=== PATIENT | male | born 1950 | race Caucasian/White ===

== ENCOUNTER → 2018-03-01 08:45 | Outpatient (CLI) | payer MEDICARE, OTHER, SELFPAY | PROVIDERS: Family Provider Family Medicine; PCP Family Medicine; Visit Provider Internal Medicine Cardiovascular Disease | DX: R00.2 Palpitations (principal); R00.0 Tachycardia, unspecified | CPT/HCPCS: 93225; 93226 ==

== ENCOUNTER → 2018-04-05 15:27 | Outpatient (CLI) | payer MEDICARE, OTHER, SELFPAY ==
--- NOTE | 2018-04-05 15:34 | MRI_ITS ---
STUDY: MRI THORACIC SPINE WITH AND WITHOUT CONTRAST REASON FOR EXAM: Male, 67 years old. Prostate cancer with bone metastases TECHNIQUE: 10 ml of Gadavist was administered intravenously for the contrast portion of the examination. COMPARISON: None. FINDINGS: Normal kyphosis of the thoracic spine. There is no substantial scoliosis. There is a lesion occupying much of the T7 vertebral body extending into the right pedicle consistent with metastatic disease . There is a similar-appearing lesions involving the left anterior T6 vertebral body and right transverse process of T6 as well as the posterior aspect of T8 vertebral body. No evidence for acute fracture or subluxation There is a metastasis involving the right T9 vertebral body and involving the right rib There appears to be extension of tumor into the anterior right epidural space posterior to the T7 vertebral body but no spinal stenosis T1-2, T2-3, T3-4, T4-5, T5-6, T6-7, T7-8, T8-9, T9-10, T10-11, T11-12: Normal endplates. Normal disc hydration, heights and morphology of the corresponding intervertebral discs. Normal central canal and intervertebral neural foramina at the corresponding levels. Normal visualized thoracic cord. Normal conus medullaris that terminates at T12-L1 The soft tissue structures are unremarkable. MRI/Spine Thoracic W/WO Contrast IMPRESSION: Findings consistent with multiple bone metastases. There is extension into the spinal canal at T7 but no evidence for spinal stenosis Electronically Signed: Du Collins MD at 21:52 EDT , Service support ,
--- NOTE | 2018-04-05 15:34 | MRI_ITS ---
STUDY: MRI LUMBAR SPINE WITH AND WITHOUT CONTRAST REASON FOR EXAM: Male, 67 years old. Prostate CA WITH BONE METS, C/O L SIDED BACK PAIN SACRAL PAIN TECHNIQUE: Standardized fat and water weighted pulse sequences were obtained in the sagittal and axial planes. 10 ml of Gadavist contrast material was administered for the contrast portion of the examination. COMPARISON: None FINDINGS: Normal lumbar lordosis. There is a lower lumbar dextro scoliosis. Normal conus medullaris that terminates at the T12-L1 level. There is retrolisthesis at L2-3. There is loss of disc height and disc desiccation at all lumbar levels. Vertebral body heights are maintained. There are multilevel Modic type II changes. In the L2 vertebral body on the left there is a 1 cm T1 and T2 low signal structure with equivocal enhancement. There are a few tiny T1 and T2 hypointense foci in the L3-L5 vertebral bodies. With the history of prostate cancer, these could represent metastases. There is multilevel facet arthropathy and ligamentum flavum hypertrophy. T12/L1: Sagittal images only were obtained. Normal. L1/2: There is a diffuse bulge larger on the right. There is mild to moderate central canal stenosis and moderate right and mild left neuroforaminal stenosis. L2/3: There is a diffuse bulge. There is mild central canal stenosis and moderate left and usrq-ai-jowjrsec right neuroforaminal stenosis. L3/4: There is a diffuse bulge larger on the left. There is mild central canal stenosis and moderate to severe left and mild right neuroforaminal stenosis. L4/5: There is a diffuse bulge larger on the left. There is no central canal stenosis. There is moderate to severe left and moderate right neuroforaminal stenosis. L5/S1: There is a mild diffuse bulge. There is no central canal stenosis. There is moderate bilateral neuroforaminal stenosis. Normal visualized sacral ala. Normal visualized paraspinous soft tissue structures. MRI/Spine Lumbar W/WO Contrast IMPRESSION: Multilevel degenerative changes, as described above. There is a lower lumbar dextro scoliosis. There is suspicion of bony metastases. L1/2: There is a diffuse bulge larger on the right. There is mild to moderate central canal stenosis and moderate right and mild left neuroforaminal stenosis. L2/3: There is a diffuse bulge. There is mild central canal stenosis and moderate left and pjmj-ro-ngyzqyfn right neuroforaminal stenosis. L3/4: There is a diffuse bulge larger on the left. There is mild central canal stenosis and moderate to severe left and mild right neuroforaminal stenosis. L4/5: There is a diffuse bulge larger on the left. There is moderate to severe left and moderate right neuroforaminal stenosis. L5/S1: There is a mild diffuse bulge. There is moderate bilateral neuroforaminal stenosis. Electronically Signed: Daisy Calderon MD at 13:04 EDT , Service support ,
[2018-04-05 15:56] LABS: CREATININE FINGERSTICK 0.8 mg/dL (0.70-1.30); EGFR FINGERSTICK > 60.0000 mL/min (>60)
== END ==
PROVIDERS: Family Provider Family Medicine; PCP Family Medicine
DX: C79.51 Secondary malignant neoplasm of bone (principal)
CPT/HCPCS: 72157; 72158; A9585; A4216

== ENCOUNTER → 2018-07-06 16:54 | Outpatient (CLI) | payer MEDICARE, OTHER, SELFPAY ==
--- NOTE | 2018-07-06 16:57 | RAD_ITS ---
STUDY: X-RAY - ABDOMEN/PELVIS REASON FOR EXAM: Male, 68 years old. Left flank pain TECHNIQUE: Two AP supine views of the abdomen and pelvis. COMPARISON: None. FINDINGS: The lung bases are out of the scntz-vj-jcjp. There is moderate stool in the colon. There is postoperative change in the right midline pelvis. There are phleboliths in the pelvis. There is a 2 cm focal sclerotic density overlying the right side of the sacrum which may represent an osteophyte versus a focal sclerotic density. There is also a rounded sclerotic density within the right side of the iliac crests. Normal soft tissue structures. There is levoscoliosis and multilevel degenerative change in the thoracolumbar spine. There is an inferior vena cava filter. RAD/Abdomen Single View IMPRESSION: Focal 9.5 mm rounded appearing sclerotic density overlying the right SI joint which may represent summation of shadows with an osteophyte versus osteoblastic lesion. Rounded focal density within the right iliac crest or superimposed over the right iliac crest. Recommend follow-up bone scan given clinical history. Degenerative change of the thoracolumbar spine. IVC filter. Constipation. Electronically Signed: Beatriz Ramos MD at 20:01 EDT Tel , Service support ,
== END ==
PROVIDERS: Family Provider Family Medicine; PCP Family Medicine; Visit Provider Urology
DX: R10.9 Unspecified abdominal pain (principal)
CPT/HCPCS: 74018

== ENCOUNTER 2018-07-14 06:00 | Day surgery (SDC) | payer MEDICARE, OTHER, SELFPAY ==
[2018-07-14] VITALS (7 sets, daily range): BP systolic 72–140; BP diastolic 47–98; PULSE 63–90; RESP 16; TEMP 36.1–36.6; O2SAT 88–99; BMI 35.4
--- NOTE | 2018-07-14 | GASB_PTH ---
PATIENT: ATTILA PELLETIER LOC: EN U#:[id number] AGE/SX: 68/M ROOM: RE07/14/[address]: Dr. Glen Treviño MD : 1950 BED: DIS: 07/14/2018 SPEC #: [id number] RECD: 07/14/18 13:13 STATUS: SCOTT RAMONA #: [id number] TAMMY: 07/14/18 00:[address]: Glen Treviño DEPT: SURGICAL PATHOLOGY RECD BY: Mauri Hernandez ENTERED: 07/14/18 13:14 SP TYPE: Gastric Bx OTHR DR: Dr. Nikolas Bennett DO Tissues: A - Gastric mucous membrane B - Gastric mucous membrane C - Esophageal mucous membrane D - Cecum, NOS E - Transverse colon Procedures: Surgery Specimen Level IV HEADER OPERATION: [place] [place] DIAGNOSIS: GERD, personal history colonic polyps TISSUE SUBMITTED: A - Antral biopsy, B - Gastric polyp biopsy, C - Distal esophagus biopsy, D - Cecal polyps, E - Proximal transverse polyps MICROSCOPIC DIAGNOSIS A. Antral biopsy: Mild gastritis. See microscopic description and comment. B. Gastric polyp, biopsy: Mild gastritis. See microscopic description and comment. C. Distal esophagus, biopsy: Fragments of squamous epithelium with minimal chronic inflammation. D. Cecal polyps, biopsy: Fragments of tubular adenoma. E. Proximal transverse colon polyps, biopsy: Fragments of tubular adenoma. SJ:naseem 07/17/18 COMMENT A & B. The results of immunohistochemistry for Helicobacter pylori will be reported separately ([id number]). B. Obvious changes consistent with polyp are not seen. MICROSCOPIC DESCRIPTION Slides are reviewed. A & B. The specimen shows fragments of gastric mucosa with chronic inflammatory cell infiltrates in the lamina propria consisting of lymphocytes and plasma cells, consistent with mild chronic gastritis. GROSS DESCRIPTION A - Received in fixative is one container labeled with the patient's name and designated antral biopsy. The specimen consists of one irregular fragment of light alas soft tissue that measures 0.4 x 0.3 x 0.1 cm. The specimen is totally submitted in one cassette. B - Received in fixative is one container labeled with the patient's name and designated gastric polyp biopsy. The specimen consists of one irregular fragment of light alas soft tissue that measures 0.4 x 0.3 x 0.1 cm. The specimen is totally submitted in one cassette. C - Received in fixative is one container labeled with the patient's name and designated distal esophagus biopsy. The specimen consists of two irregular fragments of light alas soft tissue that in aggregate measure 0.3 x 0.2 x 0.1 cm. The specimen is totally submitted in one cassette. D - Received in fixative is one container labeled with the patient's name and designated cecal polyps. The specimen consists of multiple irregular fragments of light alas soft tissue that in aggregate measure 1.5 x 0.4 x 0.1 cm. The specimen is totally submitted in one cassette. E - Received in fixative is one container labeled with the patient's name and designated proximal transverse polyps. The specimen consists of multiple irregular fragments of light alas soft tissue that in aggregate measure 1.5 x 0.4 x 0.1 cm. The specimen is totally submitted in one cassette. / SJ:rg 07/14/18 TC:1 CPT: 03381 x5
--- NOTE | 2018-07-14 | IMM_PTH ---
PATIENT: ATTILA PELLETIER LOC: EN U#:[id number] AGE/SX: 68/M ROOM: RE07/14/[address]: Dr. Glen Treviño MD : 1950 BED: DIS: 07/14/2018 SPEC #: [id number] RECD: 07/17/18 11:27 STATUS: SCOTT REReyna #: [id number] TAMMY: 07/14/18 00:[address]: Glen Treviño DEPT: IMMUNOHISTOCHEMISTRY RECD BY: Samantha Potts ENTERED: 07/17/18 11:27 SP TYPE: IMMUNO OTHR DR: Dr. Nikolas Bennett DO Tissues: A - Stomach, NOS B - Stomach, NOS Procedures: H Pylori (initial) PHYSICIAN & [place] [id number] SPECIMEN INFORMATION: Tissue Source: A - Antral biopsy, B - Gastric polyp biopsy Clinical Info: GERD, personal history colonic polyps Specimen Number: [id number] A & B CPT code: 78248 x2 METHODOLOGY: Deparaffinized sections of prefer/formalin-fixed tissue or PAP/DQ stained slides are incubated with monoclonal/polyclonal antibodies/oligonucleotide probes. Localization is made via biotin free immunoperoxidase method. Appropriate controls are performed and reacted as expected. Results on target cell population are indicated in the following table: RESULTS: ANTIBODY / CLONE RESULT Block A H Pylori (polyclonal) negative Block B H Pylori (polyclonal) negative These tests were developed and their performance characteristics determined by [facility]. They may not have been cleared or approved by the U.S. Food and Drug Administration. The FDA has determined that such clearance or approval is not necessary. INTERPRETATION: A. Antral biopsy: Negative for Helicobacter pylori organisms. B. Gastric polyp, biopsy: Negative for Helicobacter pylori organisms. SJ:naseem 07/18/18
--- NOTE | 2018-07-14 07:44 | OP.ENDO_ITS ---
Patient Name: Chance Medrano Procedure Date: 07/14/2018 6:56 AM Date of : 1950 Age: 68 Procedure: Upper GI endoscopy Indications: Heartburn, Esophageal reflux Providers: Glen Treviño MD Referring MD: Glen Treviño MD Medicines: See the Anesthesia note for documentation of the administered medications Complications: No immediate complications. Procedure: Pre-Anesthesia Assessment: - Prior to the procedure, a History and Physical was performed, and patient medications and allergies were reviewed. The patient's tolerance of previous anesthesia was also reviewed. The risks and benefits of the procedure and the sedation options and risks were discussed with the patient. All questions were answered, and informed consent was obtained. Prior Anticoagulants: The patient has taken Coumadin (warfarin), last dose was 1 day prior to procedure. ASA Grade Assessment: II - A patient with mild systemic disease. After reviewing the risks and benefits, the patient was deemed in satisfactory condition to undergo the procedure. After obtaining informed consent, the endoscope was passed under direct vision. Throughout the procedure, the patient's blood pressure, pulse, and oxygen saturations were monitored continuously. The gastroscope was introduced through the mouth, and advanced to the second part of duodenum. The upper GI endoscopy was accomplished without difficulty. The patient tolerated the procedure well. Scope In: 7:04:16 AM Scope Out: 7:08:38 AM Total Procedure Duration Time 0 hours 4 minutes 22 seconds Findings: LA Grade A (one or more mucosal breaks less than 5 mm, not extending between tops of 2 mucosal folds) esophagitis with no bleeding was found 40 cm from the incisors. Biopsies were taken with a cold forceps for histology. A large hiatal hernia was present. Diffuse mild inflammation characterized by erythema was found in the gastric antrum. Biopsies were taken with a cold forceps for histology. A few 6 mm sessile polyps with no bleeding and no stigmata of recent bleeding were found in the gastric fundus. The polyp was removed with a cold biopsy forceps. Resection and retrieval were complete. The examined duodenum was normal. Impression: - LA Grade A reflux esophagitis. Biopsied. - Large hiatal hernia. - Chronic gastritis. Biopsied. - A few gastric polyps. Resected and retrieved. - Normal examined duodenum. Recommendation: - Telephone my office for pathology results in 1 week. - Resume previous diet. - Continue present medications. Procedure Code(s): --- Professional --- 76268, Esophagogastroduodenoscopy, flexible, transoral; with biopsy, single or multiple Diagnosis Code(s): --- Professional --- K21.0, Gastro-esophageal reflux disease with esophagitis K44.9, Diaphragmatic hernia without obstruction or gangrene K29.50, Unspecified chronic gastritis without bleeding K31.7, Polyp of stomach and duodenum R12, Heartburn CPT copyright 2017 [employer]. All rights reserved. The codes documented in this report are preliminary and upon relaster review may be revised to meet current compliance requirements. Glen Treviño MD 07/14/2018 7:43:23 AM This report has been signed electronically. Number of Addenda: 0 Note Initiated On: 07/14/2018 6:56 AM
--- NOTE | 2018-07-14 07:49 | OP.ENDO_ITS ---
Patient Name: Chance Medrano Procedure Date: 07/14/2018 7:10 AM Date of : 1950 Age: 68 Procedure: Colonoscopy Indications: High risk colon cancer surveillance: Personal history of colonic polyps Providers: Glen Treviño MD Referring MD: Glen Treviño MD Medicines: See the Anesthesia note for documentation of the administered medications Patient Profile: Last Colonoscopy: November 2013. Complications: No immediate complications. Procedure: Pre-Anesthesia Assessment: - Prior to the procedure, a History and Physical was performed, and patient medications and allergies were reviewed. The patient's tolerance of previous anesthesia was also reviewed. The risks and benefits of the procedure and the sedation options and risks were discussed with the patient. All questions were answered, and informed consent was obtained. Prior Anticoagulants: The patient has taken Coumadin (warfarin), last dose was 1 day prior to procedure. ASA Grade Assessment: II - A patient with mild systemic disease. After reviewing the risks and benefits, the patient was deemed in satisfactory condition to undergo the procedure. After I obtained informed consent, the scope was passed under direct vision. Throughout the procedure, the patient's blood pressure, pulse, and oxygen saturations were monitored continuously. The colonoscope was introduced through the anus and advanced to the cecum, identified by appendiceal orifice and ileocecal valve. The colonoscopy was performed with moderate difficulty due to a redundant colon. Successful completion of the procedure was aided by applying abdominal pressure and performing the maneuvers documented (below) in this report. The patient tolerated the procedure well. The quality of the bowel preparation was good. Scope In: 7:11:36 AM Scope Withdrawal Time 0 hours 16 minutes 13 seconds Scope Out: 7:37:57 AM Total Procedure Duration Time 0 hours 26 minutes 21 seconds Findings: The digital rectal exam findings include internal hemorrhoids that prolapse with straining, but spontaneously regress to the resting position (Grade II). A 8 mm polyp was found in the cecum. The polyp was sessile. The polyp was removed with a hot snare. Resection and retrieval were complete. A 7 mm polyp was found in the proximal transverse colon. The polyp was sessile. The polyp was removed with a hot snare. Resection and retrieval were complete. A 9 mm polyp was found in the proximal transverse colon. The polyp was sessile. The polyp was removed with a hot snare. Resection and retrieval were complete. Multiple diverticula were found in the sigmoid colon and descending colon. There was no evidence of diverticular bleeding. Impression: - Internal hemorrhoids that prolapse with straining, but spontaneously regress to the resting position (Grade II) found on digital rectal exam. - One 8 mm polyp in the cecum, removed with a hot snare. Resected and retrieved. - One 7 mm polyp in the proximal transverse colon, removed with a hot snare. Resected and retrieved. - One 9 mm polyp in the proximal transverse colon, removed with a hot snare. Resected and retrieved. - Moderate diverticulosis in the sigmoid colon and in the descending colon. There was no evidence of diverticular bleeding. Recommendation: - Discharge patient to home. - Resume previous diet. - Repeat colonoscopy in 3 years for surveillance. - Telephone my office for pathology results in 1 week. - Continue present medications. Procedure Code(s): --- Professional --- 95377, Colonoscopy, flexible; with removal of tumor(s), polyp(s), or other lesion(s) by snare technique Diagnosis Code(s): --- Professional --- Z86.010, Personal history of colonic polyps K64.1, Second degree hemorrhoids D12.0, Benign neoplasm of cecum D12.3, Benign neoplasm of transverse colon (hepatic flexure or splenic flexure) K57.30, Diverticulosis of large intestine without perforation or abscess without bleeding CPT copyright 2017 [employer]. All rights reserved. The codes documented in this report are preliminary and upon semiconductor technician review may be revised to meet current compliance requirements. Glen Treviño MD 07/14/2018 7:48:49 AM This report has been signed electronically. Number of Addenda: 0 Note Initiated On: 07/14/2018 7:10 AM
== END 2018-07-14 08:52 | disposition home or self-care (01) ==
LOC: EN 06:01 → AC 06:02
PROVIDERS: Family Provider Family Medicine; PCP Family Medicine; Visit Provider Surgery
PROC: 0DJD8ZZ Inspection of Lower Intestinal Tract, Via Natural or Artificial Opening Endoscopic (ICD-10-PCS; CPT 45378; principal; 2018-07-14 06:55)
DX: K21.0 Gastro-esophageal reflux disease with esophagitis (principal); K29.50 Unspecified chronic gastritis without bleeding; K44.9 Diaphragmatic hernia without obstruction or gangrene; K31.7 Polyp of stomach and duodenum; Z86.010 Personal history of colon polyps; K64.1 Second degree hemorrhoids; D12.0 Benign neoplasm of cecum; D12.3 Benign neoplasm of transverse colon; K57.30 Diverticulosis of large intestine without perforation or abscess without bleeding; Q43.8 Other specified congenital malformations of intestine; I25.10 Atherosclerotic heart disease of native coronary artery without angina pectoris; J44.9 Chronic obstructive pulmonary disease, unspecified; I10 Essential (primary) hypertension; G47.31 Primary central sleep apnea; E78.00 Pure hypercholesterolemia, unspecified; M19.90 Unspecified osteoarthritis, unspecified site; I49.3 Ventricular premature depolarization; I44.0 Atrioventricular block, first degree; C61 Malignant neoplasm of prostate; C79.51 Secondary malignant neoplasm of bone; Z86.711 Personal history of pulmonary embolism; Z90.49 Acquired absence of other specified parts of digestive tract; Z79.01 Long term (current) use of anticoagulants; Z79.899 Other long term (current) drug therapy
CPT/HCPCS: 43239; 45385; 36416; 85610; 88305; 88342; J7120; A4216

== ENCOUNTER → 2018-08-22 11:21 | Outpatient (CLI) | payer MEDICARE, OTHER, SELFPAY ==
--- NOTE | 2017-08-23 | IMM_PTH ---
PATIENT: ATTILA PELLETIER LOC: [place] U#:[id number] AGE/SX: 75/M ROOM: RE08/22/[address]: Dr. Jewel Hollis MD : 1950 BED: DIS: SPEC #: [id number] RECD: 08/22/18 11:28 STATUS: SCOTT RAMONA #: [id number] TAMMY: 08/23/17 00:[address]: Jewel Hollis DEPT: IMMUNOHISTOCHEMISTRY RECD BY: Samantha Potts Tissues: F - PROSTATE LEFT Procedures: MLH-1 (add) MSH6 (add) Anti-PMS2 (add) MSH2 (initial) PHYSICIAN & INSTITUTION [place] [id number] SPECIMEN INFORMATION: Tissue Source: F - Left prostate, base, core biopsy Clinical Info: Elevated PSA Specimen Number: [id number] CPT code: 72084, 46130 x3 METHODOLOGY: Deparaffinized sections of prefer/formalin-fixed tissue or PAP/DQ stained slides are incubated with monoclonal/polyclonal antibodies/oligonucleotide probes. Localization is made via biotin free immunoperoxidase method. Appropriate controls are performed and reacted as expected. Results on target cell population are indicated in the following table: RESULTS: ANTIBODY / CLONE RESULT MLH-1 (M1) positive MSH2 (25D12) negative MSH6 (44) negative PMS2 ([id number]) positive These tests were developed and their performance characteristics determined by [facility]. They may not have been cleared or approved by the U.S. Food and Drug Administration. The FDA has determined that such clearance or approval is not necessary. INTERPRETATION: F. Left prostate, base, core biopsy: Result of Microsatellite Instability Study: Positive (loss of mismatch protein; microsatellite instability detected). Complete loss of MSH2 and MSH6. AM:naseem 08/23/18
== END ==
PROVIDERS: Visit Provider Internal Medicine Hematology & Oncology
DX: C61 Malignant neoplasm of prostate (principal)
CPT/HCPCS: 88341; 88342

== ENCOUNTER → 2018-12-21 14:42 | Outpatient (CLI) | payer MEDICARE, OTHER, SELFPAY ==
[2018-12-05 09:24] VITALS: BMI 36.0
[2018-12-21 16:54] LABS: PSA,Total- Diagnostic 0.27 ng/mL (0.0-4.0)
== END ==
PROVIDERS: Family Provider Family Medicine; PCP Family Medicine; Referring Provider Urology; Visit Provider Urology
DX: C61 Malignant neoplasm of prostate (principal)
CPT/HCPCS: 36415; 84153

== ENCOUNTER → 2019-01-05 06:31 | Outpatient (CLI) | payer MEDICARE, OTHER, SELFPAY ==
[2018-12-05 09:24] VITALS: BMI 36.0
--- NOTE | 2019-01-05 06:46 | MRI_ITS ---
STUDY: MRI LEFT ANKLE WITHOUT CONTRAST REASON FOR EXAM: Male, 68 years old. Pain. TECHNIQUE: Standardized fat and water weighted pulse sequences were obtained in all 3 orthogonal planes. COMPARISON: None. FINDINGS: Normal subcutis adipose space. There is posterior tibialis tendinosis, tenosynovitis, and partial intrasubstance distal tendon tear. There is tenosynovitis of the flexor digitorum longus tendon sheath, without a tendinosis or tendon tear. There is tenosynovitis of the flexor hallucis longus tendon sheath, with pooling of fluid in the Knot of Dav, which may be acting as an entrapping lesion upon the plantar cutaneous nerves. Normal peroneus longus and brevis tendons. Normal tibialis anterior tendon. Normal extensor hallucis longus tendon. Normal extensor digitorum longus tendons. Normal Achilles tendon and teno-osseous insertion. There is thickening of the central cord of the plantar fascia, without a plantar fasciitis or plantar fascial tear, consistent with plantar fascial degeneration. There is a plantar calcaneal spur, but without cancellous marrow edema. Normal intrinsic muscles of the rearfoot. Normal distal tibiofibular syndesmotic ligamentous complex. Normal lateral ligamentous complex. Normal subtalar ligaments and sinus tarsi. Normal deltoid ligamentous complexes. Normal plantar calcaneonavicular (spring) ligament. There is a joint effusion of the tibiotalar articulation . Normal talar dome. There is a joint effusion of the posterior subtalar articulation with capsular distension. There is spurring and a joint effusion of the talonavicular articulation with capsular distension. There is 2.2 cm ganglion adjacent to the tarsal sinus, series 7 image 10/05. Normal calcaneocuboid articulation. Normal navicular-cuneiform articulations. MRI/Lower Ext Joint Only (Routine) IMPRESSION: Tenosynovitis with partial intrasubstance tear of the tibialis posterior. Tenosynovitis of the flexor tendons with fluid at the knot of Dav. Tibiotalar and subtalar and talonavicular joint effusions including ganglion at the anterior aspect. Electronically Signed: Ruben Tirado MD at 8:25 EDT , Service support ,
== END ==
PROVIDERS: Family Provider Family Medicine; PCP Family Medicine; Referring Provider Podiatrist Foot & Ankle Surgery; Visit Provider Podiatrist Foot & Ankle Surgery
DX: M21.42 Flat foot [pes planus] (acquired), left foot (principal)
CPT/HCPCS: 73721

== ENCOUNTER → 2019-01-30 10:29 | Outpatient (CLI) | payer MEDICARE, OTHER, SELFPAY ==
[2018-12-05 09:24] VITALS: BMI 36.0
--- NOTE | 2019-01-30 10:32 | US_ITS ---
PROCEDURES: ULTRASOUND AORTA REASON FOR EXAM: Male, 68 years old. Family history of abdominal aortic aneurysm. Screening. TECHNIQUE: Ultrasound evaluation of the aorta was performed with real-time and static langford-scale imaging. COMPARISON: None. FINDINGS: There is atherosclerotic plaque formation of the abdominal aorta. Aorta measures: Proximal 2.2 cm. Middle 2 cm. Distal 1.7 cm. Aorta measure transversely: Proximal 2.4 cm. Middle 1.9 cm. Distal 1.9 cm. There is normal color flow throughout the aorta. There is normal waveform and velocity. Right iliac artery measures: 1.3 cm. Right iliac artery measure transversely: 1.2 cm. Left iliac artery measures: 1.5 cm. Left iliac artery measure transversely: 1.5 cm. There is no demonstrated aneurysm.. US/Aorta IMPRESSION: Atherosclerotic changes of the abdominal aorta without aneurysm. Electronically Signed: Dav Guallpa DO at 17:40 EDT Tel [phone], Service support ,
== END ==
PROVIDERS: Family Provider Family Medicine; PCP Family Medicine; Referring Provider Family Medicine; Visit Provider Family Medicine
DX: I10 Essential (primary) hypertension (principal); Z13.6 Encounter for screening for cardiovascular disorders; Z82.49 Family history of ischemic heart disease and other diseases of the circulatory system
CPT/HCPCS: 76775

== ENCOUNTER → 2019-03-26 | Outpatient (CLI) | payer MEDICARE, OTHER, SELFPAY ==
[2018-12-05 09:24] VITALS: BMI 36.0
--- NOTE | 2019-03-26 15:20 | CT_ITS ---
STUDY: CT ABDOMEN AND PELVIS WITHOUT CONTRAST REASON FOR EXAM: Male, 68 years old. Hematuria. Right flank pain. RADIATION DOSAGE (If Supplied By Facility): CTDIvol = ( 14.80 ) mGy, DLP = ( 881.46 ) mGycm TECHNIQUE: Transaxial images were obtained from the dome of the diaphragm to the symphysis pubis without oral contrast, and without intravenous contrast. Sagittal and coronal images were reconstructed. Individualized dose optimization techniques were used for this CT. COMPARISON: None. FINDINGS: There are chronic interstitial fibrotic changes of the lung bases. There are coronary artery calcifications. Normal liver. There is non-visualization of the gallbladder, which may be secondary to either contraction or a prior cholecystectomy. Normal spleen. There is diffuse atrophy of the pancreas. Normal bilateral adrenal glands. Bilateral renal cysts measuring up to 2.2 cm on the right and 3.6 cm on the left. There is no hydronephrosis.. There is a small hiatal hernia with wall thickening at the gastroesophageal junction. Normal small intestine. Normal colon. The appendix is visualized and appears normal. There is diffuse atherosclerotic calcification of the abdominal aorta with elongation and tortuosity, but without a demonstrated aneurysm. There is an IVC filter in place. Normal retroperitoneum. Normal urinary bladder. There is no free fluid in the abdomen or pelvis. There are fat-containing inguinal hernias. There is postoperative change in the right lower abdominal wall. There is scoliosis with degenerative change of the spine. There is sacroiliac sclerosis and spurring There is sclerosis of the right anterior acetabulum and superior pubic ramus. CT/Abdomen/Pelvis without Cont IMPRESSION: Hiatal hernia. No obstruction. Renal cysts. No stones or hydronephrosis. Electronically Signed: Ruben Tirado MD at 16:20 EDT , Service support ,
== END | disposition home or self-care (01) ==
PROVIDERS: Family Provider Family Medicine; PCP Family Medicine; Referring Provider Urology; Visit Provider Urology
DX: R31.9 Hematuria, unspecified (principal)
CPT/HCPCS: 74176

== ENCOUNTER → 2019-03-27 | Outpatient (CLI) | payer MEDICARE, OTHER, SELFPAY ==
[2018-12-05 09:24] VITALS: BMI 36.0
[2019-03-27 10:11] LABS: Erythrocyte Sedimentation Rate 31 mm/hr (0-20)
[2019-03-27 10:50] LABS: Vitamin B12 428 pg/mL (211-911)
[2019-03-29 16:07] LABS: Albumin 3.3 g/dL (2.9-4.4); Albumin, Ur 27.9 % (.); Alpha-1-Globulin, Ur 6.4 % (.); Alpha-1-Globulins 0.2 g/dL (0.0-0.4); Alpha-2-Globulins 0.7 g/dL (0.4-1.0); Alpha-2-Globulins, Ur 23.2 % (.); Beta Globulin, Ur 27.2 % (.); Gamma Globulin 1.2 g/dL (0.4-1.8); Gamma Globulin, Ur 15.3 % (.); Immunoglobulin A 334 mg/dL (61-437); Immunoglobulin G 1181 mg/dL (700-1600); Immunoglobulin M 131 mg/dL (20-172); M-Spike, Ur % Not Observed % (Not Observed); PROEL- TOTAL PROTEIN 6.6 g/dL (6.0-8.5); Total Protein, Ur 8.6 mg/dL (Not Estab.)
== END | disposition home or self-care (01) ==
LOC: LAB 09:09
PROVIDERS: Family Provider Family Medicine; PCP Family Medicine; Referring Provider Psychiatry & Neurology Neurology; Visit Provider Psychiatry & Neurology Neurology
DX: G62.9 Polyneuropathy, unspecified (principal); R20.0 Anesthesia of skin
CPT/HCPCS: 36415; 82607; 82784; 84165; 84166; 85652; 86334; 86335

== ENCOUNTER → 2019-04-04 | Outpatient (CLI) | payer MEDICARE, OTHER, SELFPAY ==
[2018-12-05 09:24] VITALS: BMI 36.0
--- NOTE | 2019-04-04 14:36 | NEURO ---
NCS and/or EMG Patient Report Ordering Doctor: Preet Riley DATE OF SERVICE: 04/04/19 Chance Medrano is a 68-year-old male presents for electrodiagnostic testing of the lower limbs. He has been having repeated falls and reports intermittent numbness in the lower limbs. He has been treated for cancer with chemotherapy and radiation. Electrodiagnostic findings: Peroneal motor nerve demonstrates normal distal latency amplitude and conduction velocity bilaterally. Normal tibial motor response bilaterally. Prolonged tibial and peroneal F waves are noted. Prolonged H reflex bilaterally. Absent left sural response. Absent plantar responses bilaterally. Prolonged right sural latency is noted normal superficial peroneal latency bilaterally. Needle EMG testing was not performed. Letter diagnostic impression: This is an abnormal study in the lower limbs. 1. 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 This may be secondary to chemotherapy or radiation treatments. If there are any further questions, please do not hesitate to contact me.
== END | disposition home or self-care (01) ==
LOC: PSN 12:19
PROVIDERS: Family Provider Family Medicine; PCP Family Medicine; Referring Provider Psychiatry & Neurology Neurology; Visit Provider Psychiatry & Neurology Neurology
DX: R53.1 Weakness (principal); G62.9 Polyneuropathy, unspecified
CPT/HCPCS: 95886; 95912

== ENCOUNTER 2019-05-04 12:00 | Outpatient (RCR) | payer MEDICARE, OTHER, SELFPAY ==
[2018-12-05 09:24] VITALS: BMI 36.0
--- NOTE | 2019-03-27 15:54 | HP.PTEVAL ---
Patient's Visit Information ATTILA PELLETIER is a 68 year old M referred to Physical Therapy by Preet Riley MD with a diagnosis of Gait and balance, weakness. Date of Evaluation: 03/27/19 Physical Therapist: Sridhar Turner, DPT, OCS, CSCS - Visit Plan Frequency: 2x /Week Duration: 4-6 Weeks Plan: Neurocom then up to 2x/week for 4 weeks as needed to do balance ex to address deficits(likely vestibular and weight shifting). Progress to HEp. - Subjective Findings: Been falling mostly backwards. Has to be very careful and stay off grass. Has to turn slower. Been doing this for a year, insidous onset. Has prostate CA with mets. Is on zytega for the CA. Has cane and walker but does not wish to use. Last fall was 6 weeks ago and fell 3x in a week. Sent to [facility] for this. No spinning. No lightheadedness. Does not feel overly off balance. No injuries with falls other than flare up of bad back. Hit head one time adn did MRI whcih was OK. Walking on grass is tough and sits on bottom row of bleachers due to balance. Wears L foot brace for 6 months due to foot tilt outward. - Objective No patella R knee. Walks safe today on firm flat surface, steps with two rails reciprocal but weaker on R. Trasnfers out of chair I without UE. reflexes patella and achilles 2/3. Sensation WNL to gross light touch in LE. strength LE 4/5 B. coordination reciprocal toe adn heel tap min deficits, heel to agarwal is OK. VOR is slight deficits with wobble in standing. HS adn gastroc mild tight at -30 90/90 test and 0 DF actively. - Balance Scores Functional Gait Assessment Score: 21 % Disability: 30.0000 CATSIB Score (Max score 120 seconds): 110 - Goals Goal 1:: FGA 25/30 to minimze fall risk. Goal Time Frame: 4-6 Weeks Goal 2:: Pt feel balance 50% improved and able to walk on grass with confidence Goal Time Frame: 4-6 Weeks Goal 3:: I approp HEP to minimize future problems. Goal Time Frame: 4-6 Weeks - Rehabilitation Potential Physical Therapy Diagnosis: Weakness and balance deficits. Rehabilitation Potential: Fair - Anticipated Interventions Patient/Client Instruction: Educate patient on: Condition, Plan of Care For the Purpose of:: To increase tolerance to activity/condition/position, To improve balance Therapeutic Exercise to Include: Balance training, Gait and locomotor training For the Purpose of:: To increase tolerance to activity/condition/position, To improve balance, To improve safety Thank you for the opportunity to evaluate your patient. For Medicare and Medicare HMO plans, please review the plan of care and approve it. It will need to be FAXED BACK to us at [phone] for Medicare purposes. For Medicare only, by signing this I certify the plan of care. Please let me know if there are questions or concerns regarding this plan of care. Physician Signature: Date:
--- NOTE | 2019-04-04 10:36 | HP.PTCOM ---
PT Communication Note 04/04/[address] Preet Riley MD , Thank you for the referral of Chance to [facility] for balance assessment. I have enclosed a copy of the results for your review. In general summation, he scored low on the forward weight shift excursion adn control on the Limits of Stability Test. he scored slightly low on vestibular and somatosensory portion of the Sensory Organization Test. He scored slow especially on the right leg on the Motor Control test indicating possible neuropathy. With these results in mind, I plan to see him 2x/week for 4 weeks for balance exercise instruction to address these deficits. Please do not hesitate to call if there are questions. Thank you. Sincerely, Sridhar Turner DPT, OCS, CSCS Contact Information
--- NOTE | 2019-05-04 12:57 | HP.PTREVAL ---
Preet Riley MD, It has been my pleasure to treat ATTILA PELLETIER over the last 8 visits for Gait and balance, weakness. Please see the progress note below for an update on the physical therapy plan of care! Subjective: Made some strides. Not falling over as much at home. Addressing all problems. Ankle is painful L at times intermittently. Not doing HEP. Feels about where he needs to be. Objective/Function: FGA +4, Walks with some R antalgia/weakness, needs rail for R LE on steps. Better overall. Plan Plan: f/u one month to ensure FGA still good and pt doing well. To ensure consistency of meeting goals. Goals Goal 1:: FGA 25/30 to minimze fall risk. Goal Time Frame: 4-6 Weeks Goal Progress: Goal Met Goal 2:: Pt feel balance 50% improved and able to walk on grass with confidence Goal Time Frame: 4-6 Weeks Goal Progress: Goal Met Goal 3:: I approp HEP to minimize future problems. Goal Time Frame: 4-6 Weeks Goal Progress: Goal Met Anticipated Interventions Patient/Client Instruction: Educate patient on: Condition, Plan of Care For the Purpose of:: To increase tolerance to activity/condition/position, To improve balance Therapeutic Exercise to Include: Balance training, Gait and locomotor training For the Purpose of:: To increase tolerance to activity/condition/position, To improve balance, To improve safety Please do not hesitate to contact me at [phone] by phone or if you have questions or concerns regarding this new plan of care! Sincerely, Sridhar Turner, DPT, OCS, CSCS
--- NOTE | 2019-07-05 12:12 | HP.PT.NRP ---
HP - Discharge Summary (1) - Patient Information ATTILA PELLETIER was seen in my office for initial evaluation on 03/27/19. The following Plan of Care was established for this patient: Initial Frequency: 2x /Week Initial Duration: 4-6 Weeks - Anticipated Interventions Patient/Client Instruction: Educate patient on: Condition, Plan of Care For the Purpose of:: To increase tolerance to activity/condition/position, To improve balance Therapeutic Exercise to Include: Balance training, Gait and locomotor training For the Purpose of:: To increase tolerance to activity/condition/position, To improve balance, To improve safety This patient was last seen in our office 05/04/19. Pertinent comments regarding their Physical therapy will appear below: Pt seen 8 visits POC and was to continue HEP as he was 50% improved. He was to f/u one month later but neglected to do so. At this point, it has been over two months and I will discontinue due to nonattendance. At this point I will be discontinuing this patient from physical therapy. I would be happy to see this patient again in the future if found appropriate by the physician. Thank you! Sridhar Turner, DPT, OCS, CSCS
== END 2019-05-04 19:00 | disposition home or self-care (01) ==
LOC: PT 12:00
PROVIDERS: Family Provider Family Medicine; PCP Family Medicine; Visit Provider Psychiatry & Neurology Neurology
DX: G62.9 Polyneuropathy, unspecified (principal); R29.898 Other symptoms and signs involving the musculoskeletal system
CPT/HCPCS: 97110; 97162; 97530; 97750

== ENCOUNTER → 2019-08-22 11:37 | Outpatient (CLI) | payer MEDICARE, OTHER, SELFPAY ==
[2018-12-05 09:24] VITALS: BMI 36.0
== END ==
PROVIDERS: Family Provider Family Medicine; PCP Family Medicine; Referring Provider Nurse Practitioner Family; Visit Provider Nurse Practitioner Family
DX: I49.1 Atrial premature depolarization (principal); I49.3 Ventricular premature depolarization; R00.1 Bradycardia, unspecified
CPT/HCPCS: 93225; 93226

== ENCOUNTER 2019-09-06 18:57 | Emergency (ER) | payer MEDICARE, OTHER, SELFPAY ==
[2018-12-05 09:24] VITALS: BMI 36.0
[2019-09-06 18:57] VITALS: BP 133/90; PULSE 81; RESP 16; TEMP 36.4; O2SAT 97; BMI 38.0
--- NOTE | 2019-09-06 19:44 | US_ITS ---
STUDY: VENOUS DOPPLER ULTRASOUND - LEFT LOWER EXTREMITY REASON FOR EXAM: Male, 69 years old. Calf swelling 2 days TECHNIQUE: Ultrasound evaluation of the deep vein system to include madsen-scale imaging and compression was performed. Madsen-scale imaging and Doppler sonographic evaluation, including duplex spectral analysis and qualitative color flow sonography, was performed. COMPARISON: None. FINDINGS: Common Femoral Vein: Normal compression, spontaneity and augmentation. Normal color Doppler. Common Femoral Vein/Greater Saphenous Junction: Normal compression, spontaneity and augmentation. Normal color Doppler. Deep Femoral Vein: Normal compression, spontaneity and augmentation. Normal color Doppler. Femoral Proximal: Normal compression, spontaneity and augmentation. Normal color Doppler. Femoral Middle: Normal compression, spontaneity and augmentation. Normal color Doppler. Femoral Distal: Normal compression, spontaneity and augmentation. Normal color Doppler. Popliteal Vein: Normal compression, spontaneity and augmentation. Normal color Doppler. Posterior Tibial Vein: Normal compression, spontaneity and augmentation. Normal color Doppler. Peroneal Vein: Normal compression, spontaneity and augmentation. Normal color Doppler. US/Venous Duplex Imag/Limited/Uni IMPRESSION: Normal venous Doppler ultrasound of the lower extremity. Electronically Signed: Gabino Rosario MD at 21:18 EST , Service support ,
[2019-09-06 20:35] LABS: Absolute Neutrophil Count 4.9 X10^3/uL (2.0-7.7); Basophil# 0.03 X10^3/uL; Basophil% 0.5 % (0-1); Eosinophils% 1.5 % (0-5); Hematocrit 36.8 % (40-54); Hemoglobin 12.4 g/dL (13.0-16.5); Lymphocyte % 12.3 % (19-41); Mean Corp Hgb Conc 33.7 g/dL (32-36); Mean Corpuscular Hgb 32.5 pg (27.0-32.0); Mean Corpuscular Volume 96.6 fL (80-94); Mean Platelet Vol. 9.2 fl (6.2-12.0); Monocyte# 0.62 X10^3/uL; Monocyte% 9.6 % (0-10); NRBC Flagged by Analyzer 0 % (0-5); Neutrophil # 4.91 X10^3/uL (2.7-7.7); Neutrophil % 75.8 % (47-70); Platelet Count 164 K/mm3 (150-450); RBC Distribution Width CV 13.1 % (11.6-14.6); RBC Distribution Width SD 46.8 fl (35.1-43.9); Red Blood Count 3.81 M/mm3 (4.6-6.2); White Blood Count 6.5 K/mm3 (4.4-11.0)
[2019-09-06 20:45] LABS: International Normalized Ratio 2.7; Prothrombin Time (Protime)PT. 28.8 SECONDS (11.7-14.9)
[2019-09-06 20:57] LABS: Anion Gap 9 (5-15); BUN 24 mg/dL (7-18); BUN/Creat Ratio 26.9 RATIO (10-20); Calcium,Total 8.7 mg/dL (8.5-10.1); Chloride 105 mmol/L (98-107); Creatinine, Serum 0.89 mg/dL (0.70-1.30); EST Glomerular Filtration Rate 89 mL/min (>60); Est Glom Filt Rate - Afr Amer 108 mL/min (>60); Estimated Creatinine Clearance 79.74 ml/min; Glucose 196 mg/dL (74-106); Sodium Level 140 mmol/L (136-145)
--- NOTE | 2019-09-06 21:08 | CT_ITS ---
STUDY: CT LEFT LOWER LEG LEFT REASON FOR EXAM: Male, 69 years old. Swelling left leg 2 days postknee replacement RADIATION DOSAGE (If Supplied By Facility): CTDIvol = ( 15.61 ) mGy, DLP = ( 1721.21 ) mGycm. Individualized dose optimization techniques were used for this CT.? TECHNIQUE: Standard protocol post 100 cc IV Isovue 370. COMPARISON: None. FINDINGS: Total knee arthroplasty causes local image degradation due to beam hardening artifact. Extensive vascular calcifications are noted throughout. No significant hematoma noted. Cortical margins intact. Total knee arthroplasty in anatomic alignment. Moderate suprapatellar effusion. No abnormal enhancement.. CT/Extremity Lower WITH Contrast IMPRESSION: Moderate suprapatellar effusion. Total knee arthroplasty. No significant hematoma or abscess. Electronically Signed: Gabino Rosario MD at 22:11 EST , Service support ,
[2019-09-06 21:29] VITALS: BP 130/70; BP 133/90; PULSE 80; PULSE 81; RESP 14; RESP 16; TEMP 36.1; O2SAT 98
--- NOTE | 2019-09-06 22:47 | ED.DCSUM_ITS ---
- ER Visit Summary Date of Service: 09/06/19 Chief Complaint: Pain History of Present Illness: The patient is a 69 M with left calf pain for 2 days. This came on gradually. It is severe. He has difficulty walking. The pain radiates up behind his left knee. He had an injury last week where he hit his left knee, but no other injuries. He is on Coumadin for history of clots. He is also taking doxycycline for a sore throat. Physical Examination: Afebrile and vital signs unremarkable. Left calf shows some ecchymosis. The calf is edematous and diffusely tender to palpation. Otherwise skin is unremarkable. Good range of motion. Neurovascular intact distally. Test Results: Hemoglobin 12.4, glucose 196, BUN 24, INR 2.7. Ultrasound showed no evidence of DVT. C[employer] thought that the muscle looked irregular. CT was done and showed a suprapatellar effusion and postoperative changes, but no evidence of hematoma. Emergency Department Course and Treatment: Patient declined pain medicine. We did check labs. Will INR is therapeutic. Ultrasound showed no evidence of DVT. There was concern for a hematoma the ecchymosis appears more pronounced. I suspect this is the source of his pain. I do not believe he has compartment syndrome, neck fashion/other infections. He is neurovascularly intact. I suspect that he may have this bruising from a brace that he wears. Patient was advised to rest, ice, elevate. He was given a short course of pain medicine. He has follow-up with his doctor. Treatment Plan: As above Disposition: Discharge Impression: 1. Left calf pain This note was generated with [employer] dictation software. It may contain incorrect words, spelling, and punctuation that were not noted in review of the chart zachary or to signing ED Disposition - Plan for ED Patient: Referrals: Nikolas Bennett DO [Primary Care Provider] -
--- NOTE | 2019-09-06 22:49 | ED.DEP ---
ED Disposition - Plan for ED Patient: Instructions: Medication for Pain Prescriptions: Oxycodone HCl/Acetaminophen [Percocet 5/325] 1 tab PO Q6H PRN PRN 3 Days #12 tab PRN Reason: Pain Prescription Printed Referrals: Nikolas Bennett DO [Primary Care Provider] -
[2019-09-06 22:55] VITALS: BP 128/70; PULSE 85; RESP 16; O2SAT 96
== END 2019-09-06 23:06 | disposition home or self-care (01) ==
LOC: ED 19:41
PROVIDERS: Emergency Provider Emergency Medicine; Family Provider Family Medicine; PCP Family Medicine
DX: M79.662 Pain in left lower leg (principal); S80.12XA Contusion of left lower leg, initial encounter; Z96.651 Presence of right artificial knee joint; S89.92XA Unspecified injury of left lower leg, initial encounter; X58.XXXA Exposure to other specified factors, initial encounter; Y93.9 Activity, unspecified; Y92.9 Unspecified place or not applicable; J02.9 Acute pharyngitis, unspecified; I25.10 Atherosclerotic heart disease of native coronary artery without angina pectoris; J44.9 Chronic obstructive pulmonary disease, unspecified; K21.9 Gastro-esophageal reflux disease without esophagitis; I10 Essential (primary) hypertension; Z86.2 Personal history of diseases of the blood and blood-forming organs and certain disorders involving the immune mechanism; Z85.46 Personal history of malignant neoplasm of prostate; Z86.711 Personal history of pulmonary embolism; Z79.01 Long term (current) use of anticoagulants; Z79.899 Other long term (current) drug therapy
CPT/HCPCS: 73701; 80048; 85025; 85610; 93971; 99283; J7030; Q9967; A4216

== ENCOUNTER → 2019-09-11 09:26 | Outpatient (CLI) | payer MEDICARE, OTHER, SELFPAY ==
[2019-09-11 09:26] VITALS: BMI 37.0
--- NOTE | 2019-09-11 09:27 | RAD_ITS ---
STUDY: X-RAY - CERVICAL SPINE REASON FOR EXAM: Male, 69 years old. Neck pain TECHNIQUE: AP and lateral views lateral flexion and extension view view(s) of the cervical spine were obtained. COMPARISON: None FINDINGS: There are degenerative changes of the anterior atlantoaxial articulation. Normal odontoid process. Normal cervical lordosis. Stable grade 1 retrolisthesis C3 and C4 on flexion and extension image. There is limited flexion ability. There is multi-level endplate spondylosis. There is multi-level degenerative disc disease with multilevel disc space narrowing. There are atherosclerotic vascular calcifications of the carotid arteries. There is nuchal calcification. RAD/Cerv Spine 4 or 5 Views IMPRESSION: Multilevel degenerative changes. Retrolisthesis C3 and C4 stable on flexion and extension. Limited flexion mobility. Electronically Signed: Brittany Romero MD at 2:12 EST , Service support ,
== END ==
PROVIDERS: Family Provider Family Medicine; PCP Family Medicine; Referring Provider Orthopaedic Surgery; Visit Provider Orthopaedic Surgery
DX: M54.2 Cervicalgia (principal)
CPT/HCPCS: 72050

== ENCOUNTER → 2019-09-22 07:31 | Outpatient (CLI) | payer MEDICARE, OTHER, SELFPAY ==
[2019-09-11 09:59] VITALS: BMI 37.3
--- NOTE | 2019-09-22 07:33 | MRI_ITS ---
STUDY: MRI CERVICAL SPINE WITH AND WITHOUT CONTRAST REASON FOR EXAM: Male, 69 years old. Prostate cancer and metastatic disease to the spine TECHNIQUE: Standardized fat and water weighted pulse sequences were obtained in the sagittal and axial following administration of 24cc dotarem iv. COMPARISON: Cervical spine radiograph September 11, 2019 and MR cervical spine May 11, 2011 FINDINGS: Normal foramen magnum and brainstem-cervical cord junction. Normal craniovertebral junction. Normal anterior atlantoaxial articulation. Normal odontoid process. There is reversal of the normal cervical lordosis. Normal vertebral bodies and posterior osseous elements. C2-3: Normal endplates. Normal disc height, signal and morphology. Normal central canal and narrowed right intervertebral neural foramina. C3-4: Normal endplates. Normal disc height, signal and morphology. Normal central canal and narrowed right intervertebral neural foramina. C4-5: Normal endplates. Normal disc height, signal and morphology. Normal central canal and bilateral narrowing intervertebral neural foramina. C5-6: Normal endplates. Normal disc height, signal and morphology. Normal central canal and bilateral narrowing intervertebral neural foramina. C6-7: Normal endplates. Normal disc height, signal and morphology. Normal central canal and intervertebral neural foramina. Small broad-based posterior disc marginal osteophyte. C7-T1: Normal endplates. Normal disc height, signal and morphology. Normal central canal and intervertebral neural foramina. Normal cervical cord. Normal visualized soft tissue structures. MRI/Spine Cervical W/WO Contrast IMPRESSION: No acute disease. Multilevel neural foraminal narrowing. No evidence of metastatic disease. Electronically Signed: Gabino Rosario MD at 0:02 EST , Service support ,
== END ==
PROVIDERS: Family Provider Family Medicine; PCP Family Medicine; Referring Provider Orthopaedic Surgery; Visit Provider Orthopaedic Surgery
DX: M53.82 Other specified dorsopathies, cervical region (principal); M54.2 Cervicalgia
CPT/HCPCS: 72156; A9575

== ENCOUNTER → 2019-10-04 14:40 | Outpatient (CLI) | payer MEDICARE, OTHER, SELFPAY ==
[2019-09-25 12:44] VITALS: BMI 37.3
[2019-10-04 16:32] LABS: Anion Gap 5 (5-15); BUN 20 mg/dL (7-18); BUN/Creat Ratio 19.8 RATIO (10-20); Calcium,Total 8.9 mg/dL (8.5-10.1); Chloride 102 mmol/L (98-107); Creatinine, Serum 1.01 mg/dL (0.70-1.30); EST Glomerular Filtration Rate 78 mL/min (>60); Est Glom Filt Rate - Afr Amer 94 mL/min (>60); Glucose 150 mg/dL (74-106); PSA,Total- Diagnostic 0.16 ng/mL (0.0-4.0); Potassium 3.6 mmol/L (3.5-5.1); Sodium Level 140 mmol/L (136-145)
== END ==
PROVIDERS: Family Provider Family Medicine; PCP Family Medicine; Referring Provider Urology; Visit Provider Urology
DX: C61 Malignant neoplasm of prostate (principal); M54.2 Cervicalgia
CPT/HCPCS: 36415; 80048; 84153; 97110; 97140

== ENCOUNTER → 2019-10-11 10:32 | Outpatient (CLI) | payer MEDICARE, OTHER, SELFPAY ==
[2019-10-11 10:32] VITALS: BMI 37.3
--- NOTE | 2019-10-11 10:34 | RAD_ITS ---
STUDY: X-RAY - LEFT KNEE REASON FOR EXAM: Male, 69 years old. Fall, landing on knee, this morning. Pain. TECHNIQUE: 4 view(s) of the knee. COMPARISON: None. FINDINGS: Generalized osteopenia with 3 component total knee arthroplasty in anatomic alignment with no complications identified. Lateral tilt and subluxation of the patellar component of the total knee arthroplasty. Small joint effusion. Vascular calcification. RAD/Knee 4 or More Views IMPRESSION: Osteopenia with uncomplicated 3 component total knee arthroplasty. No acute abnormality. Electronically Signed: Shaheen Knapp MD at 11:00 EST , Service support ,
== END ==
PROVIDERS: Family Provider Family Medicine; PCP Family Medicine; Referring Provider Physician Assistant; Visit Provider Physician Assistant
DX: S89.92XA Unspecified injury of left lower leg, initial encounter (principal)
CPT/HCPCS: 73564

== ENCOUNTER 2019-10-12 12:30 | Outpatient (RCR) | payer MEDICARE, OTHER, SELFPAY ==
[2019-09-11 09:59] VITALS: BMI 37.3
--- NOTE | 2019-09-18 11:17 | HP.PTEVAL ---
Patient's Visit Information ATTILA PELLETIER is a 69 year old M referred to Physical Therapy by Lisa Galvan MD with a diagnosis of NECK PAIN. Date of Evaluation: 09/18/19 Physical Therapist: Delmar Lo, PT, Cert MDT, OCS - Visit Plan Frequency: 2x /Week Duration: 3 Weeks Plan: PATIENT H/O PROSTATE CA WITH METS -REMISSION (NO MODALITIS) ALSO LEFT TSR WITH WEAKNESS RTC/DELTOID ,PLAN FOR MRI THIS SAT. PT INTERVENTIONS CERVICAL POSTURAL EX'S/STRENGTHENING,MHP CERVICAL ROM. MANUAL THERAPY - Subjective Findings: This 69 y/o male presents to physical therapy with neck pain. Patient has had neck pain for 4 years. Patient has prostrate CA with METS but in remmision. Patient plans to have MRI for neck this Tuesday,but had x-rays showed DDD. Patient pain located bilateral cervical and UT. Patient aggraveting factors sitting ,driving ,rotation neck . Alleviating factors hot shower.Patient sleeping good at night. Patient pain affects ADLS' and howework tasks. Denies parathesia/tingling. Denies tinnutus,nuasea occassional SOLARES. Patient comorbities prostrate CA with Bone remission, 7 TKR with revision due to infection,left TSR ,hernia repair. SOCIAL: single. VOCATION: RETIRED - Pain Bilateral Back Pain Intensity (Out of 10): 5 Pain Intensity Range: 10 - Objective POSTURE: mild foward posture. GAIT: normal fatuma. NEURO: denies parathesia/tingling ,reflexes C5-6-7 1/3. PALAPTION: OA/UT. AROM: WFL. MMT: biceps/triceps/wrist 4-/5,shoulder 3+/5 R ,L 3/5,RTC L 3/5. CERVICAL ROM: flexion min loss,extension mod loss,lateral flexion /rotation mod loss - Special Tests C/S Radiculapathy - Left Upper limb tension test: Negative C/S Radiculapathy - Right Upper limb tension test: Negative C/S Radiculapathy - Left Spurlings: Positive C/S Radiculapathy - Right Spurlings: Positive C/S Radiculapathy - Left Cervical distraction: Negative C/S Radiculapathy - Right Cervical distraction: Negative C/S Radiculapathy - Left Relief test: Negative C/S Radiculapathy - Right Relief test: Negative Sharp Jose: Negative Vertebral Artery Test: Negative Alar Ligament Test: Negative - Goals Goal 1:: Independant with HEP Goal Time Frame: 4-6 Weeks Goal 2:: Patient decrease pain by 60% or> to improve function. Goal Time Frame: 4-6 Weeks Goal 3:: Patient improve cervical ROM for function of recovery Goal Time Frame: 4-6 Weeks Goal 4:: Patient to improve neck owestry score by 5 points or > to improve function. Goal Time Frame: 4-6 Weeks - Rehabilitation Potential Physical Therapy Diagnosis: This 69 y/o male has cervical pain with DDD with decrease ROM ,episode of SOLARES, along with comorobities as above to include prostrate CA with METS . Rehabilitation Potential: Good - Anticipated Interventions Patient/Client Instruction: Educate patient on: Condition, Plan of Care For the Purpose of:: To decrease pain, To increase ROM, To improve muscle performance and motor function, To improve ability to perform ADL's, To increase tolerance to activity/condition/position, To improve ability of physical actions for home/community/work/leisure, To improve health of tissue, To decrease soft tissue restriction, To reduce risk of recurrence, To improve ability to perform tasks related to life management Therapeutic Exercise to Include: Strength training, Postural training, Flexibilty training, Active ROM For the Purpose of:: To decrease pain, To increase ROM, To improve muscle performance and motor function, To improve ability to perform ADL's, To increase tolerance to activity/condition/position, To improve ability of physical actions for home/community/work/leisure, To improve health of tissue, To decrease soft tissue restriction Manual Therapy Techniques to Include: Mobilization, Soft tissue mobilization Comment: CERVICAL TRACTION For the Purpose of:: To decrease pain, To increase ROM, To improve nutrient delivery to tissue, To increase oxygenation perfusion, To decrease soft tissue restriction Thermo therapy (hot pack): Yes For the Purpose of:: To increase ROM Thank you for the opportunity to evaluate your patient. For Medicare and Medicare HMO plans, please review the plan of care and approve it. It will need to be FAXED BACK to us at [phone] for Medicare purposes. For Medicare only, by signing this I certify the plan of care. Please let me know if there are questions or concerns regarding this plan of care. Physician Signature: Date:
--- NOTE | 2019-10-12 12:52 | HP.PTDCSUM ---
HP - PT D/C Summary It has been my pleasure to treat ATTILA PELLETIER under orders from Lisa Galvan MD, for the diagnosis of NECK PAIN for a total of 6 visit(s). Discharge Date: Please see the following information for a summary of their discharge status. - Subjective Subjective: Doing better ..no pian - Pain Bilateral Back Pain Intensity (Out of 10): 0 - Overall Improvement % Improvement: 90 - Objective Objective/Function: POSTURE: mild foward posture. CERVICAL ROM: flexion min loss ,lateral flexion/rotation min/mod loss,exension min/mod loss - Goals Goal 1:: Independant with HEP Goal Progress: Goal Met Goal 2:: Patient decrease pain by 60% or> to improve function. Goal Progress: Goal Met Goal 3:: Patient improve cervical ROM for function of recovery Goal Progress: Goal Met Goal 4:: Patient to improve neck owestry score by 5 points or > to improve function. Goal Progress: Goal Met - Plan Plan: D/C AND HEP - D/C Information If there are questions or concerns regarding this patient's physical therapy, please feel free to call me at [phone]. Thank you for the referral of this patient. Sincerely, Delmar Lo, PT, Cert MDT, OCS
== END 2019-10-12 19:00 | disposition home or self-care (01) ==
LOC: PT 12:30
PROVIDERS: Family Provider Family Medicine; PCP Family Medicine; Referring Provider Orthopaedic Surgery; Visit Provider Orthopaedic Surgery
DX: M54.2 Cervicalgia (principal)
CPT/HCPCS: 97110; 97140; 97162; 97530

== ENCOUNTER → 2019-10-23 13:55 | Outpatient (CLI) | payer MEDICARE, OTHER, SELFPAY ==
[2019-10-11 10:42] VITALS: BMI 37.3
[2019-10-23 17:38] LABS: Vitamin B12 417 pg/mL (211-911); Vitamin D,25 Hydroxy 34.5 ng/mL (29.95-100.01)
[2019-10-23 17:44] LABS: T4 Free Direct 1.13 ng/dL (0.76-1.46); Thyroid Stim Hormone (TSH) 0.45 uIU/mL (0.358-3.74)
[2019-10-23 17:52] LABS: Hemoglobin A1c 6.6 % (4.2-6.3)
== END ==
PROVIDERS: Family Provider Family Medicine; PCP Family Medicine; Visit Provider Family Medicine
DX: R53.83 Other fatigue (principal); R73.9 Hyperglycemia, unspecified; E55.9 Vitamin D deficiency, unspecified
CPT/HCPCS: 36415; 82306; 82607; 83036; 84439; 84443

== ENCOUNTER → 2020-01-07 07:15 | Outpatient (CLI) | payer MEDICARE, OTHER, SELFPAY ==
[2019-11-13 11:49] VITALS: BMI 37.5
--- NOTE | 2020-01-07 07:16 | ECHOCS_ITS ---
Reason For Study: CHEST PAIN Procedure This was a 2D Doppler, Color Flow transthoracic echocardiogram. Exam performed in department. Left Ventricle Normal LV size. Left ventricular systolic function is normal. The estimated ejection fraction is 65 %. No regional wall motion abnormalities noted. Right Ventricle Normal RV size. Normal systolic function. Atria Normal left atrium. Normal right atrium. Mitral Valve Normal mitral valve. Tricuspid Valve Normal tricuspid valve. Mild (1+) tricuspid valve insufficiency. Pulmonary artery systolic pressure is 30 mmHg. Aortic Valve Trisinus/trileaflet aortic valve. Pulmonic Valve Normal pulmonic valve. Great Vessels Normal aortic root. The pulmonary artery is normal size. Inferior vena cava collapse with respiration. Pericardium/Pleural No pericardial effusion. Medication Diluted definity 5.0ml given slow IV push to enhance endocardial definition. MMode/2D Measurements & Calculations LVIDd: 4.7 cm IVSd: 1.0 cm Ao root diam: 3.7 cm LVIDs: 2.8 cm LVPWd: 1.2 cm RVDd: 2.9 cm FS: 39.9 % LAV(MOD-bp): 68.1 ml LA A4 area: 22.6 cm2 LAV(MOD-bp) Indexed: 28.9 ml/m2 LAV(MOD-sp2): 59.5 ml LAV(MOD-sp4): 72.5 ml Time Measurements MV dec time: 0.27 sec Doppler Measurements & Calculations MV E max malcolm: 55.4 cm/sec Ao V2 max: 89.4 cm/sec LV V1 max: 83.1 cm/sec MV A max malcolm: 70.5 cm/sec Ao max P.2 mmHg LV V1 max P.8 mmHg MV E/A: 0.79 PA V2 max: 84.8 cm/sec TR max malcolm: 264.1 cm/sec TR max P.9 mmHg Interpretation Summary Normal LV size. Left ventricular systolic function is normal. The estimated ejection fraction is 65 %. Mild (1+) tricuspid valve insufficiency. Contrast injection was performed. Ordering Physician: Kenya Bray Referring Physician: Nikolas Bennett Performed By: Lashon Chung RDCS, RVT
[2020-01-07 10:49] LABS: Absolute Lymphocyte Count 1.38 X10^3/uL (0.83-4.51); Basophil# 0.03 X10^3/uL; Basophil% 0.5 % (0-1); Eosinophils% 1.6 % (0-5); Hematocrit 41.6 % (40-54); Lymphocyte # 1.38 X10^3/ul (4.0); Lymphocyte % 22.3 % (19-41); Mean Corp Hgb Conc 33.7 g/dL (32-36); Mean Corpuscular Volume 95.2 fL (80-94); Mean Platelet Vol. 9.2 fl (6.2-12.0); Monocyte# 0.64 X10^3/uL; Monocyte% 10.3 % (0-10); NRBC Flagged by Analyzer 0 % (0-5); Neutrophil # 4.02 X10^3/uL (2.7-7.7); Neutrophil % 64.8 % (47-70); Platelet Count 168 K/mm3 (150-450); RBC Distribution Width CV 13.1 % (11.6-14.6); RBC Distribution Width SD 45.9 fl (35.1-43.9); Red Blood Count 4.37 M/mm3 (4.6-6.2); White Blood Count 6.2 K/mm3 (4.4-11.0)
[2020-01-07 11:17] LABS: Anion Gap 6 (5-15); BUN 24 mg/dL (7-18); BUN/Creat Ratio 27.9 RATIO (10-20); Chloride 104 mmol/L (98-107); Creatinine, Serum 0.86 mg/dL (0.70-1.30); EST Glomerular Filtration Rate 93 mL/min (>60); Est Glom Filt Rate - Afr Amer 113 mL/min (>60); Glucose 109 mg/dL (74-106); Potassium 3.8 mmol/L (3.5-5.1); Sodium Level 139 mmol/L (136-145)
[2020-01-07 11:18] LABS: BNP,B-Type NATRIURETIC PEPTIDE 61.8 pg/mL (0-100)
--- NOTE | 2020-01-07 12:25 | STRESSREP ---
Stress Test Report Pharmacologic myocardial perfusion stress test. 69-year-old man with a history of minimal coronary artery disease. Stress protocol: Resting EKG demonstrates normal sinus rhythm with a rate of 67 bpm normal intervals are noted resting blood pressures 118/72. 0.4 mg of regadenoson was infused per usual protocol followed by rapid intravenous saline flush injection continuous EKG monitoring was performed. The maximum heart rate attained was 96 bpm which was 64% of maximum predicted heart rate the maximum workload was 1 metabolic equivalent. At rest there were no ST or T wave changes noted to suggest abnormal flow reserve at peak infusion nonspecific ST-T wave changes were noted with no meet the criteria for abnormal flow reserve. No clinical angina was noted. The resting blood pressure was 118/72 with a final blood pressure 138/80. The patient did experience a mild vagal reaction on injection of the stress nuclear imaging agent which resolved without incident. Myocardial perfusion protocol. 14.7 mCi of technetium 99m sestamibi was injected at rest. 0.4 mg of regadenoson was infused per usual protocol peak infusion 44.6 mCi of technetium 99m sestamibi was injected stress images were obtained stress and rest images were reconstructed and compared in the short axis vertical and horizontal long axis. Gated images were also obtained Perfusion SPECT analysis: Review of the stress images demonstrate normal uptake of tracer noted in all areas of the myocardium the resting images similar demonstrate normal uptake of tracer noted in all areas of the myocardium. No reversibility is noted to suggest ischemia no previous infarct is noted. Gated SPECT analysis: The gated ejection fraction is noted to be 78%. Conclusion: Normal pharmacologic myocardial perfusion stress test. Preserved ejection fraction
== END ==
PROVIDERS: PCP Family Medicine; Referring Provider Physician Assistant Medical; Visit Provider Physician Assistant Medical
DX: R07.9 Chest pain, unspecified (principal); R06.09 Other forms of dyspnea; R06.02 Shortness of breath
CPT/HCPCS: 36415; 78452; 80048; 83880; 85025; 93017; 93306; A9500; Q9957; A4216; C8929; J2785

== ENCOUNTER → 2020-02-15 14:02 | Outpatient (CLI) | payer MEDICARE, OTHER, SELFPAY ==
[2019-11-13 11:49] VITALS: BMI 37.5
== END ==
PROVIDERS: PCP Family Medicine; Referring Provider Family Medicine; Visit Provider Family Medicine
DX: R42 Dizziness and giddiness (principal); R00.2 Palpitations; R00.0 Tachycardia, unspecified
CPT/HCPCS: 93225; 93226

== ENCOUNTER 2020-02-17 12:24 | Inpatient (IN) | payer MEDICARE, OTHER, SELFPAY ==
[2019-11-13 11:49] VITALS: BMI 37.5
[2020-02-17] VITALS (7 sets, daily range): BP systolic 54–119; BP diastolic 44–66; PULSE 53–81; RESP 15–23; TEMP 36.1–37.4; O2SAT 93–96; BMI 37.5; BMI 39.4; BMI 39.5
--- NOTE | 2020-02-17 12:42 | EKG12_ITS ---
Test Reason : DIZZINESS Blood Pressure : / mmHG Vent. Rate : 055 BPM Atrial Rate : 055 BPM P-R Int : 260 ms QRS Dur : 114 ms QT Int : 446 ms P-R-T Axes : 046 -25 021 degrees QTc Int : 426 ms Sinus bradycardia with 1st degree A-V block Otherwise normal ECG Confirmed by STEPHANIE PACK, DUNIA ([id number]), desk editor GUME WHITLOCK ([id number]) on 02/19/2020 11:16:44 AM Referred By: BALTA Confirmed By:DUNIA BROWN MD
[2020-02-17 13:08] LABS: Absolute Neutrophil Count 6.3 X10^3/uL (2.0-7.7); Basophil# 0.03 X10^3/uL; Basophil% 0.4 % (0-1); Eosinophils% 2.5 % (0-5); Hematocrit 35.2 % (40-54); Hemoglobin 11.8 g/dL (13.0-16.5); Mean Corp Hgb Conc 33.5 g/dL (32-36); Mean Corpuscular Hgb 32.1 pg (27.0-32.0); Mean Corpuscular Volume 95.7 fL (80-94); Mean Platelet Vol. 9.2 fl (6.2-12.0); Monocyte# 0.67 X10^3/uL; Monocyte% 8.4 % (0-10); NRBC Flagged by Analyzer 0 % (0-5); Neutrophil # 6.25 X10^3/uL (2.7-7.7); Neutrophil % 78.3 % (47-70); Platelet Count 212 K/mm3 (150-450); RBC Distribution Width CV 13.1 % (11.6-14.6); RBC Distribution Width SD 45.3 fl (35.1-43.9); Red Blood Count 3.68 M/mm3 (4.6-6.2)
[2020-02-17 13:12] LABS: Prothrombin Time (Protime)PT. 30.7 SECONDS (11.7-14.9)
[2020-02-17 13:21] LABS: Anion Gap 7 (5-15); BUN 38 mg/dL (7-18); BUN/Creat Ratio 18.5 RATIO (10-20); Chloride 94 mmol/L (98-107); Creatinine, Serum 2.05 mg/dL (0.70-1.30); EST Glomerular Filtration Rate 34 mL/min (>60); Est Glom Filt Rate - Afr Amer 41 mL/min (>60); Estimated Creatinine Clearance 34.62 ml/min; Glucose 146 mg/dL (74-106); Potassium 3.1 mmol/L (3.5-5.1); Sodium Level 133 mmol/L (136-145)
[2020-02-17 13:49] LABS: Lactic Acid 2.1 mmol/L (0.4-1.9)
--- NOTE | 2020-02-17 13:56 | PCM.HP.STD ---
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 He saw his primary care doctor and had his Ativan reduced to 5 mg daily. Patient continues to have symptoms. Denied any nausea or vomiting or diarrhea or hematemesis or hematochezia. Vitals in the ED showed temperature of 97.0F, heart rate 57, blood pressure 83/53, map of 63, respiratory rate 16, SPO2 was 94% on room air. Blood work showed WBC count of 8.0, hemoglobin 11.8, platelet count 212, INR 3.0, sodium 133, potassium 3.1, creatinine is 2.05, lactic acid 2.1, troponin 0.015 Past Medical History Past Medical History (Chronic Problems): Chronic Problems (Last Reviewed 11/13/19 @ 14:[address] Bryan Otto MD) Essential (primary) hypertension (Chronic) Hyperlipidemia (Chronic) History of pulmonary embolism (Chronic) Prostate cancer metastatic to bone (Chronic) Medical History: Medical History (Last Reviewed 11/13/19 @ 14:[address] Bryan Otto MD) Essential (primary) hypertension (Chronic) I10 Hyperlipidemia (Chronic) E78.5 History of pulmonary embolism (Chronic) Z86.711 Prostate cancer metastatic to bone (Chronic) C61, C79.51 Arthritis M19.90 Atrioventricular block, first degree I44.0 COPD (chronic obstructive pulmonary disease) J44.9 GERD without esophagitis K21.9 Peripheral neuropathy G62.9 Personal history of colonic polyps Z86.010 Hypokalemia (Resolved) E87.6 History of Coumadin therapy (Inactive) Z92.29 Allergies cyclobenzaprine [From Flexeril] Allergy (Unknown, Verified 02/17/20 12:29) Unknown adhesive Allergy (Verified 02/17/20 12:29) Rash docetaxel [From Taxotere] Allergy (Verified 02/17/20 12:29) Unknown doxycycline Allergy (Verified 02/17/20 12:29) Unknown enoxaparin sodium [From Lovenox] Allergy (Verified 02/17/20 12:29) triple liver enzymes Penicillins Allergy (Verified 02/17/20 12:29) Rash enoxaparin [Enoxaparin] Adverse Reaction (Mild, Verified 02/17/20 12:29) Nausea promethazine Adverse Reaction (Verified 02/17/20 12:45) gets out of it lethargic phenergan Adverse Reaction (Severe, Uncoded 02/17/20 12:29) Drowsiness Home Medications: Ambulatory Orders Medication Instructions Recorded hydrochlorothiazide 25 mg tablet 25 mg PO QDAY tab 11/28/17 duloxetine 60 mg capsule,delayed 60 mg PO QDAY 12/01/17 release lisinopril 40 mg tablet 40 mg PO QDAY 12/01/17 hydrocortisone 10 mg tablet 20 mg PO DAILY 06/14/18 Calcium Carbonate/Vitamin D3 1 ea PO DAILY 06/27/18 [Calcium 600-Vit D3 200 Tablet] Warfarin [Coumadin ([facility])] 6 mg PO MOWEFR 06/27/18 Warfarin [Coumadin ([facility])] 8 mg PO SUTUTHSA 06/27/18 Abiraterone Acetate [Zytiga] 1,000 mg PO DAILY 07/13/18 Hydrocortisone [Cortef] 10 mg PO 1700 07/13/18 gabapentin 400 mg capsule 400 mg PO .qid cap 09/07/19 pantoprazole 40 mg tablet,delayed 40 mg PO DAILY 09/07/19 release tizanidine 4 mg capsule 4 mg PO QHS 09/11/19 amlodipine 10 mg tablet 5 mg PO DAILY #90 tab 02/13/20 Glucos Sul 2Kcl/MSM/Chond/C/Mn 1 ea PO DAILY 02/17/20 [Glucosamine Chondroitin Cap] Metoprolol Succinate [Toprol Xl] 50 mg PO QDAY 02/17/20 Surgical History: Surgical History (Last Reviewed 11/13/19 @ 14:[address] Bryan Otto MD) History of bilateral knee replacement Z96.653 History of cholecystectomy Z90.49 History of hernia surgery Z98.890, Z87.19 History of left heart catheterization Onset Date: 06/16/04 Z98.890 history of thumb replacement history of toe replacement Surgical History: cholecystectomy, herniorrhaphy, total knee arthroplasty, tonsillectomy, - - Right shoulder repair, bilateral ankle and toe replacement Psychiatric History: No pertinent psych hx Smoking Status: Never smoker - *Family History Maternal Family History: Family History (Last Reviewed 11/13/19 @ 14:[address] Bryan Otto MD) Mother Hypertension Arthritis Father COPD (chronic obstructive pulmonary disease) Arthritis Sister Hypertension History Items: Hypertension Paternal Family History: Family History (Last Reviewed 11/13/19 @ 14:[address] Bryan Otto MD) Mother Hypertension Arthritis Father COPD (chronic obstructive pulmonary disease) Arthritis Sister Hypertension History Items: Cancer - prostate cancer, Heart Disease Sibling Family History: Family History (Last Reviewed 11/13/19 @ 14:[address] Bryan Otto MD) Mother Hypertension Arthritis Father COPD (chronic obstructive pulmonary disease) Arthritis Sister Hypertension History Items: Cancer - prostate Review of Systems Constitutional: Denies: Anorexia, Chills, Fever, Malaise, Weakness, Weight Change, Fatigue Eyes: Denies: Blurred vision, Cataracts HEENT: Denies: Difficulty Hearing, Difficulty Swallowing, Head Aches, Hearing Changes, Sinus Congestion, Sinus Drainage Cardiovascular: Reports: Light Headedness. Denies: Chest Pain, Claudication, Orthopnea, Palpitations, Paroxysmal Noc. Dyspnea, Syncope Respiratory: Reports: Shortness of breath upon exertion. Denies: Cough, Hemoptysis, Shortness of breath at rest, Sputum production Gastrointestinal: Denies: Abdominal Pain, Diarrhea, Hematemesis, Hematochezia, Nausea, Vomiting Genitourinary: Denies: Dysuria, Frequency, Hematuria Musculoskeletal: Denies: Joint Pain, Joint stiffness, Joint swelling, Joint Tenderness Skin: Denies: Rash, Wounds Neurological: Denies: Difficulty swallowing, Focal weakness, Numbness, Tingling Psychiatric: Denies: Anxiety, Depression, Homicidal Ideations, Suicidal Ideations Hematologic/ Lymphatic: Denies: Easy Bruising, Easy Bleeding VTE Information - Inpt Only VTE Present on Admission: No VTE Pharm Prophylaxis ordered?: Yes - Physical Exam Vitals/I&O's: Vital Signs Temp Pulse Resp BP Pulse Ox 97.0 F L 55 L 19 H 83/55 L 95 05/03/20 12:25 02/17/20 12:25 02/17/20 12:25 02/17/20 12:25 02/17/20 12:25 Oxygen Delivery Method Room Air Weight: 118.841 kg Body Mass Index (BMI) 37.5 General: Alert, Oriented x3, Cooperative, No apparent distress, - - obese HEENT: Atraumatic, PERRLA, EOMI, Normocephalic Oral: Moist Mucosa Neck: Supple Lungs: Clear to auscultation, Normal air movement Cardiovascular: Regular rate, Regular Rhythm, Normal S1, Normal S2, No murmurs Abdomen: Bowel Sounds Present, Soft, Non Tender, Non-Distended, No Hepato-splenomegaly Extremities: No edema Skin: No rashes, No breakdown Musculoskeletal: No Tenderness to Palpation of Joints or Extremities Lymphatic: No Cervical, Supraclavicular, or Inguinal Adenopathy Neurological: Cranial nerves II-XII grossly intact, Neuro grossly intact Psych/Mental Status: Normal Affect, Appropriate Laboratory Results 02/17/20 12:50: WBC 8.0, RBC 3.68 L, Hgb 11.8 L, Hct 35.2 L, MCV 95.7 H, MCH 32.1 H, MCHC 33.5, RDW Std Deviation 45.3 H, RDW Coeff of Judi 13.1, Plt Count 212, MPV 9.2, Immature Gran % (Auto) 0.400, Neut % (Auto) 78.3 H, Lymph % (Auto) 10.0 L, Haywood % (Auto) 8.4, Eos % (Auto) 2.5, Baso % (Auto) 0.4, Absolute Neuts (auto) 6.3, Absolute Lymphs (auto) 0.80 L, Nucleated RBC % 0 02/17/20 12:50: PT 30.7 H, INR 3.0 02/17/20 12:50: Sodium 133 L, Potassium 3.1 L, Chloride 94 L, Carbon Dioxide 32.0, Anion Gap 7, BUN 38 H, Creatinine 2.05 H, Estim Creat Clear Calc 34.62, Est GFR (MDRD) Af Amer 41 L, Est GFR (MDRD) Non-Af 34 L, BUN/Creatinine Ratio 18.5, Glucose 146 H, Calcium 9.0, Troponin I < 0.015 02/17/20 12:50: Lactic Acid 2.1 H* Current Medications Sodium Chloride () 1,000 mls @ 150 mls/hr IV .Q6H40M [facility] Assessment/Plan All Active Problems (Last Reviewed 11/13/19 @ 14:[address] Bryan Otto MD) Chronic back pain (Resolved) Drug rash (Resolved) Hypokalemia (Resolved) Neutropenia (Resolved) Neutropenic fever (Resolved) 1. KELLY secondary to hypotension/dehydration/medication side effect/adrenal insufficiency Creatinine 0.86, admitted with creatinine of 2.05 Recent changes made to his medications in the outpatient resulting in hypotension We will hold hydrochlorothiazide, lisinopril, metoprolol, amlodipine Will continue on hydrocortisone 50mg IV q6h 2. Hypotension secondary to medication side effect/dehydration/adrenal insufficiency Receiving IV fluids, hydrocortisone IV Continue to monitor 3. Hypokalemia, K3.1, replaced Check in a.m. 4. Lactic acid secondary to hypotension, admitting lactic acid is 2.1, Will trend 5. Hypovolemic hyponatremia, sodium is 133, This is new for patient per review of records Continue on IV fluids 6. History of PE, on Coumadin, INR is therapeutic 7. Metastatic prostate CA, on chemotherapy 8. DVT prophylaxis -INR therapeutic, on Coumadin 9. Code status: DNR-CCA Discussed in detail with the patient explaining the various types of CODE STATUS-full code, DNR CCA, DNR CC. Patient says he does not wish to be kept on artificial support. He chose DNR CCA. Time spent discussing CODE STATUS 16 minutes Inpatient E&M: 05649 Init Hosp L3 Procedures: 22661 Advncd Care Plan 30 Min
--- NOTE | 2020-02-17 13:57 | ED.DCSUM_ITS ---
- ER Visit Summary Date of Service: 02/17/20 Chief Complaint: [Dizziness] History of Present Illness: The patient is a 69 M [presents the emergency department complaint of dizziness that started 9 days ago. Patient was seen by 1 of the primary care physicians covering for his primary care physician several days ago and had a 48-hour Holter monitor ordered as well as a decrease in his amlodipine dose from 10 mg to 5 mg. Patient states that while at home he is been having low blood pressures as well as low pulse ox intermittently into the 80s and sometimes even into the 70s. Patient does not normally wear home O2. He denies any chest pain. Has had some mild nausea. He denies any blood in stool or black tarry stool. Denies any headache. He denies any falls. Patient does have history of hypertension, high cholesterol, history of PE, prostate cancer with mets. Patient's had prior cholecystectomy.] Physical Examination: [HEENT-PERRLA, EOMI. Cranial nerves II through XII grossly intact. TMs clear. Mucous membranes moist. No adenopathy. Cardiovascular-regular rate and rhythm without murmur or ectopy Lungs-clear to auscultation, chest wall stable without crepitus or subcu emphysema Abdomen-normoactive bowel sounds, soft, nontender, no rebound or rigidity, no peritoneal signs. Extremities-intact ?4, normal range of motion, normal pulses, atraumatic] Test Results: [EKG obtained arrival shows sinus rhythm with a ventricular rate of 55 bpm with a first-degree AV block. CBC with differential showed a white of 8.0, hemoglobin 12, hematocrit 35, platelets 212. Chemistries unremarkable. BUN was 38 and creatinine 2.05. INR was 3.0. Troponin less than 0.015. Urinalysis ordered and pending] Emergency Department Course and Treatment: [Sara patient received a 500 cc fluid bolus and I ordered a repeat 1 L fluid bolus. His blood pressure did improve into the 90s after the 500 cc fluid bolus. Was discussed with hospitalist will evaluate patient for admission] Treatment Plan: [Admit] Disposition: [Admit] Impression: [Hypotension Acute kidney injury Coumadin coagulopathy] This note was generated with [employer]in[employer] software. It may contain incorrect words, spelling, and punctuation that were not noted in review of the chart prior to signing ED Disposition - Plan for ED Patient: Referrals: Nikolas Bennett DO [Primary Care Provider] -
[2020-02-17] MEDS: 0.9% Normal Saline 1,000 ML 999 ML IV (14:07)
--- NOTE | 2020-02-17 14:22 | NURSING ---
PCU PAINTSIL HYPOTENSION, ACUTE KIDNEY INJURY
[2020-02-17 17:01] LABS: Reflex Lactate? Y
[2020-02-17 18:00] LABS: Lactic Acid 1.1 mmol/L (0.4-1.9)
[2020-02-17 18:08] LABS: AST(SGOT) 21 U/L (15-37); Alanine Aminotransfer ALT/SGPT 15 U/L (16-61); Albumin, Serum 2.7 g/dL (3.2-5.0); Alkaline Phosphatase 86 U/L (45-117); Bilirubin, Direct 0.34 mg/dL (0.00-0.30); Globulin 4.3 g/dL (2.2-4.2)
[2020-02-17] MEDS: 0.9% Normal Saline 1,000 ML 125 ML IV (18:17)
[2020-02-17] MEDS: CLARIFY ORDER 1 EACH NOTE (18:19)
[2020-02-17] MEDS: Hydrocortisone Sod Succinate 100 MG/2 ML Vial 50 MG IV ×2 (18:22→23:21)
[2020-02-17 18:30] LABS: Mucous, Urine 0 SEEN /hpf (<or=2+)
[2020-02-17 18:40] LABS: Color, Urine Yellow (Yellow); Glucose, Dipstick Normal (Normal); Ketone-Dipstick Negative (Negative); Leukocyte Esterase-Dipstick 25 /ul (Negative); Nitrite-Dipstick Negative (Negative); Occult Blood-Urine 10 /ul (Negative); Protein-Dipstick 15 mg/dl (Negative); Specific Gravity, Urine 1.015 (1.002-1.030); Urine Bilirubin Dipstick Negative (Negative); Urine Clarity Sl. Cloudy (Clear); Urine Urobilinogen 1 mg/dl (Normal)
[2020-02-17 18:53] LABS: Fine Granular Cast- Urine 0-5 SEEN /lpf (0-5); Hyaline Cast 5-10 SEEN /lpf (0-5); White Cell Cast 0-5 SEEN /lpf (None Seen)
[2020-02-17 18:55] LABS: Amorphous Sediment 2+; Bacteria 2+ /hpf (None Seen); White Blood Cells 5-10 SEEN /hpf (0-5)
[2020-02-17 18:57] LABS: Red Blood Cells-Urine 0-5 SEEN /hpf (0-5)
[2020-02-17 18:58] LABS: Renal Epithelial Cells 0-5 SEEN /hpf (0-5); Squamous Epithelial Cells - UA 0-5 SEEN /hpf (0-5)
[2020-02-17] MEDS: 0.9% Saline Lock 10 ML Syringe IV (23:20)
[2020-02-18] VITALS (8 sets, daily range): BP systolic 114–150; BP diastolic 66–81; PULSE 61–86; RESP 16; TEMP 36.6–37.1; O2SAT 93–98
--- NOTE | 2020-02-18 02:38 | CPS ---
PT BROUGHT OWN CPAP FROM HOME IT IS HOOKED UP AND ON PATIENT
[2020-02-18] MEDS: Hydrocortisone Sod Succinate 100 MG/2 ML Vial 50 MG IV (05:33)
[2020-02-18] MEDS: 0.9% Saline Lock 10 ML Syringe IV ×2 (05:34→05:35)
[2020-02-18 06:06] LABS: Absolute Lymphocyte Count 0.69 X10^3/uL (0.83-4.51); Absolute Neutrophil Count 5.9 X10^3/uL (2.0-7.7); Basophil# 0.02 X10^3/uL; Basophil% 0.3 % (0-1); Hematocrit 33.7 % (40-54); Hemoglobin 11.6 g/dL (13.0-16.5); Lymphocyte # 0.69 X10^3/ul (4.0); Lymphocyte % 9.9 % (19-41); Mean Corp Hgb Conc 34.4 g/dL (32-36); Mean Corpuscular Hgb 32.3 pg (27.0-32.0); Mean Corpuscular Volume 93.9 fL (80-94); Mean Platelet Vol. 9.2 fl (6.2-12.0); Monocyte% 4.3 % (0-10); NRBC Flagged by Analyzer 0 % (0-5); Neutrophil # 5.89 X10^3/uL (2.7-7.7); Neutrophil % 84.8 % (47-70); Platelet Count 224 K/mm3 (150-450); RBC Distribution Width CV 12.4 % (11.6-14.6); RBC Distribution Width SD 42.3 fl (35.1-43.9); Red Blood Count 3.59 M/mm3 (4.6-6.2)
[2020-02-18 06:33] LABS: ALB/GLOB Ratio 0.6 RATIO (0.9-2.4); AST(SGOT) 18 U/L (15-37); Alanine Aminotransfer ALT/SGPT 14 U/L (16-61); Albumin, Serum 2.5 g/dL (3.2-5.0); Alkaline Phosphatase 82 U/L (45-117); Anion Gap 7 (5-15); BUN 27 mg/dL (7-18); BUN/Creat Ratio 25.2 RATIO (10-20); Calcium,Total 8.6 mg/dL (8.5-10.1); Chloride 102 mmol/L (98-107); Creatinine, Serum 1.07 mg/dL (0.70-1.30); EST Glomerular Filtration Rate 73 mL/min (>60); Est Glom Filt Rate - Afr Amer 88 mL/min (>60); Estimated Creatinine Clearance 66.33 ml/min; Globulin 4.3 g/dL (2.2-4.2); Glucose 130 mg/dL (74-106); Potassium 3.2 mmol/L (3.5-5.1); Protein, Total 6.8 g/dL (6.4-8.2); Sodium Level 137 mmol/L (136-145)
[2020-02-18] MEDS: ABIRATERONE ACETATE 250 MG TABLET 1000 MG PO (06:56)
[2020-02-18] MEDS: DULoxetine Hcl 60 MG Capsule PO (08:58)
[2020-02-18] MEDS: Pantoprazole Sodium 40 MG Tablet PO (08:58)
[2020-02-18 09:35] LABS: Phosphorus 3.5 mg/dL (2.5-4.9)
--- NOTE | 2020-02-18 10:41 | CASEMGMT ---
DUC GAXIOLA assessment: Face to Face with patient for initial transition planning/care coordination assessment. DUC GAXIOLA introduced self and role at [facility], pt voices understanding and consents to assessment at this time. Pt is sitting up in chair in no distress at this time. Pt is A/Ox4 at this time and answers all questions appropriately at this time. Care providers, pharmacy, and demographics verified at this time. Presentation: Postural dizziness, near syncope-intermittent low pulse ox/BP at home Admitting dx: Hypotension PCP: Sabrina Specialists: Clarita, cardio; Telma, onc; Isidro, pulm; Efrain, ortho Preferred [facility]acy: [facility] Insurance: [facility] A/B, MMO Prescription Benefit: Yes Living Will/HPOA: Pt has LW/HPOA and they are on file at [facility] at this time. Pt states that his , Monica Medrano, is HPOA. LNOK: Monica Medrano, ; Mehnaz Keita, daughter Living Arrangements: Pt states lives with in [facility] home and states no concerns at home at this time. Pt states is independent with ADL's. Transportation: Pt states drives self and states no transportation concerns at this time. DME/HHC: Pt states has the following DME: cane, grab bars, shower chair, and NIV thru [employer]. Pt states no hx of HHC or SNF in the past. Pt states no concerns with going home at time of discharge. Pt states is retired. Pt states does not smoke or drink ETOH. Pt states no further concerns/needs at this time. CM to follow for any further discharge planning/needs. Advised pt to ask for CM if any further questions/concerns/needs arise, voices understanding. Pt's states is currently on chemo pill for metastatic prostate CA and sees oncology every 3months for check up. Pt Goal: Home Plan: [place] DUC GAXIOLA
[2020-02-18] MEDS: Hydrocortisone 10 MG Tablet 20 MG PO (12:45)
--- NOTE | 2020-02-18 13:48 | PCM.PN.HOSP ---
<Abram Castelan - Last Filed: 02/18/20 13:48> Reason for Visit: hypotension Subjective: Pt resting comfortably in chair at bedside NAD. No complaints today. BP stabilized. No LH/dizziness. No CP/pressure/tightness/heaviness. No SOB. No vertigo. No LE edema. He states he feels back to his normal self. Vitals/I&O's: Vital Signs Temp Pulse Resp BP Pulse Ox 98.0 F 79 16 140/75 H 97 02/18/20 08:39 02/18/20 08:39 02/18/20 08:39 02/18/20 08:39 02/18/20 08:39 Oxygen Delivery Method Room Air Weight: 269 lb 10.005 oz Body Mass Index (BMI) 39.4 Intake and Output for Last 24 Hours 02/16/20 02/17/20 02/18/20 23:59 23:59 23:59 Intake Total 2220 / 2220 1240 / 1240 Output Total 1200 / 1200 300 / 300 Balance 1020 / 1020 940 / 940 General: Alert, Oriented x3, Cooperative HEENT: Atraumatic, PERRLA, EOMI, Normocephalic Neck: Supple, No JVD, Negative Carotid Bruits Lungs: Clear to auscultation, Normal air movement Cardiovascular: Regular rate, No murmurs Abdomen: Bowel Sounds Present, Soft, Non Tender Extremities: No edema, Capillary Refill Less than 3 Seconds Skin: No rashes, No breakdown Musculoskeletal: No Tenderness to Palpation of Joints or Extremities Neurological: Cranial nerves II-XII grossly intact Psych/Mental Status: Normal Affect, Appropriate, Alert and oriented to time, place, person, mood and affect Laboratory Results 02/17/20 12:50: Lactic Acid 2.1 H* 02/17/20 12:50: Total Bilirubin 1.00, Direct Bilirubin 0.34 H, AST 21, ALT 15 L, Alkaline Phosphatase 86, Troponin I < 0.015, Total Protein 7.0, Albumin 2.7 L, Globulin 4.3 H 02/17/20 17:21: Lactic Acid 1.1 02/17/20 18:10: Urine Color Yellow, Urine Clarity Sl. Cloudy, Urine pH 6.0, Ur Specific [place] 1.015, Urine Protein 15 H, Urine Glucose (UA) Normal, Urine Ketones Negative, Urine Occult Blood 10 H, Urine Nitrite Negative, Urine Bilirubin Negative, Urine Urobilinogen 1 H, Ur Leukocyte Esterase 25 H, Urine RBC 0-5 SEEN, Urine WBC 5-10 SEEN, Ur Squamous Epith Cells 0-5 SEEN, Ur Renal Epithelial Cell 0-5 SEEN, Amorphous Sediment 2+, Urine Bacteria 2+, Hyaline Casts 5-10 SEEN, Fine Granular Casts 0-5 SEEN, WBC Casts 0-5 SEEN, Urine Mucus 0 SEEN 02/17/20 19:58: Troponin I < 0.015 02/18/20 05:26: WBC 7.0, RBC 3.59 L, Hgb 11.6 L, Hct 33.7 L, MCV 93.9, MCH 32.3 H, MCHC 34.4, RDW Std Deviation 42.3, RDW Coeff of Judi 12.4, Plt Count 224, MPV 9.2, Immature Gran % (Auto) 0.700, Neut % (Auto) 84.8 H, Lymph % (Auto) 9.9 L, [place] % (Auto) 4.3, Eos % (Auto) 0.0, Baso % (Auto) 0.3, Absolute Neuts (auto) 5.9, Absolute Lymphs (auto) 0.69 L, Nucleated RBC % 0 02/18/20 05:26: Sodium 137, Potassium 3.2 L, Chloride 102, Carbon Dioxide 28.0, Anion Gap 7, BUN 27 H, Creatinine 1.07, Estim Creat Clear Calc 66.33, Est GFR (MDRD) Af Amer 88, Est GFR (MDRD) Non-Af 73, BUN/Creatinine Ratio 25.2 H, Glucose 130 H, Calcium 8.6, Total Bilirubin 0.70, AST 18, ALT 14 L, Alkaline Phosphatase 82, Total Protein 6.8, Albumin 2.5 L, Globulin 4.3 H, Albumin/Globulin Ratio 0.6 L 02/18/20 05:26: Phosphorus 3.5, Magnesium 2.0 Current Medications Abiraterone Acetate (Zytiga) 1,000 mg PO DAILY [facility] Last Admin: 02/18/20 06:56 Dose: 1,000 mg Documented by: Acetaminophen (Tylenol) 650 mg PO Q6H PRN PRN PRN Reason: Pain Score 1-10/Temp > 100.7 F Duloxetine HCl (Cymbalta) 60 mg PO DAILY [facility] Last Admin: 02/18/20 08:58 Dose: 60 mg Documented by: Hydrocortisone (Cortef) 20 mg PO DAILY [facility] Last Admin: 02/18/20 12:45 Dose: 20 mg Documented by: Hydrocortisone (Cortef) 10 mg PO 1700 [facility] Pantoprazole Sodium (Protonix) 40 mg PO DAILY [facility] Last Admin: 02/18/20 08:58 Dose: 40 mg Documented by: Sodium Chloride () 10 - 40 ml IV UD PRN PRN Reason: SALINE FLUSH Last Admin: 02/18/20 05:35 Dose: 10 ml Documented by: Warfarin Sodium (Coumadin (Pbkc)) 6 mg PO MoWeFr@1700 [facility] Warfarin Sodium (Coumadin (Pbkc)) 8 mg PO SuTuThSa@1700 [facility] Medical Necessity - Tobacco Use Smoking Status: Never smoker Assessment/Plan All Active Problems (Last Reviewed 11/13/19 @ 14:[address] Bryan Otto MD) Chronic back pain (Resolved) Drug rash (Resolved) Hypokalemia (Resolved) Neutropenia (Resolved) Neutropenic fever (Resolved) 1. Hypotension in the setting of chronic adrenal insufficiency - received IV hydrocortisone x4 doses. Start PO dose today and monitor pressure. Continue to hold Antihypertensives. 2. HTN - off home meds. if BP trends high may need to restarted one or more meds. For now remain off. 3. Prostate CA, with mets to bone - Pt of Dr. Hollis. Continue chemo as o/p/ 4. KELLY 2/2 hypotension - resolved. 5. Hx PE - warfarin 6. hypovolemic hyponatremia - resolved DC planning: monitor BP overnight. likely home tomorrow. This patient was seen by Abram Castelan PA-C under the supervision of Dr. Rose <Olivia Rose - Last Filed: 02/18/20 16:30> Vitals/I&O's: Vital Signs Temp Pulse Resp BP Pulse Ox 97.9 F 86 16 150/66 H 98 02/18/20 14:31 02/18/20 14:31 02/18/20 14:31 02/18/20 14:31 02/18/20 14:31 Oxygen Delivery Method Room Air Weight: 269 lb 10.005 oz Body Mass Index (BMI) 39.4 Intake and Output for Last 24 Hours 02/16/20 02/17/20 02/18/20 23:59 23:59 23:59 Intake Total 2220 / 2220 1240 / 1240 Output Total 1200 / 1200 300 / 300 Balance 1020 / 1020 940 / 940 Laboratory Results 02/17/20 12:50: Total Bilirubin 1.00, Direct Bilirubin 0.34 H, AST 21, ALT 15 L, Alkaline Phosphatase 86, Troponin I < 0.015, Total Protein 7.0, Albumin 2.7 L, Globulin 4.3 H 02/17/20 17:21: Lactic Acid 1.1 02/17/20 18:10: Urine Color Yellow, Urine Clarity Sl. Cloudy, Urine pH 6.0, Ur Specific [place] 1.015, Urine Protein 15 H, Urine Glucose (UA) Normal, Urine Ketones Negative, Urine Occult Blood 10 H, Urine Nitrite Negative, Urine Bilirubin Negative, Urine Urobilinogen 1 H, Ur Leukocyte Esterase 25 H, Urine RBC 0-5 SEEN, Urine WBC 5-10 SEEN, Ur Squamous Epith Cells 0-5 SEEN, Ur Renal Epithelial Cell 0-5 SEEN, Amorphous Sediment 2+, Urine Bacteria 2+, Hyaline Casts 5-10 SEEN, Fine Granular Casts 0-5 SEEN, WBC Casts 0-5 SEEN, Urine Mucus 0 SEEN 02/17/20 19:58: Troponin I < 0.015 02/18/20 05:26: WBC 7.0, RBC 3.59 L, Hgb 11.6 L, Hct 33.7 L, MCV 93.9, MCH 32.3 H, MCHC 34.4, RDW Std Deviation 42.3, RDW Coeff of Judi 12.4, Plt Count 224, MPV 9.2, Immature Gran % (Auto) 0.700, Neut % (Auto) 84.8 H, Lymph % (Auto) 9.9 L, [place] % (Auto) 4.3, Eos % (Auto) 0.0, Baso % (Auto) 0.3, Absolute Neuts (auto) 5.9, Absolute Lymphs (auto) 0.69 L, Nucleated RBC % 0 02/18/20 05:26: Sodium 137, Potassium 3.2 L, Chloride 102, Carbon Dioxide 28.0, Anion Gap 7, BUN 27 H, Creatinine 1.07, Estim Creat Clear Calc 66.33, Est GFR (MDRD) Af Amer 88, Est GFR (MDRD) Non-Af 73, BUN/Creatinine Ratio 25.2 H, Glucose 130 H, Calcium 8.6, Total Bilirubin 0.70, AST 18, ALT 14 L, Alkaline Phosphatase 82, Total Protein 6.8, Albumin 2.5 L, Globulin 4.3 H, Albumin/Globulin Ratio 0.6 L 02/18/20 05:26: Phosphorus 3.5, Magnesium 2.0 Current Medications Abiraterone Acetate (Zytiga) 1,000 mg PO DAILY [facility] Last Admin: 02/18/20 06:56 Dose: 1,000 mg Documented by: Acetaminophen (Tylenol) 650 mg PO Q6H PRN PRN PRN Reason: Pain Score 1-10/Temp > 100.7 F Duloxetine HCl (Cymbalta) 60 mg PO DAILY [facility] Last Admin: 02/18/20 08:58 Dose: 60 mg Documented by: Hydrocortisone (Cortef) 20 mg PO DAILY [facility] Last Admin: 02/18/20 12:45 Dose: 20 mg Documented by: Hydrocortisone (Cortef) 10 mg PO 1700 [facility] Pantoprazole Sodium (Protonix) 40 mg PO DAILY [facility] Last Admin: 02/18/20 08:58 Dose: 40 mg Documented by: Sodium Chloride () 10 - 40 ml IV UD PRN PRN Reason: SALINE FLUSH Last Admin: 02/18/20 05:35 Dose: 10 ml Documented by: Warfarin Sodium (Coumadin (Pbkc)) 6 mg PO MoWeFr@1700 [facility] Warfarin Sodium (Coumadin (Pbkc)) 8 mg PO SuTuThSa@1700 [facility] STROKE Vital Signs/Narrative: Vital Signs Temp Pulse Resp BP Pulse Ox 02/18/20 14:31 97.9 F 86 16 150/66 H 98 02/18/20 14:06 78 Assessment/Plan Patient seen by Abram Castelan PA-C under my supervision. Patient was admitted with a complaint of dizziness and weakness. He had been having low blood pressure he said his primary care doctor had reduced his dose of amlodipine and have put him on a Holter monitor. However his symptoms persisted and so he came into the ED where he was found to be hypotensive. This was thought to be medication induced as well as an element of adrenal insufficiency as patient had been taking steroids for 2 years as an adjunct to his cancer medication. Patient was placed on IV hydrocortisone and blood pressure medications were held. Was also hydrated with IV fluid. Blood pressure subsequently improved. Patient seen and examined. He had no complaints and felt much better and wanted to go home. He denied any palpitations, dizziness, shortness of breath, nausea vomiting or diarrhea. Review of symptoms otherwise negative. Labs and vitals reviewed. Home medication reviewed and reconciled. o/e: Vital Signs Temp Pulse Resp BP Pulse Ox 02/18/20 14:31 97.9 F 86 16 150/66 H 98 02/18/20 14:06 78 General: Alert, Oriented x3, Cooperative HEENT: Atraumatic, PERRLA, EOMI, Normocephalic Neck: Supple, No JVD, Negative Carotid Bruits Lungs: Clear to auscultation, Normal air movement Cardiovascular: Regular rate, No murmurs Abdomen: Bowel Sounds Present, Soft, Non Tender Extremities: No edema, Capillary Refill Less than 3 Seconds Skin: No rashes, No breakdown Musculoskeletal: No Tenderness to Palpation of Joints or Extremities Neurological: Cranial nerves II-XII grossly intact Psych/Mental Status: Normal Affect, Appropriate, Alert and oriented to time, place, person, mood and affect Plan is to take patient off stress dose of steroids and resume daily oral steroid dose. Continue holding blood pressure medications. Monitor blood pressure to see if it remained stable versus of the stress dose steroids and IV fluids. Encourage oral hydration. Fall precautions. Note, patient also has hypokalemia and this has been replaced. Will monitor. Rest as per Abram Castelan PA-C's notes which I have reviewed and endorsed. Inpatient E&M: 87376 Subs Hosp L2
--- NOTE | 2020-02-18 14:24 | CHAPLAIN ---
Type of Pastoral Visit _x__ Initial Visit ___ Follow-up Visit ___ On-call Visit ___ General Patient Visit ___ Spiritual Assessment ___ Family Conference ___ Bereavement ___ Rapid Response ___ Code Blue ___ Other (describe below) Pastoral Care Referral From _x__ Patient ___ Family ___ Nurse ___ Physician ___ Cloth Finisher ___ Carbide Operator ___ Other (describe below) Sacrament/Intervention _x__ Active listening ___ Anointing ___ Sabianism ___ Bereavement ___ Communion _x__ Macy exploration ___ ___ Life review _x__ Prayer ___ Reconciliation ___ Sacrament of Sick _x_ Supportive presence ___ Wedding ___ Other (describe below) Pastoral Comments patient is eager to talk; pt states that macy is a very important part of his life and he is an active member of [employer] macy; pt discusses how he misses ability to be involved in jewish during this time; pt has local and good family support; pt discusses his health issues
--- NOTE | 2020-02-18 14:54 | CASEMGMT ---
Patient had a Healthcare Power of Senior Materials Scientist and a Healthcare Living Will in e-chart. Copies were printed and placed in patient's e-chart. Zonia OATES
[2020-02-18] MEDS: Hydrocortisone 10 MG Tablet PO (16:35)
[2020-02-19 02:35] VITALS: BP 144/79; PULSE 70; RESP 19; TEMP 37.1; O2SAT 93
[2020-02-19 02:57] VITALS: PULSE 79
[2020-02-19 06:41] LABS: Anion Gap 4 (5-15); BUN 24 mg/dL (7-18); BUN/Creat Ratio 26.7 RATIO (10-20); Calcium,Total 8.7 mg/dL (8.5-10.1); Chloride 107 mmol/L (98-107); EST Glomerular Filtration Rate 89 mL/min (>60); Est Glom Filt Rate - Afr Amer 107 mL/min (>60); Estimated Creatinine Clearance 78.86 ml/min; Glucose 94 mg/dL (74-106); Potassium 2.9 mmol/L (3.5-5.1); Sodium Level 141 mmol/L (136-145)
[2020-02-19 06:43] LABS: International Normalized Ratio 2.7; Prothrombin Time (Protime)PT. 28.2 SECONDS (11.7-14.9)
[2020-02-19] MEDS: ABIRATERONE ACETATE 250 MG TABLET 1000 MG PO (07:31)
[2020-02-19 07:39] VITALS: BP 143/92; PULSE 85; RESP 14; TEMP 36.8; O2SAT 94
[2020-02-19 07:56] VITALS: PULSE 72
[2020-02-19] MEDS: DULoxetine Hcl 60 MG Capsule PO (09:01)
[2020-02-19] MEDS: Pantoprazole Sodium 40 MG Tablet PO (09:01)
[2020-02-19] MEDS: Potassium Chloride 10mEq/100mL 10 MEQ/100 ML IV.SOLN. 100 MEQ IV BOLUS ×4 (09:02→12:36)
[2020-02-19] MEDS: Hydrocortisone 10 MG Tablet 20 MG PO (09:02)
--- NOTE | 2020-02-19 11:27 | PCM.DC ---
You will use the following diet at home:: Cardiac Your food should be the consistency of: Regular Your liquids should be the consistency of: Regular/Thin Discharge Activity: Return to Normal Activity Additional Instructions: You will need a BMP (lab - blood test) in 3 days, call your PCP to arrange this. Allergies/Adverse Reactions: Allergies cyclobenzaprine [From Flexeril] Allergy (Unknown, Verified 02/17/20 12:29) Unknown adhesive Allergy (Verified 02/17/20 12:29) Rash docetaxel [From Taxotere] Allergy (Verified 02/17/20 12:29) Unknown doxycycline Allergy (Verified 02/17/20 12:29) Unknown enoxaparin sodium [From Lovenox] Allergy (Verified 02/17/20 12:29) triple liver enzymes Penicillins Allergy (Verified 02/17/20 12:29) Rash enoxaparin [Enoxaparin] Adverse Reaction (Mild, Verified 02/17/20 12:29) Nausea promethazine Adverse Reaction (Verified 02/17/20 12:45) gets out of it lethargic phenergan Adverse Reaction (Severe, Uncoded 02/17/20 12:29) Drowsiness Medications to take at Discharge duloxetine 60 mg capsule,delayed release 60 mg PO QDAY 12/01/17 lisinopril 40 mg tablet 40 mg PO QDAY 12/01/17 hydrocortisone 10 mg tablet 20 mg PO DAILY 06/14/18 Calcium Carbonate/Vitamin D3 [Calcium 600-Vit D3 200 Tablet] 1 ea PO DAILY 06/27/18 Warfarin [Coumadin] 6 mg PO MOWEFR 06/27/18 Warfarin [Coumadin] 8 mg PO SUTUTHSA 06/27/18 Abiraterone Acetate [Zytiga] 1,000 mg PO DAILY 07/13/18 Hydrocortisone [Cortef] 10 mg PO 1700 07/13/18 pantoprazole 40 mg tablet,delayed release 40 mg PO DAILY 09/07/19 Glucos Sul 2Kcl/MSM/Chond/C/Mn [Glucosamine Chondroitin Cap] 1 ea PO DAILY 02/17/20 Potassium Chloride [K-Dur] 20 meq PO DAILY #30 tab 02/19/20 The following prescriptions were given: Potassium Chloride [K-Dur] 20 meq PO DAILY #30 tab Transmission Status: Sent to [facility] #30 Primary Care Physician: Nikolas Bennett DO [Primary Care Provider] - Please follow up with your Primary Care Physician in: 1 week Test Results: Test results from this visit will be discussed in further detail at your follow-up appointment, if applicable. Please Follow Up With: Jewel Hollis MD When: As directed Proposed Discharge Date: 02/19/20
--- NOTE | 2020-02-19 13:26 | DS.PCM_ITS ---
<Abram Castelan - Last Filed: 02/19/20 13:26> Discharge Date and Diagnosis Date of Admission: 02/17/20 Date of Discharge: 02/19/20 - Primary Discharge Diagnosis Hypotension 2/2 polypharmacy Adrenal insufficiency KELLY 2/2 hypotension hypokalemia Prostate cancer with bone mets Hx PE HTN - Secondary Discharge Diagnosis Chronic Problems (Last Updated 02/19/20 @ 07:21 by Shaye Wright) Severe persistent asthma (Chronic) Central sleep apnea (Chronic) Essential (primary) hypertension (Chronic) Hyperlipidemia (Chronic) History of pulmonary embolism (Chronic) Prostate cancer metastatic to bone (Chronic) Hospital Course and Treatment Operations: None Procedures: None Summary of Care Provided: Hospital Course: The patient is a 69 year old M with pmhx as above notably HTN on 4 antihypertensives, adrenal insufficiency on daily hydrocortisone, and metastatic prostate cancer to the bone who presented to the ER with dizziness and low BP for about 1 week. He was found to have low BP at 83/53 and KELLY suspected 2/2 hypotension, and significant orthostatic hypotension dropping from 96/65 laying to 54/44 standing. His 4 antihypertensives were discontinued and he was admitted to the PCU on IV fluids and he was started on stress dosed IV hydrocortisone. He has resolution of his hypotension overnight. He developed signifcant hypokalemia and this was repleted. Renal function normalized. He was transitioned to PO hydrocortisone and monitored overnight. His BP was mildly elevated the following day with no further issues of hypotension or dizziness. His potassium remained low and this was repleted again. Given his hypokalemia and hypertension with his meds being held, he will restart one of the 4 antihypertensives at this time - lisinopril. He will need his BMP checked this week and follow up with his PCP in 1 week. He was discharged home in stable condition. He will also need follow up with his oncologist as previously directed. This patient was seen by Abram Castelan PA-C under the supervision of Dr. Rose. [] - Physical Exam Vitals/I&O's: Vital Signs Temp Pulse Resp BP Pulse Ox 98.3 F 72 14 143/92 H 94 02/19/20 07:39 02/19/20 07:56 02/19/20 07:39 02/19/20 07:39 02/19/20 07:39 Oxygen Delivery Method Room Air Weight: 268 lb 8.368 oz Body Mass Index (BMI) 39.4 Intake and Output for Last 24 Hours 02/17/20 02/18/20 02/19/20 23:59 23:59 23:59 Intake Total 2220 / 2220 1860 / 1860 600 / 600 Output Total 1200 / 1200 300 / 300 Balance 1020 / 1020 1560 / 1560 600 / 600 General: Alert, Oriented x3, Cooperative HEENT: Atraumatic, PERRLA, EOMI, Normocephalic Neck: Supple, No JVD, Negative Carotid Bruits Lungs: Clear to auscultation, Normal air movement Cardiovascular: Regular rate, No murmurs Abdomen: Bowel Sounds Present, Soft, Non Tender Extremities: No edema, Capillary Refill Less than 3 Seconds Skin: No rashes, No breakdown Musculoskeletal: No Tenderness to Palpation of Joints or Extremities Neurological: Cranial nerves II-XII grossly intact Psych/Mental Status: Normal Affect, Appropriate, Alert and oriented to time, place, person, mood and affect Laboratory Results 02/19/20 05:34: Sodium 141, Potassium 2.9 L, Chloride 107, Carbon Dioxide 30.0, Anion Gap 4 L, BUN 24 H, Creatinine 0.90, Estim Creat Clear Calc 78.86, Est GFR (MDRD) Af Amer 107, Est GFR (MDRD) Non-Af 89, BUN/Creatinine Ratio 26.7 H, Glucose 94, Calcium 8.7 02/19/20 05:34: PT 28.2 H, INR 2.7 Current Medications Abiraterone Acetate (Zytiga) 1,000 mg PO DAILY [facility] Last Admin: 02/19/20 07:31 Dose: 1,000 mg Documented by: Acetaminophen (Tylenol) 650 mg PO Q6H PRN PRN PRN Reason: Pain Score 1-10/Temp > 100.7 F Duloxetine HCl (Cymbalta) 60 mg PO DAILY [facility] Last Admin: 02/19/20 09:01 Dose: 60 mg Documented by: Hydrocortisone (Cortef) 20 mg PO DAILY [facility] Last Admin: 02/19/20 09:02 Dose: 20 mg Documented by: Hydrocortisone (Cortef) 10 mg PO 1700 [facility] Last Admin: 02/18/20 16:35 Dose: 10 mg Documented by: Pantoprazole Sodium (Protonix) 40 mg PO DAILY [facility] Last Admin: 02/19/20 09:01 Dose: 40 mg Documented by: Sodium Chloride () 10 - 40 ml IV UD PRN PRN Reason: SALINE FLUSH Last Admin: 02/18/20 05:35 Dose: 10 ml Documented by: Warfarin Sodium (Coumadin (Pbkc)) 6 mg PO MoWeFr@1700 [facility] Last Admin: 02/18/20 16:35 Dose: 6 mg Documented by: Warfarin Sodium (Coumadin (Pbkc)) 8 mg PO SuTuThSa@1700 [facility] Discharge Diet: Low fat/ Low Cholesterol, 2000 mg Sodium Diet Discharge Activity: Return to Normal Activity Home Medications: Medications to take at Discharge duloxetine 60 mg capsule,delayed release 60 mg PO QDAY 12/01/17 lisinopril 40 mg tablet 40 mg PO QDAY 12/01/17 hydrocortisone 10 mg tablet 20 mg PO DAILY 06/14/18 Calcium Carbonate/Vitamin D3 [Calcium 600-Vit D3 200 Tablet] 1 ea PO DAILY 06/27/18 Warfarin [Coumadin] 6 mg PO MOWEFR 06/27/18 Warfarin [Coumadin] 8 mg PO SUTUTHSA 06/27/18 Abiraterone Acetate [Zytiga] 1,000 mg PO DAILY 07/13/18 Hydrocortisone [Cortef] 10 mg PO 1700 07/13/18 pantoprazole 40 mg tablet,delayed release 40 mg PO DAILY 09/07/19 Glucos Sul 2Kcl/MSM/Chond/C/Mn [Glucosamine Chondroitin Cap] 1 ea PO DAILY 02/17/20 Potassium Chloride [K-Dur] 20 meq PO DAILY #30 tab 02/19/20 Following Prescrptions Were Given to Patient: Potassium Chloride [K-Dur] 20 meq PO DAILY #30 tab Transmission Status: Received by [facility] #30 Primary Care Physician: Nikolas Bennett DO [Primary Care Provider] - Please follow up with your Primary Care Physician in: 1 week Please Follow Up With: Jewel Hollis MD When: As directed Please Follow Up With: Nikolas Bennett DO Disposition: Home Minutes spent on discharge:: 35 Patient Condition:: Stable Medical Necessity - Tobacco Use Smoking Status: Never smoker Meaningful Use Info Meaningful Use Diagnoses (Choose all that apply): None applicable <Olivia Rose - Last Filed: 02/19/20 16:26> Discharge Date and Diagnosis - Secondary Discharge Diagnosis Chronic Problems (Last Updated 02/19/20 @ 07:21 by Shaye Wright) Severe persistent asthma (Chronic) Central sleep apnea (Chronic) Essential (primary) hypertension (Chronic) Hyperlipidemia (Chronic) History of pulmonary embolism (Chronic) Prostate cancer metastatic to bone (Chronic) Hospital Course and Treatment Summary of Care Provided: The patient is a 69 year old M with an extensive past medical history as outlined. He was admitted through the ED on 02/17/2020 with a complaint of dizziness and presyncopal symptoms have been going on for about a week. He had seen his PCP with similar symptoms and his amlodipine had been reduced to 5 mg daily. However symptoms still persisted so he decided to come into the ED. On admission in the ED, he was found to be hypotensive with blood pressure of 83/53. Creatinine was elevated at 2.05 with a baseline of 0.86. EKG done showed no acute ST changes and lactic acid was mildly elevated at 2.1. Orthostatics were also positive. He was admitted and managed for KELLY due to hypotension and hypotension thought to be due to medication side effects and polypharmacy as well as adrenal insufficiency as patient had been on steroids f or about 2 years as an adjunct to his cancer medication according to him. His blood pressure medications were discontinued and he was hydrated with IV fluids and started on stress dose IV hydrocortisone. Hypotension resolved. He had hypokalemia during his stay which was also replaced. Creatinine trended down to normal. Patient was transitioned to his p.o. hydrocortisone and IV hydrocortisone was stopped. His lisinopril was resumed and no other blood pressure medications were held. He is to follow-up with his primary care doctor in 1 to 2 weeks with a blood pressure log for adjustment of his blood pressure medications as needed. Patient was discharged home on 02/19/2020 and is to follow-up with his primary care doctor and oncologist. Patient seen and examined prior to discharge. He was in a hurry to go home and had no complaints. Review systems otherwise negative. Labs and vitals reviewed. Home medication reviewed and reconciled. o/e: ] Vital Signs Temp Pulse Resp BP Pulse Ox 98.3 F 72 14 143/92 H 94 02/19/20 07:39 02/19/20 07:56 02/19/20 07:39 02/19/20 07:39 02/19/20 07:39 General: Alert, Oriented x3, Cooperative HEENT: Atraumatic, PERRLA, EOMI, Normocephalic Neck: Supple, No JVD, Negative Carotid Bruits Lungs: Clear to auscultation, Normal air movement Cardiovascular: Regular rate, No murmurs Abdomen: Bowel Sounds Present, Soft, Non Tender Extremities: No edema, Capillary Refill Less than 3 Seconds Skin: No rashes, No breakdown Musculoskeletal: No Tenderness to Palpation of Joints or Extremities Neurological: Cranial nerves II-XII grossly intact Psych/Mental Status: Normal Affect, Appropriate, Alert and oriented to time, place, person, mood and affect Plan as above. Rest as per Abram Castelan PA-C's note, which I have reviewed and endorsed. - Physical Exam Vitals/I&O's: Vital Signs Temp Pulse Resp BP Pulse Ox 98.3 F 72 14 143/92 H 94 02/19/20 07:39 02/19/20 07:56 02/19/20 07:39 02/19/20 07:39 02/19/20 07:39 Oxygen Delivery Method Room Air Weight: 268 lb 8.368 oz Body Mass Index (BMI) 39.4 Intake and Output for Last 24 Hours 02/17/20 02/18/20 02/19/20 23:59 23:59 23:59 Intake Total 2220 / 2220 1860 / 1860 700 / 700 Output Total 1200 / 1200 300 / 300 Balance 1020 / 1020 1560 / 1560 700 / 700 Laboratory Results 02/19/20 05:34: Sodium 141, Potassium 2.9 L, Chloride 107, Carbon Dioxide 30.0, Anion Gap 4 L, BUN 24 H, Creatinine 0.90, Estim Creat Clear Calc 78.86, Est GFR (MDRD) Af Amer 107, Est GFR (MDRD) Non-Af 89, BUN/Creatinine Ratio 26.7 H, Glucose 94, Calcium 8.7 02/19/20 05:34: PT 28.2 H, INR 2.7 02/19/20 14:10: Sodium 142, Potassium 4.1, Chloride 108 H, Carbon Dioxide 30.0, Anion Gap 4 L, BUN 18, Creatinine 0.92, Estim Creat Clear Calc 77.14, Est GFR (MDRD) Af Amer 105, Est GFR (MDRD) Non-Af 87, BUN/Creatinine Ratio 19.6, Glucose 120 H, Calcium 8.8 Inpatient E&M: 06262 Disch Hosp
[2020-02-19 14:45] LABS: Anion Gap 4 (5-15); BUN 18 mg/dL (7-18); BUN/Creat Ratio 19.6 RATIO (10-20); Calcium,Total 8.8 mg/dL (8.5-10.1); Chloride 108 mmol/L (98-107); Creatinine, Serum 0.92 mg/dL (0.70-1.30); EST Glomerular Filtration Rate 87 mL/min (>60); Est Glom Filt Rate - Afr Amer 105 mL/min (>60); Estimated Creatinine Clearance 77.14 ml/min; Glucose 120 mg/dL (74-106); Potassium 4.1 mmol/L (3.5-5.1); Sodium Level 142 mmol/L (136-145)
--- NOTE | 2020-02-20 14:26 | CCN.REFER ---
DUC GAXIOLA Discharge F/U Phone Call LACJosse: Nancy Strata: 3 Discharge date: 02/19/2020 Call date: 02/20/2020 Call time: [id number] Admission dx: Hypotension Pt states has been 'doing ok' since discharge. Pt states that he did not feel well this am and states took blood pressure and the systolic was 190. Pt states they rechecked it a little later and it was still somewhat high so they placed call to [facility]'s office to notify and they are 'keeping in contact.' Pt states no questions regarding discharge instructions/medications at this time. Pt states has call with [facility] again tomorrow for f/u. When asked about suggestions for [facility], pt states that he had difficulty sleeping while in the hospital d/t noise and TV next door, but also states that pt is 'very sensitive to smell/sound.' Pt states that the nursing staff gave him 'all the attention and care he needed' and he really liked them. Pt/ voice no further questions/concerns/needs at this time. SStaten DUC GAXIOLA
== END 2020-02-19 15:57 | disposition home or self-care (01) | DRG 644 ==
LOC: ED 13:14 → PCU 16:03
PROVIDERS: Physician Assistant; Admitting Provider Internal Medicine; Emergency Provider Emergency Medicine; PCP Family Medicine; Visit Provider Student in an Organized Health Care Education/Training Program
DX: E27.3 Drug-induced adrenocortical insufficiency (principal); C79.51 Secondary malignant neoplasm of bone; N17.9 Acute kidney failure, unspecified; E87.1 Hypo-osmolality and hyponatremia; I95.2 Hypotension due to drugs; E87.6 Hypokalemia; E86.1 Hypovolemia; C61 Malignant neoplasm of prostate; Z86.711 Personal history of pulmonary embolism; I10 Essential (primary) hypertension; J44.9 Chronic obstructive pulmonary disease, unspecified; J45.50 Severe persistent asthma, uncomplicated; G47.31 Primary central sleep apnea; Z79.899 Other long term (current) drug therapy; E78.5 Hyperlipidemia, unspecified; I44.0 Atrioventricular block, first degree; K21.9 Gastro-esophageal reflux disease without esophagitis; Z86.010 Personal history of colon polyps; G62.9 Polyneuropathy, unspecified; Z92.29 Personal history of other drug therapy; M19.90 Unspecified osteoarthritis, unspecified site; Z79.01 Long term (current) use of anticoagulants; Z66 Do not resuscitate; E86.0 Dehydration
CPT/HCPCS: 36415; 80048; 80053; 80076; 81001; 83605; 83735; 84100; 84484; 85025; 85610; 93005; 93225; 93226; 99285; J7030; A4216

== ENCOUNTER → 2020-02-21 12:11 | Outpatient (CLI) | payer MEDICARE, OTHER, SELFPAY ==
[2020-02-21 08:05] VITALS: BMI 37.7
--- NOTE | 2020-02-21 12:52 | CPS ---
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
== END ==
PROVIDERS: PCP Family Medicine; Referring Provider Nurse Practitioner Acute Care; Visit Provider Nurse Practitioner Acute Care
DX: J47.9 Bronchiectasis, uncomplicated (principal)
CPT/HCPCS: 94667

== ENCOUNTER → 2020-02-22 09:31 | Outpatient (CLI) | payer MEDICARE, OTHER, SELFPAY ==
[2019-11-13 11:49] VITALS: BMI 37.5
[2020-02-21 08:05] VITALS: BMI 37.7
--- NOTE | 2020-02-22 10:00 | MRI_ITS ---
STUDY: MRI LUMBAR SPINE WITH AND WITHOUT CONTRAST REASON FOR EXAM: Male, 69 years old. Spondylolisthesis, severe LBP x 2 years, history of prostate CA TECHNIQUE: Standardized fat and water weighted pulse sequences were obtained in the sagittal and axial planes. 25ml of IV Dotarem was administered for the contrast portion of the examination. COMPARISON: MRI lumbar spine with and without contrast 04/05/2018. FINDINGS: T11-T12: (Sagittal only). Small anterior marginal spurs. Normal endplates. Pronounced disc space height narrowing. Small posterior bulging disc. Normal central canal and bilateral intervertebral neural foramina. T12-L1: (Sagittal only). Normal endplates. Normal disc height, hydration and morphology. Normal central canal and bilateral intervertebral neural foramina. Normal lumbar lordosis. There is no substantial scoliosis. Normal conus medullaris that terminates at the T12-L1 disc level. L1-2: Prominent anterior marginal spurs. Mild Modic type II degenerative vertebral marrow fatty changes underneath the right side of the vertebral endplates. Pronounced disc space height narrowing. Normal central canal and bilateral lateral recesses. Mild degenerative facet arthropathy. Normal bilateral intervertebral neural foramina. L2-3: Anterior marginal spurs. Modic type II degenerative vertebral marrow fatty changes underneath the right side of vertebral endplates. Pronounced disc space height narrowing. Normal central canal and bilateral lateral recesses. Mild asymmetric degenerative facet arthropathy. Normal bilateral intervertebral neural foramina. L3-4: Normal endplates. Mild disc space height narrowing. Normal central canal and bilateral lateral recesses. Mild asymmetric degenerative facet arthropathy. Normal bilateral intervertebral neural foramina. L4-5: Modic type II degenerative vertebral of fatty changes underneath the left side of the vertebral endplates. Pronounced disc space height narrowing. New left-sided far lateral disc extrusion with displacement of the left L4 nerve. Normal central canal and bilateral lateral recesses. Mild left degenerative facet arthropathy. Normal right facet joint. Mild to moderate stenosis of the left intervertebral neural foramen. Normal right intervertebral neural foramen. L5-S1: Normal endplates. Pronounced disc space height narrowing. Normal central canal and bilateral lateral recesses. Mild degenerative facet arthropathy. Normal central canal and bilateral lateral recesses. Mild stenosis of the left intervertebral neural foramen. Normal right intervertebral neural foramen. Normal visualized sacral ala. Normal visualized paraspinous soft tissue structures. MRI/Spine Lumbar W/WO Contrast IMPRESSION: 1. New left-sided far lateral disc extrusion at L4-L5 disc level with suspicious displacement of the left L4 nerve and mild to moderate stenosis of the left intervertebral neural foramen. 2. Mild stenosis of the left L5-S1 intervertebral neural foramen is a new finding but the pronounced L5-S1 disc space height is unchanged. 3. No other suspicious lumbar extruded disc fragment. 4. No other significant change when compared to 04/05/2018. Electronically Signed: Cuauhtemoc Mcqueen MD at 13:07 EDT , Service support ,
== END ==
PROVIDERS: PCP Family Medicine; Referring Provider Family Medicine; Visit Provider Family Medicine
DX: M47.816 Spondylosis without myelopathy or radiculopathy, lumbar region (principal); M51.36 Other intervertebral disc degeneration, lumbar region; M51.37 Other intervertebral disc degeneration, lumbosacral region; M47.896 Other spondylosis, lumbar region; M96.1 Postlaminectomy syndrome, not elsewhere classified; M50.30 Other cervical disc degeneration, unspecified cervical region; C61 Malignant neoplasm of prostate
CPT/HCPCS: 72158; A9575

== ENCOUNTER → 2020-02-25 07:10 | Outpatient (CLI) | payer MEDICARE, OTHER, SELFPAY ==
[2020-02-21 08:05] VITALS: BMI 37.7
--- NOTE | 2020-02-25 07:35 | MRI_ITS ---
STUDY: MRI BRAIN WITH AND WITHOUT CONTRAST REASON FOR EXAM: Male, 69 years old. dizziness, h/o prostate ca TECHNIQUE: Standardized multiplanar fat and water weighted pulse sequences were obtained. IV 25 cc dotarem was administered for the contrast portion of the examination. COMPARISON: [id number] FINDINGS: There is mild cerebral atrophy with widening of the extra-axial spaces and ventricular dilatation. There are a limited number of small white matter hyperintensities, distributed throughout the deep white matter tracts of the cerebral hemispheres, consistent with mild chronic white matter ischemic changes. There is no evidence for recent intracranial ischemia or other cause of cytotoxic edema on diffusion weighted imaging (DWI). Normal T2* images of the brain without demonstrated susceptibility artifact. There is no demonstrated hemosiderin stain. Normal bilateral basal ganglia. Normal thalami. There is no extra-axial fluid accumulation. Normal flow voids within the major intracranial circulation suggesting patency by spin echo criteria. Normal venous enhancement. There is no enhancing intra-axial or extra-axial abnormality. Normal sella turcica, pituitary gland, infundibular stalk, optic chiasm and hypothalamus. Normal tectal plate and pineal gland. Normal midbrain, kartik and medulla. Normal cerebellum. Normal basal cisterns. Normal bilateral temporal bones. Normal bilateral internal auditory canals. No demonstrated orbital abnormality, within the constraints of a routine brain study. Normal visualized paranasal sinuses. Normal calvarium and skull base. Normal visualized soft tissue structures. Normal visualized upper cervical spine. MRI/Brain W/WO Contrast IMPRESSION: Involutional changes of the brain, as described above. Electronically Signed: Rajinder Donovan MD at 9:33 EDT Tel , Service support ,
== END ==
PROVIDERS: PCP Family Medicine; Referring Provider Family Medicine; Visit Provider Family Medicine
DX: R42 Dizziness and giddiness (principal); R11.0 Nausea; C61 Malignant neoplasm of prostate
CPT/HCPCS: 70553; A9575

== ENCOUNTER → 2020-02-26 20:28 | Outpatient (CLI) | payer MEDICARE, OTHER, SELFPAY ==
[2020-02-21 08:05] VITALS: BMI 37.7
== END ==
PROVIDERS: PCP Family Medicine; Referring Provider Nurse Practitioner Acute Care; Visit Provider Nurse Practitioner Acute Care
DX: G47.33 Obstructive sleep apnea (adult) (pediatric) (principal)
CPT/HCPCS: 95811

== ENCOUNTER → 2020-02-28 10:19 | Outpatient (CLI) | payer MEDICARE, OTHER, SELFPAY ==
[2020-02-21 08:05] VITALS: BMI 37.7
[2020-02-28 11:26] LABS: Absolute Lymphocyte Count 1.47 X10^3/uL (0.83-4.51); Absolute Neutrophil Count 4.6 X10^3/uL (2.0-7.7); Basophil# 0.05 X10^3/uL; Basophil% 0.7 % (0-1); Eosinophil# 0.27 X10^3/uL; Eosinophils% 3.9 % (0-5); Hematocrit 39.7 % (40-54); Lymphocyte # 1.47 X10^3/ul (4.0); Mean Corp Hgb Conc 32.7 g/dL (32-36); Mean Corpuscular Hgb 31.6 pg (27.0-32.0); Mean Corpuscular Volume 96.6 fL (80-94); Mean Platelet Vol. 9.2 fl (6.2-12.0); Monocyte# 0.63 X10^3/uL; NRBC Flagged by Analyzer 0 % (0-5); Neutrophil # 4.57 X10^3/uL (2.7-7.7); Neutrophil % 65.1 % (47-70); Platelet Count 260 K/mm3 (150-450); RBC Distribution Width CV 12.9 % (11.6-14.6); RBC Distribution Width SD 45.6 fl (35.1-43.9); Red Blood Count 4.11 M/mm3 (4.6-6.2)
[2020-02-28 11:59] LABS: ALB/GLOB Ratio 0.7 RATIO (0.9-2.4); AST(SGOT) 17 U/L (15-37); Alanine Aminotransfer ALT/SGPT 19 U/L (16-61); Albumin, Serum 2.9 g/dL (3.2-5.0); Alkaline Phosphatase 91 U/L (45-117); Anion Gap 8 (5-15); BUN 14 mg/dL (7-18); BUN/Creat Ratio 16.1 RATIO (10-20); Calcium,Total 9.1 mg/dL (8.5-10.1); Chloride 104 mmol/L (98-107); Creatinine, Serum 0.87 mg/dL (0.70-1.30); EST Glomerular Filtration Rate 92 mL/min (>60); Est Glom Filt Rate - Afr Amer 112 mL/min (>60); Globulin 4.4 g/dL (2.2-4.2); Glucose 151 mg/dL (74-106); Potassium 3.5 mmol/L (3.5-5.1); Protein, Total 7.3 g/dL (6.4-8.2); Sodium Level 139 mmol/L (136-145)
[2020-03-01 12:02] LABS: SAR-COV-2 IGG ANTIBODY Negative (Negative)
[2020-03-04 03:06] LABS: Lyme IgG P18 Ab Absent (.); Lyme IgG P23 Ab Absent (.); Lyme IgG P28 Ab Absent (.); Lyme IgG P30 Ab Absent (.); Lyme IgG P39 Ab Absent (.); Lyme IgG P41 Ab Absent (.); Lyme IgG P45 Ab Absent (.); Lyme IgG P58 Ab Absent (.); Lyme IgG P66 Ab Absent (.); Lyme IgG P93 Ab Absent (.); Lyme IgM P23 Ab Absent (.); Lyme IgM P39 Ab Absent (.); Lyme IgM P41 Ab Absent (.)
[2020-03-04 04:38] LABS: Lyme IgG WB Interpretation Negative (.); Lyme IgM WB Interpretation Negative (.)
== END ==
PROVIDERS: Psychiatry & Neurology Neurology; PCP Family Medicine; Visit Provider Family Medicine
DX: R53.83 Other fatigue (principal); M25.50 Pain in unspecified joint
CPT/HCPCS: 36415; 80053; 82533; 85025; 86140; 86617; 86769; G2023

== ENCOUNTER → 2020-03-11 16:20 | Outpatient (CLI) | payer MEDICARE, OTHER, SELFPAY ==
[2020-02-21 08:05] VITALS: BMI 37.7
--- NOTE | 2020-03-11 16:24 | RAD_ITS ---
STUDY: X-RAY - MANDIBLE (COMPLETE) REASON FOR EXAM: Male, 69 years old. right side jaw pain, currently taking several medications for ca/bone and prostate -- no injury TECHNIQUE: 5 view(s) of the mandible were obtained. COMPARISON: None. FINDINGS: Unremarkable mandible. The remaining visualized osseous structures are unremarkable. The soft tissue structures are unremarkable. RAD/Mandible Min 4 Views IMPRESSION: No demonstrated fractures or lesions. Electronically Signed: Ankit Mendoza MD at 11:29 EDT Tel , Service support ,
== END ==
PROVIDERS: PCP Family Medicine; Referring Provider Family Medicine; Visit Provider Family Medicine
DX: R68.84 Jaw pain (principal)
CPT/HCPCS: 70110

== ENCOUNTER → 2020-03-14 10:13 | Outpatient (CLI) | payer MEDICARE, OTHER, SELFPAY ==
[2020-02-21 08:05] VITALS: BMI 37.7
[2020-03-14 12:55] LABS: International Normalized Ratio 2.8; Prothrombin Time (Protime)PT. 28.9 SECONDS (11.7-14.9)
== END ==
PROVIDERS: PCP Family Medicine; Visit Provider Family Medicine
DX: Z79.01 Long term (current) use of anticoagulants (principal); Z86.711 Personal history of pulmonary embolism
CPT/HCPCS: 36415; 85610

== ENCOUNTER → 2020-03-25 13:39 | Outpatient (CLI) | payer MEDICARE, OTHER, SELFPAY ==
[2020-02-21 08:05] VITALS: BMI 37.7
--- NOTE | 2020-03-25 13:40 | RAD_ITS ---
STUDY: X-RAY - LUMBAR SPINE REASON FOR EXAM: Male, 69 years old. LOW BACK PAIN TECHNIQUE: 4 view(s) of the lumbar spine were obtained. COMPARISON: None FINDINGS: Normal lumbar lordosis. There is a levoscoliosis of the lumbar spine. There is a normal alignment of the vertebrae in the lateral view. There is diffuse demineralization with multi-level endplate spondylosis. There is multi-level degenerative disc disease with multi-level disc space narrowing. There is no demonstrated fracture. No instability noted on flexion or extension views. IVC filter noted, dense calcifications noted in the aorta. RAD/L/S Spine Min 4 Views IMPRESSION: Degenerative changes of the spine, as detailed above. Levoscoliosis No demonstrated instability Electronically Signed: Geraldo Blair MD at 17:13 EDT , Service support ,
== END ==
PROVIDERS: PCP Family Medicine; Referring Provider Orthopaedic Surgery; Visit Provider Orthopaedic Surgery
DX: M54.5 Low back pain (principal)
CPT/HCPCS: 72110

== ENCOUNTER 2020-04-01 11:07 | Outpatient (RCR) | payer MEDICARE, OTHER, SELFPAY ==
[2020-03-25 13:45] VITALS: BMI 37.7
[2020-04-01 12:29] LABS: International Normalized Ratio 2.2; Prothrombin Time (Protime)PT. 23.7 SECONDS (11.7-14.9)
== END 2020-04-01 18:00 | disposition home or self-care (01) ==
LOC: LAB 11:07
PROVIDERS: PCP Family Medicine; Referring Provider Family Medicine; Visit Provider Family Medicine
DX: Z86.711 Personal history of pulmonary embolism (principal); Z79.01 Long term (current) use of anticoagulants
CPT/HCPCS: 36415; 85610

== ENCOUNTER → 2020-04-14 10:40 | Outpatient (CLI) | payer MEDICARE, OTHER, SELFPAY ==
[2020-03-25 13:45] VITALS: BMI 37.7
== END ==
PROVIDERS: PCP Family Medicine; Visit Provider Family Medicine
DX: Z20.828 Contact with and (suspected) exposure to other viral communicable diseases (principal)
CPT/HCPCS: 87635; C9803; G2023; U0003

== ENCOUNTER → 2020-04-22 11:55 | Outpatient (CLI) | payer MEDICARE, OTHER, SELFPAY ==
[2020-03-25 13:45] VITALS: BMI 37.7
--- NOTE | 2020-04-22 13:41 | RAD_ITS ---
STUDY: X-RAY - PELVIS AND RIGHT HIP REASON FOR EXAM: Male, 69 years old. Posterior hip pain. Patient states he has cancer and hip. TECHNIQUE: 4 views of the pelvis and hip. COMPARISON: Abdomen, July 06, 2018. CT of the abdomen and pelvis, March 26, 2019 FINDINGS: There is a non-specific bowel gas pattern. Normal visualized soft tissue structures. There are degenerative changes of the lower lumbar spine. Normal bilateral iliac wings, sacroiliac joints and visualized sacrum. Normal bilateral superior and inferior pubic rami. There are degenerative changes of the pubic symphysis with articular narrowing and sclerosis. Normal bilateral ischial tuberosities. Normal visualized right femoral head. There are lucencies about the lower acetabulum with poor visualization of the lower joint space. There are no abnormalities seen in this area on the prior CT. There is mild articular joint space narrowing of the right hip. RAD/HIP, UNI W/ Pelvis 2-3 Views IMPRESSION: Question mild obstructive changes on the lower right acetabulum with narrowing of the hip joint. No acute fracture or dislocation. Electronically Signed: Dav Guallpa DO at 19:40 EDT Tel [phone], Service support ,
[2020-04-22 15:32] LABS: PSA,Total- Diagnostic 0.08 ng/mL (0.0-4.0)
[2020-04-22 15:37] LABS: ALB/GLOB Ratio 0.7 RATIO (0.9-2.4); AST(SGOT) 23 U/L (15-37); Alanine Aminotransfer ALT/SGPT 19 U/L (16-61); Albumin, Serum 3.2 g/dL (3.2-5.0); Alkaline Phosphatase 97 U/L (45-117); Anion Gap 6 (5-15); BUN 17 mg/dL (7-18); BUN/Creat Ratio 20.4 RATIO (10-20); Calcium,Total 9.1 mg/dL (8.5-10.1); Chloride 106 mmol/L (98-107); Creatinine, Serum 0.83 mg/dL (0.70-1.30); EST Glomerular Filtration Rate 97 mL/min (>60); Est Glom Filt Rate - Afr Amer 117 mL/min (>60); Globulin 4.7 g/dL (2.2-4.2); Glucose 77 mg/dL (74-106); Potassium 3.8 mmol/L (3.5-5.1); Protein, Total 7.9 g/dL (6.4-8.2); Sodium Level 142 mmol/L (136-145)
== END ==
PROVIDERS: PCP Family Medicine; Referring Provider Urology; Visit Provider Urology
DX: M25.552 Pain in left hip (principal); C61 Malignant neoplasm of prostate; I10 Essential (primary) hypertension; M54.5 Low back pain
CPT/HCPCS: 36415; 73502; 80053; 84153; 97113

== ENCOUNTER → 2020-04-29 14:52 | Outpatient (CLI) | payer MEDICARE, OTHER, SELFPAY ==
[2020-03-25 13:45] VITALS: BMI 37.7
--- NOTE | 2020-04-29 14:55 | CT_ITS ---
STUDY: CT ABDOMEN WITH AND WITHOUT CONTRAST REASON FOR EXAM: Male, 69 years old. UNCONTROLLED HTN, HYPOKALEMIA, R/O ADENOMA, CHOLECYSTECTOMY, IVC FILTER, HERNIA REPAIR X 2, PROSTATE CANCER W/ BONE METS RADIATION DOSAGE (If Supplied By Facility): CTDIvol = ( 35.78 ) mGy, DLP = ( 2037.57 ) mGycm TECHNIQUE: Transaxial images were obtained pre and post I.V. administration of IV 100mL Isovue-300, and without oral contrast. Sagittal and coronal images were reconstructed. Individualized dose optimization techniques were used for this CT. COMPARISON: Previous study 03/26/2019 FINDINGS: There are fibrotic changes of the lung bases. Coronary arterial calcifications are present. Normal liver. There is non-visualization of the gallbladder, which may be secondary to either contraction or a prior cholecystectomy. Normal spleen. There is diffuse atrophy of the pancreas. Normal bilateral adrenal glands. There is a 3.0 cm right renal cyst. There are several left renal cysts measuring up to 3.5 cm. There is a small hiatal hernia. Normal small intestine. Normal colon. The appendix is visualized and appears normal. There are calcified plaques of the abdominal aorta. There is an IVC filter in place. Normal retroperitoneum. Normal abdominal wall. There is diffuse endplate spondylosis of the visualized thoracolumbar spine. There is a thoracolumbar levoscoliosis. There are sclerotic foci of the L2, L3, and L4 vertebral bodies, multiple visualized thoracic vertebrae and posterior left 10th rib suspicious for metastatic disease. These are similar to the prior study of 03/26/2019. CT/Abdomen W/WO IV Contrast IMPRESSION: 1. Nonvisualization of the gallbladder. 2. Diffuse pancreatic atrophy. 3. The adrenals are normal. There is no evidence of adrenal mass or nodule. 4. Bilateral renal cysts. 5. Small hiatal hernia. 6. Sclerotic foci involving both thoracic and lumbar vertebrae and posterior left 10th rib suspicious for metastatic disease and appearing similar to the previous most recent study. Electronically Signed: Alex Reyes MD at 16:23 EDT , Service support ,
[2020-04-29] MEDS: 0.9% Saline Lock 10 ML Syringe IV (15:25)
== END ==
PROVIDERS: PCP Family Medicine; Referring Provider Family Medicine; Visit Provider Family Medicine
DX: I10 Essential (primary) hypertension (principal); E87.5 Hyperkalemia; M54.5 Low back pain
CPT/HCPCS: 74170; 97164; Q9967; A4216

== ENCOUNTER 2020-05-19 11:00 | Outpatient (RCR) | payer MEDICARE, OTHER, SELFPAY ==
[2020-03-25 13:45] VITALS: BMI 37.7
--- NOTE | 2020-03-31 15:26 | HP.PTEVAL ---
Patient's Visit Information ATTILA PELLETIER is a 69 year old M referred to Physical Therapy by Dr. Lisa Galvan MD with a diagnosis of LBP. Date of Evaluation: 03/31/20 Physical Therapist: Sridhar Turner, DPT, OCS, CSCS - Visit Plan Frequency: 2x /Week Duration: 4-6 Weeks Plan: Pool therapy per order for 2x/week for 4 weeks for. core strength. HS adn quad stretch. LE strength adn postural strength. LB ROM. and progress to I pool or land based exercises to be taught. - Subjective Was in here for balance. Got brace for L ankle and it has really helped , also put on gabapentin. On cancer meds for prostate adn keeps him in remission. Spent 3 days in hopsital to get medications settled. Some meds cancelled adn has effected back pain. LBP central and across back to 6/10 and worse walking too far. Sitting is not bad if he doesn't slouch. Goes through times where he can't sit. No leg symptoms from LB. Sleep is not interrupted. Ca't sleep on side. Activities are not much at home. Bending activities are limited with weeding adn planting an cleaning outside. Basic aDLs are not effected. Has neuropathy and needs to dress sitting edge of bed. - Objective Walks with a stiff trunk but I without AD. Trasnfers I. AROM L/S ext max limited, flexion mod limited, SB Max limited B. No tenderness in soft tissue in LB. LE aROM WFL, HS max tight at -25 90/90 test, quads tight B. reflexes 2/3 at patella and achilles. Sensation LE WNL to gross light touch. brace on L foot due to collapsed arch. R patella not present but good ROM and knee strength testing despite. hip strength 4-, knee 4+ and ankles 4/5. Core strength 3+ with weakness upon transfers. Good balance today. - Goals Goal 1:: patient feel pain 1/10 at worst and 75% better Goal Time Frame: 4-6 Weeks Goal 2:: Pt be I in appropriate ex to minimize future problems. Goal Time Frame: 4-6 Weeks Goal 3:: Sleep on side without waking at night. Goal Time Frame: 4-6 Weeks Goal 4:: oswestry score <25% disability Goal Time Frame: 4-6 Weeks - Rehabilitation Potential Physical Therapy Diagnosis: LBP Rehabilitation Potential: Fair - Anticipated Interventions Patient/Client Instruction: Educate patient on: Condition, Plan of Care For the Purpose of:: To decrease pain, To increase ROM, To increase tolerance to activity/condition/position, To improve ability of physical actions for home/community/work/leisure Therapeutic Exercise to Include: Strength training, Postural training, Flexibilty training, Gait and locomotor training, In an aquatic setting, Passive ROM, Active ROM, Dynamic Lumbar Stabilization For the Purpose of:: To decrease pain, To increase ROM, To improve nutrient delivery to tissue, To improve muscle performance and motor function, To increase tolerance to activity/condition/position, To improve ability of physical actions for home/community/work/leisure Thank you for the opportunity to evaluate your patient. For Medicare and Medicare HMO plans, please review the plan of care and approve it. It will need to be FAXED BACK to us at [phone] for Medicare purposes. For Medicare only, by signing this I certify the plan of care. Please let me know if there are questions or concerns regarding this plan of care. Physician Signature: Date:
--- NOTE | 2020-04-29 11:46 | HP.PTREVAL_ITS ---
Dr. Lisa Galvan MD, It has been my pleasure to treat ATTILA PELLETIER over the last 4 visits for LBP. Please see the progress note below for an update on the physical therapy plan of care! Subjective: Had problems with hipR hip just popped up and will see ortho surgeon. Had R hip problems in past and becoing chronic. Back is doing better and will consider continuing in pool after seeing orthopedic surgeon. Has some home exercises that he can do with . Had x ray of hip which showed some spots at acetabulm and will see Dr. Griggs 06/03 at latest. Objective/Function: LB AROM ext max limitations and stretching anterior. SB R painful and mod limtied, L fulla nd painfree, flexion mod limited adn stretching in LB. L leg about 3/8 inch shorter than r supine adn standing.Better with heel lift, no change to pain. Walks well but obvious L leg shorter than R. Plan Plan: 2x/week for 3-4 weeks for water therapy for.. core strength, HSm hip flexor, ITB and piriformis stretching and hip ROM and LB ROM and progress toward HEP as tolerated. Please stay away from exercises that bother R hip. Goals appopriate and fair prognosis for improvmenet LB, hip questionable. POC got interrupted by covid. Goals Goal 1:: patient feel pain 1/10 at worst and 75% better Goal Time Frame: 4-6 Weeks Goal 2:: Pt be I in appropriate ex to minimize future problems. Goal Time Frame: 4-6 Weeks Goal 3:: Sleep on side without waking at night. Goal Time Frame: 4-6 Weeks Goal 4:: oswestry score <25% disability Goal Time Frame: 4-6 Weeks Anticipated Interventions Patient/Client Instruction: Educate patient on: Condition, Plan of Care For the Purpose of:: To decrease pain, To increase ROM, To increase tolerance to activity/condition/position, To improve ability of physical actions for home/community/work/leisure Therapeutic Exercise to Include: Strength training, Postural training, Flexibilty training, Gait and locomotor training, In an aquatic setting, Passive ROM, Active ROM, Dynamic Lumbar Stabilization For the Purpose of:: To decrease pain, To increase ROM, To improve nutrient delivery to tissue, To improve muscle performance and motor function, To increa se tolerance to activity/condition/position, To improve ability of physical actions for home/community/work/leisure Please do not hesitate to contact me at [phone] by phone or if you have questions or concerns regarding this new plan of care! Sincerely, Sridhar Turner, DPT, OCS, CSCS
[2020-05-09 17:05] LABS: Anion Gap 1 (5-15); BUN 19 mg/dL (7-18); Calcium,Total 9.3 mg/dL (8.5-10.1); Chloride 105 mmol/L (98-107); EST Glomerular Filtration Rate 78 mL/min (>60); Est Glom Filt Rate - Afr Amer 95 mL/min (>60); Glucose 141 mg/dL (74-106); Potassium 4.6 mmol/L (3.5-5.1); Sodium Level 139 mmol/L (136-145)
--- NOTE | 2020-05-19 11:04 | HP.PTREVAL_ITS ---
Dr. Lisa Galvan MD, It has been my pleasure to treat ATTILA PELLETIER over the last 9 visits for LBP. Please see the progress note below for an update on the physical therapy plan of care! Subjective: Heel lift really helped, Back pain not bad over weekend, carried corn and not as bad as it would have been. Will see hip surgeon Dr. Griggs 06/03/20. Objective/Function: LB AROM WFL, no pain, doing well, walking without antalgia and I. Plan Plan: Pt to do HEP and call if problems, f/u in one month to ensure stilld oing wella dn d/c. Fair prognosis to maintain improvements via HEP. Goals Goal 1:: patient feel pain 1/10 at worst and 75% better Goal Time Frame: 4-6 Weeks Goal Progress: Progressing Goal 2:: Pt be I in appropriate ex to minimize future problems. Goal Time Frame: 4-6 Weeks Goal Progress: HEP Goal 3:: Sleep on side without waking at night. Goal Time Frame: 4-6 Weeks Goal Progress: Goal Met Goal 4:: oswestry score <25% disability Goal Time Frame: 4-6 Weeks Goal Progress: Goal Met Goal 5:: Maintain improvements via HEP vs in pool therapy Goal Time Frame: 2-4 Weeks Anticipated Interventions Patient/Client Instruction: Educate patient on: Condition, Plan of Care For the Purpose of:: To decrease pain, To increase ROM, To increase tolerance to activity/condition/position, To improve ability of physical actions for home/community/work/leisure Therapeutic Exercise to Include: Strength training, Postural training, Fl exibilty training, Gait and locomotor training, In an aquatic setting, Passive ROM, Active ROM, Dynamic Lumbar Stabilization For the Purpose of:: To decrease pain, To increase ROM, To improve nutrient delivery to tissue, To improve muscle performance and motor function, To increase tolerance to activity/condition/position, To improve ability of physical actions for home/community/work/leisure Please do not hesitate to contact me at [phone] by phone or if you have questions or concerns regarding this new plan of care! Sincerely, Sridhar Turner, DPT, OCS, CSCS
--- NOTE | 2020-07-24 10:21 | HP.PT.NRP ---
ATTILA PELLETIER was seen in my office for initial evaluation on 03/31/20. The following Plan of Care was established for this patient: Initial Frequency: 2x /Week Initial Duration: 4-6 Weeks Patient/Client Instruction: Educate patient on: Condition, Plan of Care For the Purpose of:: To decrease pain, To increase ROM, To increase tolerance to activity/condition/position, To improve ability of physical actions for home/community/work/leisure Therapeutic Exercise to Include: Strength training, Postural training, Flexibilty training, Gait and locomotor training, In an aquatic setting, Passive ROM, Active ROM, Dynamic Lumbar Stabilization For the Purpose of:: To decrease pain, To increase ROM, To improve nutrient delivery to tissue, To improve muscle performance and motor function, To increase tolerance to activity/condition/position, To improve ability of physical actions for home/community/work/leisure This patient was last seen in our office 05/19/20. Pertinent comments regarding their Physical therapy will appear below: Pt seen 9 visits of aquatic therapy and 75% better. Was to do HEP and f/u one month after last session but did not schedule or attend. at this point, it has been over 2 months and I will discontinue due to nonattendance. At this point I will be discontinuing this patient from physical therapy. I would be happy to see this patient again in the future if found appropriate by the physician. Thank you! Sridhar Turner, DPT, OCS, CSCS
== END 2020-05-19 19:00 | disposition home or self-care (01) ==
LOC: PT 11:00
PROVIDERS: PCP Family Medicine; Referring Provider Orthopaedic Surgery; Visit Provider Orthopaedic Surgery
DX: M54.5 Low back pain (principal)
CPT/HCPCS: 36415; 80048; 97113; 97162; 97164

== ENCOUNTER 2020-07-11 13:17 | Outpatient (RCR) | payer MEDICARE, OTHER, SELFPAY ==
[2020-03-25 13:45] VITALS: BMI 37.7
[2020-06-19 13:28] VITALS: BMI 37.7
[2020-07-11 15:18] LABS: International Normalized Ratio 2.6; Prothrombin Time (Protime)PT. 27.7 SECONDS (11.7-14.9)
== END 2020-07-11 18:00 | disposition home or self-care (01) ==
LOC: LAB 13:17
PROVIDERS: PCP Family Medicine; Referring Provider Family Medicine; Visit Provider Family Medicine
DX: Z86.711 Personal history of pulmonary embolism (principal); Z79.01 Long term (current) use of anticoagulants
CPT/HCPCS: 36415; 85610

== ENCOUNTER → 2020-08-05 13:38 | Outpatient (CLI) | payer MEDICARE, OTHER, SELFPAY ==
[2020-06-19 13:28] VITALS: BMI 37.7
== END ==
PROVIDERS: PCP Family Medicine; Visit Provider Urology
DX: C61 Malignant neoplasm of prostate (principal)

== ENCOUNTER 2020-08-05 13:53 | Outpatient (RCR) | payer MEDICARE, OTHER, SELFPAY ==
[2020-06-19 13:28] VITALS: BMI 37.7
[2020-08-05 14:50] LABS: International Normalized Ratio 3.1; Prothrombin Time (Protime)PT. 31.3 SECONDS (11.7-14.9)
[2020-08-05 15:06] LABS: PSA,Total- Diagnostic 0.25 ng/mL (0.0-4.0)
== END 2020-08-05 18:00 | disposition home or self-care (01) ==
LOC: LAB 13:53
PROVIDERS: PCP Family Medicine; Referring Provider Family Medicine; Visit Provider Family Medicine
DX: C61 Malignant neoplasm of prostate (principal); Z86.711 Personal history of pulmonary embolism; Z79.01 Long term (current) use of anticoagulants
CPT/HCPCS: 36415; 84153; 85610

== ENCOUNTER → 2020-10-24 15:53 | Outpatient (CLI) | payer MEDICARE, OTHER, SELFPAY ==
[2020-06-19 13:28] VITALS: BMI 37.7
[2020-10-24 17:50] LABS: Absolute Lymphocyte Count 1.01 X10^3/uL (0.83-4.51); Absolute Neutrophil Count 4.8 X10^3/uL (2.0-7.7); Basophil# 0.04 X10^3/uL; Basophil% 0.6 % (0-1); Eosinophil# 0.13 X10^3/uL; Hematocrit 42.7 % (40-54); Hemoglobin 13.8 g/dL (13.0-16.5); Lymphocyte # 1.01 X10^3/ul (4.0); Lymphocyte % 15.7 % (19-41); Mean Corp Hgb Conc 32.3 g/dL (32-36); Mean Corpuscular Hgb 31.8 pg (27.0-32.0); Mean Corpuscular Volume 98.4 fL (80-94); Mean Platelet Vol. 9.6 fl (6.2-12.0); Monocyte# 0.44 X10^3/uL; Monocyte% 6.8 % (0-10); NRBC Flagged by Analyzer 0 % (0-5); Neutrophil # 4.79 X10^3/uL (2.7-7.7); Neutrophil % 74.4 % (47-70); Platelet Count 231 K/mm3 (150-450); RBC Distribution Width CV 12.4 % (11.6-14.6); RBC Distribution Width SD 45.1 fl (35.1-43.9); Red Blood Count 4.34 M/mm3 (4.6-6.2); White Blood Count 6.4 K/mm3 (4.4-11.0)
[2020-10-24 18:23] LABS: ALB/GLOB Ratio 0.8 RATIO (0.9-2.4); AST(SGOT) 18 U/L (15-37); Alanine Aminotransfer ALT/SGPT 20 U/L (16-61); Albumin, Serum 3.2 g/dL (3.2-5.0); Alkaline Phosphatase 78 U/L (45-117); Anion Gap 6 (5-15); BUN 23 mg/dL (7-18); BUN/Creat Ratio 20.2 RATIO (10-20); Calcium,Total 9.1 mg/dL (8.5-10.1); Chloride 104 mmol/L (98-107); Creatinine, Serum 1.14 mg/dL (0.70-1.30); EST Glomerular Filtration Rate 67 mL/min (>60); Est Glom Filt Rate - Afr Amer 81 mL/min (>60); Globulin 4.1 g/dL (2.2-4.2); Glucose 209 mg/dL (74-106); PSA,Total- Diagnostic 0.19 ng/mL (0.0-4.0); Potassium 4.6 mmol/L (3.5-5.1); Protein, Total 7.3 g/dL (6.4-8.2); Sodium Level 137 mmol/L (136-145)
== END ==
PROVIDERS: PCP Family Medicine; Visit Provider Urology
DX: C61 Malignant neoplasm of prostate (principal)
CPT/HCPCS: 36415; 80053; 84153; 84443; 85025

== ENCOUNTER → 2020-12-29 09:40 | Outpatient (CLI) | payer MEDICARE, OTHER, SELFPAY ==
[2020-12-26 13:17] VITALS: BMI 38.7
--- NOTE | 2020-12-29 09:42 | US_ITS ---
STUDY: THYROID ULTRASOUND REASON FOR EXAM: Male, 70 years old. voice hoarseness TECHNIQUE: Ultrasound evaluation of the thyroid was performed with real-time and static langford-scale imaging. COMPARISON: None. FINDINGS: RIGHT LOBE: The right lobe of the thyroid gland measures 4.3 x 2.4 x 1.7 cm. There is a homogeneous echotexture. There are no demonstrated solid, cystic or complex lesions. LEFT LOBE: The left lobe of the thyroid gland measures 4.8 x 2.1 x 1.7 cm. There is a homogeneous echotexture. There are no demonstrated solid, cystic or complex lesions. ISTHMUS: The isthmus measures 2 mm thick. . The regional lymph nodes are normal. US/Thyroid IMPRESSION: Normal ultrasound examination of the thyroid. Electronically Signed: Rajinder Donovan MD at 16:17 EDT Tel , Service support ,
== END ==
PROVIDERS: PCP Family Medicine; Referring Provider Surgery; Visit Provider Surgery
DX: R49.0 Dysphonia (principal)
CPT/HCPCS: 76536

== ENCOUNTER 2021-01-06 08:01 | Day surgery (SDC) | payer MEDICARE, OTHER, SELFPAY ==
[2020-12-26 13:17] VITALS: BMI 38.7
[2021-01-06] VITALS (7 sets, daily range): BP systolic 93–125; BP diastolic 57–93; PULSE 84–96; RESP 18; TEMP 35.8–36.8; O2SAT 95–98; BMI 37.1
[2021-01-06 08:26] LABS: INR Fingerstick 1.3; Prothrombin Time Fingerstick 15.6 SEC (11.9-14.4)
--- NOTE | 2021-01-06 08:32 | PCM.HP.BLA ---
Problem List (1) Dysphagia Status: Acute Qualifiers: Dysphagia type: pharyngeal phase Qualified Code(s): R13.13 - Dysphagia, pharyngeal phase (2) Personal history of colonic polyps Status: Chronic History and Physical Date of Admission: 01/06/21 Intake Vital Signs 12/26/20 Height 5 ft 10 in 12/26/20 Weight: 269 lb 8 oz 12/26/20 BMI 38.7 12/26/20 BP 109/74 12/26/20 Blood Pressure Location Rt brachial 12/26/20 Position Sitting 12/26/20 Respiration 18 12/26/20 Pulse 54 L 12/26/20 Pulse Source Monitor 12/26/20 Temp 97.2 F L 12/26/20 Temp Source Temporal 12/26/20 Pulse Oximetry (%) 94 12/26/20 Oxygen Delivery Method room air Intake Visit Reasons: EGD, CSCOPE Chief Complaint: EGD/C-Scope Bee Farmer Required: No Accompanied by: Is patient in pain?: No Allergies cyclobenzaprine [From Flexeril] Allergy (Unknown, Verified 12/26/20 13:18) Unknown adhesive Allergy (Verified 12/26/20 13:18) Rash docetaxel [From Taxotere] Allergy (Verified 12/26/20 13:18) Unknown doxycycline Allergy (Verified 12/26/20 13:18) Unknown enoxaparin sodium [From Lovenox] Allergy (Verified 12/26/20 13:18) triple liver enzymes Penicillins Allergy (Verified 12/26/20 13:18) Rash enoxaparin [Enoxaparin] Adverse Reaction (Mild, Verified 12/26/20 13:18) Nausea promethazine Adverse Reaction (Verified 12/26/20 13:18) gets out of it lethargic phenergan Adverse Reaction (Severe, Uncoded 11/21/20 09:41) Drowsiness Medications duloxetine 60 mg capsule,delayed release 60 mg PO QDAY 12/01/17 [History Confirmed 12/26/20] lisinopril 40 mg tablet 40 mg PO QDAY 12/01/17 [History Confirmed 12/26/20] Calcium Carbonate/Vitamin D3 [Calcium 600-Vit D3 200 Tablet] 1 ea PO DAILY 06/27/18 [History Confirmed 12/26/20] Abiraterone Acetate [Zytiga] 1,000 mg PO DAILY 07/13/18 [History Confirmed 12/26/20] Hydrocortisone [Cortef] 10 mg PO 1700 07/13/18 [History Confirmed 12/26/20] pantoprazole 40 mg tablet,delayed release 40 mg PO DAILY 09/07/19 [History Confirmed 12/26/20] Glucos Sul 2Kcl/MSM/Chond/C/Mn [Glucosamine Chondroitin Cap] 1 ea PO DAILY 02/17/20 [History Confirmed 12/26/20] PEP device See Rx Instructions .ROUTE .MEDSUPPLY #1 ea 02/21/20 [Rx Confirmed 12/26/20] sennosides 8.6 mg capsule 8.6 mg PO BID 05/26/20 [History Confirmed 12/26/20] clonidine HCl 0.1 mg tablet 0.1 mg PO TID 06/19/20 [History Confirmed 12/26/20] gabapentin 400 mg capsule 1,600 mg PO DAILY cap 06/19/20 [History Confirmed 12/26/20] hydrocortisone 10 mg tablet 20 mg PO DAILY 06/19/20 [History Confirmed 12/26/20] metoprolol succinate 100 mg tablet,extended release 24 hr 100 mg PO DAILY 06/19/20 [History Confirmed 12/26/20] spironolactone 50 mg tablet 50 mg PO DAILY 06/19/20 [History Confirmed 12/26/20] warfarin 4 mg tablet 2 mg PO DAILY tab 06/19/20 [History Confirmed 12/26/20] warfarin 5 mg tablet 5 mg PO DAILY 06/19/20 [History Confirmed 12/26/20] [facility] Medical History Arthritis (Chronic) Peripheral neuropathy (Chronic) COPD (chronic obstructive pulmonary disease) (Chronic) Atrioventricular block, first degree (Chronic) GERD without esophagitis (Chronic) Personal history of colonic polyps (Chronic) Bronchiectasis (Chronic) Severe persistent asthma (Chronic) Central sleep apnea (Chronic) Essential (primary) hypertension (Chronic) Hyperlipidemia (Chronic) History of pulmonary embolism (Chronic) Prostate cancer metastatic to bone (Chronic) Voice hoarsenesses (Acute) Hypokalemia (Resolved) History of Coumadin therapy (Inactive) Surgical History History of cholecystectomy (Resolved) History of hernia surgery (Resolved) History of bilateral knee replacement (Resolved) history of toe replacement (Resolved) history of thumb replacement (Resolved) History of left heart catheterization (Resolved 06/16/04) Family History Mother Hypertension Arthritis Father , age 82 COPD complications COPD (chronic obstructive pulmonary disease) Arthritis Sister Hypertension Social History (Updated 12/26/20 @ 14:[address] Zbigniew Chowdary MD) Smoking Status: Never smoker alcohol intake: never substance use type: does not use HPI HPI HPI: ATTILA PELLETIER, is a 70 M who presents to the office today for HPI HPI Surgical H&P: Yes HPI: ATTILA PELLETIER, is a 70 M who presents to the office today for hoarseness. The patient reports that his hoarseness started a few months ago. He sometimes loses his voice. He reports that he does have severe GERD and he is take medications and sleep with his head elevated. He is also here for follow-up colonoscopy as he had his last colonoscopy 3 years ago and 3 polyps were found and were adenomatous. He was recommended to have a repeat in 3 years. He has no abdominal pain or blood in stool. Patient also reports like feeling something in his neck. He says that he went to the ENT and they told him his vocal cords look normal. ROS General General: Yes weight change and fatigue; no appetite, colon cancer, breast cancer or weakness HEENT HEENT: Yes difficulty swallowing, eye surgery and hoarseness; no eye injury or swollen glands Additional Details: Hoarseness of voice Endo Endocrine: No thyroid disease, diabetes mellitus, thyroid cancer, Hair loss, heat intolerance or cold intolerance Skin Skin: No rash or changing moles Breast Breast: No left breast lump, right breast lump, nipple discharge, breast pain, abnormal mammogram, abnormal US or breast enlargement Musc Musculoskeletal: Yes back problems, arthritis and gout; no rheumatoid arthritis or joint pain Cardio Cardiovascular: Yes heart disease and high blood pressure; no murmur, pacemaker, atrial fibrillation, heart attack, heart stent, palpitations, shortness of breat with exertion or chest pain Psych Psychiatric: No depression, anxiety or hearing voices Resp Respiratory: No shortness of breath, Yes sleep apnea, Yes cough, No COPD, Yes asthma, No emphysema, No wheezing Gastro Gastrointestinal: No abdominal pain, No nausea or vomiting, No diarrhea, No constipation, No blood in stool, Yes acid reflux, No hemorrhoids, No ulcers, No gallbladder problem, No black,tarry stools Tip Hematologic: Yes blood thinners, No blood disorders, No bleeding, No anemia, Yes blood clots Neuro Neurologic: No system reviewed and no additional complaints, except as docu, No as per HPI, No abnormal walking, No abnormal hearing, No abnormal movements, No abnormal speech, No behavioral changes, No burning sensations, No confusion, No seizure-like activity, No unsteadiness, No dizziness, No localized weakness, No frequent falls, No headache(s), No lack of coordination, No loss of vision, No memory loss, No numbness, No other visual disturbances, No radiating pain, No restless legs, No sensory deficit, No fainting, No tingling, No tremor(s), No weakness, No other Exam Const General: cooperative Orientation: alert, oriented x3 Chest Breast Palpation: No nipple discharge Resp Effort & Inspection: normal respiratory effort Auscultation: clear to auscultation bilaterally Cardio Rate: regular rate Rhythm: regular rhythm Heart Sounds: no murmurs GI Inspection: non-distended Palpation: soft, nontender Assessment & Plan Problems 1. Hoarseness of voice R49.0 2. GERD without esophagitis K21.9 3. Personal history of colonic polyps Z86.010 Plan The patient has new onset hoarseness of voice so I will perform an EGD to ensure that there is no irritation or esophagitis. The patient also needs a surveillance colonoscopy as his last colonoscopy revealed 3 polyps. This was 3 years ago and he was recommended for repeat in 3 years. Patient is also feeling something is sticking his next I will order an ultrasound of his thyroid. I explained endoscopy in detail to the patient. I explained the risks including but not limited to stroke or heart attack with anesthesia, perforation of the GI tract, bleeding, infection. I explained that any of these could necessitate further emergency surgery. The patient understands and all questions were answered sufficiently. The patient wishes to proceed with procedure. Zbigniew Chowdary MD Pager: [facility] [address] [place] [address], [address] [place] [address] Office: I have re-examined the patient. There are no clinical changes since date of exam.
[2021-01-06] MEDS: Lactated Ringers 1,000 ML 100 ML IV (08:49)
--- NOTE | 2021-01-06 09:00 | EGD_PTH ---
PATIENT: ATTILA PELLETIER LOC: EN U#:[id number] AGE/SX: 70/M ROOM: RE01/06/[address]: Dr. Zbigniew Chowdary MD : 1950 BED: DIS: 01/06/2021 SPEC #: [id number] RECD: 01/06/21 11:10 STATUS: SCOTT RAMONA #: [id number] TAMMY: 01/06/21 09:[address]: Zbigniew Chowdary DEPT: SURGICAL PATHOLOGY RECD BY: Gabriela Love ENTERED: 01/06/21 12:46 SP TYPE: EGD BIOPSY OTHR DR: Dr. Nikolas Bennett, Tissues: Gastric mucous membrane Procedures: Surgery Specimen Level IV HEADER OPERATION: Colonoscopy, EGD ([facility] PRE-OP DIAGNOSIS: Hoarseness of voice, GERD, history colon polyps TISSUE SUBMITTED: Antrum biopsy for H. pylori and path MICROSCOPIC DIAGNOSIS Gastric antrum, biopsy: Chronic gastritis. AM:naseem 01/07/2021 COMMENT The results of immunohistochemistry for Helicobacter pylori will be reported separately ([id number]). MICROSCOPIC DESCRIPTION Slides are reviewed. GROSS DESCRIPTION Received in fixative is one container labeled with the patient's name and designated antral biopsy. The specimen consists of two irregular fragments of light alas soft tissue that in aggregate measure 0.6 x 0.3 x 0.1 cm. The specimen is totally submitted in one cassette. / SJ:naseem 01/06/21 TC:3 CPT: 43528
--- NOTE | 2021-01-06 09:00 | IMM_PTH ---
PATIENT: ATTILA PELLETIER LOC: EN U#:[id number] AGE/SX: 70/M ROOM: RE01/06/[address]: Dr. bZigniew Chowdary MD : 1950 BED: DIS: 01/06/2021 SPEC #: [id number] RECD: 01/06/21 13:33 STATUS: SCOTT REReyna #: [id number] TAMMY: 01/06/21 09:[address]: Zbigniew Chowdary DEPT: IMMUNOHISTOCHEMISTRY RECD BY: Samantha Potts ENTERED: 01/06/21 13:33 SP TYPE: IMMUNO OTHR DR: Dr. Nikolas Bennett DO Tissues: Stomach, NOS Procedures: H Pylori (initial) PHYSICIAN & INSTITUTION [place] [id number] SPECIMEN INFORMATION: Tissue Source: Antrum biopsy Clinical Info: Hoarseness of voice, GERD, history colon polyps Specimen Number: [id number] CPT code: 12875 METHODOLOGY: Deparaffinized sections of prefer/formalin-fixed tissue or PAP/DQ stained slides are incubated with monoclonal/polyclonal antibodies/oligonucleotide probes. Localization is made via biotin free immunoperoxidase method. Appropriate controls are performed and reacted as expected. Results on target cell population are indicated in the following table: RESULTS: ANTIBODY / CLONE RESULT H Pylori (polyclonal) negative These tests were developed and their performance characteristics determined by [facility]. They may not have been cleared or approved by the U.S. Food and Drug Administration. The FDA has determined that such clearance or approval is not necessary. INTERPRETATION: Antrum, biopsy: Negative for Helicobacter pylori organisms. AM:naseem 01/07/2021
--- NOTE | 2021-01-06 09:41 | OP.CCLET_ITS ---
01/06/2021 Jewel Hollis Re : Upper GI endoscopy procedure for Chance Hollis This procedure was performed on Wednesday, January 06, 2021. My impressions and recommendations are as follows: Impressions : - Normal esophagus. - Large hiatal hernia. - Normal examined duodenum. - Biopsies were taken with a cold forceps for Helicobacter pylori testing. Recommendations : - Await pathology results. - Discharge patient to home. - Resume previous diet. - Continue present medications. - Resume Coumadin (warfarin) at prior dose tomorrow. My findings are described in the full procedure note, which is enclosed. If I can be of further assistance, please feel free to contact me at Doctor phone number(s): , Work: . Sincerely, Zbigniew Chowdary MD 01/06/2021 9:40:55 AM This report has been signed electronically.
--- NOTE | 2021-01-06 09:41 | OP.EGD_ITS ---
Patient Name: Chance Medrano Procedure Date: 01/06/2021 8:39 AM Date of : 1950 Age: 70 Procedure: Upper GI endoscopy Indications: Dysphagia, Esophageal reflux Providers: Zbigniew Chowdary MD Referring MD: Nikolas Bennett Medicines: Monitored Anesthesia Care Patient Profile: This is a 70 year old male. Refer to note in patient chart for documentation of history and physical. Complications: No immediate complications. Estimated blood loss: Minimal. Procedure: Pre-Anesthesia Assessment: - Prior to the procedure, a History and Physical was performed, and patient medications and allergies were reviewed. The patient's tolerance of previous anesthesia was also reviewed. The risks and benefits of the procedure and the sedation options and risks were discussed with the patient. All questions were answered, and informed consent was obtained. Prior Anticoagulants: The patient has taken Coumadin (warfarin), last dose was 5 days prior to procedure. After reviewing the risks and benefits, the patient was deemed in satisfactory condition to undergo the procedure. After obtaining informed consent, the endoscope was passed under direct vision. Throughout the procedure, the patient's blood pressure, pulse, and oxygen saturations were monitored continuously. The gastroscope was introduced through the mouth, and advanced to the third part of duodenum. The upper GI endoscopy was accomplished without difficulty. The patient tolerated the procedure well. Scope In: 9:01:28 AM Scope Out: 9:05:22 AM Total Procedure Duration Time 0 hours 3 minutes 54 seconds Findings: The esophagus was normal. A large hiatal hernia was present. The examined duodenum was normal. Biopsies were taken with a cold forceps in the gastric antrum for Helicobacter pylori testing. Impression: - Normal esophagus. - Large hiatal hernia. - Normal examined duodenum. - Biopsies were taken with a cold forceps for Helicobacter pylori testing. Recommendation: - Await pathology results. - Discharge patient to home. - Resume previous diet. - Continue present medications. - Resume Coumadin (warfarin) at prior dose tomorrow. Procedure Code(s): --- Professional --- 10210, Esophagogastroduodenoscopy, flexible, transoral; with biopsy, single or multiple Diagnosis Code(s): --- Professional --- K44.9, Diaphragmatic hernia without obstruction or gangrene R13.10, Dysphagia, unspecified K21.9, Gastro-esophageal reflux disease without esophagitis CPT copyright 2017 [employer]. All rights reserved. The codes documented in this report are preliminary and upon fuel agent review may be revised to meet current compliance requirements. Zbigniew Chowdary MD 01/06/2021 9:40:55 AM This report has been signed electronically. Number of Addenda: 0 Note Initiated On: 01/06/2021 8:39 AM
--- NOTE | 2021-01-06 09:43 | OP.COLON_ITS ---
Patient Name: Chance Medrano Procedure Date: 01/06/2021 9:05 AM Date of : 1950 Age: 70 Procedure: Colonoscopy Indications: High risk colon cancer surveillance: Personal history of colonic polyps, Surveillance: Personal history of adenomatous polyps on last colonoscopy 3 years ago Providers: Zbigniew Chowdary MD Referring MD: Nikolas Bennett Medicines: Monitored Anesthesia Care Patient Profile: This is a 70 year old male. Refer to note in patient chart for documentation of history and physical. Last Colonoscopy: 3 years ago. Complications: No immediate complications. Procedure: Pre-Anesthesia Assessment: - Prior to the procedure, a History and Physical was performed, and patient medications and allergies were reviewed. The patient's tolerance of previous anesthesia was also reviewed. The risks and benefits of the procedure and the sedation options and risks were discussed with the patient. All questions were answered, and informed consent was obtained. Prior Anticoagulants: The patient has taken Coumadin (warfarin), last dose was 5 days prior to procedure. After reviewing the risks and benefits, the patient was deemed in satisfactory condition to undergo the procedure. After I obtained informed consent, the scope was passed under direct vision. Throughout the procedure, the patient's blood pressure, pulse, and oxygen saturations were monitored continuously. The colonoscope was introduced through the anus and advanced to the cecum, identified by appendiceal orifice and ileocecal valve. Scope In: 9:08:30 AM Scope Withdrawal Time 0 hours 6 minutes 7 seconds Scope Out: 9:26:45 AM Total Procedure Duration Time 0 hours 18 minutes 15 seconds Findings: The entire examined colon appeared normal on direct and retroflexion views. Impression: - The entire examined colon is normal on direct and retroflexion views. - No specimens collected. Recommendation: - Discharge patient to home. - Resume previous diet. - Continue present medications. - Repeat colonoscopy in 5 years for screening purposes. Procedure Code(s): --- Professional --- G0105, Colorectal cancer screening; colonoscopy on individual at high risk Diagnosis Code(s): --- Professional --- Z86.010, Personal history of colonic polyps CPT copyright 2017 [employer]. All rights reserved. The codes documented in this report are preliminary and upon facilities engineering manager review may be revised to meet current compliance requirements. Zbigniew Chowdary MD 01/06/2021 9:43:18 AM This report has been signed electronically. Number of Addenda: 0 Note Initiated On: 01/06/2021 9:05 AM
--- NOTE | 2021-01-06 09:43 | OP.CCLET_ITS ---
01/06/2021 Jewel Hollis Re : Colonoscopy procedure for Chance Hollis This procedure was performed on Wednesday, January 06, 2021. My impressions and recommendations are as follows: Impressions : - The entire examined colon is normal on direct and retroflexion views. - No specimens collected. Recommendations : - Discharge patient to home. - Resume previous diet. - Continue present medications. - Repeat colonoscopy in 5 years for screening purposes. My findings are described in the full procedure note, which is enclosed. If I can be of further assistance, please feel free to contact me at Doctor phone number(s): , Work: . Sincerely, Zbigniew Chowdary MD 01/06/2021 9:43:18 AM This report has been signed electronically.
== END 2021-01-06 10:22 | disposition home or self-care (01) ==
LOC: EN 08:02 → AC 08:03
PROVIDERS: PCP Family Medicine; Referring Provider Family Medicine; Visit Provider Surgery
PROC: 0DJD8ZZ Inspection of Lower Intestinal Tract, Via Natural or Artificial Opening Endoscopic (ICD-10-PCS; CPT 45378; principal; 2021-01-06 08:55)
DX: K29.50 Unspecified chronic gastritis without bleeding (principal); K44.9 Diaphragmatic hernia without obstruction or gangrene; K21.9 Gastro-esophageal reflux disease without esophagitis; Z20.828 Contact with and (suspected) exposure to other viral communicable diseases; I10 Essential (primary) hypertension; I44.0 Atrioventricular block, first degree; M19.90 Unspecified osteoarthritis, unspecified site; G62.9 Polyneuropathy, unspecified; J44.9 Chronic obstructive pulmonary disease, unspecified; J45.50 Severe persistent asthma, uncomplicated; G47.31 Primary central sleep apnea; E78.5 Hyperlipidemia, unspecified; Z86.711 Personal history of pulmonary embolism; Z85.46 Personal history of malignant neoplasm of prostate; Z86.010 Personal history of colon polyps; Z90.49 Acquired absence of other specified parts of digestive tract; Z79.01 Long term (current) use of anticoagulants; Z79.899 Other long term (current) drug therapy
CPT/HCPCS: 43239; G0105; 36416; 85610; 87426; 88305; 88342; C9803; J7120; A4216

== ENCOUNTER 2021-05-11 12:11 | Outpatient (RCR) | payer MEDICARE, OTHER, SELFPAY ==
[2020-06-19 13:28] VITALS: BMI 37.7
[2021-03-17 07:42] VITALS: BMI 38.0
[2021-05-11 12:49] LABS: International Normalized Ratio 2.6; Prothrombin Time (Protime)PT. 26.9 SECONDS (11.7-14.9)
[2021-05-11 13:18] LABS: PSA,Total- Diagnostic 0.88 ng/mL (0.0-4.0)
== END 2021-05-11 18:00 | disposition home or self-care (01) ==
LOC: LAB 12:11
PROVIDERS: PCP Family Medicine; Referring Provider Family Medicine; Visit Provider Family Medicine
DX: C61 Malignant neoplasm of prostate (principal); Z86.711 Personal history of pulmonary embolism; Z79.01 Long term (current) use of anticoagulants
CPT/HCPCS: 36415; 84153; 85610

== ENCOUNTER → 2021-06-06 | Outpatient (CLI) | payer MEDICARE, OTHER, SELFPAY | END | disposition home or self-care (01) | LOC: EMPH 06-08 08:14 → LABSPEC 06-25 13:46 | PROVIDERS: PCP Family Medicine; Referring Provider Nurse Practitioner Family; Visit Provider Internal Medicine Infectious Disease | DX: R05 Cough (principal) | CPT/HCPCS: 87635; U0005; U0003 ==

== ENCOUNTER 2021-06-09 14:36 | Outpatient (CLI) | payer MEDICARE, OTHER, SELFPAY ==
[2021-06-09 14:54] VITALS: BP 120/84; PULSE 82; RESP 28; TEMP 37.9; O2SAT 92; BMI 37.3
[2021-06-09] MEDS: 0.9% Saline Lock 10 ML Syringe IV (15:07)
--- NOTE | 2021-06-09 15:23 | NURSING ---
pt now oriented to place and time.
[2021-06-09 15:35] VITALS: BP 124/74; PULSE 88; RESP 22; TEMP 37.3; O2SAT 90
--- NOTE | 2021-06-09 16:03 | NURSING ---
Pt called at home. notified of pt confusion. She confirmed he was also confused at home. Tarah come [facility] pt up [facility].
--- NOTE | 2021-06-09 16:49 | NURSING ---
called. here to pick pt up and take pt home.
[2021-06-09 16:55] VITALS: BP 108/86; PULSE 76; RESP 16; TEMP 37.2
== END 2021-06-09 16:55 | disposition home or self-care (01) ==
LOC: ICUOUT 14:37 → MS2 14:39
PROVIDERS: PCP Family Medicine; Referring Provider Nurse Practitioner Acute Care; Visit Provider Nurse Practitioner Acute Care
DX: Z23 Encounter for immunization (principal); U07.1 COVID-19
CPT/HCPCS: J7050; M0243; A4216; Q0244

== ENCOUNTER 2021-07-13 11:10 | Outpatient (RCR) | payer MEDICARE, OTHER, SELFPAY ==
[2021-03-17 07:42] VITALS: BMI 38.0
[2021-07-08 18:13] LABS: Prothrombin Time (Protime)PT. 70.9 SECONDS (11.7-14.9)
[2021-07-08 18:23] LABS: International Normalized Ratio 8.7
[2021-07-10 15:31] LABS: Prothrombin Time (Protime)PT. 52.4 SECONDS (11.7-14.9)
[2021-07-10 16:24] LABS: International Normalized Ratio 5.9
[2021-07-13 15:14] LABS: International Normalized Ratio 2.7; Prothrombin Time (Protime)PT. 28.2 SECONDS (11.7-14.9)
== END 2021-07-13 18:00 | disposition home or self-care (01) ==
LOC: MTLAB 11:10
PROVIDERS: PCP Family Medicine; Referring Provider Family Medicine; Visit Provider Family Medicine
DX: Z86.711 Personal history of pulmonary embolism (principal); Z79.01 Long term (current) use of anticoagulants
CPT/HCPCS: 36415; 85610

== ENCOUNTER → 2021-07-15 14:41 | Outpatient (CLI) | payer MEDICARE, OTHER, SELFPAY ==
--- NOTE | 2021-07-15 14:43 | RAD_ITS ---
EXAM: XR LEFT ELBOW COMPLETE, 3 OR MORE VIEWS CLINICAL INDICATION: FALL ON ARM pain TECHNIQUE: Frontal, lateral and oblique views of the left elbow. This report was created using [employer] report generation technology. COMPARISON: None. FINDINGS: BONES/JOINTS: Unremarkable. There is no displacement of the anterior or posterior fat pads. No acute fracture. No subluxation. Normal alignment. Preservation of the joint space. No destructive or sclerotic lesions. SOFT TISSUES: Unremarkable. No soft tissue swelling or gas. No radiopaque foreign body. VASCULATURE: There are atherosclerotic vascular calcifications. RAD/Elbow min 3 Views IMPRESSION: No acute findings in the left elbow. Electronically Signed: Alvaro Knight MD at 19:32 EDT , Service support ,
== END ==
PROVIDERS: PCP Family Medicine; Referring Provider Family Medicine; Visit Provider Family Medicine
DX: S40.022A Contusion of left upper arm, initial encounter (principal)
CPT/HCPCS: 73080

== ENCOUNTER 2021-07-31 11:14 | Outpatient (RCR) | payer MEDICARE, OTHER, SELFPAY ==
[2021-07-17 02:24] VITALS: BMI 38.0
[2021-07-17 17:46] LABS: International Normalized Ratio 1.5; Prothrombin Time (Protime)PT. 17.7 SECONDS (11.7-14.9)
[2021-07-24 13:24] LABS: International Normalized Ratio 1.8
[2021-07-31 15:22] LABS: International Normalized Ratio 2.4; Prothrombin Time (Protime)PT. 25.3 SECONDS (11.7-14.9)
== END 2021-08-16 04:10 | disposition home or self-care (01) ==
LOC: MTLAB 11:14
PROVIDERS: PCP Family Medicine; Referring Provider Family Medicine; Visit Provider Family Medicine
DX: Z79.01 Long term (current) use of anticoagulants (principal); Z86.711 Personal history of pulmonary embolism
CPT/HCPCS: 36415; 85610

== ENCOUNTER 2021-09-03 13:52 | Outpatient (RCR) | payer MEDICARE, OTHER, SELFPAY ==
[2021-08-16 04:10] VITALS: BMI 38.0
[2021-08-21 16:41] LABS: International Normalized Ratio 3.4; Prothrombin Time (Protime)PT. 33.3 SECONDS (11.7-14.9)
[2021-09-03 15:13] LABS: International Normalized Ratio 2.9; Prothrombin Time (Protime)PT. 29.7 SECONDS (11.7-14.9)
== END 2021-09-15 18:00 | disposition home or self-care (01) ==
LOC: MTLAB 13:52
PROVIDERS: PCP Family Medicine; Referring Provider Family Medicine; Visit Provider Family Medicine
DX: Z79.01 Long term (current) use of anticoagulants (principal); Z86.711 Personal history of pulmonary embolism
CPT/HCPCS: 36415; 85610

== ENCOUNTER → 2021-09-29 09:58 | Outpatient (CLI) | payer MEDICARE, OTHER, SELFPAY | PROVIDERS: PCP Family Medicine; Referring Provider Internal Medicine Cardiovascular Disease; Visit Provider Internal Medicine Cardiovascular Disease | DX: R00.1 Bradycardia, unspecified (principal); R42 Dizziness and giddiness | CPT/HCPCS: 93225; 93226 ==

== ENCOUNTER 2021-10-13 09:49 | Outpatient (RCR) | payer MEDICARE, OTHER, SELFPAY ==
[2021-09-16 03:19] VITALS: BMI 38.0
[2021-10-13 12:49] LABS: International Normalized Ratio 2.7; Prothrombin Time (Protime)PT. 28.1 SECONDS (11.7-14.9)
== END 2021-10-17 18:00 | disposition home or self-care (01) ==
LOC: MTLAB 09:49
PROVIDERS: PCP Family Medicine; Referring Provider Family Medicine; Visit Provider Family Medicine
DX: Z79.01 Long term (current) use of anticoagulants (principal); Z86.711 Personal history of pulmonary embolism
CPT/HCPCS: 36415; 85610

== ENCOUNTER 2021-10-30 12:16 | Outpatient (CLI) | payer MEDICARE, OTHER, SELFPAY ==
--- NOTE | 2021-10-30 12:18 | CT_ITS ---
STUDY: CT BRAIN WITH AND WITHOUT CONTRAST REASON FOR EXAM: Male, 71 years old. 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 The examination was performed with intravenous administration of IV 50mL Isovue-370. Individualized dose optimization techniques were used for this CT. COMPARISON: None. FINDINGS: Normal soft tissue structures. Normal calvarium. There is mild cerebral atrophy with widening of the extra-axial spaces and ventricular dilatation. There are areas of decreased attenuation within the white matter tracts of the supratentorial brain, consistent with microvascular disease changes. Normal basal ganglia and thalami. Normal brainstem. Normal cerebellum. There is no intracranial hemorrhage. There are no findings of an acute ischemic infarction. Atherosclerotic calcification of the vertebral arteries and cavernous portions of the internal carotid arteries bilaterally. Normal visualized paranasal sinuses. CT/Brain/Head W/WO Contrast IMPRESSION: Chronic involutional changes of the brain. Electronically Signed: Marco A Michaels MD at 15:07 EST , Service support ,
--- NOTE | 2021-10-30 14:34 | TELEMED_ITS ---
[facility] has confirmed receipt of a request for visit. This document confirms receipt of the order initiating the consult. To find the results of the consultation, please view the patient's reports for the scanned Telemed Consult.
[2021-10-30 14:40] LABS: EGFR FINGERSTICK > 60.0000 mL/min (>60)
== END 2021-10-30 23:59 | disposition short-term general hospital (02) ==
LOC: CT 12:18
PROVIDERS: PCP Family Medicine; Referring Provider Internal Medicine Critical Care Medicine; Visit Provider Internal Medicine Critical Care Medicine
DX: R56.9 Unspecified convulsions (principal); C79.51 Secondary malignant neoplasm of bone; C61 Malignant neoplasm of prostate
CPT/HCPCS: 70470; 95819; Q9967; A4216

== ENCOUNTER 2021-11-17 17:03 | Outpatient (RCR) | payer MEDICARE, OTHER, SELFPAY ==
[2021-10-18 03:57] VITALS: BMI 38.0
[2021-11-17 18:18] LABS: International Normalized Ratio 1.5; Prothrombin Time (Protime)PT. 17.7 SECONDS (11.7-14.9)
[2021-11-17 18:34] LABS: PSA,Total- Diagnostic 2.81 ng/mL (0.0-4.0)
== END 2021-11-17 18:00 | disposition home or self-care (01) ==
LOC: MTLAB 17:03
PROVIDERS: Urology; PCP Family Medicine; Referring Provider Family Medicine; Visit Provider Family Medicine
DX: Z86.711 Personal history of pulmonary embolism (principal); C61 Malignant neoplasm of prostate; Z79.01 Long term (current) use of anticoagulants
CPT/HCPCS: 36415; 84153; 85610

== ENCOUNTER 2022-01-07 14:20 | Outpatient (RCR) | payer MEDICARE, OTHER, SELFPAY ==
[2021-12-15 10:50] VITALS: BMI 38.0
[2022-01-07 17:47] LABS: Prothrombin Time (Protime)PT. 48.3 SECONDS (11.7-14.9)
[2022-01-07 17:53] LABS: International Normalized Ratio 5.4
== END 2022-01-14 18:00 | disposition home or self-care (01) ==
LOC: MTLAB 14:20
PROVIDERS: PCP Family Medicine; Referring Provider Family Medicine; Visit Provider Family Medicine
DX: Z79.01 Long term (current) use of anticoagulants (principal); Z86.711 Personal history of pulmonary embolism
CPT/HCPCS: 36415; 85610

== ENCOUNTER 2022-01-15 12:25 | Outpatient (RCR) | payer MEDICARE, OTHER, SELFPAY ==
[2022-01-15 02:19] VITALS: BMI 38.0
[2022-01-15 13:52] LABS: Prothrombin Time (Protime)PT. 21.7 SECONDS (11.7-14.9)
== END 2022-01-15 18:00 | disposition home or self-care (01) ==
LOC: LAB 12:25
PROVIDERS: PCP Family Medicine; Referring Provider Family Medicine; Visit Provider Family Medicine
DX: Z79.01 Long term (current) use of anticoagulants (principal); Z86.711 Personal history of pulmonary embolism
CPT/HCPCS: 36415; 85610

== ENCOUNTER 2022-01-18 09:31 | Day surgery (SDC) | payer MEDICARE, OTHER, SELFPAY ==
[2022-01-18] VITALS (7 sets, daily range): BP systolic 85–108; BP diastolic 59–85; PULSE 68–81; RESP 12–16; TEMP 36.6–36.8; O2SAT 94–98; BMI 32.8
[2022-01-18 10:01] LABS: INR Fingerstick 1.3; Prothrombin Time Fingerstick 16.5 SEC (11.7-14.9)
[2022-01-18] MEDS: Lactated Ringers 1,000 ML 15 ML IV (10:05)
--- NOTE | 2022-01-18 10:42 | PCM.HP.BLA ---
History and Physical Date of Admission: 01/18/22 Intake Vital Signs 12/30/21 08:18 Height 5 ft 10 in Weight: 231 lb BMI 33.1 BP 108/71 Blood Pressure Location Rt brachial Position Sitting Respiration 18 Intake Visit Reasons: Gerd/Hernia Chief Complaint: Emesis after coughing. Distribution Center Associate Required: No Is patient in pain?: No Allergies cyclobenzaprine [From Flexeril] Allergy (Unknown, Verified 12/30/21 08:19) Unknown adhesive Allergy (Verified 12/30/21 08:19) Rash docetaxel [From Taxotere] Allergy (Verified 12/30/21 08:19) Unknown doxycycline Allergy (Verified 12/30/21 08:19) Unknown enoxaparin sodium [From Lovenox] Allergy (Verified 12/30/21 08:19) triple liver enzymes Penicillins Allergy (Verified 12/30/21 08:19) Rash enoxaparin [Enoxaparin] Adverse Reaction (Mild, Verified 12/30/21 08:19) Nausea amlodipine Adverse Reaction (Unknown, Verified 12/30/21 08:19) Pt remembers he can't take it but can't remember reaction promethazine Adverse Reaction (Verified 12/30/21 08:19) gets out of it lethargic phenergan Adverse Reaction (Severe, Uncoded 12/30/21 08:19) Drowsiness Medications duloxetine 60 mg capsule,delayed release 60 mg PO QDAY 12/01/17 [History Confirmed 12/30/21] lisinopril 40 mg tablet 40 mg PO QHS 12/01/17 [History Confirmed 12/30/21] calcium carbonate-vitamin D3 1 ea PO DAILY 06/27/18 [History Confirmed 12/30/21] pantoprazole 40 mg tablet,delayed release 40 mg PO DAILY 09/07/19 [History Confirmed 12/30/21] glucos sul [id number]-C-Mn 1 ea PO DAILY 02/17/20 [History Confirmed 12/30/21] ondansetron HCl 4 mg tablet 4 mg PO Q8H PRN tab 05/25/21 [History Confirmed 12/30/21] gabapentin 400 mg capsule 800 mg PO BID cap 08/21/21 [History Confirmed 12/30/21] olanzapine 2.5 mg tablet 2.5 mg PO QHS 08/21/21 [History Confirmed 12/30/21] oxybutynin chloride 10 mg tablet,extended release 24 hr 10 mg PO DAILY 08/21/21 [History Confirmed 12/30/21] spironolactone 50 mg tablet 50 mg PO BID tab 08/21/21 [History Confirmed 12/30/21] warfarin 4 mg tablet 4 mg PO QHS tab 08/21/21 [History Confirmed 12/30/21] PEP device #1 ea 08/25/21 [Rx Confirmed 12/30/21] rucaparib 200 mg tablet 200 mg PO BID tab 09/24/21 [History Confirmed 12/30/21] rucaparib 250 mg tablet 250 mg PO BID tab 09/24/21 [History Confirmed 12/30/21] metoprolol succinate 50 mg tablet,extended release 24 hr 25 mg PO DAILY tab 10/02/21 [History Confirmed 12/30/21] sucralfate 100 mg/mL oral suspension 10 ml PO BID #400 ml 12/25/21 [Rx Confirmed 12/30/21] PFSH Medical History Arthritis Atrioventricular block, first degree Bronchiectasis Central sleep apnea COPD (chronic obstructive pulmonary disease) COVID-19 virus detected (06/06/21) Dysphagia Essential (primary) hypertension GERD without esophagitis History of Coumadin therapy History of pulmonary embolism Hyperlipidemia Hypokalemia Peripheral neuropathy Personal history of colonic polyps Prostate cancer metastatic to bone Severe persistent asthma Symptomatic bradycardia (09/24/21) Voice hoarsenesses Surgical History History of bilateral knee replacement History of cholecystectomy History of colonoscopy (12/2020) History of esophagogastroduodenoscopy (EGD) (12/2020) History of hernia surgery History of left heart catheterization (06/16/04) history of thumb replacement history of toe replacement Family History Mother Hypertension Arthritis Father , age 82 COPD complications COPD (chronic obstructive pulmonary disease) Arthritis Sister Hypertension Social History Smoking Status: Never smoker alcohol intake: never substance use type: does not use HPI HPI HPI: ATTILA PELLETIER, is a 71 M who presents to the office today for cough and regurgitation. Patient is also having significant heartburn. Patient reports his regurgitation usually happens in the morning due to significant coughing. Patient has been on a PPI. ROS General General: Yes weight change and fatigue; No appetite, colon cancer, breast cancer or weakness HEENT HEENT: No difficulty swallowing, eye injury, eye surgery, swollen glands or hoarseness Endo Endocrine: No thyroid disease, diabetes mellitus, thyroid cancer, Hair loss, heat intolerance or cold intolerance Skin Skin: No rash or changing moles Breast Breast: No left breast lump, right breast lump, nipple discharge, breast pain, abnormal mammogram, abnormal US or breast enlargement Musc Musculoskeletal: Yes arthritis; No back problems, rheumatoid arthritis, gout or joint pain Cardio Cardiovascular: Yes high blood pressure; No murmur, pacemaker, heart disease, atrial fibrillation, heart attack, heart stent, palpitations, shortness of breat with exertion or chest pain Psych Psychiatric: No depression, anxiety or hearing voices Resp Respiratory: No shortness of breath, Yes sleep apnea, Yes cough, No COPD, Yes asthma, No emphysema and No wheezing Gastro Gastrointestinal: No abdominal pain, Yes nausea or vomiting, No diarrhea, No constipation, No blood in stool, Yes acid reflux, No hemorrhoids, No ulcers, No gallbladder problem and No black,tarry stools Tip Hematologic: Yes blood thinners, No blood disorders, No bleeding, No anemia and No blood clots Neuro Neurologic: No system reviewed and no additional complaints, except as documented, No as per HPI, No abnormal gait, No abnormal hearing, No abnormal movements, No abnormal speech, No behavioral changes, No burning sensations, No confusion, No convulsions, No disequilibrium, No dizziness, No localized weakness, No frequent falls, No headache(s), No lack of coordination, No loss of vision, No memory loss, No numbness, No other visual disturbances, No radicular pain, No restless legs, No sensory deficit, No syncope, No tingling, No tremor(s), No weakness and No other Exam Const General: cooperative Orientation: alert and oriented x3 HENMT Head: normal to inspection Neck Neck: normal visual inspection and full ROM Chest Chest palpation & inspection: normal inspection of the chest Resp Effort & Inspection: normal respiratory effort Auscultation: clear to auscultation bilaterally Cardio Rate: regular rate Rhythm: regular rhythm GI Inspection: non-distended Palpation: soft and nontender Skin General: no rashes or lesions noted Neuro General: patient alert and patient oriented x3 Extrem General: full ROM Psych Appearance: grossly normal Mental Status: mental status grossly normal Assessment and Plan Assessment and Plan (1) GERD (gastroesophageal reflux disease): Status: Acute Qualifiers: Esophagitis presence: esophagitis presence not specified Qualified Code(s): K21.9 - Gastro-esophageal reflux disease without esophagitis Plan - Dr. Zbigniew Chowdary MD: The patient has significant GERD. I discussed Reji fundoplication with him in detail. I also discussed the preoperative work-up including EGD with pH probe and manometry. Patient is currently taking PPI once in the morning and all of his symptoms normally happen overnight. I would like him to try taking this twice daily and I have asked him to take Carafate as a solid pill instead of trying to make it liquid and seeing if this helps him tolerate it better. If there is no improvement with these medication changes I will have him back and schedule him for EGD with pH probe and manometry and then further discuss surgery with him. Patient is very hesitant about surgery given his age and comorbidities. Zbigniew Chowdary MD Pager: [facility] [address] [place] [address], [address] [place] [address] Office: Patient called me last week saying that he vomited up some blood. He did note that he misplaced the omeprazole and had been off of PPI for a week. He thinks that this attributed to the bleeding. He did not have any further bleeding the rest of the weekend. He denies any blood in his stool. At this time I asked him to resume his PPI so I will not be able to do the pH probe today but I will inspect during EGD to see what was bleeding.
--- NOTE | 2022-01-18 10:59 | OP.EGD_ITS ---
Patient Name: Chance Medrano Procedure Date: 01/18/2022 10:39 AM Date of : 1950 Age: 71 Procedure: Upper GI endoscopy Indications: Gastro-esophageal reflux disease Providers: Zbigniew Chowdary MD Medicines: Monitored Anesthesia Care Patient Profile: This is a 71 year old male. Refer to note in patient chart for documentation of history and physical. Complications: No immediate complications. Procedure: Pre-Anesthesia Assessment: - Prior to the procedure, a History and Physical was performed, and patient medications and allergies were reviewed. The patient's tolerance of previous anesthesia was also reviewed. The risks and benefits of the procedure and the sedation options and risks were discussed with the patient. All questions were answered, and informed consent was obtained. Prior Anticoagulants: The patient has taken no previous anticoagulant or antiplatelet agents. After reviewing the risks and benefits, the patient was deemed in satisfactory condition to undergo the procedure. After obtaining informed consent, the endoscope was passed under direct vision. Throughout the procedure, the patient's blood pressure, pulse, and oxygen saturations were monitored continuously. The gastroscope was introduced through the mouth, and advanced to the second part of duodenum. The upper GI endoscopy was accomplished without difficulty. The patient tolerated the procedure well. Scope In: 10:49:52 AM Scope Out: 10:53:55 AM Total Procedure Duration Time 0 hours 4 minutes 3 seconds Findings: Grade I varices were found in the entire esophagus. The stomach was normal. There was bile reflux. The examined duodenum was normal. A medium-sized hiatal hernia was present. Impression: - Grade I esophageal varices. - Normal stomach. - Normal examined duodenum. - No specimens collected. Recommendation: - Discharge patient to home. - Resume previous diet. - Continue present medications. Procedure Code(s): --- Professional --- 53971, Esophagogastroduodenoscopy, flexible, transoral; diagnostic, including collection of specimen(s) by brushing or washing, when performed (separate procedure) Diagnosis Code(s): --- Professional --- I85.00, Esophageal varices without bleeding K21.9, Gastro-esophageal reflux disease without esophagitis CPT copyright 2017 [employer]. All rights reserved. The codes documented in this report are preliminary and upon coal washer review may be revised to meet current compliance requirements. Zbigniew Chowdary MD 01/18/2022 10:59:04 AM This report has been signed electronically. Number of Addenda: 0 Note Initiated On: 01/18/2022 10:39 AM
--- NOTE | 2022-01-18 11:00 | OP.CCLET_ITS ---
01/18/2022 Nikolas Bennett [address] [place] [address] Re : Upper GI endoscopy procedure for Chance Medrano Dear Dr. Bennett This procedure was performed on Tuesday, January 18, 2022. My impressions and recommendations are as follows: Impressions : - Grade I esophageal varices. - Normal stomach. - Normal examined duodenum. - No specimens collected. Recommendations : - Discharge patient to home. - Resume previous diet. - Continue present medications. My findings are described in the full procedure note, which is enclosed. If I can be of further assistance, please feel free to contact me at Doctor phone number(s): , Work: . Sincerely, Zbigniew Chowdary MD 01/18/2022 10:59:04 AM This report has been signed electronically.
== END 2022-01-18 23:59 | disposition home or self-care (01) ==
LOC: EN 09:33 → AC 09:33
PROVIDERS: PCP Family Medicine; Referring Provider Family Medicine; Visit Provider Surgery
PROC: 0DJ08ZZ Inspection of Upper Intestinal Tract, Via Natural or Artificial Opening Endoscopic (ICD-10-PCS; CPT 43235; principal; 2022-01-18 10:25)
DX: K21.9 Gastro-esophageal reflux disease without esophagitis (principal); I85.00 Esophageal varices without bleeding; J44.9 Chronic obstructive pulmonary disease, unspecified; I10 Essential (primary) hypertension; E78.5 Hyperlipidemia, unspecified; Z86.16 Personal history of COVID-19; Z86.711 Personal history of pulmonary embolism; G62.9 Polyneuropathy, unspecified; Z86.010 Personal history of colon polyps; Z85.46 Personal history of malignant neoplasm of prostate; Z85.830 Personal history of malignant neoplasm of bone; Z79.01 Long term (current) use of anticoagulants; Z79.899 Other long term (current) drug therapy; J45.50 Severe persistent asthma, uncomplicated; Z86.718 Personal history of other venous thrombosis and embolism; M10.9 Gout, unspecified
CPT/HCPCS: 43235; 36416; 85610; 87426; C9803; J7120; A4216

== ENCOUNTER 2022-02-05 14:46 | Emergency (ER) | payer MEDICARE, OTHER, SELFPAY ==
[2022-02-05 14:47] VITALS: BP 112/77; PULSE 97; RESP 16; TEMP 35.9; O2SAT 99; BMI 29.2
--- NOTE | 2022-02-05 15:00 | EX.ED.DYSGE1 ---
HPI History of Present Illness Chief Complaint: Nausea/Vomiting/Diarrhea Informant: patient and spouse/S.O. Onset/Context/Timing Onset: Days (Onset February 02) Context: Sudden Onset Timing: Intermittent Quality: Vomiting and diarrhea Location: GI Current Severity: Severe Maximum Severity: Severe Worsened by: None thing Relieved by: Nothing Associated Symptoms Associated Symptoms: Dry mouth, thirsty and generalized weakness Narrative Narrative: Patient is an elderly male with history of metastatic prostate cancer as well as central sleep apnea, COVID-19 infection, GERD, symptomatic bradycardia and esophageal varices. Patient was prescribed Reglan for his nausea and vomiting however he is not able to eat or drink anything without vomiting. He denies hematemesis, melena medic easier. He denies abdominal pain. He denies headache, visual, ocular auditory symptoms. He denies cardiac respiratory symptoms. Upon further questioning he endorses cough which when asked to define is actually vomiting. He does endorse decreased urine output. He denies pain with urination or blood in his urine. Prior similar symptoms: No Recent Illness/Hospitalization: No PFSH PFSH Medical History Abrasion Arthritis Arthritis Asthma ASV (adaptive servo-ventilation) use counseling Atrioventricular block, first degree Back pain Blackout Bladder disease Bronchiectasis Cancer Cardiology follow-up encounter Central sleep apnea Chest pain Chronic cough COVID-19 virus detected (06/06/21) DVT (deep venous thrombosis) Dysphagia Esophageal varices Esophageal varices Essential (primary) hypertension Gastric reflux Gastritis GERD without esophagitis Gout History of Coumadin therapy History of echocardiogram History of edema History of hiatal hernia History of Holter monitoring History of irregular heartbeat History of pulmonary embolism History of stress test History of ulceration Hx of Acosta's palsy Hx of glaucoma Hyperlipidemia Hypokalemia Injury of head and neck Loss of hearing Non-smoker Peripheral neuropathy Personal history of colonic polyps Prostate cancer metastatic to bone Pulmonary embolism Severe persistent asthma Shortness of breath on exertion Symptomatic bradycardia (09/24/21) Syncope Voice hoarsenesses Wears glasses Wears partial dentures Home Medications duloxetine 60 mg capsule,delayed release 60 mg PO QDAY 12/01/17 [History Last Taken Unknown] lisinopril 40 mg tablet 20 mg PO DAILY 12/01/17 [History Last Taken 01/18/22] calcium carbonate-vitamin D3 1 ea PO DAILY 06/27/18 [History Last Taken Unknown] pantoprazole 40 mg tablet,delayed release 40 mg PO DAILY 09/07/19 [History Last Taken 01/18/22] glucos sul [id number]-ixz-puhsm-C-Mn 2 ea PO DAILY 02/17/20 [History Last Taken Unknown] gabapentin 400 mg capsule 800 mg PO BID cap 08/21/21 [History Last Taken Unknown] oxybutynin chloride 10 mg tablet,extended release 24 hr 10 mg PO DAILY 08/21/21 [History Last Taken Unknown] spironolactone 50 mg tablet 50 mg PO BID tab 08/21/21 [History Last Taken Unknown] warfarin 4 mg tablet 4 mg PO QHS tab 08/21/21 [History Last Taken Unknown] PEP device #1 ea 08/25/21 [Rx Last Taken Unknown] rucaparib 200 mg tablet 200 mg PO BID tab 09/24/21 [History Last Taken Unknown] rucaparib 250 mg tablet 250 mg PO BID tab 09/24/21 [History Last Taken Unknown] leuprolide (3 month) [Eligard (3 month)] 22.5 mg SUBCUT .Q3MO 01/15/22 [History Last Taken Unknown] metoclopramide HCl [Reglan] 10 mg PO TID 01/15/22 [History Last Taken Unknown] ondansetron 4 mg PO Q8H PRN PRN #10 tab 02/05/22 [Rx Last Taken Unknown] Allergy/AdvReac Type Severity Reaction Status Date / Time cyclobenzaprine Allergy Unknown Unknown Verified 01/18/22 09:57 [From Flexeril] adhesive Allergy Rash Verified 01/18/22 09:57 docetaxel [From Taxotere] Allergy Unknown Verified 01/18/22 09:57 doxycycline Allergy Unknown Verified 01/18/22 09:57 enoxaparin sodium Allergy triple Verified 01/18/22 09:57 [From Lovenox] liver enzymes Penicillins Allergy Rash Verified 01/18/22 09:57 enoxaparin [Enoxaparin] AdvReac Mild Nausea Verified 01/18/22 09:57 amlodipine AdvReac Unknown Pt Verified 01/18/22 09:57 remembers he can't take it but can't remember reaction promethazine AdvReac gets out Verified 01/18/22 09:57 of it lethargic phenergan AdvReac Severe Drowsiness Uncoded 01/18/22 09:57 Family History Mother Hypertension Arthritis Father , age 82 COPD complications COPD (chronic obstructive pulmonary disease) Arthritis Sister Hypertension Surgical History History of bilateral knee replacement History of blepharoplasty History of cholecystectomy History of colonoscopy (12/2020) History of esophagogastroduodenoscopy (EGD) (12/2020) History of hernia surgery History of left heart catheterization (06/16/04) history of thumb replacement history of toe replacement Hx of left cataract extraction Hx of right cataract extraction Social History (Updated 02/05/22 @ 15:[address] Matt Eason MD) household members: spouse Smoking Status: Never smoker alcohol intake: never substance use type: does not use ROS ROS ED Constitutional Constitutional ED: Reports weight loss; Denies chills, fever(s), subjective or sweats Eyes Eyes: Denies blurry vision, change in vision or diplopia ENT ENT ED: Denies ear pain, rhinorrhea or sore throat Cardiovascular Cardiovascular: Denies chest pain, orthopnea, palpitations or racing heartbeat Respiratory/Chest Respiratory/Chest: Denies cough, dyspnea, dyspnea on exertion or orthopnea Gastrointestinal Gastrointestinal: Reports abdominal pain, diarrhea, nausea and vomiting; Denies constipation or melena Genitourinary Genitourinary ED: Denies dysuria, hematuria or urinary frequency Musculoskeletal Musculoskeletal: Denies arthralgias, back pain, myalgias or neck pain Integumentary Denies rash Neurologic Neurologic: Reports weakness; Denies headache(s) or paresthesias Endocrine Endocrinology: Denies polydipsia, polyphagia or polyuria Hematologic/Lymphatic Hematologic/Lymphatic: Reports anemia; Denies easy bleeding or easy bruising EXAM Physical Exam Const Vital Signs: 02/05/22 14:47 02/05/22 15:39 02/05/22 16:30 Temperature 96.6 F L Temperature Source Temporal Pulse Rate 97 89 83 Respiratory Rate 16 20 H 16 Blood Pressure 112/77 113/89 H 130/86 H Blood Pressure Mean 88 97 100 Pulse Ox 99 94 96 Oxygen Delivery Method Room Air Room Air Room Air Positive well nourished and well developed General Appearance ED: well developed; Negative for cyanotic, diaphoretic, NAD or pallor HEENT Reports TM's clear and dry mucous membranes HEENT Narrative: <del>Uvula</del> <del>midline.</del> <del>No</del> <del>erythema</del> <del>or</del> <del>exudate</del> <del>the</del> <del>posterior</del> <del>pharynx.</del> trauma and tenderness Tympanic Membrane ED: Yes TM's clear Mouth ED: Yes dry mucous membranes Mouth: dry mucous membranes Eyes PERRL and EOMs intact bilaterally General Eye ED: Yes pale conjunctiva; Negative for scleral icterus Neck no lymphadenopathy, supple and no JVD Chest Wall inspection of chest normal and palpation of chest normal Resp normal respiratory effort and clear to auscultation bilaterally Cardio regular rate, regular rhythm, S1 normal heart sound, S2 normal heart sound and no murmurs GI normal to inspection, nondistended, normoactive bowel sounds and non-distended Auscultation: hypoactive bowel sounds Palpation: soft and tender other (Diffuse) Back/Spine no CVA tenderness Cervical Spine: Negative for cervical spine tenderness Thoracic Spine / Upper Back: Negative for thoracic spinal tenderness or paraspinal muscle tenderness Lumbar Spine / Lower Back: Negative for lumbar spinal tenderness Extremity normal to inspection General Extremety ED: Yes edema; Negative for tenderness General Extremity: edema Neuro oriented x3 and CN's II-XII intact bilaterally Sensorium / Orientation: alert Motor Exam: strength 5/5 throughout Psych Mood & Affect: depressed Skin no rashes or lesions noted and no wounds General Skin Exam: Negative for jaundice or pallor MDM MDM MDM Narrative Medical decision making narrative: Patient does appear dehydrated. Will obtain electrolyte panel to assess calcium, alk phosphatase, renal function as well as CO2 anion gap. Also CBC was obtained to assess for anemia. 1 L of normal saline was ordered and 4 mg of Zofran was ordered to treat his dehydration and nausea and vomiting. Patient was assessed at 1623 and 1658. He had no urge to urinate after 500 cc had infused and after 1 L has infused. He does report feeling better. P.o. challenge was ordered and a second liter of normal saline was ordered. Lab Data Labs: Laboratory Results - last 24 hr 02/05/22 02/05/22 15:30 15:30 WBC 5.0 RBC 4.08 L Hgb 14.0 Hct 40.2 MCV 98.5 H MCH 34.3 H MCHC 34.8 RDW Std Deviation 51.8 H RDW Coeff of Judi 14.1 Plt Count 179 MPV 9.2 Immature Gran % (Auto) 0.200 Neut % (Auto) 68.1 Lymph % (Auto) 14.1 L [place] % (Auto) 15.6 H Eos % (Auto) 1.6 Baso % (Auto) 0.4 Absolute Neuts (auto) 3.4 Absolute Lymphs (auto) 0.70 L Nucleated RBC % 0 Sodium 134 L Potassium 3.7 Chloride 101 Carbon Dioxide 25.0 Anion Gap 8 BUN 39 H Creatinine 1.29 Estim Creat Clear Calc 53.45 Est GFR (MDRD) Af Amer 70 Est GFR (MDRD) Non-Af 58 L BUN/Creatinine Ratio 30.2 H Glucose 135 H Calcium 9.0 Total Bilirubin 0.90 AST 77 H ALT 53 Alkaline Phosphatase 91 Total Protein 7.7 Albumin 3.6 Globulin 4.1 Albumin/Globulin Ratio 0.9 Discharge Plan Triage Chief Complaint: Nausea/Vomiting/Diarrhea ED Provider: Matt Eason Dx/Rx/DC Orders Clinical Impression: Nausea vomiting and diarrhea, Malignant neoplasm of prostate metastatic to bone, Acute prerenal azotemia Instructions: ED Diarrhea, Unknown Cause Prescriptions: New ondansetron [ondansetron] 4 MG tablet 4 mg PO Q8H PRN PRN (Reason: Nausea) Qty: 10 RF: 0 No Action lisinopril 40 mg tablet 20 mg PO DAILY RF: 0 duloxetine [Cymbalta] 60 mg capsule,delayed release(DR/EC) 60 mg PO QDAY RF: 0 pantoprazole [Protonix] 40 mg tablet,delayed release (DR/EC) 40 mg PO DAILY RF: 0 gabapentin 400 mg capsule 800 mg PO BID RF: 0 warfarin 4 mg tablet 4 mg PO QHS RF: 0 spironolactone 50 mg tablet 50 mg PO BID RF: 0 (DME) PEP device See Rx Instructions .Route .MEDSUPPLY Qty: 1 RF: 0 oxybutynin chloride 10 mg tablet extended release 24hr 10 mg PO DAILY RF: 0 calcium carbonate-vitamin D3 1 EACH tablet 1 ea PO DAILY RF: 0 glucos sul [id number]-xqt-xqawu-C-Mn 1 EACH capsule 2 ea PO DAILY RF: 0 metoclopramide HCl [Reglan] 10 mg Tablet 10 mg PO TID RF: 0 Eligard (3 month) 22.5 mg Syringe 22.5 mg SUBCUT .Q3MO RF: 0 rucaparib 200 mg tablet 200 mg PO BID RF: 0 rucaparib 250 mg tablet 250 mg PO BID RF: 0 Primary Care Provider: Nikolas Bennett Referrals: Jewel Hollis MD [STAFF PHYSICIAN] - As Needed Nikolas Bennett DO [Primary Care Provider] - 1-2 Days if not improving Disposition Disposition: Home, Self Care
[2022-02-05] MEDS: Ondansetron 4 MG/2 ML Vial IV (15:35)
[2022-02-05] MEDS: 0.9% Normal Saline 1,000 ML 1000 ML IV ×3 (15:35→19:46)
[2022-02-05 15:39] VITALS: BP 113/89; PULSE 89; RESP 20; O2SAT 94
[2022-02-05 15:39] LABS: Absolute Neutrophil Count 3.4 X10^3/uL (2.0-7.7); Basophil# 0.02 X10^3/uL; Basophil% 0.4 % (0-1); Eosinophil# 0.08 X10^3/uL; Eosinophils% 1.6 % (0-5); Hematocrit 40.2 % (40-54); Lymphocyte % 14.1 % (19-41); Mean Corp Hgb Conc 34.8 g/dL (32-36); Mean Corpuscular Hgb 34.3 pg (27.0-32.0); Mean Corpuscular Volume 98.5 fL (80-94); Mean Platelet Vol. 9.2 fl (6.2-12.0); Monocyte# 0.77 X10^3/uL; Monocyte% 15.6 % (0-10); NRBC Flagged by Analyzer 0 % (0-5); Neutrophil # 3.37 X10^3/uL (2.7-7.7); Neutrophil % 68.1 % (47-70); Platelet Count 179 K/mm3 (150-450); RBC Distribution Width CV 14.1 % (11.6-14.6); RBC Distribution Width SD 51.8 fl (35.1-43.9); Red Blood Count 4.08 M/mm3 (4.6-6.2)
[2022-02-05 15:56] LABS: ALB/GLOB Ratio 0.9 RATIO (0.9-2.4); AST(SGOT) 77 U/L (15-37); Alanine Aminotransfer ALT/SGPT 53 U/L (16-61); Albumin, Serum 3.6 g/dL (3.2-5.0); Alkaline Phosphatase 91 U/L (45-117); Anion Gap 8 (5-15); BUN 39 mg/dL (7-18); BUN/Creat Ratio 30.2 RATIO (10-20); Chloride 101 mmol/L (98-107); Creatinine, Serum 1.29 mg/dL (0.70-1.30); EST Glomerular Filtration Rate 58 mL/min (>60); Est Glom Filt Rate - Afr Amer 70 mL/min (>60); Estimated Creatinine Clearance 53.45 ml/min; Globulin 4.1 g/dL (2.2-4.2); Glucose 135 mg/dL (74-106); Potassium 3.7 mmol/L (3.5-5.1); Protein, Total 7.7 g/dL (6.4-8.2); Sodium Level 134 mmol/L (136-145)
[2022-02-05 16:30] VITALS: BP 130/86; PULSE 83; RESP 16; O2SAT 96
[2022-02-05 17:00] VITALS: BP 111/86; PULSE 84; RESP 21; O2SAT 97
[2022-02-05 18:42] VITALS: BP 123/86; PULSE 69; RESP 16; O2SAT 95
[2022-02-05 20:27] VITALS: BP 131/75; PULSE 86
== END 2022-02-05 20:27 | disposition home or self-care (01) ==
PROVIDERS: Emergency Provider Emergency Medicine; PCP Family Medicine; Visit Provider Emergency Medicine
DX: R11.2 Nausea with vomiting, unspecified (principal); C79.51 Secondary malignant neoplasm of bone; I85.00 Esophageal varices without bleeding; C61 Malignant neoplasm of prostate; I10 Essential (primary) hypertension; E86.0 Dehydration; E78.5 Hyperlipidemia, unspecified; R19.7 Diarrhea, unspecified; G47.31 Primary central sleep apnea; Z86.16 Personal history of COVID-19; K21.9 Gastro-esophageal reflux disease without esophagitis; R00.1 Bradycardia, unspecified; Z86.718 Personal history of other venous thrombosis and embolism; Z87.19 Personal history of other diseases of the digestive system; M10.9 Gout, unspecified; Z86.711 Personal history of pulmonary embolism; J45.50 Severe persistent asthma, uncomplicated; G62.9 Polyneuropathy, unspecified; Z79.899 Other long term (current) drug therapy; Z79.01 Long term (current) use of anticoagulants; R79.89 Other specified abnormal findings of blood chemistry
CPT/HCPCS: 36591; 80053; 85025; 96361; 96374; 99285; J7030; A4216; J2405

== ENCOUNTER → 2022-02-08 | Outpatient (CLI) | payer MEDICARE, OTHER, SELFPAY ==
--- NOTE | 2022-02-08 07:26 | US_ITS ---
STUDY: ABDOMINAL ULTRASOUND - ELASTOGRAPHY REASON FOR VISIT: Male, 71 years old. History of esophageal varices. TECHNIQUE: Liver stiffness measurements were obtained on a [email or web address] RS 85 ultrasound machine using a CA 1-7 probe following the SRU guidelines. 3 measurements were obtained using a 2-D-SWE method. The IQR/M was 24% suggesting a quality data set. TECHNICAL QUALITY: Adequate. COMPARISON: Comparison is made with prior examination done earlier today. FINDINGS: Liver: Fatty infiltration of the liver. Median liver stiffness measured 12 kPa. US/Elastography Parenchyma/Organ IMPRESSION: Liver stiffness measures 12 kPa compatible with F2-F3 (Mild to moderate liver fibrosis) Metavir score. Electronically Signed: Marco A Michaels MD at 13:27 EDT ,
--- NOTE | 2022-02-08 07:26 | US_ITS ---
STUDY: ABDOMINAL ULTRASOUND - RIGHT UPPER QUADRANT REASON FOR VISIT: Male, 71 years old esophageal varices TECHNIQUE: Ultrasound evaluation of the right upper quadrant was performed with real-time and static langford-scale imaging. TECHNICAL QUALITY: Limited. Examination limited by bowel gas. COMPARISON: None. FINDINGS: Liver: The liver measures 17.9 cm. There is increased echogenicity consistent with fatty infiltration. The bile ducts are within normal limits. There is hepatic color flow. The direction of portal flow is hepatopetal. There is no demonstrated mass lesion. Gallbladder: The patient is status post cholecystectomy. Common Bile Duct (C.B.D.): The common bile duct was not visualized due to overlying bowel gas. Pancreas: There is nonvisualization of the pancreas due to overlying bowel gas. Right Kidney: Normal size of the right kidney. The right kidney measures 11.5 cm x 4.9 cm x 5.7 cm. Normal renal cortex. The right cortex measures 1.9 cm. There is a 3.1 cm x 3.1 cm x 3.1 cm cyst in the right kidney. There is no right hydronephrosis. US/Abdomen Limited IMPRESSION: Limited study due to overlying bowel gas. Fatty infiltration of the liver. Electronically Signed: Marco A Michaels MD at 13:25 EDT ,
== END | disposition home or self-care (01) ==
LOC: US 07:24
PROVIDERS: PCP Family Medicine; Referring Provider Surgery; Visit Provider Surgery
DX: I85.00 Esophageal varices without bleeding (principal)
CPT/HCPCS: 76705; 76981

== ENCOUNTER 2022-02-11 17:47 | Emergency (ER) | payer MEDICARE, OTHER, SELFPAY ==
[2022-02-11 17:48] VITALS: BP 122/79; PULSE 73; RESP 12; O2SAT 97
[2022-02-11 17:49] VITALS: TEMP 36.9; BMI 35.1
--- NOTE | 2022-02-11 18:01 | RAD_ITS ---
EXAM: XR RIGHT HIP WITH PELVIS WHEN PERFORMED, 2 OR 3 VIEWS CLINICAL INDICATION: injury TECHNIQUE: Two or three views of the right hip with pelvis when performed. This report was created using [employer] report generation technology. COMPARISON: None. FINDINGS: BONES/JOINTS: There is a fractured proximal femur below the trochanter. The femoral head is located in the acetabulum. No destructive or sclerotic lesions. Note that overlapping bowel shadows may however obscure fine detail. Sacroiliac joint is unremarkable. No widening of the pubic symphysis. The articular structures are unremarkable. SOFT TISSUES: Unremarkable. No soft tissue swelling or gas. OTHER FINDINGS: RAD/HIP, UNI W/ Pelvis 2-3 Views IMPRESSION: Fracture of the infratrochanteric proximal femur. Electronically Signed: Aristeo Monaco MD at 19:03 EDT ,
--- NOTE | 2022-02-11 18:01 | RAD_ITS ---
EXAM: XR RIGHT KNEE, 1 OR 2 VIEWS CLINICAL INDICATION: injury TECHNIQUE: Frontal and/or lateral views of the right knee. This report was created using [employer] report generation technology. COMPARISON: None. FINDINGS: BONES/JOINTS: Total right knee prosthesis in anatomic alignment. There is no evidence of fractures or loosening. Preservation of the joint space. No sclerotic or destructive changes observed. SOFT TISSUES: Unremarkable. No soft tissue swelling or gas. No radiopaque foreign body. RAD/Knee 1 or 2 Views IMPRESSION: Total knee prosthesis in anatomic alignment. There are no acute osseous abnormalities. Electronically Signed: Aristeo Monaco MD at 19:05 EDT ,
--- NOTE | 2022-02-11 18:04 | EX.ED.DYSGE1 ---
HPI History of Present Illness Chief Complaint: Lower Extremity Injury Informant: patient, spouse/S.O. and EMS Narrative Narrative: 71-year-old male presenting to the emergency department with right hip injury. Patient called EMS after he fell. He states he fell because he is clumsy. He notes pain in the right hip and right knee. He has had prior bilateral knee replacements. He states that he had seen an orthopedist in [facility] who retired but he has seen [facility] in the past. 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 He also has a history of PE and is on Coumadin. Patient denies hitting his head. He denies any other injuries other than the hip and the knee EMS noted the right hip to be shortened and rotated. They gave pain medication in route [facility] Medical History Abrasion Arthritis Arthritis Asthma ASV (adaptive servo-ventilation) use counseling Atrioventricular block, first degree Back pain Blackout Bladder disease Bronchiectasis Cancer Cardiology follow-up encounter Central sleep apnea Chest pain Chronic cough COVID-19 virus detected (06/06/21) DVT (deep venous thrombosis) Dysphagia Esophageal varices Esophageal varices Essential (primary) hypertension Gastric reflux Gastritis GERD without esophagitis Gout History of Coumadin therapy History of echocardiogram History of edema History of hiatal hernia History of Holter monitoring History of irregular heartbeat History of pulmonary embolism History of stress test History of ulceration Hx of Acosta's palsy Hx of glaucoma Hyperlipidemia Hypokalemia Injury of head and neck Loss of hearing Non-smoker Peripheral neuropathy Personal history of colonic polyps Prostate cancer metastatic to bone Pulmonary embolism Severe persistent asthma Shortness of breath on exertion Symptomatic bradycardia (09/24/21) Syncope Voice hoarsenesses Wears glasses Wears partial dentures Home Medications duloxetine 60 mg capsule,delayed release 60 mg PO QDAY 12/01/17 [History Last Taken Unknown] lisinopril 40 mg tablet 20 mg PO DAILY 12/01/17 [History Last Taken 01/18/22] calcium carbonate-vitamin D3 1 ea PO DAILY 06/27/18 [History Last Taken Unknown] pantoprazole 40 mg tablet,delayed release 40 mg PO DAILY 09/07/19 [History Last Taken 01/18/22] glucos sul 1LPa-kik-aemsq-C-Mn 2 ea PO DAILY 02/17/20 [History Last Taken Unknown] gabapentin 400 mg capsule 800 mg PO BID cap 08/21/21 [History Last Taken Unknown] oxybutynin chloride 10 mg tablet,extended release 24 hr 10 mg PO DAILY 08/21/21 [History Last Taken Unknown] spironolactone 50 mg tablet 50 mg PO BID tab 08/21/21 [History Last Taken Unknown] warfarin 4 mg tablet 4 mg PO QHS tab 08/21/21 [History Last Taken Unknown] PEP device #1 ea 08/25/21 [Rx Last Taken Unknown] rucaparib 200 mg tablet 200 mg PO BID tab 09/24/21 [History Last Taken Unknown] rucaparib 250 mg tablet 250 mg PO BID tab 09/24/21 [History Last Taken Unknown] leuprolide (3 month) [Eligard (3 month)] 22.5 mg SUBCUT .Q3MO 01/15/22 [History Last Taken Unknown] metoclopramide HCl [Reglan] 10 mg PO TID 01/15/22 [History Last Taken Unknown] ondansetron 4 mg PO Q8H PRN PRN #10 tab 02/05/22 [Rx Last Taken Unknown] Allergy/AdvReac Type Severity Reaction Status Date / Time cyclobenzaprine Allergy Unknown Unknown Verified 01/18/22 09:57 [From Flexeril] adhesive Allergy Rash Verified 01/18/22 09:57 docetaxel [From Taxotere] Allergy Unknown Verified 01/18/22 09:57 doxycycline Allergy Unknown Verified 01/18/22 09:57 enoxaparin sodium Allergy triple Verified 01/18/22 09:57 [From Lovenox] liver enzymes Penicillins Allergy Rash Verified 01/18/22 09:57 enoxaparin [Enoxaparin] AdvReac Mild Nausea Verified 01/18/22 09:57 amlodipine AdvReac Unknown Pt Verified 01/18/22 09:57 remembers he can't take it but can't remember reaction promethazine AdvReac gets out Verified 01/18/22 09:57 of it lethargic phenergan AdvReac Severe Drowsiness Uncoded 01/18/22 09:57 Family History Mother Hypertension Arthritis Father , age 82 COPD complications COPD (chronic obstructive pulmonary disease) Arthritis Sister Hypertension Surgical History History of bilateral knee replacement History of blepharoplasty History of cholecystectomy History of colonoscopy (12/2020) History of esophagogastroduodenoscopy (EGD) (12/2020) History of hernia surgery History of left heart catheterization (06/16/04) history of thumb replacement history of toe replacement Hx of left cataract extraction Hx of right cataract extraction Social History household members: spouse Smoking Status: Never smoker alcohol intake: never substance use type: does not use ROS ROS ED Constitutional Constitutional ED: Denies chills, fever(s) or weight loss Eyes Eyes: Denies change in vision or diplopia ENT ENT ED: Denies ear pain, rhinorrhea or sore throat Cardiovascular Cardiovascular: Denies chest pain, orthopnea, palpitations or racing heartbeat Respiratory/Chest Respiratory/Chest: Denies cough, dyspnea or orthopnea Gastrointestinal Gastrointestinal: Denies abdominal pain, diarrhea, nausea or vomiting Genitourinary Genitourinary ED: Denies dysuria, hematuria or urinary frequency Musculoskeletal Musculoskeletal: Reports other Details: See history of present illness ; Denies arthralgias or myalgias Integumentary Denies abscess or rash Neurologic Neurologic: Denies headache(s) or weakness Psychiatric Psychiatric: Denies anxiety, depression, suicidal ideation or suicidal thoughts Endocrine Endocrinology: Denies polydipsia, polyphagia or polyuria Allergic/Immunologic Allergic/Immunologic ED: Denies mouth swelling, tongue swelling or urticaria EXAM Physical Exam Const Vital Signs: 02/11/22 17:48 02/11/22 17:49 Temperature 98.4 F Temperature Source Temporal Pulse Rate 73 Respiratory Rate 12 Blood Pressure 122/79 H Blood Pressure Mean 93 Pulse Ox 97 Oxygen Delivery Method Room Air Positive well nourished, well developed and obese General Appearance ED: well developed Nutritional Appearance: obese HEENT Reports normocephalic, head/scalp atraumatic, TM's clear and moist mucous membranes Negative for trauma Tympanic Membrane ED: Yes TM's clear Eyes PERRL and EOMs intact bilaterally Neck no lymphadenopathy, supple and no JVD Resp normal respiratory effort and clear to auscultation bilaterally Cardio regular rate, regular rhythm and no murmurs GI normal to inspection, nondistended, normoactive bowel sounds and non-tender Palpation: soft Back/Spine no CVA tenderness and normal ROM Extremity Extremity Narrative: The right hip is shortened and rotated with pain upon palpation. The right knee shows tenderness at the tibial tuberosity. Otherwise no obvious deformity of the knee. There are well-healed surgical scars of both knees. Strong dorsalis pedis pulse distally. Sensation appears intact General Extremety ED: Negative for edema General Extremity: Negative for edema Neuro oriented x3 and CN's II-XII intact bilaterally Sensorium / Orientation: alert Motor Exam: strength 5/5 throughout Psych mental status grossly normal Mood & Affect: Negative for depressed or tearful Skin no rashes or lesions noted and no wounds MDM MDM MDM Narrative Medical decision making narrative: My interpretation of plain films of the chest is no acute process. My interpretation of the plain films of the right knee is no acute fracture. My interpretation of the plain films of the right hip with pelvis is a subtrochanteric femur fracture. Patient received morphine and Zofran. He also received a dose of Ativan. Case was discussed with orthopedic surgeon Cuba Lucas. Recommendation is that the patient be transferred to tertiary care facility. Family and patient were updated. They have requested to be transferred to [facility]. I spoke with Dr. Hernandez from orthopedics who has accepted and will receive. Lab Data Attestation: I reviewed the patient's lab results. Labs: Laboratory Results - last 24 hr 02/11/22 02/11/22 02/11/22 18:13 18:13 18:13 WBC 4.5 RBC 3.66 L Hgb 13.0 Hct 36.2 L MCV 98.9 H MCH 35.5 H MCHC 35.9 RDW Std Deviation 52.2 H RDW Coeff of Judi 14.3 Plt Count 150 MPV 8.9 Immature Gran % (Auto) 0.900 Neut % (Auto) 59.7 Lymph % (Auto) 26.1 [place] % (Auto) 10.4 H Eos % (Auto) 2.2 Baso % (Auto) 0.7 Absolute Neuts (auto) 2.7 Absolute Lymphs (auto) 1.18 Nucleated RBC % 0 PT 26.9 H INR 2.5 APTT 38.2 H Sodium 139 Potassium 3.6 Chloride 104 Carbon Dioxide 27.0 Anion Gap 8 BUN 14 Creatinine 1.26 Estim Creat Clear Calc 54.72 Est GFR (MDRD) Af Amer 72 Est GFR (MDRD) Non-Af 60 BUN/Creatinine Ratio 11.1 Glucose 112 H Calcium 9.5 Total Bilirubin 0.60 AST 46 H ALT 44 Alkaline Phosphatase 93 Total Protein 7.1 Albumin 3.4 Globulin 3.7 Albumin/Globulin Ratio 0.9 Blood Type Antibody Screen 02/11/22 18:13 WBC RBC Hgb Hct MCV MCH MCHC RDW Std Deviation RDW Coeff of Judi Plt Count MPV Immature Gran % (Auto) Neut % (Auto) Lymph % (Auto) [place] % (Auto) Eos % (Auto) Baso % (Auto) Absolute Neuts (auto) Absolute Lymphs (auto) Nucleated RBC % PT INR APTT Sodium Potassium Chloride Carbon Dioxide Anion Gap BUN Creatinine Estim Creat Clear Calc Est GFR (MDRD) Af Amer Est GFR (MDRD) Non-Af BUN/Creatinine Ratio Glucose Calcium Total Bilirubin AST ALT Alkaline Phosphatase Total Protein Albumin Globulin Albumin/Globulin Ratio Blood Type A POSITIVE Antibody Screen NEGATIVE Radiography Diagnostic Testing: Clinical Impression(s) from Imaging Studies Hip/Pelvis X-Ray 02/11/22 18:01 IMPRESSION: Fracture of the infratrochanteric proximal femur. Electronically Signed: Aristeo Monaco MD at 19:03 EDT , Knee X-Ray 02/11/22 18:01 IMPRESSION: Total knee prosthesis in anatomic alignment. There are no acute osseous abnormalities. Electronically Signed: Aristeo Monaco MD at 19:05 EDT , Chest X-Ray 02/11/22 18:20 IMPRESSION: No acute findings in the chest. Electronically Signed: Aristeo Monaco MD at 19:04 EDT , Discharge Plan Triage Chief Complaint: Lower Extremity Injury ED Provider: Ramirez Lawrence Dx/Rx/DC Orders Clinical Impression: Closed subtrochanteric fracture of right femur, Prostate cancer metastatic to bone, Anticoagulated on Coumadin, Acute pain of right knee Prescriptions: No Action lisinopril 40 mg tablet 20 mg PO DAILY RF: 0 duloxetine [Cymbalta] 60 mg capsule,delayed release(DR/EC) 60 mg PO QDAY RF: 0 pantoprazole [Protonix] 40 mg tablet,delayed release (DR/EC) 40 mg PO DAILY RF: 0 gabapentin 400 mg capsule 800 mg PO BID RF: 0 warfarin 4 mg tablet 4 mg PO QHS RF: 0 spironolactone 50 mg tablet 50 mg PO BID RF: 0 (DME) PEP device See Rx Instructions .Route .MEDSUPPLY Qty: 1 RF: 0 oxybutynin chloride 10 mg tablet extended release 24hr 10 mg PO DAILY RF: 0 calcium carbonate-vitamin D3 1 EACH tablet 1 ea PO DAILY RF: 0 glucos sul [id number]-zshvv-C-Mn 1 EACH capsule 2 ea PO DAILY RF: 0 metoclopramide HCl [Reglan] 10 mg Tablet 10 mg PO TID RF: 0 Eligard (3 month) 22.5 mg Syringe 22.5 mg SUBCUT .Q3MO RF: 0 ondansetron [ondansetron] 4 MG tablet 4 mg PO Q8H PRN PRN (Reason: Nausea) Qty: 10 RF: 0 rucaparib 200 mg tablet 200 mg PO BID RF: 0 rucaparib 250 mg tablet 250 mg PO BID RF: 0 Primary Care Provider: Nikolas Bennett Referrals: Nikolas Bennett DO [Primary Care Provider] - Disposition Disposition: Acute Care Hospital Discharge Location: [facility]
[2022-02-11] MEDS: LORazepam 2 MG/ML Syringe 1 MG IV (18:08)
[2022-02-11] MEDS: Ondansetron 4 MG/2 ML Vial IV ×2 (18:08→22:22)
[2022-02-11] MEDS: Morphine 4 MG/ML Syringe IV ×2 (18:08→22:23)
--- NOTE | 2022-02-11 18:20 | RAD_ITS ---
EXAM: XR CHEST, 1 VIEW CLINICAL INDICATION: injury TECHNIQUE: Frontal view of the chest. This report was created using [employer] report generation technology. COMPARISON: None. FINDINGS: LUNGS AND PLEURAL SPACES: Unremarkable. No consolidation or edema. No pneumothorax. No effusion. HEART: Unremarkable. Cardiac silhouette not enlarged. MEDIASTINUM: Central airways and mediastinal contour are unremarkable. BONES/JOINTS: Left shoulder prosthesis is in place. SOFT TISSUES: Unremarkable. TUBES, LINES AND DEVICES: Left-sided Port-A-Cath is in place with the distal tip overlying the superior vena cava. RAD/Chest 1 View IMPRESSION: No acute findings in the chest. Electronically Signed: Aristeo Monaco MD at 19:04 EDT ,
[2022-02-11 18:23] LABS: Absolute Lymphocyte Count 1.18 X10^3/uL (0.83-4.51); Absolute Neutrophil Count 2.7 X10^3/uL (2.0-7.7); Basophil# 0.03 X10^3/uL; Basophil% 0.7 % (0-1); Eosinophils% 2.2 % (0-5); Hematocrit 36.2 % (40-54); Lymphocyte # 1.18 X10^3/ul (0.83-4.51); Lymphocyte % 26.1 % (19-41); Mean Corp Hgb Conc 35.9 g/dL (32-36); Mean Corpuscular Hgb 35.5 pg (27.0-32.0); Mean Corpuscular Volume 98.9 fL (80-94); Mean Platelet Vol. 8.9 fl (6.2-12.0); Monocyte# 0.47 X10^3/uL; Monocyte% 10.4 % (0-10); NRBC Flagged by Analyzer 0 % (0-5); Neutrophil % 59.7 % (47-70); Platelet Count 150 K/mm3 (150-450); RBC Distribution Width CV 14.3 % (11.6-14.6); RBC Distribution Width SD 52.2 fl (35.1-43.9); Red Blood Count 3.66 M/mm3 (4.6-6.2); White Blood Count 4.5 K/mm3 (4.4-11.0)
[2022-02-11 18:33] LABS: International Normalized Ratio 2.5; Partial Thromboplast Time 38.2 Seconds (24.1-36.2); Prothrombin Time (Protime)PT. 26.9 SECONDS (11.7-14.9)
[2022-02-11 18:39] LABS: ALB/GLOB Ratio 0.9 RATIO (0.9-2.4); AST(SGOT) 46 U/L (15-37); Alanine Aminotransfer ALT/SGPT 44 U/L (16-61); Albumin, Serum 3.4 g/dL (3.2-5.0); Alkaline Phosphatase 93 U/L (45-117); Anion Gap 8 (5-15); BUN 14 mg/dL (7-18); BUN/Creat Ratio 11.1 RATIO (10-20); Calcium,Total 9.5 mg/dL (8.5-10.1); Chloride 104 mmol/L (98-107); Creatinine, Serum 1.26 mg/dL (0.70-1.30); EST Glomerular Filtration Rate 60 mL/min (>60); Est Glom Filt Rate - Afr Amer 72 mL/min (>60); Estimated Creatinine Clearance 54.72 ml/min; Globulin 3.7 g/dL (2.2-4.2); Glucose 112 mg/dL (74-106); Potassium 3.6 mmol/L (3.5-5.1); Protein, Total 7.1 g/dL (6.4-8.2); Sodium Level 139 mmol/L (136-145)
[2022-02-11 23:56] VITALS: BP 105/73; PULSE 74; RESP 14; O2SAT 95
[2022-02-12 01:09] VITALS: BP 109/69; PULSE 74; RESP 15; O2SAT 97
[2022-02-12] MEDS: fentaNYL 100 MCG/2 ML Ampul 25 MCG IV (01:41)
== END 2022-02-12 01:55 | disposition short-term general hospital (02) ==
PROVIDERS: Emergency Provider Emergency Medicine; PCP Family Medicine; Visit Provider Emergency Medicine
DX: S72.21XA Displaced subtrochanteric fracture of right femur, initial encounter for closed fracture (principal); C79.51 Secondary malignant neoplasm of bone; C61 Malignant neoplasm of prostate; E78.5 Hyperlipidemia, unspecified; W19.XXXA Unspecified fall, initial encounter; I10 Essential (primary) hypertension; Z96.653 Presence of artificial knee joint, bilateral; Z86.711 Personal history of pulmonary embolism; Z79.01 Long term (current) use of anticoagulants; Z79.899 Other long term (current) drug therapy; J45.50 Severe persistent asthma, uncomplicated; Z86.16 Personal history of COVID-19; Z86.718 Personal history of other venous thrombosis and embolism; M10.9 Gout, unspecified; Z87.19 Personal history of other diseases of the digestive system; K21.9 Gastro-esophageal reflux disease without esophagitis; G62.9 Polyneuropathy, unspecified; Z86.010 Personal history of colon polyps; E66.9 Obesity, unspecified; Z68.35 Body mass index [BMI] 35.0-35.9, adult; M25.561 Pain in right knee
CPT/HCPCS: 71045; 73502; 73560; 80053; 85025; 85610; 85730; 86850; 86900; 86901; 87811; 96374; 96375; 96376; 99285; A4216; J2405

== ENCOUNTER → 2022-03-03 | Outpatient (CLI) | payer MEDICARE, OTHER, SELFPAY | END | disposition home or self-care (01) | LOC: LABSPEC 15:28 | PROVIDERS: PCP Family Medicine; Visit Provider Nurse Practitioner Adult Health | DX: D64.9 Anemia, unspecified (principal); I85.00 Esophageal varices without bleeding | CPT/HCPCS: 82274 ==

== ENCOUNTER → 2022-03-04 | Outpatient (CLI) | payer MEDICARE, OTHER, SELFPAY ==
--- NOTE | 2022-03-04 14:02 | CT_ITS ---
STUDY: CT CHEST WITH CONTRAST REASON FOR EXAM: Male, 71 years old. Proximal-mid esophageal varices RADIATION DOSAGE (If Supplied By Facility): CTDIvol = ( 14.71 ) mGy, DLP = ( 700.19 ) mGycm TECHNIQUE: Transaxial imaging was performed following intravenous administration of IV 100mL Isovue-300. Multiplanar coronal and sagittal images were reformatted. Individualized dose optimization techniques were used for this CT. COMPARISON: Comparison is made with prior study dated 08/04/2017. FINDINGS: CHEST A left-sided portacatheter is seen with the tip in the superior vena cava. Mildly enlarged right lobe of the thyroid with the a 1.1 cm hypodense nodule in the lower pole. Increased linear markings at the lung bases more prominent at the right lung base suggestive of scarring. There is no demonstrated pleural abnormality. There are calcifications of the coronary arteries. There are multiple small lymph nodes within the mediastinum, which are normal in size and morphology most compatible with reactive lymph hyperplasia. Normal hilar regions. Normal unenhanced pulmonary arteries. Normal aorta arch and descending thoracic aorta. There are multi-level degenerative changes of the thoracic spine. There is evidence of a sclerosis of the T7 vertebrae suggestive of a metastatic deposit. The patient is status post left shoulder replacement. Moderate hiatal hernia. CT/Chest WITH Contrast IMPRESSION: Increased markings at the right lung base suggestive of scarring. Stable sclerosis of the T7 vertebrae suggestive of metastatic disease. Electronically Signed: Marco A Michaels MD at 14:59 EDT ,
[2022-03-04] MEDS: 0.9% Saline Lock 10 ML Syringe IV (14:15)
== END | disposition home or self-care (01) ==
LOC: CT 13:59
PROVIDERS: PCP Family Medicine; Referring Provider Nurse Practitioner Adult Health; Visit Provider Nurse Practitioner Adult Health
DX: I85.00 Esophageal varices without bleeding (principal); D64.9 Anemia, unspecified
CPT/HCPCS: 71260; Q9967; A4216

== ENCOUNTER → 2022-05-21 | Outpatient (CLI) | payer MEDICARE, OTHER, SELFPAY | END | disposition home or self-care (01) | LOC: LAB 14:45 | PROVIDERS: PCP Family Medicine; Visit Provider Family Medicine | DX: R19.7 Diarrhea, unspecified (principal) | CPT/HCPCS: 83630; 87177; 87209; 87493; 87506 ==

== ENCOUNTER 2022-06-05 09:39 | Outpatient (RCR) | payer MEDICARE, OTHER, SELFPAY ==
[2022-02-14 04:29] VITALS: BMI 38.0
[2022-05-19 12:16] LABS: International Normalized Ratio 1.7; Prothrombin Time (Protime)PT. 19.2 SECONDS (11.7-14.9)
[2022-06-05 10:15] LABS: Absolute Lymphocyte Count 1.69 X10^3/uL (0.83-4.51); Absolute Neutrophil Count 2.9 X10^3/uL (2.0-7.7); Basophil# 0.06 X10^3/uL; Basophil% 1.1 % (0-1); Eosinophil# 0.24 X10^3/uL; Eosinophils% 4.2 % (0-5); Hematocrit 41.4 % (40-54); Hemoglobin 14.2 g/dL (13.0-16.5); Lymphocyte # 1.69 X10^3/ul (0.83-4.51); Lymphocyte % 29.8 % (19-41); Mean Corp Hgb Conc 34.3 g/dL (32-36); Mean Corpuscular Hgb 35.2 pg (27.0-32.0); Mean Corpuscular Volume 102.7 fL (80-94); Mean Platelet Vol. 9.4 fl (6.2-12.0); Monocyte# 0.73 X10^3/uL; Monocyte% 12.9 % (0-10); NRBC Flagged by Analyzer 0 % (0-5); Neutrophil # 2.93 X10^3/uL (2.7-7.7); Neutrophil % 51.6 % (47-70); Platelet Count 175 K/mm3 (150-450); RBC Distribution Width SD 49.5 fl (35.1-43.9); Red Blood Count 4.03 M/mm3 (4.6-6.2); White Blood Count 5.7 K/mm3 (4.4-11.0)
[2022-06-05 10:24] LABS: Prothrombin Time (Protime)PT. 22.4 SECONDS (11.7-14.9)
[2022-06-05 10:50] LABS: Ferritin 251 ng/mL (26-388); Iron 99 ug/dL (65-175); Iron Binding Capacity,Total 310 ug/dL (250-450); PERCENT IRON SATURATION 31.9 % (15.0-55.0)
== END 2022-06-05 18:00 | disposition home or self-care (01) ==
LOC: LAB 09:39
PROVIDERS: Nurse Practitioner Adult Health; PCP Family Medicine; Referring Provider Family Medicine; Visit Provider Family Medicine
DX: Z79.01 Long term (current) use of anticoagulants (principal); Z86.711 Personal history of pulmonary embolism; K92.1 Melena; Z51.81 Encounter for therapeutic drug level monitoring
CPT/HCPCS: 36415; 82728; 83540; 83550; 85025; 85610

== ENCOUNTER → 2022-06-11 | Outpatient (CLI) | payer MEDICARE, OTHER, SELFPAY | END | disposition home or self-care (01) | LOC: LABSPEC 07:37 | PROVIDERS: PCP Family Medicine; Referring Provider Nurse Practitioner Adult Health; Visit Provider Nurse Practitioner Adult Health | DX: K92.1 Melena (principal) | CPT/HCPCS: 82274 ==

== ENCOUNTER 2022-06-16 10:00 | Outpatient (RCR) | payer MEDICARE, OTHER, SELFPAY ==
--- NOTE | 2022-04-06 10:52 | HP.PTEVAL ---
Patient's Visit Information ATTILA PELLETIER is a 71 year old M referred to Physical Therapy by Dr. Nikolas Bennett DO with a diagnosis of Post procedure, R hip fracture.. Date of Evaluation: 04/06/22 Physical Therapist: JAMIA PatelT, OCS, CSCS - Visit Plan Frequency: 3x /Week Duration: 2 Months Plan: 3x/week for 8 weeks for. 1. L hip strength and progression of HEP. 2. Overall strength and conditioning to help with safety in gait. 3. Gait and balance [facility]. Pt has bone Cancer and cannot fall again, be cautious and supervise. Pt is WBAT R LE. - Subjective Fell and broke R hip February 10 and jean carlos and screws placed February 12. Tripped on L foot in bathroom doorway. 7 weeks out now and has had home health and therapy. Not much pain anymore. Sometimes in R hip if he lies on it. Sleeping Ok. Using wh walker 50% WB at first adn 2 4 weeks ago became WBAT. Spends day doing not a whole lot. Needs to be stronger. He can do steps with rails both sides. Doing exercises at home inclduing sink exercises. Dresses self, shower in walk in I, bathroom I. Wants to walk without walker. [facility] did surgery adn will /u Tuesday, no precautions except to avoid pain. No dizzyness, balance felt good prior, has brace L foot for collapsing ankle. Has bone CAncer and has for some time and it is not going away. - Objective Neuropathy in heels unknown etiology. R trendelenberg gait evident in 80 foot walk without AD which was CGA, started to get diminished R stance time then when fatigued and used wh walker with much less gait disturbance . Steps using L only with two rails(says this is how he did steps prior to fall). Trasnfers with UE I bed and chair. B hip AROM WFl, R hip 110 flexion 10 extension, 15 abduction. Knees to 123 flexion B and full extension, R hip rotates in with SLR but able without lag, weaker than L for sure. Drags it a little bit transferring onto table. reflexes 2/3 patella and achilles B LKE. Sensation LE WNL to gross light touch in feet and lower legs. Strength R hip 3+, L hip 4, knee R 4- and L 4, ankles 4+ B. Able to ambulate with head turns and ec slowly but not appropriate today for FGA. - Balance/Special Test Scores Lower Extremity Functional Score: 38 - Goals Goal 1:: Walk in clinic without AD I Goal Time Frame: 4-6 Weeks Goal 2:: Steps with one rail funcitonally without fear. Goal Time Frame: 4-6 Weeks Goal 3:: FGA tolerated and score 24/30 or better. Goal Time Frame: 4-6 Weeks Goal 4:: Pt feel 80% back to normal activities Goal Time Frame: 4-6 Weeks - Rehabilitation Potential Physical Therapy Diagnosis: R LE weakness and gait deficits due to hip fracture Rehabilitation Potential: Fair - Anticipated Interventions Patient/Client Instruction: Educate patient on: Condition, Plan of Care For the Purpose of:: To improve nutrient delivery to tissue, To improve muscle performance and motor function, To increase tolerance to activity/condition/position, To improve gait and locomotor functions Therapeutic Exercise to Include: Strength training, Endurance training, Balance training, Gait and locomotor training For the Purpose of:: To improve muscle performance and motor function, To increase tolerance to activity/condition/position, To improve ability of physical actions for home/community/work/leisure, To improve gait and locomotor functions, To improve health of tissue Thank you for the opportunity to evaluate your patient. For Medicare and Medicare HMO plans, please review the plan of care and approve it. It will need to be FAXED BACK to us at [phone] for Medicare purposes. For Medicare only, by signing this I certify the plan of care. Please let me know if there are questions or concerns regarding this plan of care. Physician Signature: Date:
--- NOTE | 2022-04-20 11:32 | HP.PTREVAL_ITS ---
Dr. Nikolas Bennett, DO, It has been my pleasure to treat ATTILA PELLETIER over the last 4 visits for Post procedure, R hip fracture.. Please see the progress note below for an update on the physical therapy plan of care! Subjective: Pt frustrated with new 50% WB status until mid to late May/ new script today with this on it. Pain is comfortable at rest adn 3-4/10 when ambulating. Objective/Function: Pt has new script for 50% WB R with walker for next 6 weeks until f/u in mid to late May as bone is not healing like doctor hoped due to R hip Cancer and radiation. Pt frustrated adn has not been exercising at home but willing to start up again. Plan Plan: Pt POC will move down to weekly x 6 weeks to mid May to monitor and progress HEP and get a good 50% R WB workoutin gym to tolerance and please start gentle. WE should also progress HEP with band or ankle weights as needed, monitor challenge of gym ex and ensure good R hip ROM each week. Pt now 50% WB R until further noticeMust use walker until f/u with doctor. Pt will hold on therapy this week and f/u next week with evaluating therapist for ex progression and POC update. Balance/Gait/Functional tests - Balance/Special Test Scores Lower Extremity Functional Score: 38 Goals Goal 1:: Walk in clinic without AD I Goal Time Frame: 4-6 Weeks Goal Progress: NA Goal 2:: Steps with one rail funcitonally without fear. Goal Time Frame: 4-6 Weeks Goal Progress: NA Goal 3:: FGA tolerated and score 24/30 or better. Goal Time Frame: 4-6 Weeks Goal Progress: NA Goal 4:: Pt feel 80% back to normal activities Goal Time Frame: 4-6 Weeks Goal Progress: NA Goal 5:: maintain ROM, progress balnce and hip /core strength until FWB Goal Time Frame: 4-6 Weeks Goal Progress: NEW GOAL Anticipated Interventions Patient/Client Instruction: Educate patient on: Condition, Plan of Care For the Purpose of:: To improve nutrient delivery to tissue, To improve muscle performance and motor function, To increase tolerance to activity/condition/position, To improve gait and locomotor functions Therapeutic Exercise to Include: Strength training, Endurance training, Balance training, Gait and locomotor training For the Purpose of:: To improve muscle performance and motor function, To increase tolerance to activity/condition/position, To improve ability of physical actions for home/community/work/leisure, To improve gait and locomotor functions, To improve health of tissue Please do not hesitate to contact me at [phone] by phone or Fax: if you have questions or concerns regarding this new plan of care! Sincerely, Sridhar Turner, DPT, OCS, CSCS
--- NOTE | 2022-06-09 10:43 | HP.PTREVAL ---
Dr. Nikolas Bennett, DO, It has been my pleasure to treat ATTILA PELLETIER over the last 9 visits for Post procedure, R hip fracture.. Please see the progress note below for an update on the physical therapy plan of care! Subjective: Doctor made him FWB and has been for a week adn a half. 3-01/24 pain . No walker this week. Objective/Function: R standce time in gait is poor due to weakness and trendelenberg gait. marching L knee up requires UE assist. PROM, AROM of R LE is WFL and flexibility is better than expected. Pt needs to be stronger and has been less compliant with exercises since released to FWB. Appropriate to continue HEP and monitor in therapy for gait improvements and strength progression. Pt will be out of town for a couple weeks after next weeka dn will reassess when he returns. Fair prognosis for continued slow improvement. Plan Plan: weekly around 2 vacation for 4 weeks to ensure strengthening with HEP and gait improvements/R WB. Balance/Gait/Functional tests - Balance/Special Test Scores Functional Gait Assessment Score: 20 % Disability: 33.3400 Lower Extremity Functional Score: 38 Goals Goal 1:: Walk in clinic without AD I Goal Time Frame: 4-6 Weeks Goal Progress: Goal Met, trendelenberg Goal 2:: Steps with one rail funcitonally without fear. Goal Time Frame: 4-6 Weeks Goal Progress: not yet, but approp. Goal 3:: FGA tolerated and score 24/30 or better. Goal Time Frame: 4-6 Weeks Goal Progress: progress, approp Goal 4:: Pt feel 80% back to normal activities Goal Time Frame: 4-6 Weeks Goal Progress: 40 Goal 5:: maintain ROM, progress balnce and hip /core strength until FWB Goal Time Frame: 4-6 Weeks Goal Progress: Goal Met Goal 6:: I approp managemnt of condition inlcuding safety with walking, compliance with HEp and continued progression of mobility improvement. Anticipated Interventions Patient/Client Instruction: Educate patient on: Condition, Plan of Care For the Purpose of:: To improve nutrient delivery to tissue, To improve muscle performance and motor function, To increase tolerance to activity/condition/position, To improve gait and locomotor functions Therapeutic Exercise to Include: Strength training, Endurance training, Balance training, Gait and locomotor training For the Purpose of:: To improve muscle performance and motor function, To increase tolerance to activity/condition/position, To improve ability of physical actions for home/community/work/leisure, To improve gait and locomotor functions, To improve health of tissue Please do not hesitate to contact me at [phone] by phone or if you have questions or concerns regarding this new plan of care! Sincerely, Sridhar Turner, DPT, OCS, CSCS
--- NOTE | 2022-08-25 08:10 | HP.PT.NRP ---
ATTILA PELLETIER was seen in my office for initial evaluation on 04/06/22. The following Plan of Care was established for this patient: Initial Frequency: 3x /Week Initial Duration: 2 Months Patient/Client Instruction: Educate patient on: Condition, Plan of Care For the Purpose of:: To improve nutrient delivery to tissue, To improve muscle performance and motor function, To increase tolerance to activity/condition/position, To improve gait and locomotor functions Therapeutic Exercise to Include: Strength training, Endurance training, Balance training, Gait and locomotor training For the Purpose of:: To improve muscle performance and motor function, To increase tolerance to activity/condition/position, To improve ability of physical actions for home/community/work/leisure, To improve gait and locomotor functions, To improve health of tissue This patient was last seen in our office 06/16/22. Pertinent comments regarding their Physical therapy will appear below: Pt seen 10 visits and was 30-40% better. He was to go on two vacations and f/u upon returning. At this point, it has been over 2 months and I will discontinue due to nonattendance. At this point I will be discontinuing this patient from physical therapy. I would be happy to see this patient again in the future if found appropriate by the physician. Thank you! Sridhar Turner, DPT, OCS, CSCS Balance/Gait/Functional tests - Balance/Special Test Scores Functional Gait Assessment Score: 20 % Disability: 33.3400 Lower Extremity Functional Score: 38
== END 2022-06-16 19:00 | disposition home or self-care (01) ==
LOC: PT 10:00
PROVIDERS: PCP Family Medicine; Referring Provider Family Medicine; Visit Provider Family Medicine
DX: M80.051 Age-related osteoporosis with current pathological fracture, right femur (principal)
CPT/HCPCS: 97110; 97116; 97162; 97164

== ENCOUNTER 2022-08-24 17:03 | Outpatient (RCR) | payer MEDICARE, OTHER, SELFPAY ==
[2022-06-17 00:37] VITALS: BMI 38.0
== END 2022-09-15 18:00 | disposition home or self-care (01) ==
LOC: LAB 17:03
PROVIDERS: PCP Family Medicine; Referring Provider Family Medicine; Visit Provider Family Medicine
DX: Z00.00 Encounter for general adult medical examination without abnormal findings

== ENCOUNTER → 2022-08-24 | Outpatient (CLI) | payer MEDICARE, OTHER, SELFPAY ==
[2022-08-24 17:08] LABS: Hematocrit 33.5 % (40-54)
[2022-08-24 17:17] LABS: International Normalized Ratio 2.1; Prothrombin Time (Protime)PT. 23.3 SECONDS (11.7-14.9)
[2022-08-24 17:56] LABS: PSA,Total- Diagnostic 3.78 ng/mL (0.0-4.0)
== END | disposition home or self-care (01) ==
LOC: LAB 16:58
PROVIDERS: Physician Assistant Medical; PCP Family Medicine; Visit Provider Urology
DX: C61 Malignant neoplasm of prostate (principal); Z79.01 Long term (current) use of anticoagulants
CPT/HCPCS: 36415; 84153; 85014; 85018; 85610

== ENCOUNTER → 2022-09-27 | Outpatient (CLI) | payer MEDICARE, OTHER, SELFPAY ==
[2022-09-27 15:23] LABS: Vitamin B12 301 pg/mL (211-911)
== END | disposition home or self-care (01) ==
LOC: BFHLAB 13:21
PROVIDERS: PCP Family Medicine; Visit Provider Family Medicine
DX: R53.83 Other fatigue (principal)
CPT/HCPCS: 36415; 82607

== ENCOUNTER 2022-11-15 10:52 | Outpatient (RCR) | payer MEDICARE, OTHER, SELFPAY ==
[2022-09-16 01:41] VITALS: BMI 38.0
[2022-10-20 12:59] LABS: International Normalized Ratio 2.8; Prothrombin Time (Protime)PT. 28.8 SECONDS (11.7-14.9)
[2022-11-15 12:14] LABS: Absolute Lymphocyte Count 1.48 X10^3/uL (0.83-4.51); Absolute Neutrophil Count 3.6 X10^3/uL (2.0-7.7); Basophil# 0.06 X10^3/uL; Eosinophil# 0.16 X10^3/uL; Eosinophils% 2.7 % (0-5); Hematocrit 36.7 % (40-54); Hemoglobin 12.5 g/dL (13.0-16.5); Lymphocyte # 1.48 X10^3/ul (0.83-4.51); Lymphocyte % 24.6 % (19-41); Mean Corp Hgb Conc 34.1 g/dL (32-36); Mean Corpuscular Volume 102.8 fL (80-94); Monocyte% 11.6 % (0-10); NRBC Flagged by Analyzer 0 % (0-5); Neutrophil # 3.59 X10^3/uL (2.7-7.7); Neutrophil % 59.8 % (47-70); Platelet Count 168 K/mm3 (150-450); RBC Distribution Width SD 53.2 fl (35.1-43.9); Red Blood Count 3.57 M/mm3 (4.6-6.2)
[2022-11-15 12:24] LABS: International Normalized Ratio 2.6; Prothrombin Time (Protime)PT. 27.9 SECONDS (11.7-14.9)
[2022-11-15 12:35] LABS: T4 Free Direct 1.07 ng/dL (0.76-1.46); Thyroid Stim Hormone (TSH) 0.56 uIU/mL (0.358-3.74)
== END 2022-11-15 12:52 | disposition home or self-care (01) ==
LOC: MTLAB 10:52
PROVIDERS: PCP Family Medicine; Referring Provider Family Medicine; Visit Provider Family Medicine
DX: Z79.01 Long term (current) use of anticoagulants (principal); Z86.711 Personal history of pulmonary embolism; R53.83 Other fatigue
CPT/HCPCS: 36415; 84439; 84443; 85025; 85610

== ENCOUNTER 2023-01-04 11:32 | Outpatient (RCR) | payer MEDICARE, OTHER, SELFPAY ==
[2022-11-17 07:21] VITALS: BMI 38.0
[2023-01-04 15:38] LABS: International Normalized Ratio 2.5
== END 2023-01-14 23:59 ==
LOC: BFHLAB 11:32
PROVIDERS: PCP Family Medicine; Referring Provider Family Medicine; Visit Provider Family Medicine
DX: Z86.711 Personal history of pulmonary embolism
CPT/HCPCS: 36415; 85610

== ENCOUNTER → 2023-01-10 | Outpatient (CLI) | payer MEDICARE, OTHER, SELFPAY ==
--- NOTE | 2023-01-10 11:24 | RAD_ITS ---
INDICATION: LEFT RODRIGUEZ''S CYST EXAMINATION/TECHNIQUE: X-RAY - LEFT XR Knee 1 or 2 Views 3 VIEWS COMPARISON: 01/09/2019 left knee x-rays. FINDINGS: SOFT TISSUES: Very large, hyperdense knee joint fluid. No radiopaque foreign body. BONES/JOINTS: No acute fracture or malalignment. Patient status post total knee arthroplasty with short stem component tibial plateau. Femoral hardware is unchanged compared to the prior comparison exam. New, fragmented appearance of the proximal pole of the patella compared to prior exam. Rounded, corticated ossifications posterior to the knee can be seen within popliteal cysts. Extensive peripheral vascular calcifications. RAD/Knee 1 or 2 Views IMPRESSION: Suspicious, large knee joint effusion. New fragmented appearance proximal pole of the patella and distal patellar tendon region compared to prior exam from 2019. Uncomplicated femoral and tibial hardware from total knee arthroplasty. Soft tissue ossifications posterior to the knee could be seen within a popliteal cyst. Consider correlation with ultrasound. Peripheral vascular disease. Electronically Signed: Cuba Olivera DO at 23:01 EDT ,
== END | disposition home or self-care (01) ==
LOC: RAD 11:21
PROVIDERS: PCP Family Medicine; Visit Provider Registered Nurse
DX: M71.22 Synovial cyst of popliteal space [Baker], left knee (principal); M71.38 Other bursal cyst, other site
CPT/HCPCS: 73560

== ENCOUNTER → 2023-01-20 | Outpatient (CLI) | payer MEDICARE, OTHER, SELFPAY ==
[2023-01-20 12:38] LABS: Erythrocyte Sedimentation Rate 26 mm/hr (0-20)
[2023-01-20 12:41] LABS: Absolute Lymphocyte Count 1.69 X10^3/uL (0.83-4.51); Absolute Neutrophil Count 3.7 X10^3/uL (2.0-7.7); Basophil# 0.06 X10^3/uL; Basophil% 0.9 % (0-1); Eosinophil# 0.32 X10^3/uL; Hematocrit 40.5 % (40-54); Hemoglobin 13.8 g/dL (13.0-16.5); Lymphocyte # 1.69 X10^3/ul (0.83-4.51); Lymphocyte % 26.3 % (19-41); Mean Corp Hgb Conc 34.1 g/dL (32-36); Mean Corpuscular Hgb 35.8 pg (27.0-32.0); Mean Corpuscular Volume 105.2 fL (80-94); Mean Platelet Vol. 9.4 fl (6.2-12.0); Monocyte# 0.69 X10^3/uL; Monocyte% 10.7 % (0-10); NRBC Flagged by Analyzer 0 % (0-5); Neutrophil # 3.65 X10^3/uL (2.7-7.7); Neutrophil % 56.8 % (47-70); Platelet Count 217 K/mm3 (150-450); RBC Distribution Width CV 13.6 % (11.6-14.6); RBC Distribution Width SD 53.1 fl (35.1-43.9); Red Blood Count 3.85 M/mm3 (4.6-6.2); White Blood Count 6.4 K/mm3 (4.4-11.0)
== END | disposition home or self-care (01) ==
LOC: MTLAB 10:11
PROVIDERS: PCP Family Medicine; Referring Provider Specialist; Visit Provider Specialist
DX: M25.562 Pain in left knee (principal)
CPT/HCPCS: 36415; 85025; 85652; 86140

== ENCOUNTER 2023-02-25 10:00 | Outpatient (RCR) | payer MEDICARE, OTHER, SELFPAY ==
--- NOTE | 2023-01-26 11:47 | HP.PTEVAL ---
Patient's Visit Information ATTILA PELLETIER is a 72 year old M referred to Physical Therapy by Dr. Omi Sullivan MD with a diagnosis of Pain L knee and unstable gait.. Date of Evaluation: 01/26/23 Physical Therapist: Sridhar Turner DPT, OCS, CSCS - Visit Plan Frequency: 3x /Week Duration: 4-6 Weeks Plan: 3x/week x 4-6 weeks. 1. teach hip and knee strength patient can do at home with pics and then progress to gym as desired. 2. Teach and progress to HEp FW weight shift activities adn ex. 3. work on confidence in gait with weight shifting and teach cane gait(pt to bring) to help in uneven surfaces and appropriate situations. - Subjective R hip fractured in June as the screw broke. He was in [facility] at the time and flew back [phone] Fell one night maybe b/c he broke it or maybe broke it. Painful when he left on trip to [facility]. To the ER and it was broke and flew home for surgery. 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 That was June adn was TTWB for 2 weeks and to [facility]. Gradually more weight through it. Limps a little some days now and others not. L leg has swollen up 2 weeks ago and went to [facility] and wants to wait on anything with L leg. Saw Dr. Elkins for toenail trimming and gait was not great and sent to PT. Wants to walk better, and have better balance, pain is not a big issue. Sleep is not great but that is his cancer drug. Spends day mowing and doing the to do list, on and off tractor. Fairly sedentary. Lots of sleeping and TV. No regular exercises. fell one time in [place] and stepped with R leg instead of L and it slid out from under him. Basic ADLs going OK and no problem outside of gait. Has walker but not needing it. Has cane but does not want to use it. Has recumbent bike at home. - Objective Walks without AD with R trendelenberg minimally, short steps and avoids FW weight shift. Exits chair with UE needed I. bed mobility I. Steps prefers L up and down and needs rail, R leg weaker than L...no pain. Hip aROM ext to 4 degrees, some tightness in hip flexor and quad but minimal. Others hips AROM WFL, 100 degrees R hip flexion. knee and ankle aROM WFL, L orthotic in place due to fallen arch which has helped tremendously. has neuroapthy in his gait pattern but can heel raise and toe raise. reflexes L knee and achilles 2/3, unable ti R knee due to history in knee likely. Sensation at deficit to gross light touch in feet. strength in ankles 4/5, knees 4- R ext adn 4 L, HSC 4 B, hip abd 4 and flexion 4 and extension 4- L and 3+ R. - Balance/Special Test Scores Functional Gait Assessment Score: 22 % Disability: 26.6700 CATSIB Score (Max score 120 seconds): 112 Oswestry Low Back Score: 12 - Goals Goal 1:: I appropriate gym or home based ex for LE strength adn forward weight shifting, pregait FW weight shift Goal Time Frame: 4-6 Weeks Goal 2:: i in use of confident cane for situations that may arise at home Goal Time Frame: 4-6 Weeks Goal 3:: Pt feel 50% better in mobiliity and strength LE/balance. Goal Time Frame: 4-6 Weeks Goal 4:: 25/30 FGA to reduce fall risk Goal Time Frame: 4-6 Weeks - Rehabilitation Potential Physical Therapy Diagnosis: Unsteady gait, L knee pain not present and much improved. Rehabilitation Potential: Fair - Anticipated Interventions Patient/Client Instruction: Educate patient on: Condition, Plan of Care For the Purpose of:: To improve muscle performance and motor function, To increase tolerance to activity/condition/position, To improve ability of physical actions for home/community/work/leisure Therapeutic Exercise to Include: Strength training, Balance training, Postural training, Flexibilty training, Gait and locomotor training For the Purpose of:: To improve nutrient delivery to tissue, To improve muscle performance and motor function, To increase tolerance to activity/condition/position, To improve ability of physical actions for home/community/work/leisure, To improve balance, To improve safety Thank you for the opportunity to evaluate your patient. For Medicare and Medicare HMO plans, please review the plan of care and approve it. It will need to be FAXED BACK to us at [phone] for Medicare purposes. For Medicare only, by signing this I certify the plan of care. Please let me know if there are questions or concerns regarding this plan of care. Physician Signature: Date:
--- NOTE | 2023-02-25 10:46 | HP.PTDCSUM ---
It has been my pleasure to treat ATTILA PELLETIER referred by Dr. Omi Sullivan MD, with the diagnosis of Pain L knee and unstable gait. for a total of 13 visit(s). Discharge Date: 02/25/23 Please see the following information for a summary of their discharge status. Subjective: Much better. Walking better adn strength is good and breathing is better adn confident. Walks in grass and does chores like mowing yard and watering plants. Got in crawl space. No AD needed, but has it and can use if needed. Can continue ex on own at home. Saw Brittni who was happy and will get him a lift. To [facility] end of month. bilat knees Pain Intensity (Out of 10): 0 Rhip Pain Intensity (Out of 10): 0 Lower back Pain Intensity (Out of 10): 3 % Improvement: 100 Objective/Function: +4 FGA. Walks without AD safe on firm surface safe but still r trendelenberg better with cane. Steps reciprocal with two rails. Walking with more confidence adn well. Still recommending cane but prefers to go without it. Goal 1:: I appropriate gym or home based ex for LE strength adn forward weight shifting, pregait FW weight shift Goal Progress: Goal Met, home Goal 2:: i in use of confident cane for situations that may arise at home Goal Progress: Goal Met Goal 3:: Pt feel 50% better in mobiliity and strength LE/balance. Goal Progress: Goal Met Goal 4:: 25/30 FGA to reduce fall risk Goal Progress: Goal Met Plan: d/c to HEP Discharge Comments: Will continue to HEP If there are questions or concerns regarding this patient's physical therapy, please feel free to call me at [phone]. Thank you for the referral of this patient. Sincerely, Sridhar Turner, DPT, OCS, CSCS Balance/Gait/Functional tests - Balance/Special Test Scores Functional Gait Assessment Score: 26 % Disability: 13.3400 CATSIB Score (Max score 120 seconds): 112 Oswestry Low Back Score: 1
== END 2023-02-25 12:54 | disposition home or self-care (01) ==
LOC: PT 10:00
PROVIDERS: PCP Family Medicine; Referring Provider Specialist; Visit Provider Specialist
DX: M25.562 Pain in left knee (principal); Z96.652 Presence of left artificial knee joint; R26.81 Unsteadiness on feet
CPT/HCPCS: 97110; 97162; 97164

== ENCOUNTER → 2023-03-10 | Outpatient (CLI) | payer MEDICARE, OTHER, SELFPAY ==
[2023-03-10 15:26] LABS: Prothrombin Time (Protime)PT. 31.8 SECONDS (11.7-14.9)
== END | disposition home or self-care (01) ==
LOC: BFHLAB 13:26
PROVIDERS: PCP Family Medicine; Referring Provider Family Medicine; Visit Provider Family Medicine
DX: Z86.711 Personal history of pulmonary embolism (principal)
CPT/HCPCS: 36415; 85610

== ENCOUNTER 2023-03-29 13:29 | Outpatient (RCR) | payer MEDICARE, OTHER, SELFPAY ==
[2023-01-15 00:34] VITALS: BMI 38.0
[2023-03-29 14:38] LABS: International Normalized Ratio 3.5
== END 2023-03-29 18:00 | disposition home or self-care (01) ==
LOC: LAB 13:29
PROVIDERS: PCP Family Medicine; Referring Provider Family Medicine; Visit Provider Family Medicine
DX: Z79.01 Long term (current) use of anticoagulants
CPT/HCPCS: 36415; 85610

== ENCOUNTER → 2023-03-29 | Outpatient (CLI) | payer MEDICARE, OTHER, SELFPAY ==
--- NOTE | 2023-03-29 11:30 | PET_ITS ---
EXAMINATION: 18 F Pylarify PET-CT - Head to Toe HISTORY: A 72-year-old male with history of primary prostate carcinoma presenting for restaging examination. COMPARISON EXAMINATION: None available INDEX LESION SIZE PROMISE SCORE SUV INTERPRETATION Prostate gland 29.1-mm 3 36.73 Fulfills quantitative criteria for malignant transformation TECHNIQUE: Following the intravenous administration of 9.29 mCi of 18 F Pylarify via the right antecubital fossa, image acquisitions of the head, neck, chest, abdomen and pelvis, lower extremities to the level of the bilateral feet at 73 minutes post-tracer distribution reveal: The examination was interpreted using the EANM (Naun et al., Journal of Nuclear Medicine Molecular Imaging 44:1622, 2017) and PROMISE (Tawny et al., Journal of Nuclear Medicine 59:469, 2018) interpretive criteria. HEIGHT: 70 inches. WEIGHT: 204 lbs. PSMA expression score PROMISE criteria: High (3): SUV ? parotid-salivary gland, intermediate (2): SUV ? liver, low (1): > blood pool, < liver, (0): < blood pool. FINDINGS: Head/Neck: Symmetric radiopharmaceutical concentration is defined in the bilateral parotid and submandibular glands. There is physiologic uptake within the nasal cavity. There is no evidence of abnormal increased tracer concentration within the cranial vault. CHEST: There is no evidence of abnormal increased radiotracer within the context of the bilateral hemithorax pulmonary parenchyma, mediastinal structures and right-left thoracic perihilum. Pertinent chest CT findings are as follows. Izabela-cath placement is noted. There is atherosclerotic calcification defined in the thoracic aorta without evidence of dilatation-aneurysm formation. Coronary arterial calcification is observed. Subcentimeter bilateral axillary, as well as encountered mediastinal soft tissue densities with fatty hilus are non-tracer avid. A hiatal hernia is defined. Abdomen/Pelvis: Heterogeneous radiopharmaceutical concentration is defined in the lower pelvis associated with the prostate gland involving the apex to the right and left of the midline extending to the base to the left of the midline. The calculated maximal standard uptake value is 36.73. The PROMISE score is 3. The maximal axial diameter of the metabolic, morphologic abnormality is 21.9-mm. Physiologic radiopharmaceutical concentration is otherwise noted in the hepatic and splenic parenchyma, visualized intestinal tract, right and left kidneys, urinary bladder. Review of CT of the abdomen and pelvis reveals the following. The gallbladder is not well-visualized. There is atherosclerotic calcification defined in the abdominal aorta without evidence of dilatation-aneurysm formation. Abdominal-pelvic arterial calcification is observed. Exophytic cyst formation is defined in the left kidney. A fat containing right inguinal hernia is noted. Right and left inguinal soft tissue densities are ametabolic. SKELETAL: A right hip arthroplasty is defined. Degenerative changes are noted in the cervical, thoracic and lumbar spine without evidence of increased radiopharmaceutical concentration. PET/PET/CT Tumor WB Subs IMPRESSION: 1. ABNORMAL EXAMINATION INDICATIVE OF MALIGNANT VIABLE NEOPLASM. 2. Increased radiopharmaceutical concentration defined in the prostate gland fulfills quantitative criteria for malignant transformation. (Eiber et al., Journal of Nuclear Medicine 59:469, 2018). Electronic Signature Rajinder Solorio DO Electronically Signed: Rajinder Solorio, at 11:48 EDT ,
== END | disposition home or self-care (01) ==
PROVIDERS: PCP Family Medicine; Referring Provider Internal Medicine Hematology & Oncology; Visit Provider Internal Medicine Hematology & Oncology
DX: C61 Malignant neoplasm of prostate (principal); C79.51 Secondary malignant neoplasm of bone; Z79.01 Long term (current) use of anticoagulants
CPT/HCPCS: 36415; 78816; 85610; A9552; A9595

== ENCOUNTER 2023-04-25 10:30 | Outpatient (RCR) | payer MEDICARE, OTHER, SELFPAY ==
[2023-04-16 02:01] VITALS: BMI 38.0
[2023-04-25 12:44] LABS: Prothrombin Time (Protime)PT. 31.5 SECONDS (11.7-14.9)
== END 2023-05-16 18:00 | disposition home or self-care (01) ==
LOC: MTLAB 10:30
PROVIDERS: PCP Family Medicine; Referring Provider Family Medicine; Visit Provider Family Medicine
DX: Z79.01 Long term (current) use of anticoagulants (principal)
CPT/HCPCS: 36415; 85610

== ENCOUNTER 2023-07-22 11:08 | Outpatient (RCR) | payer MEDICARE, OTHER, SELFPAY ==
[2023-05-17 02:06] VITALS: BMI 38.0
[2023-07-22 12:34] LABS: International Normalized Ratio 2.2; Prothrombin Time (Protime)PT. 24.6 SECONDS (11.7-14.9)
[2023-07-22 12:53] LABS: PSA,Total- Diagnostic 8.43 ng/mL (0.0-4.0)
== END 2023-07-22 18:00 | disposition home or self-care (01) ==
LOC: MTLAB 11:08
PROVIDERS: PCP Family Medicine; Referring Provider Family Medicine; Visit Provider Family Medicine
DX: C61 Malignant neoplasm of prostate
CPT/HCPCS: 36415; 84153; 85610

== ENCOUNTER → 2023-09-16 | Outpatient (CLI) | payer MEDICARE, OTHER, SELFPAY ==
--- NOTE | 2023-09-16 13:09 | STRESSREP ---
Stress Test Report Pharmacologic myocardial perfusion stress test. 73-year-old man with a history of coronary disease Resting EKG demonstrates sinus rhythm with a rate of 74 bpm. Resting blood pressure is 112/68 mmHg. 0.4 mg of regadenoson was infused per usual protocol followed by rapid intravenous saline flush injection. Continuous EKG monitoring was performed. The maximum heart rate was 83 bpm which was 56% of max impacted heart rate the maximum workload was 1 metabolic equivalent. At rest there were no ST or T wave changes noted to suggest ischemia and at peak infusion nonspecific ST changes were noted which did not meet the criteria for ischemia. No clinical angina is noted. The final blood pressure was 114/60 mmHg. Myocardial perfusion protocol. 14 point mCi of technetium 99m sestamibi was injected at rest. 0.4 mg of regadenoson was infused per usual protocol. At peak infusion 43.7 mCi of technetium 99m sestamibi was injected stress images were obtained stress and rest images were reconstructed and compared in the short axis vertical long and horizontal long axis. Gated images were also obtained. Perfusion SPECT analysis: Review of the stress images demonstrate normal uptake of tracer noted in all areas of the myocardium. The resting images similar demonstrated normal uptake of tracer noted in all areas of the myocardium. No areas of reversibility are noted to suggest ischemia and no previous infarct is noted. Gated SPECT analysis: The gated ejection fraction is 72%. Conclusion: Normal pharmacologic myocardial perfusion stress test. Preserved ejection fraction.
== END | disposition home or self-care (01) ==
LOC: CVS 06:26
PROVIDERS: PCP Family Medicine; Referring Provider Family Medicine; Visit Provider Family Medicine
DX: R07.9 Chest pain, unspecified (principal); I25.10 Atherosclerotic heart disease of native coronary artery without angina pectoris
CPT/HCPCS: 78452; 93017; A9500; A4216; J2785

== ENCOUNTER 2023-10-06 19:34 | Inpatient (IN) | payer MEDICARE, OTHER, SELFPAY ==
[2023-10-06 19:34] VITALS: BP 91/58; PULSE 106; RESP 20; O2SAT 92
[2023-10-06 19:35] VITALS: BP 89/55; PULSE 113; RESP 18; TEMP 37.4; O2SAT 99
--- NOTE | 2023-10-06 20:30 | EKG12_ITS ---
Test Reason : FEVER Blood Pressure : / mmHG Vent. Rate : 099 BPM Atrial Rate : 000 BPM P-R Int : 000 ms QRS Dur : 098 ms QT Int : 346 ms P-R-T Axes : 000 -40 047 degrees QTc Int : 444 ms Accelerated Junctional rhythm with retrograde conduction Left axis deviation Abnormal ECG Confirmed by STEPHANIE PACK, DUNIA ([id number]), assistant film editor CHAD LEE ([id number]) on 10/07/2023 2:06:53 PM Referred By: Confirmed By:DUNIA BROWN MD
--- NOTE | 2023-10-06 20:32 | EX.ED.DYSGE1 ---
HPI History of Present Illness Chief Complaint: Fever Informant: patient Onset/Context/Timing Onset: Days (4 days) Narrative Narrative: Patient presents with 4-day history of weakness, joint aches, cough, fever. He does report having fevers at home but has not had Tylenol for the past couple days. He states he has been eating and drinking but not as much as normal. Cough has been nonproductive. Patient is on chemotherapy for prostate cancer with bone mets. His last chemotherapy treatment was on the . He states he has had blood work done since then but does not know if he is neutropenic. [facility] Medical History (Updated 10/06/23 @ 23:[address] Tammi Osborn MD) Abrasion Arthritis Asthma ASV (adaptive servo-ventilation) use counseling Atrioventricular block, first degree Back pain Blackout Bladder disease Bronchiectasis Cancer Cardiology follow-up encounter Central sleep apnea Chest pain Chronic cough COVID-19 virus detected (06/06/21) DVT (deep venous thrombosis) Dysphagia Esophageal varices Essential (primary) hypertension Gastric reflux Gastritis GERD without esophagitis Gout History of Coumadin therapy History of echocardiogram History of edema History of hiatal hernia History of Holter monitoring History of irregular heartbeat History of pulmonary embolism History of stress test History of ulceration Hx of Acosta's palsy Hx of glaucoma Hyperlipidemia Hypokalemia Injury of head and neck Loss of hearing Non-smoker Other instability, left shoulder Peripheral neuropathy Personal history of colonic polyps Prostate cancer metastatic to bone Severe persistent asthma Shortness of breath on exertion Symptomatic bradycardia (09/24/21) Syncope Voice hoarsenesses Wears glasses Wears partial dentures Home Medications duloxetine 60 mg capsule,delayed release (Cymbalta) 60 mg PO QDAY 12/01/17 [History Last Taken Unknown] calcium carbonate 600 mg-vitamin D3 5 mcg (200 unit) tablet 1 ea PO DAILY 06/27/18 [History Last Taken Unknown] glucosamine sulf dipot chlr,msm,chond 550 mg-C 30 mg-beronica 1 mg capsule 2 ea PO DAILY 02/17/20 [History Last Taken Unknown] PEP device #1 ea 08/25/21 [Rx Last Taken Unknown] rucaparib 200 mg tablet 200 mg PO BID 09/24/21 [History Last Taken Unknown] rucaparib 250 mg tablet 250 mg PO BID 09/24/21 [History Last Taken Unknown] leuprolide (3 month) 22.5 mg (3 month) subcutaneous syringe (Eligard) 22.5 mg subcut .Q3MO 01/15/22 [History Last Taken Unknown] lisinopril 20 mg tablet 20 mg PO DAILY 11/22/22 [History Last Taken Unknown] warfarin 6 mg tablet 6 mg PO DAILY 11/22/22 [History Last Taken Unknown] Lactobacillus acidophilus 10 mg PO DAILY 03/10/23 [History Last Taken Unknown] cyanocobalamin (vitamin B-12) 1,000 mcg tablet (Vitamin B-12) 1,000 mcg PO DAILY 03/10/23 [History Last Taken Unknown] gabapentin 400 mg capsule 800 mg PO BID 03/10/23 [History Last Taken Unknown] metoclopramide HCl 10 mg tablet (Reglan) 10 mg PO DAILY 03/10/23 [History Last Taken Unknown] oxybutynin chloride 5 mg tablet 5 mg PO DAILY 03/10/23 [History Last Taken Unknown] albuterol sulfate 90 mcg/actuation aerosol inhaler (Ventolin HFA) 2 puff inhalation Q4H PRN shortness of breath or wheezing #18 grams 03/30/23 [Rx Last Taken Unknown] guaifenesin 1,200 mg tablet, extended release 12 hr 1,200 mg PO Q12H #60 tabs 05/16/23 [Rx Last Taken Unknown] Allergy/AdvReac Type Severity Reaction Status Date / Time cyclobenzaprine Allergy Unknown Unknown Verified 10/06/23 19:39 [From Flexeril] adhesive Allergy Rash Verified 10/06/23 19:39 docetaxel [From Taxotere] Allergy Unknown Verified 10/06/23 19:39 doxycycline Allergy Unknown Verified 10/06/23 19:39 enoxaparin sodium Allergy triple Verified 10/06/23 19:39 [From Lovenox] liver enzymes Penicillins Allergy Rash Verified 10/06/23 19:39 enoxaparin [Enoxaparin] AdvReac Mild Nausea Verified 10/06/23 19:39 amlodipine AdvReac Unknown Pt Verified 10/06/23 19:39 remembers he can't take it but can't remember reaction promethazine AdvReac Other Verified 10/06/23 19:39 Family History Mother Hypertension Arthritis Father , age 82 COPD complications COPD (chronic obstructive pulmonary disease) Arthritis Sister Hypertension Surgical History History of bilateral knee replacement History of blepharoplasty History of cholecystectomy History of colonoscopy (12/2020) History of esophagogastroduodenoscopy (EGD) (12/2020) History of hernia surgery History of left heart catheterization (06/16/04) History of right hip replacement history of thumb replacement history of toe replacement Hx of left cataract extraction Hx of right cataract extraction Social History household members: spouse Smoking Status: Never smoker alcohol intake: never substance use type: does not use ROS ROS ED Constitutional Constitutional ED: Reports fever(s); Denies chills Eyes Eyes: Denies change in vision or discharge from eye(s) ENT ENT ED: Denies discharge from eye(s), rhinorrhea or sore throat Cardiovascular Cardiovascular: Denies chest pain or palpitations Respiratory/Chest Respiratory/Chest: Reports cough; Denies dyspnea Gastrointestinal Gastrointestinal: Reports diarrhea; Denies abdominal pain, nausea or vomiting Genitourinary Genitourinary ED: Denies dysuria Musculoskeletal Musculoskeletal: Reports arthralgias; Denies back pain Integumentary Denies Abrasions or rash Neurologic Neurologic: Reports weakness; Denies headache(s) Psychiatric Psychiatric: Denies anxiety or depression Allergic/Immunologic Allergic/Immunologic ED: Denies lip swelling or urticaria EXAM Physical Exam Const Vital Signs: 10/06/23 19:35 10/06/23 19:34 10/06/23 20:20 Temperature 99.3 F H Temperature Source Oral Pulse Rate 113 H 106 H Respiratory Rate 18 20 H Respiratory Effort Normal Respiratory Pattern Normal Blood Pressure 89/55 L 91/58 L Blood Pressure Mean 66 69 Pulse Ox 99 92 Oxygen Delivery Method Room Air Room Air 10/06/23 20:48 10/06/23 20:48 10/06/23 21:00 Temperature 98.9 F Temperature Source Oral Pulse Rate 109 H 101 H Respiratory Rate 22 H 16 Respiratory Effort Respiratory Pattern Blood Pressure 90/62 106/68 Blood Pressure Mean 71 80 Pulse Ox 97 96 97 Oxygen Delivery Method Room Air Room Air Room Air 10/06/23 22:00 Temperature Temperature Source Pulse Rate 101 H Respiratory Rate 20 H Respiratory Effort Respiratory Pattern Blood Pressure 104/70 Blood Pressure Mean 81 Pulse Ox 97 Oxygen Delivery Method Room Air Positive well nourished and well developed General Appearance ED: well developed HEENT Reports moist mucous membranes Eyes EOMs intact bilaterally Chest Wall inspection of chest normal and palpation of chest normal Resp normal respiratory effort and clear to auscultation bilaterally Cardio regular rate and regular rhythm GI non-tender Palpation: soft Extremity normal to inspection Neuro oriented x3 Neuro Narrative: No focal neurologic deficit. Psych mental status grossly normal Skin no wounds MDM MDM MDM Narrative Medical decision making narrative: Patient placed on night monitor. EKG obtained to evaluate for cardiac arrhythmia/ischemia. Chest x-ray obtained to evaluate for acute lung pathology, cardiac size, or mediastinal abnormality. Labwork obtained to evaluate for leukocytosis, anemia, and electrolyte derangement. Urinalysis obtained to evaluate for infection/hematuria. Blood and urine cultures obtained. Swab for COVID and influenza obtained. Patient's systolic blood pressure is in the 80s and 90s and is given IV fluid bolus. He will be given a dose of Tylenol for borderline fever. History & Record Review Discussion w/independent historian: Patient Additional record(s) reviewed:: Prior labs Lab Data Attestation: I reviewed the patient's lab results. Labs: Laboratory Results - last 24 hr 10/06/23 10/06/23 10/06/23 19:50 20:09 22:14 WBC 0.9 L* RBC 3.42 L Hgb 11.8 L Hct 34.2 L MCV 100.0 H MCH 34.5 H MCHC 34.5 RDW Std Deviation 43.5 RDW Coeff of Judi 11.9 Plt Count 46 L* MPV 12.4 H Immature Gran % (Auto) 0.000 Neut % (Auto) 21.3 L Lymph % (Auto) 66.0 H [place] % (Auto) 10.6 H Eos % (Auto) 0.0 Baso % (Auto) 2.1 H Absolute Neuts (auto) 0.2 L Absolute Lymphs (auto) 0.62 L Nucleated RBC % 0 Differential Comment SCANNED Diff Path Review February foll PT 19.9 H INR 1.7 APTT 43.8 H Sodium 133 L Potassium 4.4 Chloride 102 Carbon Dioxide 26.0 Anion Gap 5 BUN 20 H Creatinine 1.00 Est GFR (MDRD) Af Amer 94 Est GFR (MDRD) Non-Af 78 BUN/Creatinine Ratio 20.0 Glucose 130 H Lactic Acid 1.3 Calcium 8.8 Total Bilirubin 1.00 AST 27 ALT 17 Alkaline Phosphatase 97 Total Protein 7.0 Albumin 2.9 L Globulin 4.1 Albumin/Globulin Ratio 0.7 L Urine Color Yellow Urine Clarity Clear Urine pH 5.0 Ur Specific [place] 1.020 Urine Protein 30 H Urine Glucose (UA) Normal Urine Ketones Negative Urine Occult Blood 10 H Urine Nitrite Negative Urine Bilirubin 1 H Urine Urobilinogen Normal Ur Leukocyte Esterase 25 H Urine RBC 0 SEEN Urine WBC 0-5 SEEN Ur Squamous Epith Cells 0 SEEN Urine Bacteria 0 SEEN Urine Mucus 1+ Radiography Chest X-Ray - ED: 1 View, Read by ED Physician, Chronic Changes and No Infiltrates Diagnostic Testing: Clinical Impression(s) from Imaging Studies Chest X-Ray 10/06/23 20:50 IMPRESSION: No active disease. Electronically Signed: Rajinder Donovan MD at 21:31 EST , EKG Initial EKG: Attestation: I personally reviewed and interpreted this EKG as follows: Interpretation: Junctional (Accelerated junctional rhythm 99 bpm. No acute ischemia.) Treatment and Re-Evaluation :: CBC reveals a white count of 0.9 with 0.2 absolute neutrophils. Hemoglobin is 11.8. Platelet count is low at 46,000. Chemistry studies reveal slightly low sodium at 133. Glucose is 130. Lactic acid is normal at 1.3. LFTs are unremarkable. Urinalysis is normal. Swab for COVID and influenza is negative. Portable chest x-ray per my interpretation was chronic changes with no evidence of infiltrate. Radiology interpretation reviewed and agrees. After IV fluids patient's systolic blood pressure is between 100-105 systolic. Patient was given a dose of meropenem given his neutropenic fever. I spoke with Dr. Barrios. He agreed with hospitalization for IV antibiotics and await culture results. I will speak with the hospitalist. Discharge Plan Triage Chief Complaint: Fever ED Provider: Tammi Osborn Dx/Rx/DC Orders Clinical Impression: Neutropenic fever Prescriptions: No Action duloxetine [Cymbalta] 60 mg capsule,delayed release(DR/EC) 60 mg PO QDAY gabapentin 400 mg capsule 800 mg PO BID Rx Instructions: 800 mg AM & 1200 HS (DME) PEP device See Rx Instructions .Route .MEDSUPPLY Qty: 1 0RF Rx Instructions: with training oxybutynin chloride 5 mg tablet 5 mg PO DAILY cyanocobalamin (vitamin B-12) [Vitamin B-12] 1,000 mcg tablet 1,000 mcg PO DAILY Lactobacillus acidophilus Capsule 10 mg PO DAILY guaifenesin 1,200 mg tablet extended release 12hr 1,200 mg PO Q12H Qty: 60 5RF lisinopril 20 mg tablet 20 mg PO DAILY warfarin 6 mg tablet 6 mg PO DAILY metoclopramide HCl [Reglan] 10 mg tablet 10 mg PO DAILY calcium carbonate-vitamin D3 1 EACH tablet 1 ea PO DAILY glucos sul [id number] 1 EACH capsule 2 ea PO DAILY Eligard (3 month) 22.5 mg Syringe 22.5 mg SUBCUT .Q3MO rucaparib 200 mg tablet 200 mg PO BID rucaparib 250 mg tablet 250 mg PO BID albuterol sulfate [Ventolin HFA] 90 mcg/actuation HFA aerosol inhaler 2 puff inhalation Q4H PRN (Reason: shortness of breath or wheezing) Qty: 18 6RF Primary Care Provider: Nikolas Bennett Referrals: Nikolas Bennett DO [Primary Care Provider] - Disposition Disposition: Acute Care [facility]
[2023-10-06 20:48] VITALS: BP 90/62; PULSE 109; RESP 22; TEMP 37.2; O2SAT 96; O2SAT 97
--- NOTE | 2023-10-06 20:50 | RAD_ITS ---
STUDY: X-RAY CHEST REASON FOR EXAM: Male, 73 years old. fever, cough TECHNIQUE: Single AP portable view of the chest. COMPARISON: 02/11/2022 FINDINGS: Left subclavian chest port which is unchanged. The lungs are clear and expanded. There is no demonstrated pleural abnormality. Normal size heart. Normal mediastinum and isaac. Normal visualized pulmonary arteries. Normal visualized aortic arch and descending thoracic aorta. Normal visualized thoracic spine. Status post left shoulder reverse arthroplasty. There is no demonstrated abnormality of the visualized soft tissue structures of the upper abdomen. RAD/Chest 1 View (Portable) IMPRESSION: No active disease. Electronically Signed: Rajinder Donovan MD at 21:31 EST ,
[2023-10-06 20:51] LABS: Absolute Lymphocyte Count 0.62 X10^3/uL (0.83-4.51); Absolute Neutrophil Count 0.2 X10^3/uL (2.0-7.7); Basophil# 0.02 X10^3/uL; Basophil% 2.1 % (0-1); Hematocrit 34.2 % (40-54); Hemoglobin 11.8 g/dL (13.0-16.5); Lymphocyte # 0.62 X10^3/ul (0.83-4.51); Mean Corp Hgb Conc 34.5 g/dL (32-36); Mean Corpuscular Hgb 34.5 pg (27.0-32.0); Mean Platelet Vol. 12.4 fl (6.2-12.0); Monocyte% 10.6 % (0-10); NRBC Flagged by Analyzer 0 % (0-5); Neutrophil % 21.3 % (47-70); POSITIVE COUNT YES; POSITIVE DIFFERENTIAL YES; POSITIVE MORPHOLOGY YES; RBC Distribution Width CV 11.9 % (11.6-14.6); RBC Distribution Width SD 43.5 fl (35.1-43.9); Red Blood Count 3.42 M/mm3 (4.6-6.2)
[2023-10-06] MEDS: Acetaminophen 325 MG Tablet 650 MG PO (20:55)
[2023-10-06] MEDS: 0.9% Normal Saline (1000mL) 1,000 ML 999 ML IV (20:55)
[2023-10-06 21:00] VITALS: BP 106/68; PULSE 101; RESP 16; O2SAT 97
[2023-10-06 21:00] LABS: International Normalized Ratio 1.7; Prothrombin Time (Protime)PT. 19.9 SECONDS (11.7-14.9)
[2023-10-06 21:01] LABS: Partial Thromboplast Time 43.8 Seconds (24.1-36.2)
[2023-10-06 21:07] LABS: ALB/GLOB Ratio 0.7 RATIO (0.9-2.4); AST(SGOT) 27 U/L (15-37); Alanine Aminotransfer ALT/SGPT 17 U/L (16-61); Albumin, Serum 2.9 g/dL (3.2-5.0); Alkaline Phosphatase 97 U/L (45-117); Anion Gap 5 (5-15); BUN 20 mg/dL (7-18); Calcium,Total 8.8 mg/dL (8.5-10.1); Chloride 102 mmol/L (98-107); EST Glomerular Filtration Rate 78 mL/min (>60); Est Glom Filt Rate - Afr Amer 94 mL/min (>60); Globulin 4.1 g/dL (2.2-4.2); Glucose 130 mg/dL (74-106); Potassium 4.4 mmol/L (3.5-5.1); Sodium Level 133 mmol/L (136-145)
[2023-10-06 21:25] LABS: Differential Comment SCANNED; White Blood Count 0.9 K/mm3 (4.4-11.0)
[2023-10-06 21:26] LABS: Differential Indicated SCAN CRITERIA MET; Platelet Count 46 K/mm3 (150-450)
[2023-10-06 21:34] LABS: Lactic Acid 1.3 mmol/L (0.4-1.9)
[2023-10-06 22:00] VITALS: BP 104/70; PULSE 101; RESP 20; O2SAT 97
[2023-10-06 22:34] LABS: Bacteria 0 SEEN /hpf (None Seen); Red Blood Cells-Urine 0 SEEN /hpf (0-5); Squamous Epithelial Cells - UA 0 SEEN /hpf (0-5)
[2023-10-06 22:35] LABS: Color, Urine Yellow (Yellow); Glucose, Dipstick Normal (Normal); Ketone-Dipstick Negative (Negative); Leukocyte Esterase-Dipstick 25 /ul (Negative); Nitrite-Dipstick Negative (Negative); Occult Blood-Urine 10 /ul (Negative); Protein-Dipstick 30 mg/dl (Negative); Urine Clarity Clear (Clear); Urine Urobilinogen Normal (Normal)
[2023-10-06] MEDS: Meropenem 1 GM in 0.9% Normal Saline (100mL MB+) 100 ML IV (22:39)
[2023-10-06] MEDS: 0.9% Normal Saline (1000mL) 1,000 ML 150 ML IV (22:39)
[2023-10-06 22:40] LABS: Urine Bilirubin Dipstick 1 mg/dL (Negative)
[2023-10-06 22:47] LABS: White Blood Cells 0-5 SEEN /hpf (0-5)
[2023-10-06 22:48] LABS: Mucous, Urine 1+ /hpf (<or=2+)
[2023-10-06 23:00] VITALS: BP 102/72; PULSE 99; RESP 20; O2SAT 95
--- NOTE | 2023-10-06 23:32 | HP.PCM.HOS_ITS ---
[facility] - General General Date of Admission: 10/07/23 Date of Service: 10/06/23 Chief Complaint: Fever, myalgias and cough HPI Narrative ATTILA MEDRANO, is a 73 M with past medical history of essential hypertension, hyperlipidemia, history of DVT/PE; on Coumadin, history of syncope, peripheral neuropathy, history of glaucoma, history of Acosta's palsy, history of allergy to Lovenox; which causes hypertransaminasemia, osteoarthritis; status post yomaira ateral total knee replacements and history of prostate cancer metastatic to bone; on chemotherapy with his last treatment on 09/26/2023, followed by Dr. Guy of oncology who presents to [facility] ER complaining of fever, myalgias and cough. Mr. Medrano reports his symptoms began approximately 4 days prior to admission with a gradual onset of generalized weakness, joint aches, cough and subjective fever. He also admits to poor appetite with significantly diminished eating and drinking compared to normal. He states his cough is nonproductive and he denies taking any Tylenol for his fever. He denies associated nausea, vomiting or constipation but he does admit to nonbloody diarrhea. In the ER he was noted to have critical leukopenia of 0.9 present on admission with clinical evidence of neutropenic fever complicated by severe thrombocytopenia with platelet count of 46 present on admission with a subtherapeutic INR of 1.7 with his oncologist recommending admission and treatment with IV Merrem and the patient was then admitted to the general medical floor for ongoing care for stay that is expected to be greater than 48 hours. [facility] Medical History Abrasion Arthritis Asthma ASV (adaptive servo-ventilation) use counseling Atrioventricular block, first degree Back pain Blackout Bladder disease Bronchiectasis Cancer Cardiology follow-up encounter Central sleep apnea Chest pain Chronic cough COVID-19 virus detected (06/06/21) DVT (deep venous thrombosis) Dysphagia Esophageal varices Essential (primary) hypertension Gastric reflux Gastritis GERD without esophagitis Gout History of Coumadin therapy History of echocardiogram History of edema History of hiatal hernia History of Holter monitoring History of irregular heartbeat History of pulmonary embolism History of stress test History of ulceration Hx of Acosta's palsy Hx of glaucoma Hyperlipidemia Hypokalemia Injury of head and neck Loss of hearing Non-smoker Other instability, left shoulder Peripheral neuropathy Personal history of colonic polyps Prostate cancer metastatic to bone Severe persistent asthma Shortness of breath on exertion Symptomatic bradycardia (09/24/21) Syncope Voice hoarsenesses Wears glasses Wears partial dentures Home Medications duloxetine 60 mg capsule,delayed release (Cymbalta) 60 mg PO QDAY depression 12/01/17 [History Last Taken Unknown] calcium carbonate 600 mg-vitamin D3 5 mcg (200 unit) tablet 1 ea PO DAILY s upplement 06/27/18 [History Last Taken Unknown] glucosamine sulf dipot chlr,msm,chond 550 mg-C 30 mg-beronica 1 mg capsule 2 ea PO DAILY supplement 02/17/20 [History Last Taken Unknown] PEP device #1 ea 08/25/21 [Rx Last Taken Unknown] rucaparib 200 mg tablet 200 mg PO BID cancer 09/24/21 [History Last Taken Unknown] rucaparib 250 mg tablet 250 mg PO BID cancer 09/24/21 [History Last Taken Unknown] leuprolide (3 month) 22.5 mg (3 month) subcutaneous syringe (Fraxion) 22.5 mg subcut .Q3MO 01/15/22 [History Last Taken Unknown] lisinopril 20 mg tablet 10 mg PO DAILY blood pressure 11/22/22 [History Last Taken Unknown] Lactobacillus acidophilus 10 mg PO DAILY probiotic 03/10/23 [History Last Taken Unknown] cyanocobalamin (vitamin B-12) 1,000 mcg tablet (Vitamin B-12) 5,000 mcg PO DAILY supplement 03/10/23 [History Last Taken Unknown] gabapentin 400 mg capsule 800 mg PO BID nerve pain 03/10/23 [History Last Taken Unknown] metoclopramide HCl 10 mg tablet (Reglan) 10 mg PO DAILY PRN nausea and vomiting 03/10/23 [History Last Taken Unknown] oxybutynin chloride 5 mg tablet 5 mg PO DAILY overactive bladder 03/10/23 [History Last Taken Unknown] albuterol sulfate 90 mcg/actuation aerosol inhaler (Ventolin HFA) 2 puff inhalation Q4H PRN shortness of breath or wheezing #18 grams 03/30/23 [Rx Last Taken Unknown] guaifenesin 1,200 mg tablet, extended release 12 hr 1,200 mg PO Q12H congestion #60 tabs 05/16/23 [Rx Last Taken Unknown] acetaminophen 500 mg capsule 500 mg PO Q6H PRN pain 10/07/23 [History Last Taken Unknown] ferrous sulfate 325 mg (65 mg iron) tablet (Feosol) 325 mg PO DAILY supplement 10/07/23 [History Last Taken Unknown] ondansetron 8 mg PO TID PRN PRN n/v 10/07/23 [History Last Taken 10/06/23 08:00] prednisone 10 mg tablet 10 mg PO DAILY inflammation 10/07/23 [History Last Taken Unknown] warfarin 5 mg tablet (Jantoven) 5 mg PO DAILY blood thinner 10/07/23 [History Last Taken Unknown] Allergy/AdvReac Type Severity Reaction Status Date / Time cyclobenzaprine Allergy Unknown Unknown Verified 10/06/23 19:39 [From Flexeril] adhesive Allergy Rash Verified 10/06/23 19:39 docetaxel [From Taxotere] Allergy Unknown Verified 10/06/23 19:39 doxycycline Allergy Unknown Verified 10/06/23 19:39 enoxaparin sodium Allergy triple Verified 10/06/23 19:39 [From Lovenox] liver enzymes Penicillins Allergy Rash Verified 10/06/23 19:39 enoxaparin [Enoxaparin] AdvReac Mild Nausea Verified 10/06/23 19:39 amlodipine AdvReac Unknown Pt Verified 10/06/23 19:39 remembers he can't take it but can't remember reaction promethazine AdvReac Other Verified 10/06/23 19:39 Family History Mother Hypertension Arthritis Father , age 82 COPD complications COPD (chronic obstructive pulmonary disease) Arthritis Sister Hypertension Surgical History History of bilateral knee replacement History of blepharoplasty History of cholecystectomy History of colonoscopy (12/2020) History of esophagogastroduodenoscopy (EGD) (12/2020) History of hernia surgery History of left heart catheterization (06/16/04) History of right hip replacement history of thumb replacement history of toe replacement Hx of left cataract extraction Hx of right cataract extraction Social History household members: spouse Smoking Status: Never smoker alcohol intake: never substance use type: does not use ROS ROS Narrative Review of systems: Constitutional: Patient admits to fever and malaise but denies chills. Eyes: Patient denies visual changes or discharge from eyes. ENT: Patient denies runny nose, sore throat or ear pain. Cardiovascular: Patient denies chest pain or palpitations. Respiratory: Patient admits to shortness of breath and nonproductive cough. Genitourinary: Patient denies dysuria, hematuria or urinary frequency. Musculoskeletal: Patient admits to arthralgias and myalgias. Integumentary: Patient denies abrasions or rash. Neurologic: Patient denies headache or focal neurologic weakness. Psychiatric: Patient denies significant depression or anxiety. Allergic: Patient denies lip swelling, tongue swelling or urticaria. Hematology: Patient denies easy bleeding or easy bruisability. 14 point review of systems otherwise negative save for positives noted above in HPI. Vital Signs Vital Signs Vital Signs: 10/06/23 19:35 10/06/23 19:34 10/06/23 20:20 Temperature 99.3 F H Temperature Source Oral Pulse Rate 113 H 106 H Respiratory Rate 18 20 H Respiratory Effort Normal Respiratory Pattern Normal Blood Pressure 89/55 L 91/58 L Blood Pressure Mean 66 69 Pulse Ox 99 92 Oxygen Delivery Method Room Air Room Air 10/06/23 20:48 10/06/23 20:48 10/06/23 21:00 Temperature 98.9 F Temperature Source Oral Pulse Rate 109 H 101 H Respiratory Rate 22 H 16 Respiratory Effort Respiratory Pattern Blood Pressure 90/62 106/68 Blood Pressure Mean 71 80 Pulse Ox 97 96 97 Oxygen Delivery Method Room Air Room Air Room Air 10/06/23 22:00 Temperature Temperature Source Pulse Rate 101 H Respiratory Rate 20 H Respiratory Effort Respiratory Pattern Blood Pressure 104/70 Blood Pressure Mean 81 Pulse Ox 97 Oxygen Delivery Method Room Air Physical Exam Const alert, oriented x3, no apparent distress and average body habitus General Appearance: cooperative HEENT normocephalic, head/scalp atraumatic and hearing grossly normal bilaterally HEENT Narrative: Mucous membranes dry. Results Medical Records Data Attestation: I reviewed the patient's medical records Lab / Micro Data Attestation: I reviewed the patient's lab results. 10/06/23 19:50 10/06/23 19:50 Labs: Laboratory Results - last 24 hr 10/06/23 19:50: WBC 0.9 L*, RBC 3.42 L, Hgb 11.8 L, Hct 34.2 L, MCV 100.0 H, MCH 34.5 H, MCHC 34.5, RDW Std Deviation 43.5, RDW Coeff of Judi 11.9, Plt Count 46 L*, MPV 12.4 H, Immature Gran % (Auto) 0.000, Neut % (Auto) 21.3 L, Lymph % (Auto) 66.0 H, [place] % (Auto) 10.6 H, Eos % (Auto) 0.0, Baso % (Auto) 2.1 H, Absolute Neuts (auto) 0.2 L, Absolute Lymphs (auto) 0.62 L, Nucleated RBC % 0, Differential Comment SCANNED, Diff Path Review February, PT 19.9 H, INR 1.7, APTT 43.8 H, Sodium 133 L, Potassium 4.4, Chloride 102, Carbon Dioxide 26.0, Anion Gap 5, BUN 20 H, Creatinine 1.00, Est GFR (MDRD) Af Amer 94, Est GFR (MDRD) Non-Af 78, BUN/Creatinine Ratio 20.0, Glucose 130 H, Calcium 8.8, Total Bilirubin 1.00, AST 27, ALT 17, Alkaline Phosphatase 97, Total Protein 7.0, Albumin 2.9 L, Globulin 4.1, Albumin/Globulin Ratio 0.7 L 10/06/23 20:09: Lactic Acid 1.3 10/06/23 22:14: Urine Color Yellow, Urine Clarity Clear, Urine pH 5.0, Ur Specific [place] 1.020, Urine Protein 30 H, Urine Glucose (UA) Normal, Urine Ketones Negative, Urine Occult Blood 10 H, Urine Nitrite Negative, Urine Bilirubin 1 H, Urine Urobilinogen Normal, Ur Leukocyte Esterase 25 H, Urine RBC 0 SEEN, Urine WBC 0-5 SEEN, Ur Squamous Epith Cells 0 SEEN, Urine Bacteria 0 SEEN, Urine Mucus 1+ Micro: Microbiology 10/06/23 21:00 Nasal Secretion SARS-CoV-2 & FLU Antigen (Rapid) - Final Imagaing Radiology Impression Chest X-Ray 10/06/23 20:50 IMPRESSION: No active disease. Electronically Signed: Rajinder Donovan MD at 21:31 EST , Assessment & Plan Assessment/Plan (1) Neutropenic fever: (2) Adverse drug reaction: QUALIFIERS: Encounter type: initial encounter Qualified Code(s): T50.905A - Adverse effect of unspecified drugs, medicaments and biological substances, initial encounter (3) Malignant neoplasm metastatic from bladder: (4) Diarrhea: QUALIFIERS: Diarrhea type: presumed infectious Qualified Code(s): R19.7 - Diarrhea, unspecified PLAN: Plan 1. 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 Guy - Admit to general medical floor on neutropenic precautions. Continue IV Merrem as per oncologist recommendations. Give Tylenol as needed for mild to moderate level 1-5 out of 10 pain or fever. Give morphine IV as needed for severe level 6-10 out of 10 pain. Check daily CBC to monitor for rebound of leukocytes and platelets. 2. Severe thrombocytopenia; platelet count of 46 present on admission complicating #1 - Continue supportive care and monitor for improvement. Avoid heparin and heparinoid's given patient's allergy profile. 3. Nonbloody diarrhea compounding #1 & #2 - Check stool studies to evaluate for possible infectious colitis including: C. difficile A&B toxin PCR, fecal ova and parasites, fecal leukocytes and Hemoccult. 4. History of DVT and PE; on Coumadin - Continue Coumadin at this time with subtherapeutic INR only 1.7 present on admission. Will check daily PT and INR levels. 5. Essential hypertension - Hold scheduled antihypertensives at this time. Gi ve IV hydralazine as needed for systolic blood pressure greater than or equal to 160 mmHg. 6. Hyperlipidemia - Resume statin as previous. 7. History of syncope - Noted. 8. Peripheral neuropathy - Continue gabapentin. 9. History of glaucoma - Noted. 10. History of Acosta's palsy - Noted. 11. Osteoarthritis; status post bilateral total knee replacements - Noted. 12. DVT prophylaxis - Patient is chronically on Coumadin and this agent will be continued. Total time: Approximately 55 minutes. Charges/Coding Visit Charges Inpatient E&M: 56347 Init Hosp L2
[2023-10-07] VITALS (8 sets, daily range): BP systolic 88–136; BP diastolic 68–87; PULSE 92–101; RESP 16–24; TEMP 36.7–37.6; O2SAT 93–96; BMI 32.0
[2023-10-07] MEDS: 0.9% Normal Saline (1000mL) 1,000 ML 150 ML IV ×3 (02:58→17:57)
[2023-10-07 05:42] LABS: Absolute Lymphocyte Count 0.36 X10^3/uL (0.83-4.51); Absolute Neutrophil Count 0.3 X10^3/uL (2.0-7.7); Basophil# 0.01 X10^3/uL; Basophil% 1.3 % (0-1); Hematocrit 30.5 % (40-54); Hemoglobin 10.5 g/dL (13.0-16.5); Lymphocyte # 0.36 X10^3/ul (0.83-4.51); Mean Corp Hgb Conc 34.4 g/dL (32-36); Mean Corpuscular Volume 101.7 fL (80-94); Mean Platelet Vol. 12.2 fl (6.2-12.0); Monocyte# 0.08 X10^3/uL; Monocyte% 10.7 % (0-10); NRBC Flagged by Analyzer 0 % (0-5); Neutrophil # 0.29 X10^3/uL (2.7-7.7); Neutrophil % 38.7 % (47-70); POSITIVE COUNT YES; POSITIVE DIFFERENTIAL YES; POSITIVE MORPHOLOGY YES; RBC Distribution Width CV 11.9 % (11.6-14.6); RBC Distribution Width SD 44.6 fl (35.1-43.9)
[2023-10-07 05:56] LABS: International Normalized Ratio 1.8; Prothrombin Time (Protime)PT. 21.3 SECONDS (11.7-14.9)
[2023-10-07 06:03] LABS: Differential Indicated SCAN CRITERIA MET; Platelet Count 35 K/mm3 (150-450); White Blood Count 0.8 K/mm3 (4.4-11.0)
[2023-10-07] MEDS: Meropenem 1 GM in 0.9% Normal Saline (100mL MB+) 100 ML IV ×3 (06:04→21:56)
[2023-10-07] MEDS: metroNIDAZOLE 500 MG/100 ML BAG 100 MG IV ×3 (06:09→20:46)
[2023-10-07 06:27] LABS: Magnesium 1.8 mg/dL (1.6-2.6); Phosphorus 2.4 mg/dL (2.5-4.9)
[2023-10-07 07:14] LABS: ALB/GLOB Ratio 0.7 RATIO (0.9-2.4); AST(SGOT) 16 U/L (15-37); Alanine Aminotransfer ALT/SGPT 13 U/L (16-61); Albumin, Serum 2.4 g/dL (3.2-5.0); Alkaline Phosphatase 81 U/L (45-117); Anion Gap 7 (5-15); BUN 17 mg/dL (7-18); BUN/Creat Ratio 22.7 RATIO (10-20); Calcium,Total 8.2 mg/dL (8.5-10.1); Chloride 105 mmol/L (98-107); Creatinine, Serum 0.75 mg/dL (0.70-1.30); EST Glomerular Filtration Rate 109 mL/min (>60); Est Glom Filt Rate - Afr Amer 131 mL/min (>60); Estimated Creatinine Clearance 66.92 ml/min; Globulin 3.5 g/dL (2.2-4.2); Glucose 96 mg/dL (74-106); Potassium 3.9 mmol/L (3.5-5.1); Protein, Total 5.9 g/dL (6.4-8.2); Sodium Level 136 mmol/L (136-145)
[2023-10-07 07:48] LABS: Platelet Estimate MKD DEC (ADEQ)
--- NOTE | 2023-10-07 08:09 | PN.HOSP_ITS ---
Subjective Subjective Feels well. Objective Data Objective Data Vital Signs: Vital Signs Temp Pulse Resp BP Pulse Ox O2 Del Method 36.8 C 101 H 16 124/72 H 95 Nasal Cannula 10/07/23 02:26 10/07/23 02:26 10/07/23 02:26 10/07/23 02:26 10/07/23 02:26 10/07/23 02:26 Oxygen Delivery Method Nasal Cannula Weight: 101.5 kg Body Mass Index (BMI) 32.0 Intake & Output: Intake and Output for Last 24 Hours 10/05/23 10/06/23 10/07/23 23:59 23:59 23:59 Intake Total 1120 / 1120 1222.5 / 1222.5 Balance 1120 / 1120 1222.5 / 1222.5 Lab / Micro Data 10/07/23 04:25 10/07/23 04:25 Labs: Laboratory Results - last 24 hr 10/06/23 19:50: WBC 0.9 L*, RBC 3.42 L, Hgb 11.8 L, Hct 34.2 L, MCV 100.0 H, MCH 34.5 H, MCHC 34.5, RDW Std Deviation 43.5, RDW Coeff of Judi 11.9, Plt Count 46 L*, MPV 12.4 H, Immature Gran % (Auto) 0.000, Neut % (Auto) 21.3 L, Lymph % (Auto) 66.0 H, [place] % (Auto) 10.6 H, Eos % (Auto) 0.0, Baso % (Auto) 2.1 H, Absolute Neuts (auto) 0.2 L, Absolute Lymphs (auto) 0.62 L, Nucleated RBC % 0, Differential Comment SCANNED, Diff Path Review February, PT 19.9 H, INR 1.7, APTT 43.8 H, Sodium 133 L, Potassium 4.4, Chloride 102, Carbon Dioxide 26.0, Anion Gap 5, BUN 20 H, Creatinine 1.00, Est GFR (MDRD) Af Amer 94, Est GFR (MDRD) Non-Af 78, BUN/Creatinine Ratio 20.0, Glucose 130 H, Calcium 8.8, Total Bilirubin 1.00, AST 27, ALT 17, Alkaline Phosphatase 97, Total Protein 7.0, Albumin 2.9 L, Globulin 4.1, Albumin/Globulin Ratio 0.7 L 10/06/23 20:09: Lactic Acid 1.3 10/06/23 22:14: Urine Color Yellow, Urine Clarity Clear, Urine pH 5.0, Ur Specific [place] 1.020, Urine Protein 30 H, Urine Glucose (UA) Normal, Urine Ketones Negative, Urine Occult Blood 10 H, Urine Nitrite Negative, Urine Bilirubin 1 H, Urine Urobilinogen Normal, Ur Leukocyte Esterase 25 H, Urine RBC 0 SEEN, Urine WBC 0-5 SEEN, Ur Squamous Epith Cells 0 SEEN, Urine Bacteria 0 SEEN, Urine Mucus 1+ 10/07/23 04:25: WBC 0.8 L*, RBC 3.00 L, Hgb 10.5 L, Hct 30.5 L, MCV 101.7 H, MCH 35.0 H, MCHC 34.4, RDW Std Deviation 44.6 H, RDW Coeff of Judi 11.9, Plt Count 35 L*, MPV 12.2 H, Immature Gran % (Auto) 1.300 H, Neut % (Auto) 38.7 L, Lymph % (Auto) 48.0 H, [place] % (Auto) 10.7 H, Eos % (Auto) 0.0, Baso % (Auto) 1.3 H, Absolute Neuts (auto) 0.3 L, Absolute Lymphs (auto) 0.36 L, Nucleated RBC % 0, Differential Comment COMMENT, Diff Path Review February foll, Platelet Estimate MKD DEC, PT 21.3 H, INR 1.8, Sodium 136, Potassium 3.9, Chloride 105, Carbon Dioxide 24.0, Anion Gap 7, BUN 17, Creatinine 0.75, Estim Creat Clear Calc 66.92, Est GFR (MDRD) Af Amer 131, Est GFR (MDRD) Non-Af 109, BUN/Creatinine Ratio 22.7 H, Glucose 96, Calcium 8.2 L, Phosphorus 2.4 L, Magnesium 1.8, Total Bilirubin 0.90, AST 16, ALT 13 L, Alkaline Phosphatase 81, Total Protein 5.9 L, Albumin 2.4 L, Globulin 3.5, Albumin/Globulin Ratio 0.7 L, TSH 0.30 L Micro: Microbiology 10/06/23 21:00 Nasal Secretion SARS-CoV-2 & FLU Antigen (Rapid) - Final Radiography Diagnostic Testing: Radiology Impression Chest X-Ray 10/06/23 20:50 IMPRESSION: No active disease. Electronically Signed: Rajinder Donovan MD at 21:31 EST , Physical Exam Const alert and no apparent distress HEENT head/scalp atraumatic and moist oral mucous membranes Resp normal respiratory effort, no retractions, no use of accessory muscles and clear to auscultation bilaterally Cardio regular rate, regular rhythm, S1 normal heart sound and S2 normal heart sound GI normal to inspection, nondistended, normoactive bowel sounds, soft to palpation, non-tender and non-distended Neuro Sensorium / Orientation: awake and alert Assessment & Plan Assessment/Plan (1) Neutropenic fever: (2) Adverse drug reaction: QUALIFIERS: Encounter type: initial encounter Qualified Code(s): T50.905A - Adverse effect of unspecified drugs, medicaments and biological substances, initial encounter (3) Malignant neoplasm metastatic from bladder: (4) Diarrhea: QUALIFIERS: Diarrhea type: presumed infectious Qualified Code(s): R19.7 - Diarrhea, unspecified PLAN: Plan Neutropenic fever * likely due to adverse drug reaction from chemotherapy followed by Dr. Barrios - * Continue IV Merrem as per oncologist recommendations. * Give Tylenol as needed for mild to moderate level 1-5 out of 10 pain or fever. * Follow-up cultures Severe thrombocytopenia; * Monitor. Nonbloody diarrhea compounding #1 & #2 - * Check stool studies to evaluate for possible infectious colitis including: C. difficile A&B toxin PCR, fecal ova and parasites, fecal leukocytes and Hemoccult. Chronic conditions: * History of DVT and PE: Without thrombocytopenia, patient at risk for severe complications with his bleeding. Hold off on warfarin for now. * Essential hypertension - Hold scheduled antihypertensives at this time. Give IV hydralazine as needed for systolic blood pressure greater than or equal to 160 mmHg. * Hyperlipidemia - Resume statin as previous. * History of syncope * Peripheral neuropathy - Continue gabapentin. 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 No further workup at this time. * Osteoarthritis; status post bilateral total knee replacements - Noted. * Prostate cancer: Follow-up with oncology. DVT prophylaxis -SCDs Charges/Coding Visit Charges Inpatient E&M: 60864 Subs Hosp L2
[2023-10-07] MEDS: Oxybutynin 5 MG Tablet PO (08:26)
[2023-10-07] MEDS: guaiFENesin 1,200 MG Tablet 1200 MG PO ×2 (08:26→21:57)
[2023-10-07] MEDS: Cyanocobalamin 500 MCG Tablet 1000 MCG PO (08:26)
[2023-10-07] MEDS: Acetaminophen 500 MG Tablet PO (08:26)
[2023-10-07] MEDS: Ferrous Sulfate 325 MG Tablet PO (08:27)
[2023-10-07] MEDS: predniSONE 10 MG Tablet PO (08:27)
[2023-10-07] MEDS: DULoxetine Hcl 60 MG Capsule PO (08:27)
[2023-10-07] MEDS: Calcium Carb/Vitamin D 1 TABLET Tablet PO (08:27)
[2023-10-07] MEDS: Ensure Plus High Protein 120 ML LIQUID PO ×2 (08:32→14:22)
[2023-10-07] MEDS: Gabapentin 800 MG Tablet PO ×2 (08:32→21:57)
[2023-10-07 13:11] LABS: Pathologist Review Reviewed
[2023-10-07 13:12] LABS: Pathologist Review Reviewed
--- NOTE | 2023-10-07 13:50 | CASEMGMT ---
DUC GAXIOLA assessment: RN CM to room to meet with patient for initial transition planning/care coordination assessment. RN KHALIDA introduced self and role at [facility], pt voices understanding and consents to assessment at this time. Pt resting in bed in no distress at this time. @ bedside. Pt is A/O at this time and answers all questions appropriately at this time. Care providers, pharmacy, and demographics verified at this time. PCP: Dr Bennett Specialists: Dr Otto, cardio; Dr Mauricio, onc- [facility]; Dr Felix, pulm; Dr Kim, urology Preferred Pharmacy: [facility] Insurance: MCR A/B, MMO Prescription Benefit: Yes Living Will/HPOA: Pt has LW/HPOA and they are on file at [facility] at this time. Pt states that his , Monica Medrano, is HPOA. LNOK: Monica Medrano, ; Mehnaz Keita, daughter. Pt also has a son and another daughter Living Arrangements: Pt states lives with in tri-level home w/2 steps to enter. Pt does okay w/the stairs. They do have a chair lift available, but it is not installed yet. Pt is independent w/ADL's. does the home mgnt tasks and assists pt w/med management. Transportation: Pt states drives self and states no transportation concerns at this time. also drives. DME: Pt states has the following DME: cane, grab bars, built-in shower seat, walker, BSC, pulse ox, and NIV thru [employer]. Pt and deny having other DME needs. SNF/HHC: Pt has been to [facility] in the past. He has had [facility]HC in the past. Pt and decline needing HHC or OP therapy. Pt and state no concerns with pt going home at time of discharge. They state no further concerns/needs at this time. CM to follow for any further discharge planning/needs. Advised pt and to ask for CM if any further questions/concerns/needs arise. They voice understanding. Plan: Home w/spousal support and discharge plans in place. Av SY RN, CM
[2023-10-08] MEDS: 0.9% Normal Saline (1000mL) 1,000 ML 150 ML IV ×3 (01:42→18:04)
[2023-10-08 04:47] VITALS: BP 146/103; PULSE 106; RESP 18; TEMP 36.6; O2SAT 97
[2023-10-08] MEDS: metroNIDAZOLE 500 MG/100 ML BAG 100 MG IV ×3 (04:50→20:53)
[2023-10-08] MEDS: Meropenem 1 GM in 0.9% Normal Saline (100mL MB+) 100 ML IV ×3 (04:52→22:01)
[2023-10-08 07:23] VITALS: O2SAT 95
[2023-10-08 07:35] LABS: Absolute Lymphocyte Count 0.62 X10^3/uL (0.83-4.51); Absolute Neutrophil Count 0.9 X10^3/uL (2.0-7.7); Basophil# 0.04 X10^3/uL; Basophil% 2.3 % (0-1); Hematocrit 30.3 % (40-54); Hemoglobin 10.2 g/dL (13.0-16.5); Lymphocyte # 0.62 X10^3/ul (0.83-4.51); Lymphocyte % 35.4 % (19-41); Mean Corp Hgb Conc 33.7 g/dL (32-36); Mean Corpuscular Hgb 34.3 pg (27.0-32.0); Mean Platelet Vol. 12.6 fl (6.2-12.0); Monocyte# 0.19 X10^3/uL; Monocyte% 10.9 % (0-10); NRBC Flagged by Analyzer 1.7 % (0-5); Neutrophil # 0.86 X10^3/uL (2.7-7.7); Neutrophil % 49.1 % (47-70); POSITIVE COUNT YES; POSITIVE DIFFERENTIAL YES; POSITIVE MORPHOLOGY YES; RBC Distribution Width CV 11.9 % (11.6-14.6); RBC Distribution Width SD 44.1 fl (35.1-43.9); Red Blood Count 2.97 M/mm3 (4.6-6.2); White Blood Count 1.8 K/mm3 (4.4-11.0)
--- NOTE | 2023-10-08 07:43 | PN.HOSP_ITS ---
Subjective Subjective As well. No events overnight. Objective Data Objective Data Vital Signs: Vital Signs Temp Pulse Resp BP Pulse Ox O2 Del Method 36.6 C 106 H 18 146/103 H 95 Room Air 10/08/23 04:47 10/08/23 04:47 10/08/23 04:47 10/08/23 04:47 10/08/23 07:23 10/08/23 07:23 Oxygen Delivery Method Room Air Weight: 101.5 kg Body Mass Index (BMI) 32.0 Intake & Output: Intake and Output for Last 24 Hours 10/06/23 10/07/23 10/08/23 23:59 23:59 23:59 Intake Total 1120 / 1120 2917.5 / 2917.5 1692.5 / 1692.5 Output Total 350 / 350 Balance 1120 / 1120 2567.5 / 2567.5 1692.5 / 1692.5 Lab / Micro Data 10/08/23 06:27 10/08/23 06:27 Labs: Laboratory Results - last 24 hr 10/06/23 19:50: Diff Path Review Reviewed 10/07/23 04:25: Differential Comment COMMENT, Diff Path Review Reviewed, Platelet Estimate MKD DEC Micro: Microbiology 10/07/23 12:50 Stool Stool Lactoferrin - Final 10/07/23 12:50 Stool C. difficile DNA Amplification - Final 10/06/23 21:00 Nasal Secretion SARS-CoV-2 & FLU Antigen (Rapid) - Final Physical Exam Const alert and no apparent distress Resp normal respiratory effort, no retractions, no use of accessory muscles and clear to auscultation bilaterally Cardio regular rate, regular rhythm, S1 normal heart sound and S2 normal heart sound GI normal to inspection, nondistended, normoactive bowel sounds, soft to palpation, non-tender and non-distended Extremity normal to inspection Assessment & Plan Assessment/Plan (1) Neutropenic fever: (2) Adverse drug reaction: QUALIFIERS: Encounter type: initial encounter Qualified Code(s): T50.905A - Adverse effect of unspecified drugs, medicaments and biological substances, initial encounter (3) Malignant neoplasm metastatic from bladder: (4) Diarrhea: QUALIFIERS: Diarrhea type: presumed infectious Qualified Code(s): R19.7 - Diarrhea, unspecified PLAN: Plan Neutropenic fever * likely due to adverse drug reaction from chemotherapy followed by Dr. Barrios. Neutropenia improving. * Continue IV Merrem as per oncologist recommendations. * Give Tylenol as needed for mild to moderate level 1-5 out of 10 pain or fever. * C. difficile negative. Fecal lactoferrin was positive. COVID and influenza negative. * Pending: Blood cultures, urine culture and ova and parasites * Will monitor overnight if cultures are negative, the 24th then patient can likely be discharged home. Would discharge patient with antibiotics, however given his neutropenia Severe thrombocytopenia; * Monitor. Improving. Would continue to hold off on anticoagulation until platelets are above 50,000 due to risk of bleeding. Nonbloody diarrhea compounding #1 & #2 - * Results as above Chronic conditions: * History of DVT and PE: Without thrombocytopenia, patient at risk for severe complications with his bleeding. Hold off on warfarin for now. * Essential hypertension - Hold scheduled antihypertensives at this time. Give IV hydralazine as needed for systolic blood pressure greater than or equal to 160 mmHg. * Hyperlipidemia - Resume statin as previous. * History of syncope * Peripheral neuropathy - Continue gabapentin. 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 No further workup at this time. * Osteoarthritis; status post bilateral total knee replacements - Noted. * Prostate cancer: Follow-up with oncology. DVT prophylaxis -SCDs Charges/Coding Visit Charges Inpatient E&M: 53499 Subs Hosp L2
[2023-10-08 07:53] LABS: Differential Indicated SCAN CRITERIA MET; Platelet Count 45 K/mm3 (150-450)
[2023-10-08 07:54] LABS: International Normalized Ratio 1.6; Prothrombin Time (Protime)PT. 19.1 SECONDS (11.7-14.9)
[2023-10-08 07:58] LABS: ALB/GLOB Ratio 0.7 RATIO (0.9-2.4); AST(SGOT) 18 U/L (15-37); Alanine Aminotransfer ALT/SGPT 12 U/L (16-61); Albumin, Serum 2.4 g/dL (3.2-5.0); Alkaline Phosphatase 81 U/L (45-117); Anion Gap 3 (5-15); BUN 12 mg/dL (7-18); BUN/Creat Ratio 17.7 RATIO (10-20); Calcium,Total 8.3 mg/dL (8.5-10.1); Chloride 110 mmol/L (98-107); Creatinine, Serum 0.68 mg/dL (0.70-1.30); EST Glomerular Filtration Rate 122 mL/min (>60); Est Glom Filt Rate - Afr Amer 147 mL/min (>60); Estimated Creatinine Clearance 66.92 ml/min; Globulin 3.6 g/dL (2.2-4.2); Glucose 106 mg/dL (74-106); Potassium 3.9 mmol/L (3.5-5.1); Sodium Level 139 mmol/L (136-145)
[2023-10-08 08:39] VITALS: BP 130/82; PULSE 95; RESP 18; TEMP 36.9; O2SAT 96
[2023-10-08] MEDS: Gabapentin 800 MG Tablet PO ×2 (08:47→20:51)
[2023-10-08] MEDS: DULoxetine Hcl 60 MG Capsule PO (08:48)
[2023-10-08] MEDS: predniSONE 10 MG Tablet PO (08:48)
[2023-10-08] MEDS: Cyanocobalamin 500 MCG Tablet 1000 MCG PO (08:48)
[2023-10-08] MEDS: guaiFENesin 1,200 MG Tablet 1200 MG PO ×2 (08:48→20:51)
[2023-10-08] MEDS: Ferrous Sulfate 325 MG Tablet PO (08:48)
[2023-10-08] MEDS: Calcium Carb/Vitamin D 1 TABLET Tablet PO (08:48)
[2023-10-08] MEDS: Oxybutynin 5 MG Tablet PO (08:48)
[2023-10-08] MEDS: Ondansetron 4 MG/2 ML Vial IV ×2 (09:55→20:55)
[2023-10-08 10:01] LABS: Differential Comment SCANNED; Platelet Estimate MKD DEC (ADEQ)
[2023-10-08] MEDS: Ensure Plus High Protein 120 ML LIQUID PO (13:59)
[2023-10-08 14:08] VITALS: BP 121/86; PULSE 94; RESP 18; TEMP 36.6; O2SAT 94
[2023-10-08 20:24] VITALS: BP 138/80; PULSE 75; RESP 16; TEMP 37.2; O2SAT 96
[2023-10-09] MEDS: 0.9% Normal Saline (1000mL) 1,000 ML 150 ML IV (01:52)
[2023-10-09 02:20] VITALS: BP 142/89; PULSE 87; RESP 16; TEMP 36.8; O2SAT 96
[2023-10-09] MEDS: metroNIDAZOLE 500 MG/100 ML BAG 100 MG IV (05:19)
[2023-10-09 06:00] VITALS: BMI 32.1
[2023-10-09 06:17] LABS: Hematocrit 27.8 % (40-54); Hemoglobin 9.5 g/dL (13.0-16.5); Mean Corp Hgb Conc 34.2 g/dL (32-36); Mean Corpuscular Hgb 35.1 pg (27.0-32.0); Mean Corpuscular Volume 102.6 fL (80-94); Mean Platelet Vol. 11.6 fl (6.2-12.0); POSITIVE COUNT YES; POSITIVE MORPHOLOGY YES; Platelet Count 58 K/mm3 (150-450); RBC Distribution Width CV 11.9 % (11.6-14.6); RBC Distribution Width SD 44.8 fl (35.1-43.9); Red Blood Count 2.71 M/mm3 (4.6-6.2); White Blood Count 2.6 K/mm3 (4.4-11.0)
[2023-10-09] MEDS: Meropenem 1 GM in 0.9% Normal Saline (100mL MB+) 100 ML IV (06:32)
[2023-10-09 06:34] LABS: Differential Indicated MANUAL DIFF
[2023-10-09 06:42] LABS: ALB/GLOB Ratio 0.6 RATIO (0.9-2.4); AST(SGOT) 21 U/L (15-37); Alanine Aminotransfer ALT/SGPT 12 U/L (16-61); Albumin, Serum 2.2 g/dL (3.2-5.0); Alkaline Phosphatase 71 U/L (45-117); Anion Gap 3 (5-15); BUN 9 mg/dL (7-18); BUN/Creat Ratio 13.1 RATIO (10-20); Calcium,Total 8.1 mg/dL (8.5-10.1); Chloride 110 mmol/L (98-107); Creatinine, Serum 0.68 mg/dL (0.70-1.30); EST Glomerular Filtration Rate 120 mL/min (>60); Est Glom Filt Rate - Afr Amer 145 mL/min (>60); Estimated Creatinine Clearance 66.92 ml/min; Globulin 3.4 g/dL (2.2-4.2); Glucose 92 mg/dL (74-106); Potassium 3.7 mmol/L (3.5-5.1); Protein, Total 5.6 g/dL (6.4-8.2); Sodium Level 140 mmol/L (136-145)
--- NOTE | 2023-10-09 07:36 | PN.HOSP_ITS ---
Subjective Subjective Feels well. No events. Objective Data Objective Data Vital Signs: Vital Signs Temp Pulse Resp BP Pulse Ox O2 Del Method 36.8 C 87 16 142/89 H 96 Room Air 10/09/23 02:20 10/09/23 02:20 10/09/23 02:20 10/09/23 02:20 10/09/23 02:20 10/09/23 02:20 Oxygen Delivery Method Room Air Weight: 101.8 kg Body Mass Index (BMI) 32.1 Intake & Output: Intake and Output for Last 24 Hours 10/07/23 10/08/23 10/09/23 23:59 23:59 23:59 Intake Total 2917.5 / 2917.5 4090.0 / 4090.0 1305 / 1305 Output Total 350 / 350 Balance 2567.5 / 2567.5 4090.0 / 4090.0 1305 / 1305 Lab / Micro Data 10/09/23 05:45 10/09/23 05:45 Labs: Laboratory Results - last 24 hr 10/08/23 06:27: WBC 1.8 L, RBC 2.97 L, Hgb 10.2 L, Hct 30.3 L, MCV 102.0 H, MCH 34.3 H, MCHC 33.7, RDW Std Deviation 44.1 H, RDW Coeff of Judi 11.9, Plt Count 45 L*, MPV 12.6 H, Immature Gran % (Auto) 2.300 H, Neut % (Auto) 49.1, Lymph % (Auto) 35.4, [place] % (Auto) 10.9 H, Eos % (Auto) 0.0, Baso % (Auto) 2.3 H, Absolute Neuts (auto) 0.9 L, Absolute Lymphs (auto) 0.62 L, Nucleated RBC % 1.7, Differential Comment SCANNED, Diff Path Review February foll, Platelet Estimate MKD DEC, PT 19.1 H, INR 1.6, Sodium 139, Potassium 3.9, Chloride 110 H, Carbon Dioxide 26.0, Anion Gap 3 L, BUN 12, Creatinine 0.68 L, Estim Creat Clear Calc 66.92, Est GFR (MDRD) Af Amer 147, Est GFR (MDRD) Non-Af 122, BUN/Creatinine Ratio 17.7, Glucose 106, Calcium 8.3 L, Total Bilirubin 0.60, AST 18, ALT 12 L, Alkaline Phosphatase 81, Total Protein 6.0 L, Albumin 2.4 L, Globulin 3.6, Albumin/Globulin Ratio 0.7 L 10/09/23 05:45: WBC 2.6 L, RBC 2.71 L, Hgb 9.5 L, Hct 27.8 L, MCV 102.6 H, MCH 35.1 H, MCHC 34.2, RDW Std Deviation 44.8 H, RDW Coeff of Judi 11.9, Plt Count 58 L, MPV 11.6, Neut % (Auto) Not Reportable, Sodium 140, Potassium 3.7, Chloride 110 H, Carbon Dioxide 27.0, Anion Gap 3 L, BUN 9, Creatinine 0.68 L, Estim Creat Clear Calc 66.92, Est GFR (MDRD) Af Amer 145, Est GFR (MDRD) Non-Af 120, BUN/Creatinine Ratio 13.1, Glucose 92, Calcium 8.1 L, Total Bilirubin 0.50, AST 21, ALT 12 L, Alkaline Phosphatase 71, Total Protein 5.6 L, Albumin 2.2 L, Globulin 3.4, Albumin/Globulin Ratio 0.6 L Micro: Microbiology 10/06/23 20:45 Blood Culture (Wb) - Port Blood Culture - Preliminary No growth in 48 hours. 10/06/23 20:10 Blood Culture (Wb) - Port Blood Culture - Preliminary No growth in 48 hours. 10/06/23 22:14 Urine, Clean Catch Urine Culture - Preliminary Culture exhibits no growth. 10/07/23 12:50 Stool Stool Lactoferrin - Final 10/07/23 12:50 Stool C. difficile DNA Amplification - Final 10/06/23 21:00 Nasal Secretion SARS-CoV-2 & FLU Antigen (Rapid) - Final Physical Exam Const alert and no apparent distress HEENT head/scalp atraumatic Cardio regular rate, regular rhythm, S1 normal heart sound and S2 normal heart sound GI normal to inspection, nondistended, normoactive bowel sounds, soft to palpation, non-tender and non-distended Extremity normal to inspection Assessment & Plan Assessment/Plan (1) Neutropenic fever: (2) Adverse drug reaction: QUALIFIERS: Encounter type: initial encounter Qualified Code(s): T50.905A - Adverse effect of unspecified drugs, medicaments and biological substances, initial encounter (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 White count dropped down to 0.8. Subsequently has went up to 2.8. Platelets also dropped to 35,000 and subsequent got up to 58,000. Patient was treated with IV meropenem given the neutropenia. Infectious workup came back and negative. Patient feels fine for the past several days. Patient be discharged with a course of levofloxacin. Patient does take warfarin for history of VTE. I did hold his warfarin because of his thrombocytopenia. I feel that can be resumed now that his platelets are trending upwards. I discussed with the patient if he is utilize any other of the direct oral anticoagulants, he said he has not but he has been on warfarin for 50 years. He has an intolerance to enoxaparin due to nausea. He relates that he does not take any bridge therapy when restarting his warfarin. I recommended that he follow-up with his oncologist, Dr. Mauricio, to see if direct oral anticoagulant would be more ideal for him rather than warfarin. The patient resume his warfarin without a bridge therapy. I did discuss with him that he is actually more hypercoagulable until his INR is therapeutic. Neutropenic fever * likely due to adverse drug reaction from chemotherapy followed by Dr. Barrios. Neutropenia improving. * Continue IV Merrem as per oncologist recommendations. * Give Tylenol as needed for mild to moderate level 1-5 out of 10 pain or fever. * C. difficile negative. Fecal lactoferrin was positive. COVID and influenza negative. * Blood cultures, urine culture negative so far. Ova and parasites pending * Workup here was negative. Will discharge with 3 more days of levofloxacin. Severe thrombocytopenia; * Monitor. Improving. Would continue to hold off on anticoagulation until platelets are above 50,000 due to risk of bleeding. Nonbloody diarrhea compounding #1 & #2 - * Results as above Chronic conditions: * History of DVT and PE: Without thrombocytopenia, patient at risk for severe complications with his bleeding. Resume warfarin no enoxaparin given h/o nausea. * Essential hypertension - Hold scheduled antihypertensives at this time. Give IV hydralazine as needed for systolic blood pressure greater than or equal to 160 mmHg. * Hyperlipidemia - Resume statin as previous. * History of syncope * Peripheral neuropathy - Continue gabapentin. 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 No further workup at this time. * Osteoarthritis; status post bilateral total knee replacements - Noted. * Prostate cancer: Follow-up with oncology. DVT prophylaxis -SCDs
--- NOTE | 2023-10-09 09:10 | DS.PCM_ITS ---
Providers Date of Admission: 10/07/23 Primary Care Physician: Dr. Nikolas Bennett, Reason For Visit: NEUTROPENIC FEVEER Diagnosis Discharge Diagnosis (1) Neutropenic fever: Status: Acute Code(s): D70.9 - Neutropenia, unspecified; R50.81 - Fever presenting with conditions classified elsewhere (2) Adverse drug reaction: Status: Acute Code(s): T50.905A - Adverse effect of unspecified drugs, medicaments and biological substances, initial encounter Qualifiers: Encounter type: initial encounter Qualified Code(s): T50.905A - Adverse effect of unspecified drugs, medicaments and biological substances, initial encounter (3) Malignant neoplasm metastatic from bladder: Status: Acute Code(s): C67.9 - Malignant neoplasm of bladder, unspecified (4) Diarrhea: Status: Acute Code(s): R19.7 - Diarrhea, unspecified Qualifiers: Diarrhea type: presumed infectious Qualified Code(s): R19.7 - Diarrhea, unspecified Plan Patient presents with a fever and neutropenia. White count dropped down to 0.8. Subsequently has went up to 2.8. Platelets also dropped to 35,000 and subsequent got up to 58,000. Patient was treated with IV meropenem given the neutropenia. Infectious workup came back and negative. Patient feels fine for the past several days. Patient be discharged with a course of levofloxacin. Patient does take warfarin for history of VTE. I did hold his warfarin because of his thrombocytopenia. I feel that can be resumed now that his platelets are trending upwards. I discussed with the patient if he is utilize any other of the direct oral anticoagulants, he said he has not but he has been on warfarin for 50 years. He has an intolerance to enoxaparin due to nausea. He relates that he does not take any bridge therapy when restarting his warfarin. I recommended that he follow-up with his oncologist, Dr. Mauricio, to see if di rect oral anticoagulant would be more ideal for him rather than warfarin. The patient resume his warfarin without a bridge therapy. I did discuss with him that he is actually more hypercoagulable until his INR is therapeutic. Neutropenic fever * likely due to adverse drug reaction from chemotherapy followed by Dr. Barrios. Neutropenia improving. * Continue IV Merrem as per oncologist recommendations. * Give Tylenol as needed for mild to moderate level 1-5 out of 10 pain or fever. * C. difficile negative. Fecal lactoferrin was positive. COVID and influenza negative. * Blood cultures, urine culture negative so far. Ova and parasites pending * Workup here was negative. Will discharge with 3 more days of levofloxacin. Severe thrombocytopenia; * Monitor. Improving. Would continue to hold off on anticoagulation until platelets are above 50,000 due to risk of bleeding. Nonbloody diarrhea compounding #1 & #2 - * Results as above Chronic conditions: * History of DVT and PE: Without thrombocytopenia, patient at risk for severe complications with his bleeding. Resume warfarin no enoxaparin given h/o nausea. * Essential hypertension - Hold scheduled antihypertensives at this time. Give IV hydralazine as needed for systolic blood pressure greater than or equal to 160 mmHg. * Hyperlipidemia - Resume statin as previous. * History of syncope * Peripheral neuropathy - Continue gabapentin. 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 No further workup at this time. * Osteoarthritis; status post bilateral total knee replacements - Noted. * Prostate cancer: Follow-up with oncology. DVT prophylaxis -SCDs Medications at Discharge Home Medications duloxetine 60 mg capsule,delayed release (Cymbalta) 60 mg PO QDAY depression 12/01/17 calcium carbonate 600 mg-vitamin D3 5 mcg (200 unit) tablet 1 ea PO DAILY supplement 06/27/18 glucosamine sulf dipot chlr,msm,chond 550 mg-C 30 mg-beronica 1 mg capsule 2 ea PO DAILY supplement 02/17/20 PEP device #1 ea 08/25/21 rucaparib 250 mg tablet 250 mg PO BID cancer 09/24/21 leuprolide (3 month) 22.5 mg (3 month) subcutaneous syringe (Pull) 22.5 mg subcut .Q3MO 01/15/22 lisinopril 20 mg tablet 10 mg PO DAILY blood pressure 11/22/22 Lactobacillus acidophilus 10 mg PO DAILY probiotic 03/10/23 cyanocobalamin (vitamin B-12) 1,000 mcg tablet (Vitamin B-12) 5,000 mcg PO DAILY supplement 03/10/23 gabapentin 400 mg capsule 800 mg PO BID nerve pain 03/10/23 metoclopramide HCl 10 mg tablet (Reglan) 10 mg PO DAILY PRN nausea and vomiting 03/10/23 oxybutynin chloride 5 mg tablet 5 mg PO DAILY overactive bladder 03/10/23 albuterol sulfate 90 mcg/actuation aerosol inhaler (Ventolin HFA) 2 puff inhalation Q4H PRN shortness of breath or wheezing #18 grams 03/30/23 guaifenesin 1,200 mg tablet, extended release 12 hr 1,200 mg PO Q12H congestion #60 tabs 05/16/23 acetaminophen 500 mg capsule 500 mg PO Q6H PRN pain 10/07/23 ferrous sulfate 325 mg (65 mg iron) tablet (Feosol) 325 mg PO DAILY supplement 10/07/23 ondansetron 8 mg PO TID PRN PRN n/v 10/07/23 prednisone 10 mg tablet 10 mg PO DAILY inflammation 10/07/23 warfarin 5 mg tablet (Jantoven) 5 mg PO DAILY blood thinner 10/07/23 levofloxacin 750 mg tablet 750 mg PO DAILY #3 tabs 10/09/23 Hospital Course Operations None Procedures None Summary of Care Provided Minutes Spent on Discharge: 32 Weight / BMI Weight Weight: 101.8 kg Body Mass Index (BMI) 32.1 ABG / Lab / Microbiology Data 10/09/23 05:45 10/09/23 05:45 Laboratory: Laboratory Results - last 24 hr 10/08/23 06:27: Differential Comment SCANNED, Diff Path Review February chicho Platelet Estimate MKD 10/09/23 05:45: WBC 2.6 L, RBC 2.71 L, Hgb 9.5 L, Hct 27.8 L, MCV 102.6 H, MCH 35.1 H, MCHC 34.2, RDW Std Deviation 44.8 H, RDW Coeff of Judi 11.9, Plt Count 58 L, MPV 11.6, Neut % (Auto) Not Reportable, Sodium 140, Potassium 3.7, Chloride 110 H, Carbon Dioxide 27.0, Anion Gap 3 L, BUN 9, Creatinine 0.68 L, Estim Creat Clear Calc 66.92, Est GFR (MDRD) Af Amer 145, Est GFR (MDRD) Non-Af 120, BUN/Creatinine Ratio 13.1, Glucose 92, Calcium 8.1 L, Total Bilirubin 0.50, AST 21, ALT 12 L, Alkaline Phosphatase 71, Total Protein 5.6 L, Albumin 2.2 L, Globulin 3.4, Albumin/Globulin Ratio 0.6 L Microbiology: Microbiology 10/06/23 22:14 Urine, Clean Catch Urine Culture - Final Culture exhibits no growth. 10/06/23 20:45 Blood Culture (Wb) - Port Blood Culture - Preliminary No growth in 48 hours. 10/06/23 20:10 Blood Culture (Wb) - Port Blood Culture - Preliminary No growth in 48 hours. 10/07/23 12:50 Stool Stool Lactoferrin - Final 10/07/23 12:50 Stool C. difficile DNA Amplification - Final 10/06/23 21:00 Nasal Secretion SARS-CoV-2 & FLU Antigen (Rapid) - Final D/C Instructions Discharge Diet: No restrictions Meaningful Use Info Meaningful Use Diagnoses (Choose all that apply): None applicable Discharge Plan Admission Admit Date/Time: 10/07/23 01:26 Primary Reason for Your Visit: Neutropenic fever Attending Provider: Sridhar Vidal Primary Care Provider: Nikolas Bennett Consulting Providers: Toro Jaimes Instructions Additional Instructions / Restrictions: You have fever while you are here. The source of your fever was not identified. I will continue to have you take antibiotics upon discharge. You do have recurrent fevers notify your physician or return to the emergency room. As a mention to you, speak to Dr. Mauricio about possibly changing over to another anticoagulation than warfarin such as Eliquis or Xarelto. Those medications does not require lab work nor do you have to modify your diet. Discharge Orders/Prescriptions Prescriptions: New levofloxacin 750 mg tablet 750 mg PO DAILY Qty: 3 0RF Continued duloxetine [Cymbalta] 60 mg capsule,delayed release(DR/EC) 60 mg PO QDAY gabapentin 400 mg capsule 800 mg PO BID Rx Instructions: 800 mg AM & 1200 HS (DME) PEP device See Rx Instructions .Route .MEDSUPPLY Qty: 1 0RF Rx Instructions: with training oxybutynin chloride 5 mg tablet 5 mg PO DAILY cyanocobalamin (vitamin B-12) [Vitamin B-12] 1,000 mcg tablet 5,000 mcg PO DAILY Lactobacillus acidophilus Capsule 10 mg PO DAILY guaifenesin 1,200 mg tablet extended release 12hr 1,200 mg PO Q12H Qty: 60 5RF lisinopril 20 mg tablet 10 mg PO DAILY metoclopramide HCl [Reglan] 10 mg tablet 10 mg PO DAILY PRN (Reason: nausea and vomiting) calcium carbonate-vitamin D3 1 EACH tablet 1 ea PO DAILY glucos sul [id number] 1 EACH capsule 2 ea PO DAILY Eligard (3 month) 22.5 mg Syringe 22.5 mg SUBCUT .Q3MO ferrous sulfate [Feosol] 325 mg (65 mg iron) tablet 325 mg PO DAILY warfarin [Jantoven] 5 mg tablet 5 mg PO DAILY acetaminophen 500 mg capsule 500 mg PO Q6H PRN (Reason: pain) ondansetron 8 mg PO TID PRN PRN (Reason: n/v) prednisone 10 mg tablet 10 mg PO DAILY Patient Comments: started on 10/05 rucaparib 250 mg tablet 250 mg PO BID albuterol sulfate [Ventolin HFA] 90 mcg/actuation HFA aerosol inhaler 2 puff inhalation Q4H PRN (Reason: shortness of breath or wheezing) Qty: 18 6RF Discontinued rucaparib 200 mg tablet 200 mg PO BID Referrals / Follow Up: Nikolas Bennett DO [Primary Care Provider] - Within 2 Weeks Disposition Disposition (needs filled in before D/C Order can be placed): Home, Self Care Charges/Coding Visit Charges Inpatient E&M: 37032 Disch Hosp >30min
[2023-10-09 09:18] VITALS: BP 141/87; PULSE 86; RESP 18; TEMP 36.8; O2SAT 97
[2023-10-09] MEDS: Gabapentin 800 MG Tablet PO (09:28)
[2023-10-09] MEDS: Calcium Carb/Vitamin D 1 TABLET Tablet PO (09:28)
[2023-10-09] MEDS: Ferrous Sulfate 325 MG Tablet PO (09:28)
[2023-10-09] MEDS: Cyanocobalamin 500 MCG Tablet 1000 MCG PO (09:28)
[2023-10-09] MEDS: guaiFENesin 1,200 MG Tablet 1200 MG PO (09:28)
[2023-10-09] MEDS: DULoxetine Hcl 60 MG Capsule PO (09:29)
[2023-10-09] MEDS: predniSONE 10 MG Tablet PO (09:29)
[2023-10-09] MEDS: Oxybutynin 5 MG Tablet PO (09:29)
[2023-10-09 09:34] VITALS: O2SAT 94
[2023-10-09 10:08] LABS: Lymphocyte 45 % (19-41); Monocyte 6 % (0-10); Myelocyte 4 % (0-0); Neutrophil-Band 2 % (0-5); Neutrophil-Segmented 43 % (47-70); Total Cells Counted 100 (MANUAL DIFF)
[2023-10-09 10:13] LABS: Platelet Estimate MKD DEC (ADEQ); Red Cell Morphology NORM C+C NORMAL (NORM C&C)
[2023-10-09 10:14] LABS: Absolute Lymphocyte Count 1.17 X10^3/uL (0.83-4.51); Absolute Neutrophil Count 1.2 X10^3/uL (2.0-7.7)
[2023-10-09 11:15] LABS: International Normalized Ratio 1.5
[2023-10-11 13:30] LABS: Pathologist Review Reviewed
[2023-10-11 13:30] LABS: Pathologist Review Reviewed
== END 2023-10-09 11:37 | disposition home or self-care (01) | DRG 809 ==
LOC: ED 23:45 → MS3 10-07 01:51
PROVIDERS: Admitting Provider Internal Medicine; Emergency Provider Emergency Medicine; PCP Family Medicine
DX: D70.9 Neutropenia, unspecified (principal); C79.51 Secondary malignant neoplasm of bone; C61 Malignant neoplasm of prostate; C67.9 Malignant neoplasm of bladder, unspecified; D69.6 Thrombocytopenia, unspecified; I10 Essential (primary) hypertension; E78.5 Hyperlipidemia, unspecified; M17.0 Bilateral primary osteoarthritis of knee; G62.9 Polyneuropathy, unspecified; R19.7 Diarrhea, unspecified; T50.905A Adverse effect of unspecified drugs, medicaments and biological substances, initial encounter; Z79.01 Long term (current) use of anticoagulants; R50.81 Fever presenting with conditions classified elsewhere; Z86.16 Personal history of COVID-19; Z79.52 Long term (current) use of systemic steroids; Z86.718 Personal history of other venous thrombosis and embolism
CPT/HCPCS: 36415; 36591; 71045; 80053; 81001; 83605; 83630; 83735; 84100; 84443; 85025; 85610; 85730; 87040; 87086; 87428; 87493; 93005; 94668; 97802; 99252; 99284; J2185; J7030; A4216; G0463; J2405

== ENCOUNTER 2023-10-14 12:31 | Outpatient (RCR) | payer MEDICARE, OTHER, SELFPAY ==
[2023-08-16 23:25] VITALS: BMI 38.0
[2023-10-14 15:35] LABS: International Normalized Ratio 1.8; Prothrombin Time (Protime)PT. 20.8 SECONDS (11.7-14.9)
== END 2023-10-16 19:00 | disposition home or self-care (01) ==
LOC: MTLAB 12:31
PROVIDERS: PCP Family Medicine; Referring Provider Family Medicine; Visit Provider Family Medicine
DX: Z86.711 Personal history of pulmonary embolism (principal)
CPT/HCPCS: 36415; 85610

== ENCOUNTER 2023-10-18 10:35 | Inpatient (IN) | payer MEDICARE, OTHER, SELFPAY ==
[2023-10-18] VITALS (8 sets, daily range): BP systolic 79–148; BP diastolic 53–79; PULSE 96–108; RESP 13–24; TEMP 36.4–38.2; O2SAT 89–100; BMI 33.8
--- NOTE | 2023-10-18 10:56 | EDS_ITS ---
HPI History of Present Illness Chief Complaint: Weakness Informant: patient and spouse/S.O. Narrative Narrative: Patient comes in with generalized weakness, low blood pressure, fevers. History is from both patient and his . Patient has a history of prostate cancer diagnosed in 2017. He had chemotherapy back then. But when he got chemotherapy he ended up just like this. He has been followed since. June of this year they showed some reactivation and they did radiation therapy to the prostate. They then did a repeat PET scan that shows now diffuse spreading. They are now doing chemotherapy. His last chemo was 26 September 2023. Evidently his white counts have been doing well. But he started develop a fever last night. Highest it has been is 101.8. Blood pressure has been a little bit low especially this morning. He got up quickly to go to the bathroom this morning. He has been having a lot of diarrhea. But no blood seen. He was on the toilet and fell. Both he and his states he did not hurt himself. She states last night he seemed a little confused but today he is completely normal. Patient is also a very good informant. He is totally awake alert and appropriate. He is not having coughing. He is not having urinary symptoms. No anal soreness. No abdominal pain. He has no sores or lesions or any source of infection that he can tell. [facility] Medical History (Updated 10/18/23 @ 13:[address] Goldy Marcial MD) Abrasion Arthritis Asthma ASV (adaptive servo-ventilation) use counseling Atrioventricular block, first degree Back pain Blackout Bladder disease Bronchiectasis Cancer Cardiology follow-up encounter Central sleep apnea Chest pain Chronic cough COVID-19 virus detected (06/06/21) DVT (deep venous thrombosis) Dysphagia Esophageal varices Essential (primary) hypertension Gastric reflux Gastritis GERD without esophagitis Gout History of Coumadin therapy History of edema History of hiatal hernia History of irregular heartbeat History of pulmonary embolism History of ulceration Hx of Acosta's palsy Hx of glaucoma Hyperlipidemia Hypokalemia Injury of head and neck Loss of hearing Other instability, left shoulder Peripheral neuropathy Personal history of colonic polyps Prostate cancer metastatic to bone Severe persistent asthma Shortness of breath on exertion Symptomatic bradycardia (09/24/21) Syncope Voice hoarsenesses Wears glasses Wears partial dentures Home Medications duloxetine 60 mg capsule,delayed release (Cymbalta) 60 mg PO QDAY depression 12/01/17 [History Last Taken Unknown] calcium carbonate 600 mg-vitamin D3 5 mcg (200 unit) tablet 1 ea PO DAILY supplement 06/27/18 [History Last Taken Unknown] glucosamine sulf dipot chlr,msm,chond 550 mg-C 30 mg-beronica 1 mg capsule 2 ea PO DAILY supplement 02/17/20 [History Last Taken Unknown] PEP device #1 ea 08/25/21 [Rx Last Taken Unknown] rucaparib 250 mg tablet 250 mg PO BID cancer 09/24/21 [History Last Taken Unknown] leuprolide (3 month) 22.5 mg (3 month) subcutaneous syringe ([employer]) 22.5 mg subcut .Q3MO 01/15/22 [History Last Taken Unknown] lisinopril 20 mg tablet 10 mg PO DAILY blood pressure 11/22/22 [History Last Taken Unknown] Lactobacillus acidophilus 10 mg PO DAILY probiotic 03/10/23 [History Last Taken Unknown] cyanocobalamin (vitamin B-12) 1,000 mcg tablet (Vitamin B-12) 5,000 mcg PO DAILY supplement 03/10/23 [History Last Taken Unknown] gabapentin 400 mg capsule 800 mg PO BID nerve pain 03/10/23 [History Last Taken Unknown] metoclopramide HCl 10 mg tablet (Reglan) 10 mg PO DAILY PRN nausea and vomiting 03/10/23 [History Last Taken Unknown] oxybutynin chloride 5 mg tablet 5 mg PO DAILY overactive bladder 03/10/23 [History Last Taken Unknown] albuterol sulfate 90 mcg/actuation aerosol inhaler (Ventolin HFA) 2 puff inhalation Q4H PRN shortness of breath or wheezing #18 grams 03/30/23 [Rx Last Taken Unknown] guaifenesin 1,200 mg tablet, extended release 12 hr 1,200 mg PO Q12H congestion #60 tabs 05/16/23 [Rx Last Taken Unknown] acetaminophen 500 mg capsule 500 mg PO Q6H PRN pain 10/07/23 [History Last Taken Unknown] ferrous sulfate 325 mg (65 mg iron) tablet (Feosol) 325 mg PO DAILY supplement 10/07/23 [History Last Taken Unknown] ondansetron 8 mg PO TID PRN PRN n/v 10/07/23 [History Last Taken 12/21/23 08:00] prednisone 10 mg tablet 10 mg PO DAILY inflammation 10/07/23 [History Last Taken Unknown] warfarin 5 mg tablet (Jantoven) 5 mg PO DAILY blood thinner 10/07/23 [History Last Taken Unknown] levofloxacin 750 mg tablet 750 mg PO DAILY #3 tabs 10/09/23 [Rx Last Taken Unknown] Allergy/AdvReac Type Severity Reaction Status Date / Time cyclobenzaprine Allergy Unknown Unknown Verified 10/06/23 19:39 [From Flexeril] adhesive Allergy Rash Verified 10/06/23 19:39 docetaxel [From Taxotere] Allergy Unknown Verified 10/06/23 19:39 doxycycline Allergy Unknown Verified 10/06/23 19:39 enoxaparin sodium Allergy triple Verified 10/06/23 19:39 [From Lovenox] liver enzymes Penicillins Allergy Rash Verified 10/06/23 19:39 enoxaparin [Enoxaparin] AdvReac Mild Nausea Verified 10/06/23 19:39 amlodipine AdvReac Unknown Pt Verified 10/06/23 19:39 remembers he can't take it but can't remember reaction promethazine AdvReac Other Verified 10/06/23 19:39 Family History Mother Hypertension Arthritis Father , age 82 COPD complications COPD (chronic obstructive pulmonary disease) Arthritis Sister Hypertension Surgical History History of bilateral knee replacement History of blepharoplasty History of cholecystectomy History of colonoscopy (12/2020) History of esophagogastroduodenoscopy (EGD) (12/2020) History of hernia surgery History of left heart catheterization (06/16/04) History of right hip replacement history of thumb replacement history of toe replacement Hx of left cataract extraction Hx of right cataract extraction Social History household members: spouse Smoking Status: Never smoker alcohol intake: never substance use type: does not use ROS ROS ED Constitutional Constitutional ED: Reports chills, fever(s) and subjective Eyes Eyes: Denies change in vision ENT ENT ED: Denies rhinorrhea or sore throat Cardiovascular Cardiovascular: Denies chest pain, palpitations or racing heartbeat Respiratory/Chest Respiratory/Chest: Denies cough or dyspnea Gastrointestinal Gastrointestinal: Reports diarrhea; Denies abdominal pain, nausea or vomiting Genitourinary Genitourinary ED: Denies dysuria, hematuria or urinary frequency Musculoskeletal Musculoskeletal: Denies myalgias Integumentary Denies abscess, Abrasions or rash Neurologic Neurologic: Denies headache(s) Endocrine Endocrinology: Denies polydipsia or polyuria Hematologic/Lymphatic Hematologic/Lymphatic: Denies easy bleeding, easy bruising or lymphadenopathy Allergic/Immunologic Allergic/Immunologic ED: Denies urticaria EXAM Physical Exam Narrative Exam Narrative: CONSTITUTIONAL: Patient is nontoxic in appearance. The patient looks comfortable. Work of breathing looks normal. He does look a little bit pale. But despite his vitals he is actually awake alert and very pleasant. HEENT: No notable trauma. Mucous membranes do look dry. No sinus tenderness. No indication of pain with swallowing. EYES: No conjunctival injection. No proptosis. Conjunctive is not notably pale NECK:No JVD. No stridor. CARDIOVASCULAR: Tachycardic rate. Regular rhythm. No notable murmur. No JVD. RESPIRATORY: No respiratory distress. Breathing is unlabored. No wheezes. No rhonchi. No rales. No pain with a deep breath. No chest wall tenderness. Saturations are normal 95% on room air showing no hypoxia. Med port palpable in left upper chest and does not look infected. GASTROINTESTINAL: Not distended. Bowel sounds are normal. No tenderness. No guarding. No rebound. No palpable mass. No bruit is heard. GENITOURINARY: No tenderness over the bladder. No CVA tenderness. MUSCULOSKELETAL: Atraumatic. He has a splint on his lower extremity which is chronic NEUROLOGICAL: Patient is alert and appropriate. No focal deficit noted. SKIN: No noted rashes. No diaphoresis. PSYCHIATRIC: Patient is calm. Mood is appropriate. Const Vital Signs: 10/18/23 10:36 10/18/23 10:48 10/18/23 11:36 Temperature 97.5 F L 99.4 F H Temperature Source Temporal Oral Pulse Rate 106 H 98 Respiratory Rate 17 22 H Respiratory Effort Normal Non-Labored Blood Pressure 79/53 L 80/57 L Blood Pressure Mean 61 64 Pulse Ox 95 93 Oxygen Delivery Method Room Air Room Air Oxygen Flow Rate (L/min) 10/18/23 12:35 10/18/23 13:10 Temperature 99.4 F H Temperature Source Oral Pulse Rate 99 Respiratory Rate 13 Respiratory Effort Blood Pressure 107/63 Blood Pressure Mean 77 Pulse Ox 98 89 Oxygen Delivery Method Nasal Cannula Room Air Oxygen Flow Rate (L/min) 2 MDM MDM MDM Narrative Medical decision making narrative: My independent interpretation single view chest x-ray does show some increased markings in the right base but final read today is that this is chronic scarring and atelectasis. Patient's urine is markedly elevated at 29,000. Baseline anemia at 9.9. Platelets are normal. His INR is therapeutic at 2.2. Electrolytes show some low potassium which was replaced orally. No other marked abnormalities. Patient's lactic acid was high at 3.1. Procalcitonin was elevated 2.82 Patient's urinalysis was clean. This patient really is not having the symptoms or focus of infection. But he has fever, high white count, high procalcitonin, high lactate all consistent with likely infection and likely bacterial since his initial viral studies are negative. He is given Levaquin due to significant allergies to antibiotics. He he and his 's said that he can have anything that is penicillin or even any of its relatives or cousins because they cause severe rash in him. For this reason we did not use Zosyn. I discussed case with hospitalist and patient will be admitted Lab Data Attestation: I reviewed the patient's lab results. Labs: Laboratory Results - last 24 hr 10/18/23 10/18/23 11:17 12:50 WBC 28.9 H RBC 2.84 L Hgb 9.9 L Hct 29.8 L MCV 104.9 H MCH 34.9 H MCHC 33.2 RDW Std Deviation 51.3 H RDW Coeff of Judi 14.0 Plt Count 166 MPV 10.2 Immature Gran % (Auto) 2.800 H Neut % (Auto) 89.1 H Lymph % (Auto) 1.9 L Treasure % (Auto) 6.0 Eos % (Auto) 0.0 Baso % (Auto) 0.2 Absolute Neuts (auto) 25.7 H Absolute Lymphs (auto) 0.54 L Nucleated RBC % 0.4 Differential Comment COMMENT Diff Path Review May foll PT 24.5 H INR 2.2 Sodium 138 Potassium 3.0 L Chloride 105 Carbon Dioxide 29.0 Anion Gap 4 L BUN 16 Creatinine 1.05 Estim Creat Clear Calc 63.73 Est GFR (MDRD) Af Amer 89 Est GFR (MDRD) Non-Af 73 BUN/Creatinine Ratio 15.2 Glucose 106 Lactic Acid 3.1 H* Calcium 8.3 L Total Bilirubin 1.00 AST 29 ALT 29 Alkaline Phosphatase 86 Total Protein 5.7 L Albumin 2.5 L Globulin 3.2 Albumin/Globulin Ratio 0.8 L Procalcitonin 2.82 H Urine Color Yellow Urine Clarity Clear Urine pH 6.0 Ur Specific [place] 1.010 Urine Protein Negative Urine Glucose (UA) Normal Urine Ketones Negative Urine Occult Blood Negative Urine Nitrite Negative Urine Bilirubin Negative Urine Urobilinogen Normal Ur Leukocyte Esterase Negative Urine RBC 0 SEEN Urine WBC 0 SEEN Ur Squamous Epith Cells 0 SEEN Urine Bacteria 0 SEEN Urine Mucus 0 SEEN Radiography Diagnostic Testing: Clinical Impression(s) from Imaging Studies Chest X-Ray 10/18/23 11:57 IMPRESSION: No acute cardiopulmonary process identified. Electronically Signed: Mya Iniguez MD at 12:19 EST Reading Location ID and State: [facility] / [place] Tel , Service support , Management Discussion w/another healthcare provider: Hospitalist Discharge Plan Triage Chief Complaint: Weakness ED Provider: Goldy Marcial Dx/Rx/DC Orders Clinical Impression: Prostate cancer, Sepsis, History of chemotherapy, Acidosis, lactic Prescriptions: No Action duloxetine [Cymbalta] 60 mg capsule,delayed release(DR/EC) 60 mg PO QDAY gabapentin 400 mg capsule 800 mg PO BID Rx Instructions: 800 mg AM & 1200 HS (DME) PEP device See Rx Instructions .Route .MEDSUPPLY Qty: 1 0RF Rx Instructions: with training oxybutynin chloride 5 mg tablet 5 mg PO DAILY cyanocobalamin (vitamin B-12) [Vitamin B-12] 1,000 mcg tablet 5,000 mcg PO DAILY Lactobacillus acidophilus Capsule 10 mg PO DAILY guaifenesin 1,200 mg tablet extended release 12hr 1,200 mg PO Q12H Qty: 60 5RF lisinopril 20 mg tablet 10 mg PO DAILY metoclopramide HCl [Reglan] 10 mg tablet 10 mg PO DAILY PRN (Reason: nausea and vomiting) calcium carbonate-vitamin D3 1 EACH tablet 1 ea PO DAILY glucos sul [id number] 1 EACH capsule 2 ea PO DAILY Eligard (3 month) 22.5 mg Syringe 22.5 mg SUBCUT .Q3MO ferrous sulfate [Feosol] 325 mg (65 mg iron) tablet 325 mg PO DAILY warfarin [Jantoven] 5 mg tablet 5 mg PO DAILY acetaminophen 500 mg capsule 500 mg PO Q6H PRN (Reason: pain) ondansetron 8 mg PO TID PRN PRN (Reason: n/v) prednisone 10 mg tablet 10 mg PO DAILY Patient Comments: started on 10/05 levofloxacin 750 mg tablet 750 mg PO DAILY Qty: 3 0RF rucaparib 250 mg tablet 250 mg PO BID albuterol sulfate [Ventolin HFA] 90 mcg/actuation HFA aerosol inhaler 2 puff inhalation Q4H PRN (Reason: shortness of breath or wheezing) Qty: 18 6RF Primary Care Provider: Nikolas Bennett Referrals: Nikolas Bennett DO [Primary Care Provider] - Disposition Disposition: Acute Care Hospital [facility]
[2023-10-18 11:28] LABS: Absolute Lymphocyte Count 0.54 X10^3/uL (0.83-4.51); Absolute Neutrophil Count 25.7 X10^3/uL (2.0-7.7); Basophil# 0.07 X10^3/uL; Basophil% 0.2 % (0-1); Hematocrit 29.8 % (40-54); Hemoglobin 9.9 g/dL (13.0-16.5); Lymphocyte # 0.54 X10^3/ul (0.83-4.51); Lymphocyte % 1.9 % (19-41); Mean Corp Hgb Conc 33.2 g/dL (32-36); Mean Corpuscular Hgb 34.9 pg (27.0-32.0); Mean Corpuscular Volume 104.9 fL (80-94); Mean Platelet Vol. 10.2 fl (6.2-12.0); Monocyte# 1.73 X10^3/uL; NRBC Flagged by Analyzer 0.4 % (0-5); Neutrophil # 25.71 X10^3/uL (2.7-7.7); Neutrophil % 89.1 % (47-70); POSITIVE DIFFERENTIAL YES; Platelet Count 166 K/mm3 (150-450); RBC Distribution Width SD 51.3 fl (35.1-43.9); Red Blood Count 2.84 M/mm3 (4.6-6.2); White Blood Count 28.9 K/mm3 (4.4-11.0)
[2023-10-18 11:29] LABS: Differential Indicated SCAN CRITERIA MET
[2023-10-18] MEDS: 0.9% Normal Saline (1000mL) 1,000 ML 999 ML IV ×3 (11:34→14:14)
[2023-10-18 11:40] LABS: International Normalized Ratio 2.2; Prothrombin Time (Protime)PT. 24.5 SECONDS (11.7-14.9)
[2023-10-18 11:56] LABS: ALB/GLOB Ratio 0.8 RATIO (0.9-2.4); AST(SGOT) 29 U/L (15-37); Alanine Aminotransfer ALT/SGPT 29 U/L (16-61); Albumin, Serum 2.5 g/dL (3.2-5.0); Alkaline Phosphatase 86 U/L (45-117); Anion Gap 4 (5-15); BUN 16 mg/dL (7-18); BUN/Creat Ratio 15.2 RATIO (10-20); Calcium,Total 8.3 mg/dL (8.5-10.1); Chloride 105 mmol/L (98-107); Creatinine, Serum 1.05 mg/dL (0.70-1.30); EST Glomerular Filtration Rate 73 mL/min (>60); Est Glom Filt Rate - Afr Amer 89 mL/min (>60); Estimated Creatinine Clearance 63.73 ml/min; Globulin 3.2 g/dL (2.2-4.2); Glucose 106 mg/dL (74-106); Protein, Total 5.7 g/dL (6.4-8.2); Sodium Level 138 mmol/L (136-145)
--- NOTE | 2023-10-18 11:57 | RAD_ITS ---
HISTORY: fever, chemo, pneumonia. TECHNIQUE: XR Chest 1 View. COMPARISON: 10/06/2023. FINDINGS: CARDIOMEDIASTINAL BORDERS: Cardiac silhouette and mediastinal contour unchanged with left chest wall port catheter tip at the level of the superior vena cava and large hiatal hernia. LUNGS: Mild chronic scarring or atelectasis in the right lung base with elevation of the right hemidiaphragm. PLEURA: No pleural effusion or pneumothorax seen. OSSEOUS STRUCTURES: Left shoulder arthroplasty. RAD/Chest 1 View (Portable) IMPRESSION: No acute cardiopulmonary process identified. Electronically Signed: Mya Iniguez MD at 12:19 EST ,
[2023-10-18 12:04] LABS: Procalcitonin 2.82 ng/mL (0.00-0.09)
[2023-10-18 12:13] LABS: Lactic Acid 3.1 mmol/L (0.4-1.9)
[2023-10-18] MEDS: levoFLOXacin IV 750 MG/150 ML BAG 100 MG IV (12:46)
[2023-10-18] MEDS: Potassium Chloride Oral Tablet 20 MEQ 40 MEQ PO (13:14)
[2023-10-18 13:30] LABS: Bacteria 0 SEEN /hpf (None Seen); Mucous, Urine 0 SEEN /hpf (<or=2+); Red Blood Cells-Urine 0 SEEN /hpf (0-5); Squamous Epithelial Cells - UA 0 SEEN /hpf (0-5); White Blood Cells 0 SEEN /hpf (0-5)
[2023-10-18 13:34] LABS: Color, Urine Yellow (Yellow); Glucose, Dipstick Normal (Normal); Ketone-Dipstick Negative (Negative); Leukocyte Esterase-Dipstick Negative /ul (Negative); Nitrite-Dipstick Negative (Negative); Occult Blood-Urine Negative /ul (Negative); Protein-Dipstick Negative (Negative); Urine Bilirubin Dipstick Negative (Negative); Urine Clarity Clear (Clear); Urine Urobilinogen Normal (Normal)
--- NOTE | 2023-10-18 14:00 | NURSING ---
PCU ZAK LIMAS, PROSTRATE CANCER, HYPOTENSION
--- NOTE | 2023-10-18 14:46 | PCM.HP.STD ---
HPI - General General Date of Admission: 10/18/23 HPI Narrative ATTILA PELLETIER, is a 73-year-old male history of DVT, prostate cancer diagnosed 2017 status post chemotherapy and radiation but repeat PET with diffuse spreading and on chemotherapy again, GERD, hypertension, asthma, arthritis presented to [facility] 10/18/2023 with low blood pressure, fevers, generalized weakness. He developed fever last night with Tmax of 101.8. Has had a lot of diarrhea and was feeling weak and fell earlier today. In the ED patient with elevated white blood cell count, Pro-Ming, lactic acid and low blood pressure. Concern for infection so started on broad-spectrum antibiotics and hospitalist contacted for admission. Patient evaluated with family member at bedside. Reportedly he has been having diarrhea for 3 weeks since chemo was started and stools have been slightly firmer but not significantly so, had 1 episode of nausea that resolved and has not had any significant abdominal pain, no cough or shortness of breath, no bladder complaints, denies any erythema or irritation from his left-sided port which has been present since 2018 when he first had chemo for his prostate cancer. Patient's fever started last night and was 101.8 and has been feeling very weak. Denies any new rashes bleeding or bruising or wounds, no other focal complaints. [facility] Medical History (Updated 10/18/23 @ 15:[address] Jenna Hernandez MD) Abrasion Arthritis Asthma ASV (adaptive servo-ventilation) use counseling Atrioventricular block, first degree Back pain Blackout Bladder disease Bronchiectasis Cancer Cardiology follow-up encounter Central sleep apnea Chest pain Chronic cough COVID-19 virus detected (06/06/21) DVT (deep venous thrombosis) Dysphagia Esophageal varices Essential (primary) hypertension Gastric reflux Gastritis GERD without esophagitis Gout History of Coumadin therapy History of edema History of hiatal hernia History of irregular heartbeat History of pulmonary embolism History of ulceration Hx of Acosta's palsy Hx of glaucoma Hyperlipidemia Hypokalemia Injury of head and neck Loss of hearing Other instability, left shoulder Peripheral neuropathy Personal history of colonic polyps Prostate cancer metastatic to bone Severe persistent asthma Shortness of breath on exertion Symptomatic bradycardia (09/24/21) Syncope Voice hoarsenesses Wears glasses Wears partial dentures Home Medications duloxetine 60 mg capsule,delayed release (Cymbalta) 60 mg PO QDAY depression 12/01/17 [History Last Taken Unknown] calcium carbonate 600 mg-vitamin D3 5 mcg (200 unit) tablet 1 ea PO DAILY supplement 06/27/18 [History Last Taken Unknown] glucosamine sulf dipot chlr,msm,chond 550 mg-C 30 mg-beronica 1 mg capsule 2 ea PO DAILY supplement 02/17/20 [History Last Taken Unknown] PEP device #1 ea 08/25/21 [Rx Last Taken Unknown] leuprolide (3 month) 22.5 mg (3 month) subcutaneous syringe ([employer]) 22.5 mg subcut .Q3MO prostate ca 01/15/22 [History Last Taken Unknown] lisinopril 20 mg tablet 10 mg PO DAILY blood pressure 11/22/22 [History Last Taken Unknown] Lactobacillus acidophilus 10 mg PO DAILY probiotic 03/10/23 [History Last Taken Unknown] cyanocobalamin (vitamin B-12) 1,000 mcg tablet (Vitamin B-12) 5,000 mcg PO DAILY supplement 03/10/23 [History Last Taken Unknown] gabapentin 400 mg capsule 800 mg PO BID nerve pain 03/10/23 [History Last Taken Unknown] metoclopramide HCl 10 mg tablet (Reglan) 10 mg PO DAILY PRN nausea and vomiting 03/10/23 [History Last Taken Unknown] oxybutynin chloride 5 mg tablet 5 mg PO DAILY overactive bladder 03/10/23 [History Last Taken Unknown] albuterol sulfate 90 mcg/actuation aerosol inhaler (Ventolin HFA) 2 puff inhalation Q4H PRN shortness of breath or wheezing #18 grams 03/30/23 [Rx Last Taken Unknown] guaifenesin 1,200 mg tablet, extended release 12 hr 1,200 mg PO Q12H congestion #60 tabs 05/16/23 [Rx Last Taken Unknown] acetaminophen 500 mg capsule 500 mg PO Q6H PRN pain 10/07/23 [History Last Taken Unknown] ferrous sulfate 325 mg (65 mg iron) tablet (Feosol) 325 mg PO DAILY supplement 10/07/23 [History Last Taken Unknown] ondansetron 8 mg PO TID PRN PRN n/v 10/07/23 [History Last Taken 10/06/23 08:00] warfarin 5 mg tablet (Jantoven) 6 mg PO DAILY blood thinner 10/07/23 [History Last Taken Unknown] olanzapine 2.5 mg tablet 2.5 mg PO QHS nausea 10/18/23 [History Last Taken Unknown] omeprazole 20 mg capsule,delayed release 20 mg PO BID gerd 10/18/23 [History Last Taken Unknown] tramadol 50 mg tablet 50 mg PO Q8H PRN pain 10/18/23 [History Last Taken Unknown] Allergy/AdvReac Type Severity Reaction Status Date / Time cyclobenzaprine Allergy Unknown Unknown Verified 10/06/23 19:39 [From Flexeril] adhesive Allergy Rash Verified 10/06/23 19:39 docetaxel [From Taxotere] Allergy Unknown Verified 10/06/23 19:39 doxycycline Allergy Unknown Verified 10/06/23 19:39 enoxaparin sodium Allergy triple Verified 10/06/23 19:39 [From Lovenox] liver enzymes Penicillins Allergy Rash Verified 10/06/23 19:39 enoxaparin [Enoxaparin] AdvReac Mild Nausea Verified 10/06/23 19:39 amlodipine AdvReac Unknown Pt Verified 10/06/23 19:39 remembers he can't take it but can't remember reaction promethazine AdvReac Other Verified 10/06/23 19:39 Family History Mother Hypertension Arthritis Father , age 82 COPD complications COPD (chronic obstructive pulmonary disease) Arthritis Sister Hypertension Surgical History History of bilateral knee replacement History of blepharoplasty History of cholecystectomy History of colonoscopy (12/2020) History of esophagogastroduodenoscopy (EGD) (12/2020) History of hernia surgery History of left heart catheterization (06/16/04) History of right hip replacement history of thumb replacement history of toe replacement Hx of left cataract extraction Hx of right cataract extraction Social History household members: spouse Smoking Status: Never smoker alcohol intake: never substance use type: does not use ROS ROS Narrative General: Has been having fevers and chills that started last night HENT: Denies headache, denies stuffy nose, denies sore throat EYES: Denies changes in vision Resp: Denies significant cough, denies shortness of breath Cardiac: Denies chest pain GI: Denies abdominal pain, has had loose stools for 3 weeks, had 1 episode of nausea : Denies changes in urination Extremity: Denies swelling MSK: Generalized weakness Neuro: Denies any numbness/tingling Heme: Denies any bleeding or bruising Skin: Denies rashes Psychiatric: No complaints voiced Vital Signs Vital Signs Vital Signs: 10/18/23 10:36 10/18/23 10:48 10/18/23 11:36 Temperature 97.5 F L 99.4 F H Temperature Source Temporal Oral Pulse Rate 106 H 98 Respiratory Rate 17 22 H Respiratory Effort Normal Non-Labored Blood Pressure 79/53 L 80/57 L Blood Pressure Mean 61 64 Pulse Ox 95 93 Oxygen Delivery Method Room Air Room Air Oxygen Flow Rate (L/min) 10/18/23 12:35 10/18/23 13:10 10/18/23 14:24 Temperature 99.4 F H 99.2 F H Temperature Source Oral Pulse Rate 99 96 Respiratory Rate 13 24 H Respiratory Effort Blood Pressure 107/63 108/63 Blood Pressure Mean 77 78 Pulse Ox 98 89 98 Oxygen Delivery Method Nasal Cannula Room Air Oxygen Flow Rate (L/min) 2 Weight Weight: 106.957 kg Body Mass Index (BMI) 33.8 Physical Exam Narrative General: Alert, oriented, no apparent distress HEENT: Atraumatic, normocephalic Eyes: Anicteric, normal conjunctiva, extraocular movements grossly intact Neck: Supple Respiratory: Clear to auscultation bilaterally, normal respiratory effort Cardiovascular: Regular rate and rhythm GI: Soft, nontender, nondistended Extremities: No edema Musculoskeletal: Moving all extremities Neuro: No overt focal neurological deficits Skin: No rashes appreciated Psych: Cooperative Results Lab / Micro Data 10/18/23 11:17 10/18/23 11:17 Labs: Laboratory Results - last 24 hr 10/18/23 11:17: WBC 28.9 H, RBC 2.84 L, Hgb 9.9 L, Hct 29.8 L, MCV 104.9 H, MCH 34.9 H, MCHC 33.2, RDW Std Deviation 51.3 H, RDW Coeff of Judi 14.0, Plt Count 166, MPV 10.2, Immature Gran % (Auto) 2.800 H, Neut % (Auto) 89.1 H, Lymph % (Auto) 1.9 L, [place] % (Auto) 6.0, Eos % (Auto) 0.0, Baso % (Auto) 0.2, Absolute Neuts (auto) 25.7 H, Absolute Lymphs (auto) 0.54 L, Nucleated RBC % 0.4, Differential Comment COMMENT, Diff Path Review February, PT 24.5 H, INR 2.2, Sodium 138, Potassium 3.0 L, Chloride 105, Carbon Dioxide 29.0, Anion Gap 4 L, BUN 16, Creatinine 1.05, Estim Creat Clear Calc 63.73, Est GFR (MDRD) Af Amer 89, Est GFR (MDRD) Non-Af 73, BUN/Creatinine Ratio 15.2, Glucose 106, Lactic Acid 3.1 H*, Calcium 8.3 L, Total Bilirubin 1.00, AST 29, ALT 29, Alkaline Phosphatase 86, Total Protein 5.7 L, Albumin 2.5 L, Globulin 3.2, Albumin/Globulin Ratio 0.8 L, Procalcitonin 2.82 H 10/18/23 12:50: Urine Color Yellow, Urine Clarity Clear, Urine pH 6.0, Ur Specific [place] 1.010, Urine Protein Negative, Urine Glucose (UA) Normal, Urine Ketones Negative, Urine Occult Blood Negative, Urine Nitrite Negative, Urine Bilirubin Negative, Urine Urobilinogen Normal, Ur Leukocyte Esterase Negative, Urine RBC 0 SEEN, Urine WBC 0 SEEN, Ur Squamous Epith Cells 0 SEEN, Urine Bacteria 0 SEEN, Urine Mucus 0 SEEN Micro: Microbiology 10/18/23 11:43 Nasal Secretion SARS-CoV-2 & FLU Antigen (Rapid) - Final 10/18/23 11:43 Mucosa - Nasopharyngeal RSV RNA Qualitative (PCR) - Final Imagaing Radiology Impression Chest X-Ray 10/18/23 11:57 IMPRESSION: No acute cardiopulmonary process identified. Electronically Signed: Mya Iniguez MD at 12:19 EST , Assessment & Plan Assessment/Plan (1) Fever: (2) Essential (primary) hypertension: (3) History of chemotherapy: (4) GERD (gastroesophageal reflux disease): QUALIFIERS: Esophagitis presence: esophagitis presence not specified Qualified Code(s): K21.9 - Gastro-esophageal reflux disease without esophagitis (5) History of pulmonary embolism: (6) Prostate cancer: PLAN: Plan # Febrile illness of unknown origin and patient on chemotherapy -Tmax of 101.8 at home -On chemotherapy -White blood cell count 28.9 with Pro-Ming 2.82 and lactic of 3.1 -Will check stool studies -Panculture -UA normal, CXR unremarkable, covid and flu negative, will check respiratory panel -Med port not erythematous or evidence of ifxn, may need to further explore pending cultures and if no source identified -Broad-spectrum antibiotics, on levaquin given penicillin allergy and patient's was told he was advised not to take any medicines that could cross-react with penicillin either, also had vancomycin and will add MRSA swab -Patient received IV fluids -BP is low on presentation with a MAP less than 65 but responded to fluids #KELLY -Creatinine 1.05 -Up from 0.68 on 10/09 -Received IV fluids in the ED # Hypokalemia -Replaced in ED # Prostate cancer -Diagnosed 2016 and patient had chemotherapy and radiation however had repeat PET scan which showed diffuse spreading -back on chemotherapy with last September 26, 2023 # History of VTE -On Coumadin, INR 2.2 -Continue present management # Hypertension -Has been on the low side, hold home antihypertensives #DVT ppx: Continue Coumadin Jenna Hernandez MD Charges/Coding Visit Charges Inpatient E&M: 77996 Init Hosp L2
[2023-10-18 15:23] LABS: Reflex Lactate? Y
[2023-10-18] MEDS: Acetaminophen 325 MG Tablet 650 MG PO ×2 (16:38→22:37)
[2023-10-18] MEDS: Vancomycin HCl 2,000 MG in 0.9% Normal Saline (500mL Bag) 500 ML 250 MG IV (16:41)
[2023-10-18 16:55] LABS: Lactic Acid 2.8 mmol/L (0.4-1.9)
--- NOTE | 2023-10-18 17:42 | PCM.RX.CS ---
Consult Antibiotic Management Pharmacy has been consulted to manage selected antibiotic: Vancomycin Type of Intervention Type of Consult: New start Suspected Infection Suspected Infection: Sepsis and Other Labs Labs: Sodium 138 mmol/L (136-145) 10/18/23 11:17 Potassium 3.0 mmol/L (3.5-5.1) L 10/18/23 11:17 Chloride 105 mmol/L (98-107) 10/18/23 11:17 Carbon Dioxide 29.0 mmol/L (21.0-32.0) 10/18/23 11:17 Anion Gap 4 (5-15) L 10/18/23 11:17 BUN 16 mg/dL (7-18) 10/18/23 11:17 Creatinine 1.05 mg/dL (0.70-1.30) 10/18/23 11:17 Est GFR (MDRD) Af Amer 89 mL/min (>60) 10/18/23 11:17 Est GFR (MDRD) Non-Af 73 mL/min (>60) 10/18/23 11:17 BUN/Creatinine Ratio 15.2 RATIO (10-20) 10/18/23 11:17 Glucose 106 mg/dL (74-106) 10/18/23 11:17 Microbiology Microbiology: Microbiology 10/18/23 11:43 Nasal Secretion SARS-CoV-2 & FLU Antigen (Rapid) - Final 10/18/23 11:43 Mucosa - Nasopharyngeal RSV RNA Qualitative (PCR) - Final Dosing Weight Weight used for dosin kg Estimated Creatinine Clearance Estimated Creatinine Clearance: 75ml/min Goal Trough Goal Trough: 15-20 mcg/mL Pharmacy Plan for Drug Dosing Pharmacy Plan for Drug Dosing: NEW START IV VANCOMYCIN Consulting Physician: Dr. Hernandez Indication: Sepsis, Fever on Chemotherapy Goal Trough: 15-20 SrCr: 1.05 CrCl: 75ml/min (using an adjusted body weight of 86.6kg) Comments: pt received a 2000mg (25mg/kg) loading dose on at 1641 Vancomycin Dose: based on patients weight and renal function recommend an initial dose of 1500mg q12h starting 10/19/23 at 0500. trough prior to the 4th total dose Pending Level: 10/20/23 at 0430 Pharmacy Service will continue to monitor and adjust dosing as required. Follow-Up Labs Follow-Up Labs: Trough: Vancomycin (10/20/23 at 0430)
[2023-10-18] MEDS: 0.9% Normal Saline (1000mL) 1,000 ML 75 ML IV (17:52)
--- NOTE | 2023-10-18 18:10 | CT_ITS ---
STUDY: CT CHEST, ABDOMEN T PELVIS WITH CONTRAST REASON FOR EXAM: Male, 73 years old. fever of unknown origin RADIATION DOSAGE (If Supplied By Facility): CTDIvol = ( 21.42 ) mGy, DLP = ( 2382.50 ) mGycm TECHNIQUE: Transaxial imaging was performed following intravenous administration of Oral and amp; IV Gastrografin and amp; 100mL Isovue-370. Individualized dose optimization techniques were used for this CT. COMPARISON: August 04, 2017 FINDINGS: CHEST The lungs are normal. There is no demonstrated pleural abnormality. Normal heart and pericardium. Normal mediastinum. Normal hilar regions. Normal unenhanced pulmonary arteries. Normal aorta arch and descending thoracic aorta. Left shoulder prosthesis. ABDOMEN Normal liver. Nonvisualization of the gallbladder. No significant dilatation of the extrahepatic biliary system. Normal spleen. Normal pancreas. Normal bilateral adrenal glands. Bilateral renal cysts. Hiatal hernia. Normal small intestine. Slight wall thickening of the colon. The appendix is visualized and appears normal. Calcified abdominal aorta. There is a filter in the inferior vena cava. Normal retroperitoneum. Normal abdominal wall. Sclerotic density in lower thoracic vertebral bodies. Scoliosis. PELVIS Normal urinary bladder. There is presacral fluid/edema. There is no pelvic fluid. There is no pelvic lymphadenopathy or mass lesion. Normal visualized pelvic arteries. There is a right hip prosthesis. CT/CT Chest, Abd, Pel w/Contrast IMPRESSION: Diffuse mild colonic wall thickening suggesting a form of colitis. Presacral fluid/edema. Hiatal hernia. Sclerotic densities in lower thoracic vertebral bodies suggesting increasing metastasis. Electronically Signed: Manny Romero DO at 22:05 EST ,
[2023-10-18] MEDS: 0.9% Saline Lock 10 ML Syringe IV (18:58)
[2023-10-18 19:33] LABS: M R Staph aureus DNA By PCR Negative (Negative); Probe Check PASS; Specimen Processing Control PASS
[2023-10-18 20:46] LABS: Erythrocyte Sedimentation Rate 13 mm/hr (0-20)
[2023-10-18] MEDS: Vancomycin 125 MG/5 ML Susp PO.SYRINGE PO (23:50)
[2023-10-19] VITALS (9 sets, daily range): BP systolic 81–104; BP diastolic 54–67; PULSE 99–118; RESP 16–20; TEMP 36.8–37.4; O2SAT 92–100
[2023-10-19] MEDS: Vancomycin 125 MG/5 ML Susp PO.SYRINGE PO ×3 (05:18→18:20)
[2023-10-19] MEDS: Acetaminophen 325 MG Tablet 650 MG PO (05:18)
[2023-10-19] MEDS: Menthol/Lanolin/Calamine/Znox 113 GM Tube 1 APPLIC TOPICAL ×3 (05:25→21:26)
[2023-10-19 07:18] LABS: Hematocrit 30.7 % (40-54); Mean Corp Hgb Conc 32.6 g/dL (32-36); Mean Corpuscular Hgb 34.4 pg (27.0-32.0); Mean Corpuscular Volume 105.5 fL (80-94); Mean Platelet Vol. 10.5 fl (6.2-12.0); POSITIVE COUNT YES; POSITIVE DIFFERENTIAL YES; POSITIVE MORPHOLOGY YES; Platelet Count 173 K/mm3 (150-450); RBC Distribution Width CV 14.5 % (11.6-14.6); RBC Distribution Width SD 54.2 fl (35.1-43.9); Red Blood Count 2.91 M/mm3 (4.6-6.2)
[2023-10-19 07:34] LABS: Differential Indicated MANUAL DIFF; White Blood Count 32.3 K/mm3 (4.4-11.0)
[2023-10-19] MEDS: 0.9% Normal Saline (1000mL) 1,000 ML 75 ML IV (07:46)
[2023-10-19 07:51] LABS: International Normalized Ratio 2.5; Prothrombin Time (Protime)PT. 27.1 SECONDS (11.7-14.9)
[2023-10-19 08:03] LABS: Anion Gap 6 (5-15); BUN 20 mg/dL (7-18); BUN/Creat Ratio 17.9 RATIO (10-20); Calcium,Total 7.5 mg/dL (8.5-10.1); Chloride 110 mmol/L (98-107); Creatinine, Serum 1.12 mg/dL (0.70-1.30); EST Glomerular Filtration Rate 68 mL/min (>60); Est Glom Filt Rate - Afr Amer 82 mL/min (>60); Estimated Creatinine Clearance 59.75 ml/min; Glucose 76 mg/dL (74-106); Sodium Level 139 mmol/L (136-145)
[2023-10-19 09:25] LABS: Lymphocyte 3 % (19-41); Metamyelocyte 1 % (0-1); Neutrophil-Band 8 % (0-5); Neutrophil-Segmented 88 % (47-70); Platelet Estimate ADEQUATE (ADEQ); Red Cell Morphology NORM C+C NORMAL (NORM C&C); Total Cells Counted 100 (MANUAL DIFF)
[2023-10-19 09:26] LABS: Absolute Lymphocyte Count 0.97 X10^3/uL (0.83-4.51)
[2023-10-19 09:47] LABS: Procalcitonin 9.88 ng/mL (0.00-0.09)
[2023-10-19] MEDS: levoFLOXacin IV 750 MG/150 ML BAG 100 MG IV (09:47)
--- NOTE | 2023-10-19 13:15 | CASEMGMT ---
DUC GAXIOLA chart review: Patient was admitted 10/07-10/09/23 for neutropenic fever. See assessment from 10/07/23. Patient was discharged to home with follow-up plans in place. Patient returned to [facility] ED for weakness. Patient was admitted for sepsis, prostate cancer. Patient tested postive for c-diff, which was negative last admission. DUC CM in to discuss readmission and discharge. Patient states he was taking medications as prescribed. Patient ambulated 12 feet contact guard with therapy. Patient and denied needs at discharge. CM will continue to follow this patient and plan for safe discharge.
--- NOTE | 2023-10-19 16:04 | PN.HOSP_ITS ---
Subjective Subjective Doing well, continues to have diarrhea but feeling a little bit better than when he came in. Pressures are on the low side but he did get IV fluids and he is drinking plenty of water. His maps have been above 65 Objective Data Objective Data Vital Signs: Vital Signs Temp Pulse Resp BP Pulse Ox O2 Del Method O2 Flow Rate 98.8 F 109 H 18 93/55 L 92 Room Air 2 10/19/23 14:30 10/19/23 14:30 10/19/23 14:30 10/19/23 14:30 10/19/23 14:30 10/19/23 14:30 10/19/23 13:15 Oxygen Flow Rate (L/min) 2 Oxygen Delivery Method Room Air Weight: 235 lb 12.55 oz Body Mass Index (BMI) 33.8 Intake & Output: Intake and Output for Last 24 Hours 10/18/23 10/19/23 10/20/23 03:59 03:59 03:59 Intake Total 3974 / 3974 1970 / 1970 Output Total 400 / 400 Balance 3974 / 3974 1570 / 1570 Lab / Micro Data 10/19/23 06:35 10/19/23 06:35 Labs: Laboratory Results - last 24 hr 10/18/23 11:17: ESR 13, C-React Prot Ext Range 70.60 H 10/18/23 15:57: Lactic Acid 2.8 H* 10/18/23 16:00: MRSA (PCR) Negative 10/19/23 06:35: WBC 32.3 H*, RBC 2.91 L, Hgb 10.0 L, Hct 30.7 L, MCV 105.5 H, MCH 34.4 H, MCHC 32.6, RDW Std Deviation 54.2 H, RDW Coeff of Judi 14.5, Plt Count 173, MPV 10.5, Neut % (Auto) Not Reportable, Absolute Neuts (auto) 31.0 H, Absolute Lymphs (auto) 0.97, Total Counted 100, Neutrophils % (Manual) 88 H, Band Neutrophils % 8 H, Lymphocytes % (Manual) 3 L, Metamyelocytes % 1, Diff Path Review February, Platelet Estimate ADEQUATE, RBC Morphology NORM C+C, PT 27.1 H, INR 2.5, Sodium 139, Potassium 4.0, Chloride 110 H, Carbon Dioxide 23.0, Anion Gap 6, BUN 20 H, Creatinine 1.12, Estim Creat Clear Calc 59.75, Est GFR (MDRD) Af Amer 82, Est GFR (MDRD) Non-Af 68, BUN/Creatinine Ratio 17.9, Glucose 76, Calcium 7.5 L, Procalcitonin 9.88 H Micro: Microbiology 10/18/23 17:31 Stool Enteric Bacteriology - Final 10/18/23 17:31 Stool C. difficile GDH Antigen & Toxins - Final Toxigenic C. difficile 10/18/23 17:31 Stool Clostridioides difficile (PCR) - Final 10/18/23 16:18 Mucosa - Nasopharyngeal Respiratory Panel (PCR) - Final 10/18/23 11:43 Nasal Secretion SARS-CoV-2 & FLU Antigen (Rapid) - Final 10/18/23 11:43 Mucosa - Nasopharyngeal RSV RNA Qualitative (PCR) - Final Radiography Diagnostic Testing: Radiology Impression Chest/Abdomen/Pelvis CT 10/18/23 18:10 IMPRESSION: Diffuse mild colonic wall thickening suggesting a form of colitis. Presacral fluid/edema. Hiatal hernia. Sclerotic densities in lower thoracic vertebral bodies suggesting increasing metastasis. Electronically Signed: Manny Romero DO at 22:05 EST Reading Location ID and State: [facility] / [place] Tel [phone], Service support , Physical Exam Narrative General: Alert, Oriented x3, Cooperative, No apparent distress HEENT: Atraumatic, PERRLA, EOMI, Normocephalic Oral: Moist Mucosa Neck: Supple, No JVD Lungs: Diminished, Normal air movement, No rhonchi, No wheeze, No rales Cardiovascular: Regular rate, Regular Rhythm, Normal S1, Normal S2, No murmurs Abdomen: Soft, Non Tender, Non-Distended, No Hepato-splenomegaly Extremities: No edema, Capillary Refill Less than 3 Seconds Skin: No rashes, No breakdown Musculoskeletal: No Tenderness to Palpation of Joints or Extremities Neurological: Moves all extremities, no focal deficits, Motor Exam 5/5 strength throughout, Sensory exam intact to light touch and pain Psych/Mental Status: Normal Affect, Appropriate Assessment & Plan Assessment/Plan (1) Fever: (2) Essential (primary) hypertension: (3) History of chemotherapy: (4) GERD (gastroesophageal reflux disease): QUALIFIERS: Esophagitis presence: esophagitis presence not specified Qualified Code(s): K21.9 - Gastro-esophageal reflux disease without esophagitis (5) History of pulmonary embolism: (6) Prostate cancer: PLAN: Plan 1. C. difficile colitis ? Transition to p.o. vancomycin overnight and discontinued his Levaquin as there is no other source of obvious infection ? If his white count continues to climb or he deteriorates would recommend the addition of IV Flagyl ? No KELLY baseline creatinine is around 0.8 and current creatinine is 1.1 to 2. Metastatic prostate cancer/VTE history ? Was initially diagnosed with cancer in 2016 and had chemotherapy and radiation however repeat PET scan demonstrated increased metastatic disease ? Restarted on chemotherapy in September 2023 ? Will continue with Coumadin, INR is 2.5 3. Hypertension ? Blood pressures have been on the lower side so we will hold his home antihypertensives ? We will monitor make adjustments as necessary 4. Anxiety/depression ? Stable ? Continue with his home medications DVT: Coumadin Charges/Coding Visit Charges Inpatient E&M: 68370 Subs Hosp L2
[2023-10-19] MEDS: Ondansetron 8 MG Tablet PO ×2 (16:59→21:24)
[2023-10-19] MEDS: Gabapentin 600 MG Tablet 1200 MG PO (21:24)
[2023-10-19] MEDS: OLANZapine 2.5 MG Tablet PO (21:24)
[2023-10-19] MEDS: Pantoprazole Sodium 20 MG Tablet PO (21:24)
[2023-10-19] MEDS: DULoxetine Hcl 60 MG Capsule PO (21:26)
[2023-10-20] VITALS (9 sets, daily range): BP systolic 85–106; BP diastolic 55–68; PULSE 104–120; RESP 14–18; TEMP 36.6–37.7; O2SAT 92–98
[2023-10-20] MEDS: Vancomycin 125 MG/5 ML Susp PO.SYRINGE PO ×4 (00:35→17:18)
[2023-10-20] MEDS: MELATONIN 3 MG TABLET PO (01:53)
[2023-10-20 04:59] LABS: Hematocrit 34.5 % (40-54); Hemoglobin 11.3 g/dL (13.0-16.5); Mean Corp Hgb Conc 32.8 g/dL (32-36); Mean Corpuscular Hgb 34.5 pg (27.0-32.0); Mean Corpuscular Volume 105.2 fL (80-94); Mean Platelet Vol. 10.3 fl (6.2-12.0); POSITIVE COUNT YES; POSITIVE DIFFERENTIAL YES; POSITIVE MORPHOLOGY YES; Platelet Count 146 K/mm3 (150-450); RBC Distribution Width CV 14.3 % (11.6-14.6); RBC Distribution Width SD 54.4 fl (35.1-43.9); Red Blood Count 3.28 M/mm3 (4.6-6.2)
[2023-10-20] MEDS: Ondansetron 8 MG Tablet PO ×2 (05:00→17:18)
[2023-10-20] MEDS: Menthol/Lanolin/Calamine/Znox 113 GM Tube 1 APPLIC TOPICAL ×2 (05:00→21:30)
[2023-10-20 05:09] LABS: Differential Indicated MANUAL DIFF; White Blood Count 30.2 K/mm3 (4.4-11.0)
[2023-10-20 05:21] LABS: International Normalized Ratio 1.8; Prothrombin Time (Protime)PT. 20.7 SECONDS (11.7-14.9)
[2023-10-20 05:22] LABS: Anion Gap 10 (5-15); BUN 37 mg/dL (7-18); BUN/Creat Ratio 20.1 RATIO (10-20); Calcium,Total 7.3 mg/dL (8.5-10.1); Chloride 107 mmol/L (98-107); Creatinine, Serum 1.84 mg/dL (0.70-1.30); EST Glomerular Filtration Rate 38 mL/min (>60); Est Glom Filt Rate - Afr Amer 46 mL/min (>60); Estimated Creatinine Clearance 36.37 ml/min; Glucose 113 mg/dL (74-106); Potassium 4.1 mmol/L (3.5-5.1); Sodium Level 138 mmol/L (136-145)
[2023-10-20 05:41] LABS: Vancomycin, Trough Level 7.5 ug/mL (5.0-15.0)
[2023-10-20 06:06] LABS: Neutrophil-Band 15 % (0-5); Neutrophil-Segmented 75 % (47-70); Total Cells Counted 100 (MANUAL DIFF)
[2023-10-20 06:07] LABS: Lymphocyte 4 % (19-41); Metamyelocyte 1 % (0-1); Monocyte 5 % (0-10)
[2023-10-20 06:08] LABS: Differential Comment SCANNED
[2023-10-20 06:09] LABS: Absolute Neutrophil Count 27.2 X10^3/uL (2.0-7.7)
[2023-10-20 06:10] LABS: Absolute Lymphocyte Count 1.21 X10^3/uL (0.83-4.51)
[2023-10-20] MEDS: Ferrous Sulfate 325 MG Tablet PO (08:42)
[2023-10-20] MEDS: Gabapentin 800 MG Tablet PO (08:42)
[2023-10-20] MEDS: Pantoprazole Sodium 20 MG Tablet PO ×2 (08:42→21:30)
[2023-10-20 10:23] LABS: Pathologist Review Reviewed
--- NOTE | 2023-10-20 10:48 | PCM.PN.HOSP ---
Reason for Visit Reason for Visit: Diagnoses Malignant neoplasm of prostate (10/18/23) Essential (primary) hypertension (10/18/23) Gastro-esophageal reflux disease without esophagitis (10/18/23) Fever, unspecified (10/18/23) Personal history of pulmonary embolism (10/18/23) Personal history of antineoplastic chemotherapy (10/18/23) Subjective Subjective Patient is a 73-year-old gentleman with history of metastatic prostate CA currently on chemo who presented with diarrhea with fever of unknown origin. Workup came back positive for C. difficile colitis admitted to a monitored bed where patient is currently being treated with p.o. vancomycin Objective Data Objective Data Vital Signs: Vital Signs Temp Pulse Resp BP Pulse Ox O2 Del Method O2 Flow Rate 98.6 F 113 H 18 106/68 97 Room Air 2 10/20/23 08:30 10/20/23 08:30 10/20/23 08:30 10/20/23 08:30 10/20/23 08:30 10/20/23 08:30 10/19/23 13:15 Oxygen Flow Rate (L/min) 2 Oxygen Delivery Method Room Air Weight: 106.95 kg Body Mass Index (BMI) 33.8 Intake & Output: Intake and Output for Last 24 Hours 10/18/23 10/19/23 10/20/23 23:59 23:59 23:59 Intake Total 3974 / 3974 2290 / 2512 444 / 444 Output Total 400 / 400 0 / 0 Balance 3974 / 3974 1890 / 2112 444 / 444 Lab / Micro Data 10/20/23 04:50 10/20/23 04:50 Labs: Laboratory Results - last 24 hr 10/18/23 11:17: Diff Path Review Reviewed 10/20/23 04:50: WBC 30.2 H*, RBC 3.28 L, Hgb 11.3 L, Hct 34.5 L, MCV 105.2 H, MCH 34.5 H, MCHC 32.8, RDW Std Deviation 54.4 H, RDW Coeff of Judi 14.3, Plt Count 146 L, MPV 10.3, Neut % (Auto) Not Reportable, Absolute Neuts (auto) 27.2 H, Absolute Lymphs (auto) 1.21, Total Counted 100, Neutrophils % (Manual) 75 H, Band Neutrophils % 15 H, Lymphocytes % (Manual) 4 L, Monocytes % (Manual) 5, Metamyelocytes % 1, Differential Comment SCANNED, Diff Path Review February foll, PT 20.7 H, INR 1.8, Sodium 138, Potassium 4.1, Chloride 107, Carbon Dioxide 21.0, Anion Gap 10, BUN 37 H, Creatinine 1.84 H, Estim Creat Clear Calc 36.37, Est GFR (MDRD) Af Amer 46 L, Est GFR (MDRD) Non-Af 38 L, BUN/Creatinine Ratio 20.1 H, Glucose 113 H, Calcium 7.3 L, Vancomycin Trough 7.5 Micro: Microbiology 10/18/23 12:50 Urine, Clean Catch Urine Culture - Final Culture exhibits no growth. 10/18/23 17:31 Stool Enteric Bacteriology - Final 10/18/23 17:31 Stool C. difficile GDH Antigen & Toxins - Final Toxigenic C. difficile 10/18/23 17:31 Stool Clostridioides difficile (PCR) - Final 10/18/23 16:18 Mucosa - Nasopharyngeal Respiratory Panel (PCR) - Final 10/18/23 11:43 Nasal Secretion SARS-CoV-2 & FLU Antigen (Rapid) - Final 10/18/23 11:43 Mucosa - Nasopharyngeal RSV RNA Qualitative (PCR) - Final Physical Exam Narrative GENERAL: cooperative HEENT: Atraumatic; normocephalic EYES; Anicteric, Normal Conjunctiva NECK; supple, normal thyroid, RESPIRATORY: Diminished to auscultation CARDIOVASCULAR: Regular S1 S2, GI: soft, normoactive bowel sounds, : No Renal angle tenderness; EXTREMITIES: No edema, no clubbing, MUSCULOSKELETAL: no muscle wasting NEURO: Awake; no lateralizing signs. SKIN: No Rash PSYCH; Flat affect Assessment & Plan Assessment/Plan (1) C. difficile colitis: PLAN: Plan Patient is a 73-year-old gentleman with history of metastatic prostate CA currently on chemo who presented with diarrhea with fever of unknown origin. Workup came back positive for C. difficile colitis admitted to a monitored bed where patient is currently being treated with p.o. vancomycin 1. Acute C. difficile colitis ? Patient presented with fever of unknown origin initially managed with Levaquin which has since been discontinued patient is currently on p.o. vancomycin. WBC count remains significantly elevated 2. Metastatic prostate CA ? First diagnosed in 2017 had chemo and radiation. Recent PET scan demonstrated increased metastatic activity resulting in resumption of chemo starting in September 2023 3. Venous thromboembolism ? Patient is on systemic anticoagulation with Coumadin with a therapeutic INR of 2.5 4. GERD ? On PPI 5. Hypertension - Blood pressure controlled, home medications continued with dose adjustment as needed 6. Central sleep apnea ? Patient is on CPAP 7. Depression with anxiety ? Patient is on Duloxetine did continue 8. DVT prophylaxis ? Patient on Coumadin Time spent in the patient's overall evaluation,decision-making process, review of diagnostic data, adjustment of management, discussion with other providers, nursing nursing and ancillary staff involved in patient's care documentation, 50 Minutes Charges/Coding Visit Charges Inpatient E&M: 18294 [facility] Hosp L3
[2023-10-20] MEDS: DULoxetine Hcl 60 MG Capsule PO (21:30)
[2023-10-20] MEDS: OLANZapine 2.5 MG Tablet PO (21:30)
[2023-10-20] MEDS: Gabapentin 600 MG Tablet 1200 MG PO (21:30)
[2023-10-21] VITALS (7 sets, daily range): BP systolic 85–106; BP diastolic 46–68; PULSE 76–114; RESP 14–16; TEMP 36.3–37.1; O2SAT 90–95; BMI 33.1
[2023-10-21] MEDS: Vancomycin 125 MG/5 ML Susp PO.SYRINGE PO ×4 (00:10→17:44)
[2023-10-21] MEDS: Menthol/Lanolin/Calamine/Znox 113 GM Tube 1 APPLIC TOPICAL (06:29)
--- NOTE | 2023-10-21 07:45 | PCM.PN.HOSP ---
Reason for Visit Reason for Visit: Diagnoses Enterocolitis due to Clostridium difficile, not specified as recurrent (10/18/23) Malignant neoplasm of prostate (10/18/23) Essential (primary) hypertension (10/18/23) Gastro-esophageal reflux disease without esophagitis (10/18/23) Fever, unspecified (10/18/23) Personal history of pulmonary embolism (10/18/23) Personal history of antineoplastic chemotherapy (10/18/23) Subjective Subjective Patient seen still has loose bowel movement however frequency of diarrhea decreasing. WBC count also trending in the right direction down to 25 K Objective Data Objective Data Vital Signs: Vital Signs Temp Pulse Resp BP Pulse Ox O2 Del Method O2 Flow Rate 97.8 F 107 H 16 85/58 L 91 Room Air 2 10/21/23 05:30 10/21/23 05:30 10/21/23 05:30 10/21/23 05:30 10/21/23 05:30 10/21/23 05:30 10/19/23 13:15 Oxygen Flow Rate (L/min) 2 Oxygen Delivery Method Room Air Weight: 106.95 kg Body Mass Index (BMI) 33.8 Intake & Output: Intake and Output for Last 24 Hours 10/19/23 10/20/23 10/21/23 23:59 23:59 23:59 Intake Total 2290 / 2512 1110 / 1110 0 / 0 Output Total 400 / 400 0 / 0 0 / 0 Balance 1890 / 2112 1110 / 1110 0 / 0 Lab / Micro Data 10/21/23 07:10 10/21/23 07:10 Labs: Laboratory Results - last 24 hr 10/18/23 11:17: Diff Path Review Reviewed Micro: Microbiology 10/18/23 11:45 Blood Culture (Wb) - Chest Blood Culture - Preliminary No growth in 48 hours. 10/18/23 11:17 Blood Culture (Wb) - Chest Blood Culture - Preliminary No growth in 48 hours. 10/18/23 12:50 Urine, Clean Catch Urine Culture - Final Culture exhibits no growth. 10/18/23 17:31 Stool Enteric Bacteriology - Final 10/18/23 17:31 Stool C. difficile GDH Antigen & Toxins - Final Toxigenic C. difficile 10/18/23 17:31 Stool Clostridioides difficile (PCR) - Final 10/18/23 16:18 Mucosa - Nasopharyngeal Respiratory Panel (PCR) - Final 10/18/23 11:43 Nasal Secretion SARS-CoV-2 & FLU Antigen (Rapid) - Final 10/18/23 11:43 Mucosa - Nasopharyngeal RSV RNA Qualitative (PCR) - Final Physical Exam Narrative GENERAL: cooperative HEENT: Atraumatic; normocephalic EYES; Anicteric, Normal Conjunctiva NECK; supple, normal thyroid, RESPIRATORY: Diminished to auscultation CARDIOVASCULAR: Regular S1 S2, GI: soft, normoactive bowel sounds, : No Renal angle tenderness; EXTREMITIES: No edema, no clubbing, MUSCULOSKELETAL: no muscle wasting NEURO: Awake; no lateralizing signs. SKIN: No Rash PSYCH; Flat affect Assessment & Plan Assessment/Plan (1) C. difficile colitis: PLAN: Plan Patient is a 73-year-old gentleman with history of metastatic prostate CA currently on chemo who presented with diarrhea with fever of unknown origin. Workup came back positive for C. difficile colitis admitted to a monitored bed where patient is currently being treated with p.o. vancomycin 1. Acute C. difficile colitis ? Patient presented with fever of unknown origin initially managed with Levaquin which has since been discontinued patient is currently on p.o. vancomycin. WBC count remains significantly elevated ? 10/21/2023;Patient seen still has loose bowel movement however frequency of diarrhea decreasing. WBC count also trending in the right direction down to 25 K 2. Metastatic prostate CA ? First diagnosed in 2017 had chemo and radiation. Recent PET scan demonstrated increased metastatic activity resulting in resumption of chemo starting in September 2023 3. Venous thromboembolism ? Patient is on systemic anticoagulation with Coumadin with a therapeutic INR of 2.5 4. GERD ? On PPI 5. Hypertension - Blood pressure controlled, home medications continued with dose adjustment as needed 6. Central sleep apnea ? Patient is on CPAP 7. Depression with anxiety ? Patient is on Duloxetine did continue 8. DVT prophylaxis ? Patient on Coumadin Time spent in the patient's overall evaluation,decision-making process, review of diagnostic data, adjustment of management, discussion with other providers, nursing nursing and ancillary staff involved in patient's care documentation, 40 Minutes Charges/Coding Visit Charges Inpatient E&M: 38450 [facility] Hosp L2
[2023-10-21 08:18] LABS: Absolute Lymphocyte Count 1.16 X10^3/uL (0.83-4.51); Absolute Neutrophil Count 21.2 X10^3/uL (2.0-7.7); Basophil# 0.02 X10^3/uL; Basophil% 0.1 % (0-1); Eosinophil# 0.01 X10^3/uL; Hematocrit 34.9 % (40-54); Hemoglobin 11.5 g/dL (13.0-16.5); Lymphocyte # 1.16 X10^3/ul (0.83-4.51); Lymphocyte % 4.6 % (19-41); Mean Corpuscular Hgb 34.5 pg (27.0-32.0); Mean Corpuscular Volume 104.8 fL (80-94); Mean Platelet Vol. 11.8 fl (6.2-12.0); Monocyte# 2.11 X10^3/uL; Monocyte% 8.3 % (0-10); NRBC Flagged by Analyzer 0.9 % (0-5); Neutrophil # 21.22 X10^3/uL (2.7-7.7); Neutrophil % 83.7 % (47-70); POSITIVE COUNT YES; POSITIVE DIFFERENTIAL YES; POSITIVE MORPHOLOGY YES; Platelet Count 89 K/mm3 (150-450); RBC Distribution Width CV 14.1 % (11.6-14.6); RBC Distribution Width SD 53.2 fl (35.1-43.9); Red Blood Count 3.33 M/mm3 (4.6-6.2); White Blood Count 25.4 K/mm3 (4.4-11.0)
[2023-10-21 08:45] LABS: Differential Indicated SCAN CRITERIA MET
[2023-10-21] MEDS: Gabapentin 800 MG Tablet PO (08:54)
[2023-10-21] MEDS: Pantoprazole Sodium 20 MG Tablet PO ×2 (08:54→21:27)
[2023-10-21] MEDS: Ferrous Sulfate 325 MG Tablet PO (08:54)
[2023-10-21 08:57] LABS: Anion Gap 10 (5-15); BUN 59 mg/dL (7-18); Calcium,Total 7.7 mg/dL (8.5-10.1); Chloride 104 mmol/L (98-107); Creatinine, Serum 3.93 mg/dL (0.70-1.30); EST Glomerular Filtration Rate 16 mL/min (>60); Est Glom Filt Rate - Afr Amer 19 mL/min (>60); Estimated Creatinine Clearance 17.03 ml/min; Glucose 113 mg/dL (74-106); Magnesium 2.1 mg/dL (1.6-2.6); Phosphorus 5.5 mg/dL (2.5-4.9); Potassium 4.3 mmol/L (3.5-5.1); Sodium Level 134 mmol/L (136-145)
[2023-10-21 09:00] LABS: International Normalized Ratio 1.7; Prothrombin Time (Protime)PT. 19.6 SECONDS (11.7-14.9)
[2023-10-21 10:42] LABS: Pathologist Review Reviewed
--- NOTE | 2023-10-21 15:10 | CASEMGMT ---
DUC GAXIOLA NOTE: Per Dr Ayers, pt to discharge home on PO Vanc which has been e-scribed to [facility]. RN KHALIDA placed call for carr check. If billed through insurance cost is $302, d/t deductible, per pharmacist. He ran it through a [employer] card and cost is $77.75. RN CM to room and pt and made aware. states this is affordable. Per therapy, pt ambulated 25 ft w/use of WW and CGA today. states she was in the room when they worked w/him. Discussed discharge planning. Both pt and feel pt is safe to discharge home and they do no want HHC. states she is a retired [employer] and would like to be provided w/list of home exercises she can do with pt. Call placed to therapy and made aware. and pt made aware, if once returning home they change their mind and would like HHC, to f/u with PCP. They voice understanding. They deny further discharge planning needs/concerns. Av SY RN CM
[2023-10-21] MEDS: Gabapentin 600 MG Tablet 1200 MG PO (21:26)
[2023-10-21] MEDS: DULoxetine Hcl 60 MG Capsule PO (21:27)
[2023-10-21] MEDS: OLANZapine 2.5 MG Tablet PO (21:27)
[2023-10-22] VITALS (7 sets, daily range): BP systolic 81–98; BP diastolic 54–68; PULSE 91–97; RESP 15–17; TEMP 36.3–36.8; O2SAT 92–97
[2023-10-22] MEDS: Vancomycin 125 MG/5 ML Susp PO.SYRINGE PO ×5 (01:11→23:46)
[2023-10-22 07:10] LABS: Hematocrit 33.4 % (40-54); Mean Corp Hgb Conc 32.9 g/dL (32-36); Mean Corpuscular Volume 103.1 fL (80-94); Mean Platelet Vol. 11.6 fl (6.2-12.0); POSITIVE COUNT YES; POSITIVE DIFFERENTIAL YES; POSITIVE MORPHOLOGY YES; Platelet Count 54 K/mm3 (150-450); RBC Distribution Width CV 13.9 % (11.6-14.6); RBC Distribution Width SD 52.2 fl (35.1-43.9); Red Blood Count 3.24 M/mm3 (4.6-6.2); White Blood Count 18.7 K/mm3 (4.4-11.0)
[2023-10-22 07:21] LABS: International Normalized Ratio 2.2; Prothrombin Time (Protime)PT. 24.2 SECONDS (11.7-14.9)
[2023-10-22 07:37] LABS: Anion Gap 10 (5-15); BUN 71 mg/dL (7-18); BUN/Creat Ratio 19.5 RATIO (10-20); Calcium,Total 8.2 mg/dL (8.5-10.1); Chloride 102 mmol/L (98-107); Creatinine, Serum 3.65 mg/dL (0.70-1.30); EST Glomerular Filtration Rate 17 mL/min (>60); Est Glom Filt Rate - Afr Amer 21 mL/min (>60); Estimated Creatinine Clearance 18.33 ml/min; Glucose 110 mg/dL (74-106); Potassium 3.4 mmol/L (3.5-5.1); Sodium Level 131 mmol/L (136-145)
[2023-10-22 07:48] LABS: Differential Indicated MANUAL DIFF
--- NOTE | 2023-10-22 07:54 | PCM.PN.HOSP ---
Reason for Visit Reason for Visit: Diagnoses Enterocolitis due to Clostridium difficile, not specified as recurrent (10/18/23) Malignant neoplasm of prostate (10/18/23) Essential (primary) hypertension (10/18/23) Gastro-esophageal reflux disease without esophagitis (10/18/23) Fever, unspecified (10/18/23) Personal history of pulmonary embolism (10/18/23) Personal history of antineoplastic chemotherapy (10/18/23) Subjective Subjective Patient seen, WBC count still remains elevated at 18.7. He continues to experience loose bowel movement. Diagnostic data reviewed Signifor sodium level of 131 and potassium of 3.4 Objective Data Objective Data Vital Signs: Vital Signs Temp Pulse Resp BP Pulse Ox O2 Del Method O2 Flow Rate 97.4 F L 96 16 87/68 L 95 Room Air 2 10/22/23 05:39 10/22/23 05:39 10/22/23 05:39 10/22/23 05:39 10/22/23 05:39 10/22/23 05:39 10/21/23 20:00 Oxygen Flow Rate (L/min) 2 Oxygen Delivery Method Room Air Weight: 106.95 kg Body Mass Index (BMI) 33.8 Intake & Output: Intake and Output for Last 24 Hours 10/20/23 10/21/23 10/22/23 23:59 23:59 23:59 Intake Total 1110 / 1110 0 / 200 220 / 220 Output Total 0 / 0 0 / 0 0 / 0 Balance 1110 / 1110 0 / 200 220 / 220 Lab / Micro Data 10/22/23 06:49 10/22/23 06:49 Labs: Laboratory Results - last 24 hr 10/19/23 06:35: Diff Path Review Reviewed 10/21/23 07:10: WBC 25.4 H, RBC 3.33 L, Hgb 11.5 L, Hct 34.9 L, MCV 104.8 H, MCH 34.5 H, MCHC 33.0, RDW Std Deviation 53.2 H, RDW Coeff of Judi 14.1, Plt Count 89 L, MPV 11.8, Immature Gran % (Auto) 3.300 H, Neut % (Auto) 83.7 H, Lymph % (Auto) 4.6 L, [place] % (Auto) 8.3, Eos % (Auto) 0.0, Baso % (Auto) 0.1, Absolute Neuts (auto) 21.2 H, Absolute Lymphs (auto) 1.16, Nucleated RBC % 0.9, Diff Path Review February, PT 19.6 H, INR 1.7, Sodium 134 L, Potassium 4.3, Chloride 104, Carbon Dioxide 20.0 L, Anion Gap 10, BUN 59 H, Creatinine 3.93 H, Estim Creat Clear Calc 17.03, Est GFR (MDRD) Af Amer 19 L, Est GFR (MDRD) Non-Af 16 L, BUN/Creatinine Ratio 15.0, Glucose 113 H, Calcium 7.7 L, Phosphorus 5.5 H, Magnesium 2.1 10/22/23 06:49: WBC 18.7 H, RBC 3.24 L, Hgb 11.0 L, Hct 33.4 L, MCV 103.1 H, MCH 34.0 H, MCHC 32.9, RDW Std Deviation 52.2 H, RDW Coeff of Judi 13.9, Plt Count 54 L, MPV 11.6, Neut % (Auto) Not Reportable, PT 24.2 H, INR 2.2, Sodium 131 L, Potassium 3.4 L, Chloride 102, Carbon Dioxide 19.0 L, Anion Gap 10, BUN 71 H, Creatinine 3.65 H, Estim Creat Clear Calc 18.33, Est GFR (MDRD) Af Amer 21 L, Est GFR (MDRD) Non-Af 17 L, BUN/Creatinine Ratio 19.5, Glucose 110 H, Calcium 8.2 L Micro: Microbiology 10/18/23 11:45 Blood Culture (Wb) - Chest Blood Culture - Preliminary No growth in 48 hours. 10/18/23 11:17 Blood Culture (Wb) - Chest Blood Culture - Preliminary No growth in 48 hours. 10/18/23 12:50 Urine, Clean Catch Urine Culture - Final Culture exhibits no growth. 10/18/23 17:31 Stool Enteric Bacteriology - Final 10/18/23 17:31 Stool C. difficile GDH Antigen & Toxins - Final Toxigenic C. difficile 10/18/23 17:31 Stool Clostridioides difficile (PCR) - Final 10/18/23 16:18 Mucosa - Nasopharyngeal Respiratory Panel (PCR) - Final 10/18/23 11:43 Nasal Secretion SARS-CoV-2 & FLU Antigen (Rapid) - Final 10/18/23 11:43 Mucosa - Nasopharyngeal RSV RNA Qualitative (PCR) - Final Physical Exam Narrative GENERAL: cooperative HEENT: Atraumatic; normocephalic EYES; Anicteric, Normal Conjunctiva NECK; supple, normal thyroid, RESPIRATORY: Diminished to auscultation CARDIOVASCULAR: Regular S1 S2, GI: soft, normoactive bowel sounds, : No Renal angle tenderness; EXTREMITIES: No edema, no clubbing, MUSCULOSKELETAL: no muscle wasting NEURO: Awake; no lateralizing signs. SKIN: No Rash PSYCH; Flat affect Assessment & Plan Assessment/Plan (1) C. difficile colitis: PLAN: Plan Patient is a 73-year-old gentleman with history of metastatic prostate CA currently on chemo who presented with diarrhea with fever of unknown origin. Workup came back positive for C. difficile colitis admitted to a monitored bed where patient is currently being treated with p.o. vancomycin 1. Acute C. difficile colitis ? Patient presented with fever of unknown origin initially managed with Levaquin which has since been discontinued patient is currently on p.o. vancomycin. WBC count remains significantly elevated ? 10/21/2023;Patient seen still has loose bowel movement however frequency of diarrhea decreasing. WBC count also trending in the right direction down to 25 K ? 10/22/2023; patient still has loose bowel movement WBC count down to 18.7 2. Metastatic prostate CA ? First diagnosed in 2017 had chemo and radiation. Recent PET scan demonstrated increased metastatic activity resulting in resumption of chemo starting in September 2023 3. Venous thromboembolism ? Patient is on systemic anticoagulation with Coumadin with a therapeutic INR of 2.5 4. GERD ? On PPI 5. Hypertension - Blood pressure controlled, home medications continued with dose adjustment as needed 6. Central sleep apnea ? Patient is on CPAP 7. Depression with anxiety ? Patient is on Duloxetine did continue 8. DVT prophylaxis ? Patient on Coumadin 9. Hypokalemia corrected per protocol repeat labs ordered for monitoring 10. Hyponatremia ? Secondary to hypovolemic hyponatremia from patient loose bowel movement on fluid with subsequent monitoring of electrolytes Time spent in the patient's overall evaluation,decision-making process, review of diagnostic data, adjustment of management, discussion with other providers, nursing nursing and ancillary staff involved in patient's care documentation, 50 Minutes Charges/Coding Visit Charges Inpatient E&M: 79281 [place] [id number]
[2023-10-22] MEDS: Ferrous Sulfate 325 MG Tablet PO (08:28)
[2023-10-22 10:41] LABS: Lymphocyte 3 % (19-41); Metamyelocyte 2 % (0-1); Myelocyte 1 % (0-0); Neutrophil-Band 7 % (0-5); Neutrophil-Segmented 87 % (47-70); Total Cells Counted 100 (MANUAL DIFF)
[2023-10-22 10:42] LABS: Anisocytosis RARE; Hypochromasia RARE; Macrocytosis 1+; Platelet Estimate SLT DEC (ADEQ)
[2023-10-22 10:44] LABS: Absolute Lymphocyte Count 0.56 X10^3/uL (0.83-4.51); Absolute Neutrophil Count 17.6 X10^3/uL (2.0-7.7)
[2023-10-22] MEDS: Pantoprazole Sodium 20 MG Tablet PO ×2 (10:52→20:17)
[2023-10-22] MEDS: Gabapentin 800 MG Tablet PO (10:52)
[2023-10-22] MEDS: Potassium Chloride Oral Tablet 20 MEQ 40 MEQ PO (12:37)
[2023-10-22] MEDS: Menthol/Lanolin/Calamine/Znox 113 GM Tube 1 APPLIC TOPICAL ×2 (14:24→20:17)
[2023-10-22] MEDS: Potassium Chloride Oral Tablet 20 MEQ PO (17:07)
[2023-10-22] MEDS: DULoxetine Hcl 60 MG Capsule PO (20:16)
[2023-10-22] MEDS: Gabapentin 600 MG Tablet 1200 MG PO (20:16)
[2023-10-22] MEDS: OLANZapine 2.5 MG Tablet PO (20:17)
[2023-10-23 05:02] VITALS: BP 93/57; PULSE 96; RESP 16; TEMP 36.3; O2SAT 94
[2023-10-23] MEDS: Vancomycin 125 MG/5 ML Susp PO.SYRINGE PO ×3 (05:09→17:26)
[2023-10-23] MEDS: Menthol/Lanolin/Calamine/Znox 113 GM Tube 1 APPLIC TOPICAL ×3 (05:09→20:33)
[2023-10-23 06:56] LABS: Hematocrit 32.9 % (40-54); Hemoglobin 11.4 g/dL (13.0-16.5); Mean Corp Hgb Conc 34.7 g/dL (32-36); Mean Corpuscular Hgb 35.6 pg (27.0-32.0); Mean Corpuscular Volume 102.8 fL (80-94); Mean Platelet Vol. 11.5 fl (6.2-12.0); POSITIVE COUNT YES; POSITIVE DIFFERENTIAL YES; POSITIVE MORPHOLOGY YES; Platelet Count 52 K/mm3 (150-450); RBC Distribution Width SD 51.7 fl (35.1-43.9); White Blood Count 14.1 K/mm3 (4.4-11.0)
--- NOTE | 2023-10-23 07:19 | PN.HOSP_ITS ---
Reason for Visit Reason for Visit: Diagnoses Enterocolitis due to Clostridium difficile, not specified as recurrent ( 4) Malignant neoplasm of prostate (10/18/23) Essential (primary) hypertension (10/18/23) Gastro-esophageal reflux disease without esophagitis (10/18/23) Fever, unspecified (10/18/23) Personal history of pulmonary embolism (10/18/23) Personal history of antineoplastic chemotherapy (10/18/23) Subjective Subjective Patient seen. Documentation from the night nurses patient continues to experience loose bowel movement. Had 2 loose stools overnight. WBC count down to 14.1. Objective Data Objective Data Vital Signs: Vital Signs Temp Pulse Resp BP Pulse Ox O2 Del Method O2 Flow Rate 97.4 F L 96 16 93/57 L 94 Room Air 2 10/23/23 05:02 10/23/23 05:02 10/23/23 05:02 10/23/23 05:02 10/23/23 05:02 10/23/23 05:02 10/21/23 20:00 Oxygen Flow Rate (L/min) 2 Oxygen Delivery Method Room Air Weight: 104.8 kg Body Mass Index (BMI) 33.1 Intake & Output: Intake and Output for Last 24 Hours 10/21/23 10/22/23 10/23/23 23:59 23:59 23:59 Intake Total 0 / 200 220 / 460 360 / 360 Output Total 0 / 0 0 / 0 Balance 0 / 200 220 / 460 360 / 360 Lab / Micro Data 10/23/23 05:25 10/23/23 05:25 Labs: Laboratory Results - last 24 hr 10/22/23 06:49: WBC 18.7 H, RBC 3.24 L, Hgb 11.0 L, Hct 33.4 L, MCV 103.1 H, MCH 34.0 H, MCHC 32.9, RDW Std Deviation 52.2 H, RDW Coeff of Judi 13.9, Plt Count 54 L, MPV 11.6, Neut % (Auto) Not Reportable, Absolute Neuts (auto) 17.6 H, Absolute Lymphs (auto) 0.56 L, Total Counted 100, Neutrophils % (Manual) 87 H, Band Neutrophils % 7 H, Lymphocytes % (Manual) 3 L, Metamyelocytes % 2 H, Myelocytes % 1 H, Diff Path Review May , Platelet Estimate SLT DEC, Hypochromasia RARE, Anisocytosis RARE, Macrocytosis 1+, PT 24.2 H, INR 2.2, Sodium 131 L, Potassium 3.4 L, Chloride 102, Carbon Dioxide 19.0 L, Anion Gap 10, BUN 71 H, Creatinine 3.65 H, Estim Creat Clear Calc 18.33, Est GFR (MDRD) Af Amer 21 L, Est GFR (MDRD) Non-Af 17 L, BUN/Creatinine Ratio 19.5, Glucose 110 H, Calcium 8.2 L Micro: Microbiology 10/18/23 11:45 Blood Culture (Wb) - Chest Blood Culture - Preliminary No growth in 48 hours. 10/18/23 11:17 Blood Culture (Wb) - Chest Blood Culture - Preliminary No growth in 48 hours. 10/18/23 12:50 Urine, Clean Catch Urine Culture - Final Culture exhibits no growth. 10/18/23 17:31 Stool Enteric Bacteriology - Final 10/18/23 17:31 Stool C. difficile GDH Antigen & Toxins - Final Toxigenic C. difficile 10/18/23 17:31 Stool Clostridioides difficile (PCR) - Final 10/18/23 16:18 Mucosa - Nasopharyngeal Respiratory Panel (PCR) - Final 10/18/23 11:43 Nasal Secretion SARS-CoV-2 & FLU Antigen (Rapid) - Final 10/18/23 11:43 Mucosa - Nasopharyngeal RSV RNA Qualitative (PCR) - Final Physical Exam Narrative GENERAL: cooperative HEENT: Atraumatic; normocephalic EYES; Anicteric, Normal Conjunctiva NECK; supple, normal thyroid, RESPIRATORY: Diminished to auscultation CARDIOVASCULAR: Regular S1 S2, GI: soft, normoactive bowel sounds, : No Renal angle tenderness; EXTREMITIES: No edema, no clubbing, MUSCULOSKELETAL: no muscle wasting NEURO: Awake; no lateralizing signs. SKIN: No Rash PSYCH; Flat affect Assessment & Plan Assessment/Plan (1) C. difficile colitis: PLAN: Plan Patient is a 73-year-old gentleman with history of metastatic prostate CA currently on chemo who presented with diarrhea with fever of unknown origin. Workup came back positive for C. difficile colitis admitted to a monitored bed where patient is currently being treated with p.o. vancomycin 1. Acute C. difficile colitis ? Patient presented with fever of unknown origin initially managed with Levaquin which has since been discontinued patient is currently on p.o. vancomycin. WBC count remains significantly elevated ? 10/21/2023;Patient seen still has loose bowel movement however frequency of diarrhea decreasing. WBC count also trending in the right direction down to 25 K ? 10/22/2023; patient still has loose bowel movement WBC count down to 18.7 ? 10/23/2023 WBC count down to 14.1 patient however still has loose bowel movement 2. Metastatic prostate CA ? First diagnosed in 2016 had chemo and radiation. Recent PET scan demonstrated increased metastatic activity resulting in resumption of chemo starting in September 2023 3. Venous thromboembolism ? Patient is on systemic anticoagulation with Coumadin with a therapeutic INR of 2.5 4. GERD ? On PPI 5. Hypertension - Blood pressure controlled, home medications continued with dose adjustment as needed 6. Central sleep apnea ? Patient is on CPAP 7. Depression with anxiety ? Patient is on Duloxetine did continue 8. DVT prophylaxis ? Patient on Coumadin 9. Hypokalemia Corrected per protocol repeat labs ordered for monitoring 10. Hyponatremia ? Secondary to hypovolemic hyponatremia from patient loose bowel movement on fluid with subsequent monitoring of electrolytes ? 10/23/2023 sodium levels remained stable Time spent in the patient's overall evaluation,decision-making process, review of diagnostic data, adjustment of management, discussion with other providers, nursing nursing and ancillary staff involved in patient's care documentation, 35 minutes Charges/Coding Visit Charges Inpatient E&M: 00113 [facility] Hosp L2
[2023-10-23 07:20] LABS: International Normalized Ratio 2.6; Prothrombin Time (Protime)PT. 28.5 SECONDS (11.7-14.9)
[2023-10-23 07:27] LABS: Anion Gap 9 (5-15); BUN 76 mg/dL (7-18); BUN/Creat Ratio 26.9 RATIO (10-20); Calcium,Total 8.1 mg/dL (8.5-10.1); Chloride 102 mmol/L (98-107); Creatinine, Serum 2.83 mg/dL (0.70-1.30); EST Glomerular Filtration Rate 23 mL/min (>60); Est Glom Filt Rate - Afr Amer 28 mL/min (>60); Estimated Creatinine Clearance 23.65 ml/min; Glucose 117 mg/dL (74-106); Potassium 3.6 mmol/L (3.5-5.1); Sodium Level 132 mmol/L (136-145)
[2023-10-23 07:50] LABS: Differential Indicated MANUAL DIFF
[2023-10-23] MEDS: Gabapentin 800 MG Tablet PO (08:46)
[2023-10-23] MEDS: Pantoprazole Sodium 20 MG Tablet PO ×2 (08:46→20:33)
[2023-10-23] MEDS: Ferrous Sulfate 325 MG Tablet PO (08:46)
[2023-10-23] MEDS: Potassium Chloride Oral Tablet 20 MEQ PO ×2 (08:46→16:44)
[2023-10-23 08:50] VITALS: BP 93/64; PULSE 98; RESP 18; TEMP 36.6; O2SAT 96
[2023-10-23 09:46] LABS: Lymphocyte 12 % (19-41); Metamyelocyte 4 % (0-1); Monocyte 11 % (0-10); Myelocyte 2 % (0-0); Neutrophil-Band 6 % (0-5); Neutrophil-Segmented 65 % (47-70); Platelet Estimate MKD DEC (ADEQ); Red Cell Morphology NORM C+C NORMAL (NORM C&C); Total Cells Counted 100 (MANUAL DIFF)
[2023-10-23 09:50] LABS: Absolute Lymphocyte Count 1.69 X10^3/uL (0.83-4.51)
[2023-10-23 14:50] VITALS: BP 91/57; PULSE 88; RESP 18; TEMP 36.8; O2SAT 97
[2023-10-23] MEDS: Midodrine HCl 5 MG Tablet 10 MG PO (16:44)
[2023-10-23] MEDS: DULoxetine Hcl 60 MG Capsule PO (20:33)
[2023-10-23] MEDS: OLANZapine 2.5 MG Tablet PO (20:33)
[2023-10-23] MEDS: Gabapentin 600 MG Tablet 1200 MG PO (20:35)
[2023-10-23 21:10] VITALS: BP 102/61; PULSE 98; RESP 16; TEMP 36.4; O2SAT 95
[2023-10-24] MEDS: Vancomycin 125 MG/5 ML Susp PO.SYRINGE PO ×3 (00:04→12:24)
[2023-10-24 03:10] VITALS: BP 97/62; PULSE 94; RESP 16; TEMP 36.3; O2SAT 94
[2023-10-24] MEDS: Menthol/Lanolin/Calamine/Znox 113 GM Tube 1 APPLIC TOPICAL (05:20)
[2023-10-24 06:55] LABS: Hematocrit 33.3 % (40-54); Hemoglobin 11.3 g/dL (13.0-16.5); Mean Corp Hgb Conc 33.9 g/dL (32-36); Mean Corpuscular Hgb 34.3 pg (27.0-32.0); Mean Corpuscular Volume 101.2 fL (80-94); Mean Platelet Vol. 11.9 fl (6.2-12.0); POSITIVE COUNT YES; POSITIVE DIFFERENTIAL YES; POSITIVE MORPHOLOGY YES; Platelet Count 48 K/mm3 (150-450); RBC Distribution Width CV 14.2 % (11.6-14.6); RBC Distribution Width SD 51.6 fl (35.1-43.9); Red Blood Count 3.29 M/mm3 (4.6-6.2)
[2023-10-24 07:02] LABS: International Normalized Ratio 3.2; Prothrombin Time (Protime)PT. 33.6 SECONDS (11.7-14.9)
[2023-10-24 07:09] LABS: Differential Indicated MANUAL DIFF
[2023-10-24 07:18] LABS: ALB/GLOB Ratio 0.5 RATIO (0.9-2.4); AST(SGOT) 26 U/L (15-37); Alanine Aminotransfer ALT/SGPT 21 U/L (16-61); Albumin, Serum 1.9 g/dL (3.2-5.0); Alkaline Phosphatase 97 U/L (45-117); Anion Gap 8 (5-15); BUN 70 mg/dL (7-18); Chloride 101 mmol/L (98-107); EST Glomerular Filtration Rate 35 mL/min (>60); Est Glom Filt Rate - Afr Amer 42 mL/min (>60); Estimated Creatinine Clearance 33.46 ml/min; Globulin 3.5 g/dL (2.2-4.2); Glucose 123 mg/dL (74-106); Magnesium 2.3 mg/dL (1.6-2.6); Phosphorus 3.9 mg/dL (2.5-4.9); Potassium 3.9 mmol/L (3.5-5.1); Protein, Total 5.4 g/dL (6.4-8.2); Sodium Level 131 mmol/L (136-145)
[2023-10-24 07:41] LABS: White Blood Count 11.7 K/mm3 (4.4-11.0)
[2023-10-24 07:43] LABS: Lymphocyte 6 % (19-41); Metamyelocyte 4 % (0-1); Monocyte 5 % (0-10); Myelocyte 3 % (0-0); Neutrophil-Segmented 82 % (47-70); Nucleated Red Bld Cells,Manual 4 % (0-5); Total Cells Counted 100 (MANUAL DIFF)
[2023-10-24 07:44] LABS: Absolute Neutrophil Count 9.4 X10^3/uL (2.0-7.7); Platelet Estimate MKD DEC (ADEQ); Red Cell Morphology NORM C+C NORMAL (NORM C&C)
[2023-10-24 07:45] LABS: Absolute Lymphocyte Count 0.69 X10^3/uL (0.83-4.51)
[2023-10-24 08:33] VITALS: BP 94/58; PULSE 90; RESP 16; TEMP 37; O2SAT 99
[2023-10-24] MEDS: Ferrous Sulfate 325 MG Tablet PO (08:37)
[2023-10-24] MEDS: Gabapentin 800 MG Tablet PO (08:37)
[2023-10-24] MEDS: Potassium Chloride Oral Tablet 20 MEQ PO (08:37)
[2023-10-24] MEDS: Midodrine HCl 5 MG Tablet 10 MG PO (08:37)
[2023-10-24] MEDS: Pantoprazole Sodium 20 MG Tablet PO (08:37)
[2023-10-24 09:01] VITALS: BP 94/58; PULSE 94; RESP 16; TEMP 37; O2SAT 94
--- NOTE | 2023-10-24 09:02 | DS.PCM_ITS ---
Providers Date of Admission: 10/18/23 Date of Discharge: 10/24/23 Primary Care Physician: Dr. Nikolas Bennett, DO Reason For Visit: FEVER OF UNKNOWN ORIGIN Diagnosis Discharge Diagnosis (1) C. difficile colitis: Status: Acute Code(s): A04.72 - Enterocolitis due to Clostridium difficile, not specified as recurrent Plan Patient is a 73-year-old gentleman with history of metastatic prostate CA currently on chemo who presented with diarrhea with fever of unknown origin. Workup came back positive for C. difficile colitis admitted to a monitored bed where patient is currently being treated with p.o. vancomycin 1. Acute C. difficile colitis ? Patient presented with fever of unknown origin initially managed with Levaquin which has since been discontinued patient is currently on p.o. vancomycin. WBC count remains significantly elevated ? 10/21/2023;Patient seen still has loose bowel movement however frequency of diarrhea decreasing. WBC count also trending in the right direction down to 25 K ? 10/22/2023; patient still has loose bowel movement WBC count down to 18.7 ? 10/23/2023 WBC count down to 14.1 patient however still has loose bowel movement 2. Metastatic prostate CA ? First diagnosed in 2016 had chemo and radiation. Recent PET scan demonstrated increased metastatic activity resulting in resumption of chemo starting in September 2023 3. Venous thromboembolism ? Patient is on systemic anticoagulation with Coumadin with a therapeutic INR of 2.5 4. GERD ? On PPI 5. Hypertension - Blood pressure controlled, home medications continued with dose adjustment as needed ?10/24/2023 patient was found to be significantly hypotensive throughout his hospital stay was on lisinopril discontinued started on low-dose midodrine on discharge 6. Central sleep apnea ? Patient is on CPAP 7. Depression with anxiety ? Patient is on Duloxetine did continue 8. DVT prophylaxis ? Patient on Coumadin 9. Hypokalemia Corrected per protocol repeat labs ordered for monitoring 10. Hyponatremia ? Secondary to hypovolemic hyponatremia from patient loose bowel movement on fluid with subsequent monitoring of electrolytes ? 10/23/2023 sodium levels remained stable 11. Thrombocytopenia ? Patient was on heparin flush was discontinued patient instructed to follow-up with primary care physician for repeat CBC in a week Time spent in the patient's overall evaluation,decision-making process, review of diagnostic data, adjustment of management, discussion with other providers, nursing nursing and ancillary staff involved in patient's care documentation, 35 minutes Medications at Discharge Home Medications duloxetine 60 mg capsule,delayed release (Cymbalta) 60 mg PO QDAY depression 12/01/17 calcium carbonate 600 mg-vitamin D3 5 mcg (200 unit) tablet 1 ea PO DAILY supplement 06/27/18 glucosamine sulf dipot chlr,msm,chond 550 mg-C 30 mg-beronica 1 mg capsule 2 ea PO DAILY supplement 02/17/20 PEP device #1 ea 08/25/21 leuprolide (3 month) 22.5 mg (3 month) subcutaneous syringe ([email or web address]) 22.5 mg subcut .Q3MO prostate ca 01/15/22 Lactobacillus acidophilus 10 mg PO DAILY probiotic 03/10/23 cyanocobalamin (vitamin B-12) 1,000 mcg tablet (Vitamin B-12) 5,000 mcg PO DAILY supplement 03/10/23 gabapentin 400 mg capsule 800 mg PO BID nerve pain 03/10/23 metoclopramide HCl 10 mg tablet (Reglan) 10 mg PO DAILY PRN nausea and vomiting 03/10/23 oxybutynin chloride 5 mg tablet 5 mg PO DAILY overactive bladder 03/10/23 albuterol sulfate 90 mcg/actuation aerosol inhaler (Ventolin HFA) 2 puff inhalation Q4H PRN shortness of breath or wheezing #18 grams 03/30/23 guaifenesin 1,200 mg tablet, extended release 12 hr 1,200 mg PO Q12H congestion #60 tabs 05/16/23 acetaminophen 500 mg capsule 500 mg PO Q6H PRN pain 10/07/23 ferrous sulfate 325 mg (65 mg iron) tablet (Feosol) 325 mg PO DAILY supplement 10/07/23 ondansetron 8 mg PO TID PRN PRN n/v 10/07/23 warfarin 5 mg tablet (Jantoven) 6 mg PO DAILY blood thinner 10/07/23 olanzapine 2.5 mg tablet 2.5 mg PO QHS nausea 10/18/23 omeprazole 20 mg capsule,delayed release 20 mg PO BID gerd 10/18/23 tramadol 50 mg tablet 50 mg PO Q8H PRN pain 10/18/23 vancomycin 125 mg capsule 125 mg PO Q6H 10 days #40 caps 10/21/23 midodrine 5 mg tablet 5 mg PO TID #90 tabs 10/24/23 Hospital Course Summary of Care Provided Minutes Spent on Discharge: 35 Physical Exam Narrative GENERAL: cooperative HEENT: Atraumatic; normocephalic EYES; Anicteric, Normal Conjunctiva NECK; supple, normal thyroid, RESPIRATORY: Diminished to auscultation CARDIOVASCULAR: Regular S1 S2, GI: soft, normoactive bowel sounds, : No Renal angle tenderness; EXTREMITIES: No edema, no clubbing, MUSCULOSKELETAL: no muscle wasting NEURO: Awake; no lateralizing signs. SKIN: No Rash PSYCH; Flat affect Weight / BMI Weight Weight: 104.8 kg Body Mass Index (BMI) 33.1 ABG / Lab / Microbiology Data 10/24/23 06:15 10/24/23 06:15 Laboratory: Laboratory Results - last 24 hr 10/23/23 05:25: Absolute Neuts (auto) 10.0 H, Absolute Lymphs (auto) 1.69, Total Counted 100, Neutrophils % (Manual) 65, Band Neutrophils % 6 H, Lymphocytes % (Manual) 12 L, Monocytes % (Manual) 11 H, Metamyelocytes % 4 H, Myelocytes % 2 H , Diff Path Review May chicho, Platelet Estimate MKD DEC, RBC Morphology NORM C+C 10/24/23 06:15: WBC 11.7 H, RBC 3.29 L, Hgb 11.3 L, Hct 33.3 L, MCV 101.2 H, MCH 34.3 H, MCHC 33.9, RDW Std Deviation 51.6 H, RDW Coeff of Judi 14.2, Plt Count 48 L*, MPV 11.9, Neut % (Auto) Not Reportable, Absolute Neuts (auto) 9.4 H, Absolute Lymphs (auto) 0.69 L, Total Counted 100, Neutrophils % (Manual) 82 H, Lymphocytes % (Manual) 6 L, Monocytes % (Manual) 5, Metamyelocytes % 4 H, Myelocytes % 3 H, Nucleated RBCs/100 WBC 4, Diff Path Review February chicho, Platelet Estimate MKD DEC, RBC Morphology NORM C+C, PT 33.6 H, INR 3.2, Sodium 131 L, Potassium 3.9, Chloride 101, Carbon Dioxide 22.0, Anion Gap 8, BUN 70 H, Creat inine 2.00 H, Estim Creat Clear Calc 33.46, Est GFR (MDRD) Af Amer 42 L, Est GFR (MDRD) Non-Af 35 L, BUN/Creatinine Ratio 35.0 H, Glucose 123 H, Calcium 8.0 L, Phosphorus 3.9, Magnesium 2.3, Total Bilirubin 0.50, AST 26, ALT 21, Alkaline Phosphatase 97, Total Protein 5.4 L, Albumin 1.9 L, Globulin 3.5, Albumin/Glob ulin Ratio 0.5 L Microbiology: Microbiology 10/18/23 11:45 Blood Culture (Wb) - Chest Blood Culture - Final No growth in 5 days. 10/18/23 11:17 Blood Culture (Wb) - Chest Blood Culture - Final No growth in 5 days. 10/18/23 12:50 Urine, Clean Catch Urine Culture - Final Culture exhibits no growth. 10/18/23 17:31 Stool Enteric Bacteriology - Final 10/18/23 17:31 Stool C. difficile GDH Antigen & Toxins - Final Toxigenic C. difficile 10/18/23 17:31 Stool Clostridioides difficile (PCR) - Final 10/18/23 16:18 Mucosa - Nasopharyngeal Respiratory Panel (PCR) - Final 10/18/23 11:43 Nasal Secretion SARS-CoV-2 & FLU Antigen (Rapid) - Final 10/18/23 11:43 Mucosa - Nasopharyngeal RSV RNA Qualitative (PCR) - Final D/C Instructions Discharge Diet: No restrictions Discharge Activity: Return to Normal Activity Call your doctor if you observe: Fever of 101 or Higher, Shortness of breath, Fainting spells and Chest pain Meaningful Use Info Meaningful Use Diagnoses (Choose all that apply): None applicable Discharge Plan Admission Admit Date/Time: 10/18/23 14:46 Attending Provider: Toro Ayers Primary Care Provider: Nikolas Bennett Consulting Providers: Jenna Hernandez; Aly Ovalle Instructions Additional Instructions / Restrictions: Please follow-up with your primary care physician for repeat WBC count to monitor platelets. Discharge Orders/Prescriptions Prescriptions: New vancomycin 125 mg capsule 125 mg PO Q6H 10 Days Qty: 40 0RF midodrine 5 mg tablet 5 mg PO TID Qty: 90 0RF Rx Instructions: do not give last dose of day after 6PM or within 4 hrs of bedtime Continued duloxetine [Cymbalta] 60 mg capsule,delayed release(DR/EC) 60 mg PO QDAY gabapentin 400 mg capsule 800 mg PO BID Rx Instructions: 800 mg AM & 1200 HS (DME) PEP device See Rx Instructions .Route .MEDSUPPLY Qty: 1 0RF Rx Instructions: with training oxybutynin chloride 5 mg tablet 5 mg PO DAILY cyanocobalamin (vitamin B-12) [Vitamin B-12] 1,000 mcg tablet 5,000 mcg PO DAILY Lactobacillus acidophilus Capsule 10 mg PO DAILY guaifenesin 1,200 mg tablet extended release 12hr 1,200 mg PO Q12H Qty: 60 5RF metoclopramide HCl [Reglan] 10 mg tablet 10 mg PO DAILY PRN (Reason: nausea and vomiting) calcium carbonate-vitamin D3 1 EACH tablet 1 ea PO DAILY glucos sul [id number]-[id number]-C-Mn 1 EACH capsule 2 ea PO DAILY Eligard (3 month) 22.5 mg Syringe 22.5 mg SUBCUT .Q3MO ferrous sulfate [Feosol] 325 mg (65 mg iron) tablet 325 mg PO DAILY warfarin [Jantoven] 5 mg tablet 6 mg PO DAILY acetaminophen 500 mg capsule 500 mg PO Q6H PRN (Reason: pain) ondansetron 8 mg PO TID PRN PRN (Reason: n/v) olanzapine 2.5 mg tablet 2.5 mg PO QHS Patient Comments: TAKE 1 TABLET BY MOUTH EVERY NIGHT AT BEDTIME omeprazole 20 mg capsule,delayed release(DR/EC) 20 mg PO BID Patient Comments: TAKE 1 CAPSULE BY MOUTH TWICE DAILY tramadol 50 mg tablet 50 mg PO Q8H PRN (Reason: pain) albuterol sulfate [Ventolin HFA] 90 mcg/actuation HFA aerosol inhaler 2 puff inhalation Q4H PRN (Reason: shortness of breath or wheezing) Qty: 18 6RF Discontinued lisinopril 20 mg tablet 10 mg PO DAILY Referrals / Follow Up: Nikolas Bennett DO [Primary Care Provider] - Disposition Disposition (needs filled in before D/C Order can be placed): Home, Self Care Charges/Coding Visit Charges Inpatient E&M: 81156 Disch Hosp >30min
[2023-10-24 09:30] LABS: Pathologist Review Reviewed
--- NOTE | 2023-10-24 10:02 | PHA.DC_ITS ---
Pharmacy [facility] has performed discharge medication reconciliation and counseling for this patient. INR is 3.2, advised patient to call the office that manages warfarin to see if they would like him to skip the dose tonight. Patient counseled via telephone due to C. diff precautions. 1. MIDODRINE 5MG PO TID 2. VANCOMYCIN 125MG PO Q6 X 10 DAYS The patient's discharge medication list was reviewed for discrepancies and discrepancies were resolved. The patient was counseled on the following discharge medications and changes in medications for homegoing were reviewed. The Reason for Use, instructions for use, and potential side effects were reviewed for all new medications. The patient's questions regarding all of their medications were answered. The patient was able to verbally demonstrate an understanding of their discharge medications. Medications at Discharge Home Medications duloxetine 60 mg capsule,delayed release (Cymbalta) 60 mg PO QDAY depression 12/01/17 calcium carbonate 600 mg-vitamin D3 5 mcg (200 unit) tablet 1 ea PO DAILY supplement 06/27/18 glucosamine sulf dipot chlr,msm,chond 550 mg-C 30 mg-beronica 1 mg capsule 2 ea PO DAILY supplement 02/17/20 PEP device #1 ea 08/25/21 leuprolide (3 month) 22.5 mg (3 month) subcutaneous syringe (Eligard) 22.5 mg subcut .Q3MO prostate ca 01/15/22 Lactobacillus acidophilus 10 mg PO DAILY probiotic 03/10/23 cyanocobalamin (vitamin B-12) 1,000 mcg tablet (Vitamin B-12) 5,000 mcg PO DAILY supplement 03/10/23 gabapentin 400 mg capsule 800 mg PO BID nerve pain 03/10/23 metoclopramide HCl 10 mg tablet (Reglan) 10 mg PO DAILY PRN nausea and vomiting 03/10/23 oxybutynin chloride 5 mg tablet 5 mg PO DAILY overactive bladder 03/10/23 albuterol sulfate 90 mcg/actuation aerosol inhaler (Ventolin HFA) 2 puff inhalation Q4H PRN shortness of breath or wheezing #18 grams 03/30/23 guaifenesin 1,200 mg tablet, extended release 12 hr 1,200 mg PO Q12H congestion #60 tabs 05/16/23 acetaminophen 500 mg capsule 500 mg PO Q6H PRN pain 10/07/23 ferrous sulfate 325 mg (65 mg iron) tablet (Feosol) 325 mg PO DAILY supplement 10/07/23 ondansetron 8 mg PO TID PRN PRN n/v 10/07/23 warfarin 5 mg tablet (Jantoven) 6 mg PO DAILY blood thinner 10/07/23 olanzapine 2.5 mg tablet 2.5 mg PO QHS nausea 10/18/23 omeprazole 20 mg capsule,delayed release 20 mg PO BID gerd 10/18/23 tramadol 50 mg tablet 50 mg PO Q8H PRN pain 10/18/23 vancomycin 125 mg capsule 125 mg PO Q6H 10 days #40 caps 10/21/23 midodrine 5 mg tablet 5 mg PO TID #90 tabs 10/24/23
--- NOTE | 2023-10-24 11:45 | CASEMGMT ---
Patient has order for discharge. RN CM in to discuss needs at discharge. Patient and deny needs at discharge. states she fille PO Vanco script without any issues. Patient and denied HHC at discharge. Patient and had no further questions or concerns at this time.
[2023-10-24] MEDS: 0.9% Saline Lock 10 ML Syringe IV (11:59)
[2023-10-24 12:05] LABS: Pathologist Review Reviewed
[2023-10-24 12:09] LABS: Pathologist Review Reviewed
--- NOTE | 2023-10-24 12:09 | NURSING ---
Discharge instructions given and reviewed with pt and .
[2023-10-24 12:14] LABS: Pathologist Review Reviewed
[2023-10-25 10:18] LABS: Pathologist Review Reviewed
== END 2023-10-24 12:34 | disposition home or self-care (01) | DRG 372 ==
LOC: ED 13:54 → PCU 14:15
PROVIDERS: Family Medicine; Internal Medicine; Admitting Provider Internal Medicine; Emergency Provider Emergency Medicine; PCP Family Medicine; Visit Provider Internal Medicine
DX: A04.72 Enterocolitis due to Clostridium difficile, not specified as recurrent (principal); C79.51 Secondary malignant neoplasm of bone; N17.9 Acute kidney failure, unspecified; E87.1 Hypo-osmolality and hyponatremia; C61 Malignant neoplasm of prostate; I10 Essential (primary) hypertension; E87.6 Hypokalemia; K21.9 Gastro-esophageal reflux disease without esophagitis; E78.5 Hyperlipidemia, unspecified; G47.31 Primary central sleep apnea; F41.8 Other specified anxiety disorders; Z82.5 Family history of asthma and other chronic lower respiratory diseases; Z79.01 Long term (current) use of anticoagulants; Z92.21 Personal history of antineoplastic chemotherapy; Z92.3 Personal history of irradiation; Z86.711 Personal history of pulmonary embolism; Z86.718 Personal history of other venous thrombosis and embolism
CPT/HCPCS: 36415; 36591; 71045; 71260; 74177; 80048; 80053; 80202; 81001; 83605; 83735; 84100; 84145; 85025; 85610; 85652; 86140; 87040; 87086; 87428; 87493; 87506; 87633; 87634; 87641; 93005; 97110; 97116; 97162; 97530; 99285; J7030; J7040; J7050; Q9967; A4216

== ENCOUNTER → 2023-10-27 | Outpatient (CLI) | payer MEDICARE, OTHER, SELFPAY ==
[2023-10-27 17:45] LABS: Hematocrit 36.1 % (40-54); Hemoglobin 11.8 g/dL (13.0-16.5); Mean Corp Hgb Conc 32.7 g/dL (32-36); Mean Corpuscular Hgb 34.2 pg (27.0-32.0); Mean Corpuscular Volume 104.6 fL (80-94); Mean Platelet Vol. 12.5 fl (6.2-12.0); POSITIVE COUNT YES; POSITIVE MORPHOLOGY YES; Platelet Count 67 K/mm3 (150-450); RBC Distribution Width SD 54.7 fl (35.1-43.9); Red Blood Count 3.45 M/mm3 (4.6-6.2)
[2023-10-27 17:55] LABS: BNP,B-Type NATRIURETIC PEPTIDE 239.7 pg/mL (0-100)
[2023-10-27 18:03] LABS: International Normalized Ratio 2.5; Prothrombin Time (Protime)PT. 27.5 SECONDS (11.7-14.9)
[2023-10-27 18:20] LABS: ALB/GLOB Ratio 0.6 RATIO (0.9-2.4); AST(SGOT) 29 U/L (15-37); Alanine Aminotransfer ALT/SGPT 21 U/L (16-61); Albumin, Serum 2.3 g/dL (3.2-5.0); Alkaline Phosphatase 115 U/L (45-117); Anion Gap 8 (5-15); BUN 31 mg/dL (7-18); BUN/Creat Ratio 28.2 RATIO (10-20); Calcium,Total 7.9 mg/dL (8.5-10.1); Chloride 102 mmol/L (98-107); EST Glomerular Filtration Rate 70 mL/min (>60); Est Glom Filt Rate - Afr Amer 84 mL/min (>60); Ferritin 1459 ng/mL (26-388); Globulin 3.8 g/dL (2.2-4.2); Glucose 122 mg/dL (74-106); Iron 69 ug/dL (65-175); Potassium 4.2 mmol/L (3.5-5.1); Protein, Total 6.1 g/dL (6.4-8.2); Sodium Level 135 mmol/L (136-145)
[2023-10-27 18:45] LABS: Differential Indicated MANUAL DIFF
[2023-10-27 18:52] LABS: Lymphocyte 17 % (19-41); Metamyelocyte 2 % (0-1); Monocyte 1 % (0-10); Neutrophil-Segmented 80 % (47-70); Total Cells Counted 100 (MANUAL DIFF)
[2023-10-27 18:55] LABS: Absolute Lymphocyte Count 1.87 X10^3/uL (0.83-4.51); Absolute Neutrophil Count 8.8 X10^3/uL (2.0-7.7)
[2023-10-27 18:56] LABS: Anisocytosis 2+; Platelet Estimate MOD DEC (ADEQ); Red Cell Morphology N CHROM NORMAL (NORM C&C)
[2023-10-27 18:57] LABS: Macrocytosis 2+; Ovalocyte RARE
[2023-10-28 00:23] LABS: Xtra Tube EP Lab EXTRA TUBE
[2023-10-28 10:03] LABS: Pathologist Review Reviewed
== END | disposition home or self-care (01) ==
LOC: BFHLAB 16:23
PROVIDERS: PCP Family Medicine; Referring Provider Specialist; Visit Provider Family Medicine
DX: D64.9 Anemia, unspecified (principal); I50.30 Unspecified diastolic (congestive) heart failure; N18.31 Chronic kidney disease, stage 3a; R06.00 Dyspnea, unspecified; Z79.01 Long term (current) use of anticoagulants
CPT/HCPCS: 36415; 80053; 82728; 83540; 83880; 85025; 85610

== ENCOUNTER → 2023-11-02 | Outpatient (CLI) | payer MEDICARE, OTHER, SELFPAY ==
--- NOTE | 2023-11-02 09:50 | RAD_ITS ---
INDICATION: DYSPNEA/DECREASED BREATH SOUNDS EXAMINATION/TECHNIQUE: X-RAY - XR Chest 2 Views COMPARISON: 10/18/2023 FINDINGS: LINES/DEVICES: Stably positioned left chest wall infusion port. LUNGS: The lungs are well expanded. No consolidation or edema. Trace right pleural effusion. No pneumothorax. MEDIASTINUM AND CARDIOVASCULAR STRUCTURES: Cardiac silhouette not enlarged. Central airways and mediastinal contour are unremarkable. BONES AND SOFT TISSUES: Unremarkable. RAD/Chest PA and Lateral IMPRESSION: Trace right pleural effusion. Otherwise, no acute pulmonary finding. Electronically Signed: Toro Harden MD at 15:05 EST ,
[2023-11-02 12:18] LABS: Absolute Lymphocyte Count 0.74 X10^3/uL (0.83-4.51); Absolute Neutrophil Count 6.8 X10^3/uL (2.0-7.7); Basophil# 0.08 X10^3/uL; Basophil% 0.9 % (0-1); Eosinophil# 0.32 X10^3/uL; Eosinophils% 3.6 % (0-5); Hematocrit 33.8 % (40-54); Hemoglobin 10.7 g/dL (13.0-16.5); Lymphocyte # 0.74 X10^3/ul (0.83-4.51); Lymphocyte % 8.3 % (19-41); Mean Corp Hgb Conc 31.7 g/dL (32-36); Mean Corpuscular Hgb 34.2 pg (27.0-32.0); Mean Platelet Vol. 11.9 fl (6.2-12.0); Monocyte# 0.85 X10^3/uL; Monocyte% 9.6 % (0-10); NRBC Flagged by Analyzer 0 % (0-5); Neutrophil # 6.82 X10^3/uL (2.7-7.7); Neutrophil % 76.8 % (47-70); POSITIVE COUNT YES; Platelet Count 74 K/mm3 (150-450); RBC Distribution Width CV 16.1 % (11.6-14.6); RBC Distribution Width SD 63.2 fl (35.1-43.9); Red Blood Count 3.13 M/mm3 (4.6-6.2); White Blood Count 8.9 K/mm3 (4.4-11.0)
[2023-11-02 12:53] LABS: BNP,B-Type NATRIURETIC PEPTIDE 227.6 pg/mL (0-100)
[2023-11-02 12:55] LABS: ALB/GLOB Ratio 0.6 RATIO (0.9-2.4); AST(SGOT) 26 U/L (15-37); Alanine Aminotransfer ALT/SGPT 15 U/L (16-61); Albumin, Serum 2.2 g/dL (3.2-5.0); Alkaline Phosphatase 87 U/L (45-117); Anion Gap 6 (5-15); BUN 21 mg/dL (7-18); Calcium,Total 8.4 mg/dL (8.5-10.1); Chloride 106 mmol/L (98-107); EST Glomerular Filtration Rate 78 mL/min (>60); Est Glom Filt Rate - Afr Amer 94 mL/min (>60); Globulin 3.5 g/dL (2.2-4.2); Glucose 149 mg/dL (74-106); Potassium 4.2 mmol/L (3.5-5.1); Protein, Total 5.7 g/dL (6.4-8.2); Sodium Level 138 mmol/L (136-145)
== END | disposition home or self-care (01) ==
PROVIDERS: PCP Family Medicine; Referring Provider Family Medicine; Visit Provider Family Medicine
DX: R06.00 Dyspnea, unspecified (principal); I42.9 Cardiomyopathy, unspecified; E88.09 Other disorders of plasma-protein metabolism, not elsewhere classified; R09.02 Hypoxemia
CPT/HCPCS: 36415; 71046; 80053; 83880; 85025

== ENCOUNTER → 2023-11-11 | Outpatient (CLI) | payer MEDICARE, OTHER, SELFPAY ==
[2023-11-11 12:23] LABS: Absolute Lymphocyte Count 1.22 X10^3/uL (0.83-4.51); Absolute Neutrophil Count 3.4 X10^3/uL (2.0-7.7); Basophil# 0.06 X10^3/uL; Eosinophil# 0.48 X10^3/uL; Eosinophils% 8.1 % (0-5); Hematocrit 34.3 % (40-54); Lymphocyte # 1.22 X10^3/ul (0.83-4.51); Lymphocyte % 20.5 % (19-41); Mean Corp Hgb Conc 32.1 g/dL (32-36); Mean Corpuscular Hgb 33.6 pg (27.0-32.0); Mean Corpuscular Volume 104.9 fL (80-94); Mean Platelet Vol. 12.1 fl (6.2-12.0); Monocyte# 0.79 X10^3/uL; Monocyte% 13.3 % (0-10); NRBC Flagged by Analyzer 0 % (0-5); Neutrophil # 3.38 X10^3/uL (2.7-7.7); Neutrophil % 56.6 % (47-70); POSITIVE COUNT YES; Platelet Count 84 K/mm3 (150-450); RBC Distribution Width CV 15.5 % (11.6-14.6); RBC Distribution Width SD 60.2 fl (35.1-43.9); Red Blood Count 3.27 M/mm3 (4.6-6.2)
[2023-11-11 13:18] LABS: ALB/GLOB Ratio 0.6 RATIO (0.9-2.4); AST(SGOT) 26 U/L (15-37); Alanine Aminotransfer ALT/SGPT 20 U/L (16-61); Albumin, Serum 2.8 g/dL (3.2-5.0); Alkaline Phosphatase 110 U/L (45-117); Anion Gap 10 (5-15); BUN 30 mg/dL (7-18); BUN/Creat Ratio 19.9 RATIO (10-20); Calcium,Total 9.7 mg/dL (8.5-10.1); Chloride 80 mmol/L (98-107); Creatinine, Serum 1.51 mg/dL (0.70-1.30); EST Glomerular Filtration Rate 48 mL/min (>60); Est Glom Filt Rate - Afr Amer 58 mL/min (>60); Glucose 154 mg/dL (74-106); Potassium 2.5 mmol/L (3.5-5.1); Protein, Total 7.8 g/dL (6.4-8.2); Sodium Level 129 mmol/L (136-145)
== END | disposition home or self-care (01) ==
LOC: BIMLAB 10:21 → BFHLAB 11:05
PROVIDERS: PCP Family Medicine; Visit Provider Family Medicine
DX: Z51.81 Encounter for therapeutic drug level monitoring (principal); C61 Malignant neoplasm of prostate
CPT/HCPCS: 36415; 80053; 84153; 85025

== ENCOUNTER 2023-11-16 10:14 | Inpatient (IN) | payer MEDICARE, OTHER, SELFPAY ==
[2023-11-16] VITALS (14 sets, daily range): BP systolic 88–119; BP diastolic 64–81; PULSE 94–104; RESP 16–26; TEMP 36.3–38.3; O2SAT 93–98; BMI 31.4; BMI 31.2
--- NOTE | 2023-11-16 10:59 | ED.VIS.GI ---
HPI HPI - GI History of Present Illness Chief Complaint: Diarrhea Detail of Chief Complaint: Diarrhea Informant: patient Narrative Narrative: Patient presents with diarrhea that initially began in September 2023. Patient diagnosed with C. difficile at that time. Last chemotherapy for metastatic prostate cancer was September 26. Patient is receiving a biological called Keytruda. His last Keytruda dose was 3 days ago. Patient describes abdominal cramping and pain. Small amount of blood seen within the stool now. 2 days ago the stool became more watery and having frequent episodes of the diarrhea. He finished vancomycin treatment on November 03. He was advised to come to the emergency department by his oncologist. Patient also has had some brief episodes of passing out. He had an episode the other day while on the toilet. Patient also had an episode while standing and holding onto a banister. [facility] Medical History Abrasion Arthritis Asthma ASV (adaptive servo-ventilation) use counseling Atrioventricular block, first degree Back pain Blackout Bladder disease Bronchiectasis Cancer Cardiology follow-up encounter Central sleep apnea Chest pain Chronic cough COVID-19 virus detected (06/06/21) DVT (deep venous thrombosis) Dysphagia Esophageal varices Essential (primary) hypertension Gastric reflux Gastritis GERD without esophagitis Gout History of Coumadin therapy History of edema History of hiatal hernia History of irregular heartbeat History of pulmonary embolism History of ulceration Hx of Acosta's palsy Hx of glaucoma Hyperlipidemia Hypokalemia Injury of head and neck Loss of hearing Other instability, left shoulder Peripheral neuropathy Personal history of colonic polyps Prostate cancer metastatic to bone Severe persistent asthma Shortness of breath on exertion Symptomatic bradycardia (09/24/21) Syncope Voice hoarsenesses Wears glasses Wears partial dentures Home Medications duloxetine 60 mg capsule,delayed release (Cymbalta) 60 mg PO QDAY depression 12/01/17 [History Last Taken Unknown] calcium carbonate 600 mg-vitamin D3 5 mcg (200 unit) tablet 1 ea PO DAILY supplement 06/27/18 [History Last Taken Unknown] glucosamine sulf dipot chlr,msm,chond 550 mg-C 30 mg-beronica 1 mg capsule 2 ea PO DAILY supplement 02/17/20 [History Last Taken Unknown] PEP device #1 ea 08/25/21 [Rx Last Taken Unknown] leuprolide (3 month) 22.5 mg (3 month) subcutaneous syringe (Eligard) 22.5 mg subcut .Q3MO prostate ca 01/15/22 [History Last Taken Unknown] Lactobacillus acidophilus 10 mg PO DAILY probiotic 03/10/23 [History Last Taken Unknown] cyanocobalamin (vitamin B-12) 1,000 mcg tablet (Vitamin B-12) 5,000 mcg PO DAILY supplement 03/10/23 [History Last Taken Unknown] gabapentin 400 mg capsule 800 mg PO BID nerve pain 03/10/23 [History Last Taken Unknown] oxybutynin chloride 5 mg tablet 5 mg PO DAILY overactive bladder 03/10/23 [History Last Taken Unknown] albuterol sulfate 90 mcg/actuation aerosol inhaler (Ventolin HFA) 2 puff inhalation Q4H PRN shortness of breath or wheezing #18 grams 03/30/23 [Rx Last Taken Unknown] guaifenesin 1,200 mg tablet, extended release 12 hr 1,200 mg PO Q12H congestion #60 tabs 05/16/23 [Rx Last Taken Unknown] acetaminophen 500 mg capsule 500 mg PO Q6H PRN pain 10/07/23 [History Last Taken Unknown] ferrous sulfate 325 mg (65 mg iron) tablet (Feosol) 325 mg PO DAILY supplement 10/07/23 [History Last Taken Unknown] ondansetron 8 mg PO TID PRN PRN n/v 10/07/23 [History Last Taken 10/06/23 08:00] tramadol 50 mg tablet 50 mg PO Q8H PRN pain 10/18/23 [History Last Taken Unknown] midodrine 5 mg tablet 5 mg PO TID #90 tabs 10/24/23 [Rx Last Taken Unknown] omeprazole 20 mg capsule,delayed release 20 mg PO DAILY gerd 11/16/23 [History Last Taken Unknown] potassium chloride 20 mEq tablet,extended release 20 meq PO TID 11/16/23 [History Last Taken Unknown] warfarin 5 mg tablet (Jantoven) 5 mg PO DAILY blood thinner 11/16/23 [History Last Taken Unknown] Allergy/AdvReac Type Severity Reaction Status Date / Time cyclobenzaprine Allergy Unknown Unknown Verified 11/16/23 09:22 [From Flexeril] adhesive Allergy Rash Verified 11/16/23 09:22 docetaxel [From Taxotere] Allergy Unknown Verified 01/31/24 09:22 doxycycline Allergy Unknown Verified 11/16/23 09:22 enoxaparin sodium Allergy triple Verified 11/16/23 09:22 [From Lovenox] liver enzymes Penicillins Allergy Rash Verified 11/16/23 09:22 enoxaparin [Enoxaparin] AdvReac Mild Nausea Verified 11/16/23 09:22 amlodipine AdvReac Unknown Pt Verified 11/16/23 09:22 remembers he can't take it but can't remember reaction promethazine AdvReac Other Verified 11/16/23 09:22 Family History Mother Hypertension Arthritis Father , age 82 COPD complications COPD (chronic obstructive pulmonary disease) Arthritis Sister Hypertension Surgical History History of bilateral knee replacement History of blepharoplasty History of cholecystectomy History of colonoscopy (12/2020) History of esophagogastroduodenoscopy (EGD) (12/2020) History of hernia surgery History of left heart catheterization (06/16/04) History of right hip replacement history of thumb replacement history of toe replacement Hx of left cataract extraction Hx of right cataract extraction Social History household members: spouse Smoking Status: Never smoker alcohol intake: never substance use type: does not use ROS ROS ED Review of Systems ROS Unobtainable: other Constitutional Constitutional ED: Reports lethargy; Denies chills, fever(s), sweats or weight loss Eyes Eyes: Denies blurry vision, change in vision or diplopia ENT ENT ED: Denies rhinorrhea or sore throat Cardiovascular Cardiovascular: Denies chest pain, orthopnea or racing heartbeat Respiratory/Chest Respiratory/Chest: Denies cough, dyspnea, dyspnea on exertion, orthopnea or sputum Gastrointestinal Gastrointestinal: Reports abdominal pain and diarrhea; Denies nausea or vomiting Genitourinary Genitourinary ED: Denies dysuria, hematuria or urinary frequency Musculoskeletal Musculoskeletal: Denies arthralgias, back pain, myalgias or neck pain Integumentary Denies abscess, Abrasions or rash Neurologic Neurologic: Denies headache(s) or weakness Psychiatric Psychiatric: Denies anxiety, depression or suicidal thoughts Endocrine Endocrinology: Denies polydipsia, polyphagia or polyuria Hematologic/Lymphatic Hematologic/Lymphatic: Denies easy bleeding, easy bruising or lymphadenopathy Allergic/Immunologic Allergic/Immunologic ED: Denies mouth swelling, tongue swelling or urticaria EXAM Physical Exam Const Vital Signs: 11/16/23 10:15 11/16/23 10:17 11/16/23 10:54 Temperature 98.2 F 98.2 F 98.0 F Temperature Source Temporal Temporal Temporal Pulse Rate 102 H 102 H 94 Respiratory Rate 18 19 H 20 H Blood Pressure 110/73 110/73 103/69 Blood Pressure Mean 85 85 80 Pulse Ox 97 97 94 Oxygen Delivery Method Room Air Room Air Room Air Oxygen Flow Rate (L/min) 11/16/23 11:17 11/16/23 12:00 11/16/23 13:00 Temperature 97.4 F L 97.4 F L 97.8 F Temperature Source Temporal Temporal Temporal Pulse Rate 95 95 97 Respiratory Rate 20 H 19 H 19 H Blood Pressure 106/71 109/74 109/70 Blood Pressure Mean 82 85 83 Pulse Ox 93 95 97 Oxygen Delivery Method Room Air Room Air Nasal Cannula Oxygen Flow Rate (L/min) 2 11/16/23 14:00 11/16/23 15:00 11/16/23 15:00 Temperature 97.8 F 97.8 F Temperature Source Temporal Temporal Pulse Rate 99 104 H 104 H Respiratory Rate 19 H 19 H 19 H Blood Pressure 107/78 93/65 93/65 Blood Pressure Mean 87 74 74 Pulse Ox 94 96 96 Oxygen Delivery Method Nasal Cannula Nasal Cannula Oxygen Flow Rate (L/min) 2 2 11/16/23 15:43 Temperature Temperature Source Pulse Rate 104 H Respiratory Rate 17 Blood Pressure 96/68 Blood Pressure Mean 77 Pulse Ox 98 Oxygen Delivery Method Nasal Cannula Oxygen Flow Rate (L/min) 2 Positive well nourished and well developed General Appearance ED: well developed and NAD HEENT Reports TM's clear and moist mucous membranes normocephalic and atraumatic; Negative for trauma or tenderness Tympanic Membrane ED: Yes TM's clear Eyes PERRL and EOMs intact bilaterally General Eye ED: Negative for pale conjunctiva or scleral icterus Neck no lymphadenopathy, supple and no JVD General: Negative for tenderness Chest Wall inspection of chest normal and palpation of chest normal Chest: Negative for tenderness Resp normal respiratory effort and clear to auscultation bilaterally Effort and Inspection: Negative for respiratory distress or pain with movement Auscultation: Negative for rhonchi, wheezes or diminished lung sounds Cardio regular rate, regular rhythm, S1 normal heart sound, S2 normal heart sound and no murmurs Peripheral Pulses: pulses 2+ throughout GI normal to inspection, nondistended, normoactive bowel sounds, soft to palpation, non-distended and no masses GI Narrative: Mild diffuse tenderness. No rebound, rigidity, or perineal signs. Back/Spine no CVA tenderness and no thoracic nor lumbar tenderness Extremity normal to inspection General Extremety ED: Negative for edema General Extremity: Negative for edema Neuro oriented x3, CN's II-XII intact bilaterally, no sensory deficits noted and gait normal Sensorium / Orientation: awake, alert, oriented to person, oriented to place and oriented to time Motor Exam: strength 5/5 throughout and strength abnormal Psych mental status grossly normal Skin no rashes or lesions noted and no wounds MDM MDM MDM Narrative Medical decision making narrative: Patient with generalized weakness and diarrhea for over a month. Diagnosed with C. difficile in September and never completely recovered. Worsening diarrhea over the last several days. Patient also on biological treatment for metastatic prostate cancer. IV line established. Normal saline was ordered. CBC with differential obtained showed a white count of 10.4 with hemoglobin 10.1 and platelet count of 73,000. Chemistries unremarkable. LFTs unremarkable. CT scan of the abdomen and pelvis showed pancolitis. Stool sent for C. difficile as well as enteric pathogen's. C. difficile was positive. I did give patient oral Vanco. He does take midodrine for low blood pressures and I did give him a dose of his midodrine and it has the latest blood pressure was down to 90 systolic. Discussed case with GI and will discuss with hospitalist to evaluate patient for admission for C. difficile colitis with failed outpatient therapy Lab Data Attestation: I reviewed the patient's lab results. Labs: Laboratory Results - last 24 hr 11/16/23 13:00 WBC 10.4 RBC 3.00 L Hgb 10.1 L Hct 31.5 L MCV 105.0 H MCH 33.7 H MCHC 32.1 RDW Std Deviation 60.0 H RDW Coeff of Judi 15.8 H Plt Count 73 L MPV 11.6 Immature Gran % (Auto) 0.300 Neut % (Auto) 73.0 H Lymph % (Auto) 16.2 L [place] % (Auto) 8.9 Eos % (Auto) 1.1 Baso % (Auto) 0.5 Absolute Neuts (auto) 7.6 Absolute Lymphs (auto) 1.68 Nucleated RBC % 0 Sodium 133 L Potassium 3.4 L Chloride 97 L Carbon Dioxide 32.0 Anion Gap 4 L BUN 20 H Creatinine 0.86 Estim Creat Clear Calc 89.04 Est GFR (MDRD) Af Amer 112 Est GFR (MDRD) Non-Af 92 BUN/Creatinine Ratio 23.3 H Glucose 104 Lactic Acid 1.9 Calcium 7.9 L Total Bilirubin 1.00 AST 29 ALT 17 Alkaline Phosphatase 97 Total Protein 6.2 L Albumin 2.2 L Globulin 4.0 Albumin/Globulin Ratio 0.6 L Radiography Diagnostic Testing: Clinical Impression(s) from Imaging Studies Abdomen/Pelvis CT 11/16/23 12:48 IMPRESSION: There is evidence of a pancolitis. Electronically Signed: Marco A Michaels MD at 14:34 EST , Discharge Plan Dx/Rx/DC Orders Clinical Impression: C. difficile colitis, Hypotension, Prostate cancer Disposition Disposition: Acute [facility]
[2023-11-16] MEDS: 0.9% Normal Saline (1000mL) 1,000 ML 1000 ML IV (11:51)
--- NOTE | 2023-11-16 12:48 | CT_ITS ---
STUDY: CT ABDOMEN AND PELVIS WITH CONTRAST REASON FOR EXAM: Male, 73 years old. Abdominal pain. Diarrhea. Prior diagnosis of C. difficile. History of metastatic prostate cancer. Syncopal episodes. RADIATION DOSAGE (If Supplied By Facility): CTDIvol = ( 16.05 ) mGy, DLP = ( 1229.73 ) mGycm TECHNIQUE: Transaxial images were obtained from the dome of the diaphragm to the symphysis pubis without oral contrast. IV 100mL [id number]-[id number] was administered. Sagittal and coronal images were reconstructed. Individualized dose optimization techniques were used for this CT. COMPARISON: Comparison is made with prior study dated October 18, 2023. FINDINGS: Minimal degree of increased markings at the right lung base suggestive of atelectasis and/or scarring. Coronary artery calcification. There is decreased attenuation of the liver consistent with steatosis. The patient is status post cholecystectomy. Normal spleen. Normal pancreas. Normal bilateral adrenal glands. Stable bilateral renal cysts. There is a small hiatal hernia. Normal small intestine. There is diffuse circumferential wall thickening of the entire colon in keeping with a pancolitis. This has progressed as compared to prior study. The appendix is visualized and appears normal. There is diffuse atherosclerotic calcification of the abdominal aorta and its major visceral branches, without a demonstrated aneurysm. There is an IVC filter in place. Normal retroperitoneum. Normal urinary bladder. Prior TURP. Normal abdominal wall. There are diffuse degenerative changes of the visualized lumbar spine. Levoscoliosis. Healing right sacral fracture. Status post right total hip replacement. CT/Abdomen/Pelvis W IV Cont ONLY IMPRESSION: There is evidence of a pancolitis. Electronically Signed: Marco A Michaels MD at 14:34 EST ,
[2023-11-16 13:16] LABS: Absolute Lymphocyte Count 1.68 X10^3/uL (0.83-4.51); Absolute Neutrophil Count 7.6 X10^3/uL (2.0-7.7); Basophil# 0.05 X10^3/uL; Basophil% 0.5 % (0-1); Eosinophil# 0.11 X10^3/uL; Eosinophils% 1.1 % (0-5); Hematocrit 31.5 % (40-54); Hemoglobin 10.1 g/dL (13.0-16.5); Lymphocyte # 1.68 X10^3/ul (0.83-4.51); Lymphocyte % 16.2 % (19-41); Mean Corp Hgb Conc 32.1 g/dL (32-36); Mean Corpuscular Hgb 33.7 pg (27.0-32.0); Mean Platelet Vol. 11.6 fl (6.2-12.0); Monocyte# 0.92 X10^3/uL; Monocyte% 8.9 % (0-10); NRBC Flagged by Analyzer 0 % (0-5); POSITIVE COUNT YES; Platelet Count 73 K/mm3 (150-450); RBC Distribution Width CV 15.8 % (11.6-14.6); White Blood Count 10.4 K/mm3 (4.4-11.0)
[2023-11-16 13:36] LABS: ALB/GLOB Ratio 0.6 RATIO (0.9-2.4); AST(SGOT) 29 U/L (15-37); Alanine Aminotransfer ALT/SGPT 17 U/L (16-61); Albumin, Serum 2.2 g/dL (3.2-5.0); Alkaline Phosphatase 97 U/L (45-117); Anion Gap 4 (5-15); BUN 20 mg/dL (7-18); BUN/Creat Ratio 23.3 RATIO (10-20); Calcium,Total 7.9 mg/dL (8.5-10.1); Chloride 97 mmol/L (98-107); Creatinine, Serum 0.86 mg/dL (0.70-1.30); EST Glomerular Filtration Rate 92 mL/min (>60); Est Glom Filt Rate - Afr Amer 112 mL/min (>60); Estimated Creatinine Clearance 89.04 ml/min; Glucose 104 mg/dL (74-106); Potassium 3.4 mmol/L (3.5-5.1); Protein, Total 6.2 g/dL (6.4-8.2); Sodium Level 133 mmol/L (136-145)
[2023-11-16 13:40] LABS: Lactic Acid 1.9 mmol/L (0.4-1.9)
[2023-11-16] MEDS: Vancomycin 125 MG/5 ML Susp PO.SYRINGE PO ×3 (15:05→23:46)
[2023-11-16] MEDS: Midodrine HCl 5 MG Tablet PO (15:42)
--- NOTE | 2023-11-16 16:15 | NURSING ---
[facility] CDIFF COLITIS, GENERALIZED WEAKNESS, HYPOTENSION
--- NOTE | 2023-11-16 16:56 | HP.PCM.HOS_ITS ---
HPI - General General Date of Admission: 11/16/23 Date of Service: 11/16/23 Chief Complaint: Diarrhea HPI Narrative ATTILA PELLETIER, is a 73-year-old male history of DVT, prostate cancer diagnosed 2017 status post chemotherapy and radiation but repeat PET with diffuse spreading and on Keytruda with last dose 3 days ago, GERD, hypertension, asthma, arthritis presented to [facility] 11/16/2023 due to increasing diarrhea and weakness. His diarrhea initially began in September 2023 and at that time he was found to have C. difficile, symptoms improved initially however the last 2 days he has had more watery and frequent episodes of diarrhea and reports fever at home and some small amount of blood in stool and feeling generally weak. Advised to come to the ED by his oncologist. In the ED patient C. difficile positive again, completed treatment 11/02, and had CT scanning of abdomen pelvis which showed pancolitis. Case was discussed with GI who recommended admission and that he would be seen in consult. Patient given IV fluids and oral vancomycin in ED and hospitalist contacted for admission. Patient evaluated with at bedside and they report that he had got better initially after his last episode of C. difficile but now has watery stools and increased frequency of stools, may be had some brief nausea but not any at this time, had a headache a couple days ago but no further headache at this time either, small amount of blood in stool yesterday, occasionally has had some abdominal cramping but no severe abdominal pain. Also possibly had fever. Reports the Keytruda was newly started several days ago as he had not tolerated chemotherapy previously. [facility] Medical History Abrasion Arthritis Asthma ASV (adaptive servo-ventilation) use counseling Atrioventricular block, first degree Back pain Blackout Bladder disease Bronchiectasis Cancer Cardiology follow-up encounter Central sleep apnea Chest pain Chronic cough COVID-19 virus detected (06/06/21) DVT (deep venous thrombosis) Dysphagia Esophageal varices Essential (primary) hypertension Gastric reflux Gastritis GERD without esophagitis Gout History of Coumadin therapy History of edema History of hiatal hernia History of irregular heartbeat History of pulmonary embolism History of ulceration Hx of Acosta's palsy Hx of glaucoma Hyperlipidemia Hypokalemia Injury of head and neck Loss of hearing Other instability, left shoulder Peripheral neuropathy Personal history of colonic polyps Prostate cancer metastatic to bone Severe persistent asthma Shortness of breath on exertion Symptomatic bradycardia (09/24/21) Syncope Voice hoarsenesses Wears glasses Wears partial dentures Home Medications duloxetine 60 mg capsule,delayed release (Cymbalta) 60 mg PO QDAY depression 12/01/17 [History Last Taken Unknown] calcium carbonate 600 mg-vitamin D3 5 mcg (200 unit) tablet 1 ea PO DAILY supplement 06/27/18 [History Last Taken Unknown] glucosamine sulf dipot chlr,msm,chond 550 mg-C 30 mg-beronica 1 mg capsule 2 ea PO DAILY supplement 02/17/20 [History Last Taken Unknown] PEP device #1 ea 08/25/21 [Rx Last Taken Unknown] leuprolide (3 month) 22.5 mg (3 month) subcutaneous syringe ([employer]) 22.5 mg subcut .Q3MO prostate ca 01/15/22 [History Last Taken Unknown] Lactobacillus acidophilus 10 mg PO DAILY probiotic 03/10/23 [History Last Taken Unknown] cyanocobalamin (vitamin B-12) 1,000 mcg tablet (Vitamin B-12) 5,000 mcg PO DAILY supplement 03/10/23 [History Last Taken Unknown] gabapentin 400 mg capsule 800 mg PO BID nerve pain 03/10/23 [History Last Taken Unknown] oxybutynin chloride 5 mg tablet 5 mg PO DAILY overactive bladder 03/10/23 [History Last Taken Unknown] albuterol sulfate 90 mcg/actuation aerosol inhaler (Ventolin HFA) 2 puff inhalation Q4H PRN shortness of breath or wheezing #18 grams 03/30/23 [Rx Last Taken Unknown] guaifenesin 1,200 mg tablet, extended release 12 hr 1,200 mg PO Q12H congestion #60 tabs 05/16/23 [Rx Last Taken Unknown] acetaminophen 500 mg capsule 500 mg PO Q6H PRN pain 10/07/23 [History Last Taken Unknown] ferrous sulfate 325 mg (65 mg iron) tablet (Feosol) 325 mg PO DAILY supplement 10/07/23 [History Last Taken Unknown] ondansetron 8 mg PO TID PRN PRN n/v 10/07/23 [History Last Taken 10/06/23 08:00] tramadol 50 mg tablet 50 mg PO Q8H PRN pain 10/18/23 [History Last Taken Unknown] midodrine 5 mg tablet 5 mg PO TID #90 tabs 10/24/23 [Rx Last Taken Unknown] omeprazole 20 mg capsule,delayed release 20 mg PO DAILY gerd 11/16/23 [History Last Taken Unknown] potassium chloride 20 mEq tablet,extended release 20 meq PO TID 11/16/23 [History Last Taken Unknown] warfarin 5 mg tablet (Jantoven) 5 mg PO DAILY blood thinner 11/16/23 [History Last Taken Unknown] Allergy/AdvReac Type Severity Reaction Status Date / Time cyclobenzaprine Allergy Unknown Unknown Verified 11/16/23 09:22 [From Flexeril] adhesive Allergy Rash Verified 11/16/23 09:22 docetaxel [From Taxotere] Allergy Unknown Verified 11/16/23 09:22 doxycycline Allergy Unknown Verified 11/16/23 09:22 enoxaparin sodium Allergy triple Verified 11/16/23 09:22 [From Lovenox] liver enzymes Penicillins Allergy Rash Verified 11/16/23 09:22 enoxaparin [Enoxaparin] AdvReac Mild Nausea Verified 11/16/23 09:22 amlodipine AdvReac Unknown Pt Verified 11/16/23 09:22 remembers he can't take it but can't remember reaction promethazine AdvReac Other Verified 11/16/23 09:22 Family History Mother Hypertension Arthritis Father , age 82 COPD complications COPD (chronic obstructive pulmonary disease) Arthritis Sister Hypertension Surgical History History of bilateral knee replacement History of blepharoplasty History of cholecystectomy History of colonoscopy (12/2020) History of esophagogastroduodenoscopy (EGD) (12/2020) History of hernia surgery History of left heart catheterization (06/16/04) History of right hip replacement history of thumb replacement history of toe replacement Hx of left cataract extraction Hx of right cataract extraction Social History household members: spouse Smoking Status: Never smoker alcohol intake: never substance use type: does not use ROS ROS Narrative General: Reported a fever at home HENT: Headache several days ago denies stuffy nose, denies sore throat EYES: Denies changes in vision Resp: Denies cough, denies shortness of breath Cardiac: Denies chest pain GI: Some abdominal discomfort and watery diarrhea : Denies changes in urination Extremity: Had been having some swelling but reports he was given water pills and lost a lot of weight MSK: Some generalized weakness Neuro: Denies any numbness/tingling Heme: Little bit of blood in stool Skin: Denies rashes Psychiatric: No complaints voiced Vital Signs Vital Signs Vital Signs: 11/16/23 10:15 11/16/23 10:17 11/16/23 10:54 Temperature 98.2 F 98.2 F 98.0 F Temperature Source Temporal Temporal Temporal Pulse Rate 102 H 102 H 94 Respiratory Rate 18 19 H 20 H Blood Pressure 110/73 110/73 103/69 Blood Pressure Mean 85 85 80 Pulse Ox 97 97 94 Oxygen Delivery Method Room Air Room Air Room Air Oxygen Flow Rate (L/min) 11/16/23 11:17 11/16/23 12:00 11/16/23 13:00 Temperature 97.4 F L 97.4 F L 97.8 F Temperature Source Temporal Temporal Temporal Pulse Rate 95 95 97 Respiratory Rate 20 H 19 H 19 H Blood Pressure 106/71 109/74 109/70 Blood Pressure Mean 82 85 83 Pulse Ox 93 95 97 Oxygen Delivery Method Room Air Room Air Nasal Cannula Oxygen Flow Rate (L/min) 2 11/16/23 14:00 11/16/23 15:00 11/16/23 15:00 Temperature 97.8 F 97.8 F Temperature Source Temporal Temporal Pulse Rate 99 104 H 104 H Respiratory Rate 19 H 19 H 19 H Blood Pressure 107/78 93/65 93/65 Blood Pressure Mean 87 74 74 Pulse Ox 94 96 96 Oxygen Delivery Method Nasal Cannula Nasal Cannula Oxygen Flow Rate (L/min) 2 2 11/16/23 15:43 Temperature Temperature Source Pulse Rate 104 H Respiratory Rate 17 Blood Pressure 96/68 Blood Pressure Mean 77 Pulse Ox 98 Oxygen Delivery Method Nasal Cannula Oxygen Flow Rate (L/min) 2 Weight Weight: 99.337 kg Body Mass Index (BMI) 31.4 Physical Exam Narrative General: Alert, oriented HEENT: Atraumatic, normocephalic Eyes: Anicteric, normal conjunctiva, extraocular movements grossly intact Neck: Supple Respiratory: Clear to auscultation bilaterally, normal respiratory effort Cardiovascular: Regular rate GI: Soft, somewhat tender in lower quadrants without rebound, guarding, rigidity Extremities: No edema Musculoskeletal: Moving all extremities Neuro: No overt focal neurological deficits Skin: No rashes appreciated Psych: Cooperative Results Lab / Micro Data 11/16/23 13:00 11/16/23 13:00 Labs: Laboratory Results - last 24 hr 11/16/23 13:00: WBC 10.4, RBC 3.00 L, Hgb 10.1 L, Hct 31.5 L, MCV 105.0 H, MCH 33.7 H, MCHC 32.1, RDW Std Deviation 60.0 H, RDW Coeff of Judi 15.8 H, Plt Count 73 L, MPV 11.6, Immature Gran % (Auto) 0.300, Neut % (Auto) 73.0 H, Lymph % (Auto) 16.2 L, [place] % (Auto) 8.9, Eos % (Auto) 1.1, Baso % (Auto) 0.5, Absolute Neuts (auto) 7.6, Absolute Lymphs (auto) 1.68, Nucleated RBC % 0, Sodium 133 L, Potassium 3.4 L, Chloride 97 L, Carbon Dioxide 32.0, Anion Gap 4 L, BUN 20 H, Creatinine 0.86, Estim Creat Clear Calc 89.04, Est GFR (MDRD) Af Amer 112, Est GFR (MDRD) Non-Af 92, BUN/Creatinine Ratio 23.3 H, Glucose 104, Lactic Acid 1.9, Calcium 7.9 L, Total Bilirubin 1.00, AST 29, ALT 17, Alkaline Phosphatase 97, Total Protein 6.2 L, Albumin 2.2 L, Globulin 4.0, Albumin/Globulin Ratio 0.6 L Micro: Microbiology 11/16/23 11:10 Stool C. difficile GDH Antigen & Toxins - Final Toxigenic C. difficile 11/16/23 11:10 Stool Clostridioides difficile (PCR) - Final Imaging Radiology Impression Abdomen/Pelvis CT 11/16/23 12:48 IMPRESSION: There is evidence of a pancolitis. Electronically Signed: Marco A Michaels MD at 14:34 EST , Assessment & Plan Assessment/Plan (1) C. difficile colitis: (2) GERD (gastroesophageal reflux disease): QUALIFIERS: Esophagitis presence: esophagitis presence not specified Qualified Code(s): K21.9 - Gastro-esophageal reflux disease without esophagitis (3) History of pulmonary embolism: (4) Prostate cancer metastatic to bone: PLAN: Plan # Pancolitis suspected to be due to recurrence of C. difficile -Patient had C. difficile diagnosed early in the month with last dose of va ncomycin 11/02 -Representing with abdominal cramping and recurrence of watery diarrhea for 2 days -CT abdomen pelvis with evidence of pancolitis and C. difficile positive -GI contacted in ED and recommended admission and that he will be seen in consult -Continue p.o. vancomycin -Monitor electrolytes -Received fluids in ED, will continue gentle hydration as patient reportedly had been retaining fluid earlier in the month #Hypokalemia -Replaced #Metastatic prostate cancer -Follows w/ Dr. Barrios -Was unable to tolerate chemotherapy so has not received any since September, started Keytruda several days ago #Hx PE -On coumadin, will monitor PT/INR #GERD -Continue PPI #Chronic hypotension -Continue home midodrine #Sleep apnea -Continue home cpap # Chronic macrocytic anemia -Appears to be at baseline -Had small amount of blood yesterday in stool, suspect this is secondary to colitis, continue to monitor # Hyponatremia -133, up from 129 several days ago, continue to monitor, asymptomatic at this time #DVT ppx: SCDs while awaiting INR to make sure patient is therapeutic Jenna Hernandez MD Charges/Coding Visit Charges Inpatient E&M: 57324 Init Hosp L2
[2023-11-16] MEDS: Potassium Chloride Oral Tablet 20 MEQ 60 MEQ PO (20:47)
[2023-11-16] MEDS: 0.9% Saline Lock 10 ML Syringe IV (21:01)
[2023-11-16] MEDS: 0.9% Normal Saline (1000mL) 1,000 ML 50 ML IV (21:01)
[2023-11-16] MEDS: Acetaminophen 325 MG Tablet 650 MG PO (21:59)
[2023-11-16] MEDS: Menthol/Lanolin/Calamine/Znox 113 GM Tube 1 APPLIC TOPICAL (21:59)
[2023-11-16 22:44] LABS: International Normalized Ratio 1.6; Prothrombin Time (Protime)PT. 18.9 SECONDS (11.7-14.9)
[2023-11-16] MEDS: MELATONIN 3 MG TABLET PO (23:46)
[2023-11-17] VITALS (9 sets, daily range): BP systolic 92–128; BP diastolic 57–75; PULSE 91–111; RESP 16–20; TEMP 36.2–38.4; O2SAT 92–98; BMI 31.1
[2023-11-17] MEDS: Vancomycin 125 MG/5 ML Susp PO.SYRINGE PO ×3 (05:21→17:28)
[2023-11-17] MEDS: Acetaminophen 325 MG Tablet 650 MG PO ×2 (05:21→15:21)
[2023-11-17] MEDS: Menthol/Lanolin/Calamine/Znox 113 GM Tube 1 APPLIC TOPICAL ×3 (05:28→22:40)
--- NOTE | 2023-11-17 07:53 | PN.HOSP_ITS ---
Subjective Subjective Still feeling sick. Objective Data Objective Data Vital Signs: Vital Signs Temp Pulse Resp BP Pulse Ox O2 Del Method O2 Flow Rate 37.7 C H 98 16 123/75 H 96 CPAP 1 11/17/23 06:35 11/17/23 05:25 11/17/23 05:25 11/17/23 05:25 11/17/23 05:25 11/17/23 05:25 11/16/23 20:42 Oxygen Flow Rate (L/min) 1 Oxygen Delivery Method CPAP Weight: 98.8 kg Body Mass Index (BMI) 31.1 Intake & Output: Intake and Output for Last 24 Hours 11/15/23 11/16/23 11/17/23 23:59 23:59 23:59 Intake Total 1000 / 1000 Balance 1000 / 1000 Lab / Micro Data 11/17/23 10:00 11/17/23 07:42 Labs: Laboratory Results - last 24 hr 11/16/23 13:00: WBC 10.4, RBC 3.00 L, Hgb 10.1 L, Hct 31.5 L, MCV 105.0 H, MCH 33.7 H, MCHC 32.1, RDW Std Deviation 60.0 H, RDW Coeff of Judi 15.8 H, Plt Count 73 L, MPV 11.6, Immature Gran % (Auto) 0.300, Neut % (Auto) 73.0 H, Lymph % (Auto) 16.2 L, [place] % (Auto) 8.9, Eos % (Auto) 1.1, Baso % (Auto) 0.5, Absolute Neuts (auto) 7.6, Absolute Lymphs (auto) 1.68, Nucleated RBC % 0, Sodium 133 L, Potassium 3.4 L, Chloride 97 L, Carbon Dioxide 32.0, Anion Gap 4 L, BUN 20 H, Creatinine 0.86, Estim Creat Clear Calc 89.04, Est GFR (MDRD) Af Amer 112, Est GFR (MDRD) Non-Af 92, BUN/Creatinine Ratio 23.3 H, Glucose 104, Lactic Acid 1.9, Calcium 7.9 L, Total Bilirubin 1.00, AST 29, ALT 17, Alkaline Phosphatase 97, Total Protein 6.2 L, Albumin 2.2 L, Globulin 4.0, Albumin/Globulin Ratio 0.6 L 11/16/23 22:25: PT 18.9 H, INR 1.6 Micro: Microbiology 11/16/23 11:10 Stool C. difficile GDH Antigen & Toxins - Final Toxigenic C. difficile 11/16/23 11:10 Stool Clostridioides difficile (PCR) - Final Radiography Diagnostic Testing: Radiology Impression Abdomen/Pelvis CT 11/16/23 12:48 IMPRESSION: There is evidence of a pancolitis. Electronically Signed: Marco A Michaels MD at 14:34 EST , Physical Exam Const alert and no apparent distress Constitutional Narrative: listless. afebrile. Resp normal respiratory effort, no retractions, no use of accessory muscles and clear to auscultation bilaterally Cardio regular rate, regular rhythm, S1 normal heart sound and S2 normal heart sound GI normal to inspection, nondistended, normoactive bowel sounds, soft to palpation and non-tender GI Narrative: distended abdomen. Neuro Sensorium / Orientation: awake and alert Assessment & Plan Assessment/Plan (1) C. difficile colitis: (2) GERD (gastroesophageal reflux disease): QUALIFIERS: Esophagitis presence: esophagitis presence not specified Qualified Code(s): K21.9 - Gastro-esophageal reflux disease without esophagitis (3) History of pulmonary embolism: (4) Prostate cancer metastatic to bone: PLAN: Plan C.diff colitis * recurrent. * Completed 10-day course of vancomycin 125 mg 4 times daily. Currently on vancomycin 1.5 mg 4 times daily. Will plan on a taper thereafter with 125 4 times daily for 10 days and then 3 times daily for 1 week, twice daily for 1 week, daily for 1 week, every 48 hours for 1 week then every third day for 1 week. Hypokalemia * Replaced Hyperbilirubinemia * unclear significance * monitor Chronic conditions * Metastatic prostate cancer: follows w/ Dr. Barrios. Was unable to tolerate chemotherapy so has not received any since September, started Keytruda several days ago * Hx PE: On coumadin, will monitor PT/INR * GERD-Continue PPI * Chronic hypotension-Continue home midodrine * Sleep apnea-Continue home cpap * Chronic macrocytic anemia. Appears to be at baseline. Had small amount of blood yesterday in stool, suspect this is secondary to colitis, continue to monitor VTE prophylaxis: SCDs. DW pt's at bedside. Charges/Coding Visit Charges Inpatient E&M: 54226 Subs Hosp L2
[2023-11-17] MEDS: DULoxetine Hcl 60 MG Capsule PO (08:11)
[2023-11-17] MEDS: Ensure Plus High Protein 120 ML LIQUID PO (08:11)
[2023-11-17] MEDS: guaiFENesin 1,200 MG Tablet 1200 MG PO ×2 (08:11→22:41)
[2023-11-17] MEDS: Oxybutynin 5 MG Tablet PO (08:11)
[2023-11-17] MEDS: Pantoprazole Sodium 20 MG Tablet PO (08:11)
[2023-11-17] MEDS: Midodrine HCl 5 MG Tablet PO ×3 (08:11→17:27)
[2023-11-17] MEDS: Ferrous Sulfate 325 MG Tablet PO (08:11)
[2023-11-17] MEDS: Calcium Carb/Vitamin D 1 TABLET Tablet PO (08:12)
[2023-11-17] MEDS: Gabapentin 800 MG Tablet PO (08:12)
[2023-11-17 08:30] LABS: International Normalized Ratio 1.6; Prothrombin Time (Protime)PT. 18.8 SECONDS (11.7-14.9)
[2023-11-17 08:53] LABS: ALB/GLOB Ratio 0.5 RATIO (0.9-2.4); AST(SGOT) 27 U/L (15-37); Alanine Aminotransfer ALT/SGPT 16 U/L (16-61); Albumin, Serum 2.4 g/dL (3.2-5.0); Alkaline Phosphatase 103 U/L (45-117); Anion Gap 6 (5-15); BUN 18 mg/dL (7-18); BUN/Creat Ratio 18.8 RATIO (10-20); Calcium,Total 8.3 mg/dL (8.5-10.1); Chloride 99 mmol/L (98-107); Creatinine, Serum 0.96 mg/dL (0.70-1.30); EST Glomerular Filtration Rate 82 mL/min (>60); Est Glom Filt Rate - Afr Amer 99 mL/min (>60); Estimated Creatinine Clearance 79.56 ml/min; Globulin 4.4 g/dL (2.2-4.2); Glucose 111 mg/dL (74-106); Potassium 3.7 mmol/L (3.5-5.1); Protein, Total 6.8 g/dL (6.4-8.2); Sodium Level 133 mmol/L (136-145); Thyroid Stim Hormone (TSH) 0.45 uIU/mL (0.358-3.74)
[2023-11-17 10:53] LABS: Absolute Lymphocyte Count 1.36 X10^3/uL (0.83-4.51); Basophil# 0.08 X10^3/uL; Basophil% 0.4 % (0-1); Hemoglobin 10.5 g/dL (13.0-16.5); Lymphocyte # 1.36 X10^3/ul (0.83-4.51); Lymphocyte % 6.9 % (19-41); Mean Corp Hgb Conc 32.8 g/dL (32-36); Mean Corpuscular Hgb 34.1 pg (27.0-32.0); Mean Corpuscular Volume 103.9 fL (80-94); Mean Platelet Vol. 11.2 fl (6.2-12.0); Monocyte# 2.03 X10^3/uL; Monocyte% 10.3 % (0-10); NRBC Flagged by Analyzer 0 % (0-5); Neutrophil # 16.04 X10^3/uL (2.7-7.7); Neutrophil % 81.2 % (47-70); POSITIVE COUNT YES; POSITIVE DIFFERENTIAL YES; Platelet Count 71 K/mm3 (150-450); RBC Distribution Width CV 15.9 % (11.6-14.6); RBC Distribution Width SD 61.1 fl (35.1-43.9); Red Blood Count 3.08 M/mm3 (4.6-6.2); White Blood Count 19.7 K/mm3 (4.4-11.0)
[2023-11-17 10:54] LABS: Differential Indicated SCAN CRITERIA MET
[2023-11-17 11:20] LABS: Differential Comment SCANNED
[2023-11-17] MEDS: 0.9% Normal Saline (1000mL) 1,000 ML 150 ML IV (13:33)
--- NOTE | 2023-11-17 14:42 | CASEMGMT ---
Addendum entered by Debbie Hicks 11/17/23 15:44: CR Index Admission: 10/18/23-10/24/23 Index Dx: FUO DC Disposition: Home Current Admission: recurrent cdiff Pt had presented back to [facility] with cdiff after last hospital stay being dc'd with same. Pt had dc'd on vancomycin. Pt states pt did take medications as ordered and had followed up with physician. Original Note: Face to Face with pt for initial transition planning/care coordination assessment. RN CM introduced self and role at [facility], pt voices understanding and consents to assessment. Pt drowsy and states had a long night. He asks for to answer assessment questions. Pt and grandson in room. Care providers, pharmacy, and demographics verified/updated. Admitting Dx: recurrent cdiff PCP:Sabrina Specialists:Luly onc; ricardo Felix Preferred Pharmacy: [facility] [place] Insurance: [facility] [place] Prescription Benefit: yes LNOK: Monica Medrano, ; Mehnaz Keita, dtr Living Arrangements: Pt lives with in a trilevel home with 2 steps to enter. Pt has a stair lift to the other level. Most recently pt has needed assistance with bathing and dressing but prior to his first bout of cdiff he was I in ADL's. Transportation: Pt drives self and denies concerns with transportation. Pt also able to transport pt. DME:ASV, BSC, walker HHC/SNF: [facility] in the past, George Lukas Pt states no concerns with going home at time of dc. She is interested in [facility] for SN and therapy most likely. She states she would like [facility] and denies need for a list of other options. Pt states no further concerns/needs. CM to follow. Advised pt and to ask CM if any further question/concerns/needs arise, voices understanding. Pt and Goal: Home with [facility] Plan: Home with [facility]
--- NOTE | 2023-11-17 18:01 | CON.PCM.GI_ITS ---
HPI Consult Data Date of Consult: 11/17/23 HPI Narrative Reason for Consultation: C. difficile colitis HPI Narrative: ATTILA PELLETIER, is a 73 M who presents back to the emergency room with worsening abdominal pain, cramping, lethargy, fever and diarrhea. He has a history of DVT, prostate cancer diagnosed 2017 status post chemotherapy and radiation but repeat PET with diffuse spreading and on Keytruda with last dose 3 days ago. He also has a past medical history of GERD, hypertension, asthma, arthritis presented to [facility] 11/16/2023 due to increasing diarrhea and weakness. His diarrhea initially began in September 2023 and at that time he was found to have C. difficile, symptoms improved initially however the last 2 days he has had more watery and frequent episodes of diarrhea and reports fever at home and some small amount of blood in stool and feeling generally weak. Advised to come to the ED by his oncologist. In the ED patient C. difficile positive again, completed treatment 11/02, and had CT scanning of abdomen pelvis which showed pancolitis. . Patient given IV fluids and oral vancomycin in ED. Patient evaluated with at bedside and they report that he had got better initially after his last episode of C. difficile but now has watery stools and increased frequency of stools, may be had some brief nausea but not any at this time, had a headache a couple days ago but no further headache at this time either, small amount of blood in stool yesterday, occasionally has had some abdominal cramping but no severe abdominal pain. Also possibly had fever. Reports the Keytruda was newly started several days ago as he had not tolerated chemotherapy previously. He had a CT scan of the abdomen pelvis and it had shown pancolitis. Currently still getting fevers and his white count has increased to 17,000. [facility] Medical History Abrasion Arthritis Asthma ASV (adaptive servo-ventilation) use counseling Atrioventricular block, first degree Back pain Blackout Bladder disease Bronchiectasis Cancer Cardiology follow-up encounter Central sleep apnea Chest pain Chronic cough COVID-19 virus detected (06/06/21) DVT (deep venous thrombosis) Dysphagia Esophageal varices Essential (primary) hypertension Gastric reflux Gastritis GERD without esophagitis Gout History of Coumadin therapy History of edema History of hiatal hernia History of irregular heartbeat History of pulmonary embolism History of ulceration Hx of Acosta's palsy Hx of glaucoma Hyperlipidemia Hypokalemia Injury of head and neck Loss of hearing Other instability, left shoulder Peripheral neuropathy Personal history of colonic polyps Prostate cancer metastatic to bone Severe persistent asthma Shortness of breath on exertion Symptomatic bradycardia (09/24/21) Syncope Voice hoarsenesses Wears glasses Wears partial dentures Home Medications duloxetine 60 mg capsule,delayed release (Cymbalta) 60 mg PO QDAY depression 12/01/17 [History Last Taken Unknown] calcium carbonate 600 mg-vitamin D3 5 mcg (200 unit) tablet 1 ea PO DAILY supplement 06/27/18 [History Last Taken Unknown] glucosamine sulf dipot chlr,msm,chond 550 mg-C 30 mg-beronica 1 mg capsule 2 ea PO DAILY supplement 02/17/20 [History Last Taken Unknown] PEP device #1 ea 08/25/21 [Rx Last Taken Unknown] leuprolide (3 month) 22.5 mg (3 month) subcutaneous syringe (F.8 Interactive) 22.5 mg subcut .Q3MO prostate ca 01/15/22 [History Last Taken Unknown] Lactobacillus acidophilus 10 mg PO DAILY probiotic 03/10/23 [History Last Taken Unknown] cyanocobalamin (vitamin B-12) 1,000 mcg tablet (Vitamin B-12) 5,000 mcg PO DAILY supplement 03/10/23 [History Last Taken Unknown] gabapentin 400 mg capsule 800 mg PO BID nerve pain 03/10/23 [History Last Taken Unknown] oxybutynin chloride 5 mg tablet 5 mg PO DAILY overactive bladder 03/10/23 [History Last Taken Unknown] albuterol sulfate 90 mcg/actuation aerosol inhaler (Ventolin HFA) 2 puff inhalation Q4H PRN shortness of breath or wheezing #18 grams 03/30/23 [Rx Last T aken Unknown] guaifenesin 1,200 mg tablet, extended release 12 hr 1,200 mg PO Q12H congestion #60 tabs 05/16/23 [Rx Last Taken Unknown] acetaminophen 500 mg capsule 500 mg PO Q6H PRN pain 10/07/23 [History Last Taken Unknown] ferrous sulfate 325 mg (65 mg iron) tablet (Feosol) 325 mg PO DAILY supplement 10/07/23 [History Last Taken Unknown] ondansetron 8 mg PO TID PRN PRN n/v 10/07/23 [History Last Taken 10/06/23 08:00] tramadol 50 mg tablet 50 mg PO Q8H PRN pain 10/18/23 [History Last Taken Unk nown] midodrine 5 mg tablet 5 mg PO TID #90 tabs 10/24/23 [Rx Last Taken Unknown] omeprazole 20 mg capsule,delayed release 20 mg PO DAILY gerd 11/16/23 [History Last Taken Unknown] potassium chloride 20 mEq tablet,extended release 20 meq PO TID 11/16/23 [History Last Taken Unknown] warfarin 5 mg tablet (Jantoven) 5 mg PO DAILY blood thinner 11/16/23 [History Last Taken Unknown] Allergy/AdvReac Type Severity Reaction Status Date / Time cyclobenzaprine Allergy Unknown Unknown Verified 11/16/23 09:22 [From Flexeril] adhesive Allergy Rash Verified 11/16/23 09:22 docetaxel [From Taxotere] Allergy Unknown Verified 11/16/23 09:22 doxycycline Allergy Unknown Verified 11/16/23 09:22 enoxaparin sodium Allergy triple Verified 11/16/23 09:22 [From Lovenox] liver enzymes Penicillins Allergy Rash Verified 11/16/23 09:22 enoxaparin [Enoxaparin] AdvReac Mild Nausea Verified 11/16/23 09:22 amlodipine AdvReac Unknown Pt Verified 11/16/23 09:22 remembers he can't take it but can't remember reaction cabazitaxel AdvReac white Verified 11/16/23 20:26 count went down promethazine AdvReac Other Verified 11/16/23 09:22 Family History Mother Hypertension Arthritis Father , age 82 COPD complications COPD (chronic obstructive pulmonary disease) Arthritis Sister Hypertension Surgical History History of bilateral knee replacement History of blepharoplasty History of cholecystectomy History of colonoscopy (12/2020) History of esophagogastroduodenoscopy (EGD) (12/2020) History of hernia surgery History of left heart catheterization (06/16/04) History of right hip replacement history of thumb replacement history of toe replacement Hx of left cataract extraction Hx of right cataract extraction Social History household members: spouse Smoking Status: Never smoker alcohol intake: never substance use type: does not use ROS ROS Narrative General: Reported a fever at home HENT: Headache several days ago denies stuffy nose, denies sore throat EYES: Denies changes in vision Resp: Denies cough, denies shortness of breath Cardiac: Denies chest pain GI: Some abdominal discomfort and watery diarrhea : Denies changes in urination Extremity: Had been having some swelling but reports he was given water pills and lost a lot of weight MSK: Some generalized weakness Neuro: Denies any numbness/tingling Heme: Little bit of blood in stool Skin: Denies rashes Psychiatric: No complaints voiced Physical Exam Const alert and no apparent distress Constitutional Narrative: febrile Resp normal respiratory effort, no retractions, no use of accessory muscles and clear to auscultation bilaterally Cardio regular rate, regular rhythm, S1 normal heart sound and S2 normal heart sound GI normal to inspection, nondistended, normoactive bowel sounds, soft to palpation and non-tender GI Narrative: distended abdomen. Neuro Sensorium / Orientation: awake and alert Lab / Micro Data 11/17/23 10:00 11/17/23 07:42 Labs: Laboratory Results - last 24 hr 11/16/23 22:25: PT 18.9 H, INR 1.6 11/17/23 07:42: WBC Cancelled, Corrected WBC Cancelled, RBC Cancelled, Hgb Cancelled, Hct Cancelled, MCV Cancelled, MCH Cancelled, MCHC Cancelled, RDW Std Deviation Cancelled, RDW Coeff of Judi Cancelled, Plt Count Cancelled, MPV Cancelled, Immature Gran % (Auto) Cancelled, Neut % (Auto) Cancelled, Lymph % (Auto) Cancelled, [place] % (Auto) Cancelled, Eos % (Auto) Cancelled, Baso % (Auto) Cancelled, Absolute Neuts (auto) Cancelled, Absolute Lymphs (auto) Cancelled, Total Counted Cancelled, Neutrophils % (Manual) Cancelled, Band Neutrophils % Cancelled, Lymphocytes % (Manual) Cancelled, Monocytes % (Manual) Cancelled, Eosinophils % (Manual) Cancelled, Basophils % (Manual) Cancelled, Metamyelocytes % Cancelled, Myelocytes % Cancelled, Promyelocytes % Cancelled, Blast Cells % Cancelled, Plasma Cell % (Manual) Cancelled, Other Cells % Cancelled, Nucleated RBC % Cancelled, Nucleated RBCs/100 WBC Cancelled, Differential Comment Cancelled, Diff Path Review Cancelled, Hypersegmented Neuts Cancelled, Atypical Lymphocytes Cancelled, Reactive Lymphocytes Cancelled, Smudge Cells Cancelled, Toxic Granulation Cancelled, Toxic Vacuolation Cancelled, Dohle Bodies Cancelled, [place]aine Rods Cancelled, Platelet Estimate Cancelled, Plt Morphology Comment Cancelled, RBC Morphology Cancelled 11/17/23 07:42: RBC Morphology Cancelled, Polychromasia Cancelled, Hypochromasia Cancelled, Poikilocytosis Cancelled, Basophilic Stippling Cancelled, [place] cytosis Cancelled, Microcytosis Cancelled, Macrocytosis Cancelled, Spherocytes Cancelled, Sickle Cells Cancelled, Target Cells Cancelled, Tear Drop Cells Cancelled, Ovalocytes Cancelled, Stomatocytes Cancelled, Su-[place] Bodies Cancelled, [place] Cells Cancelled, Bite Cells Cancelled, Crenated Cell Cancelled, Acanthocytes (Spur) Cancelled, Rouleaux Cancelled, Schistocytes Cancelled, PT 18.8 H, INR 1.6, Sodium 133 L, Potassium 3.7, Chloride 99, Carbon Dioxide 28.0, Anion Gap 6, BUN 18, Creatinine 0.96, Estim Creat Clear Calc 79.56, Est GFR (MDRD) Af Amer 99, Est GFR (MDRD) Non-Af 82, BUN/Creatinine Ratio 18.8, Glucose 111 H, Calcium 8.3 L, Total Bilirubin 1.60 H, AST 27, ALT 16, Alkaline Phosphatase 103, Total Protein 6.8, Albumin 2.4 L, Globulin 4.4 H, Albumin/Globulin Ratio 0.5 L, TSH 0.45 11/17/23 10:00: WBC 19.7 H, RBC 3.08 L, Hgb 10.5 L, Hct 32.0 L, MCV 103.9 H, MCH 34.1 H, MCHC 32.8, RDW Std Deviation 61.1 H, RDW Coeff of Judi 15.9 H, Plt Count 71 L, MPV 11.2, Immature Gran % (Auto) 1.200 H, Neut % (Auto) 81.2 H, Lymph % (Auto) 6.9 L, [place] % (Auto) 10.3 H, Eos % (Auto) 0.0, Baso % (Auto) 0.4, Absolute Neuts (auto) 16.0 H, Absolute Lymphs (auto) 1.36, Nucleated RBC % 0, Differential Comment SCANNED, Diff Path Review February Micro: Microbiology 11/16/23 14:25 Stool Enteric Bacteriology - Final 11/16/23 11:10 Stool C. difficile GDH Antigen & Toxins - Final Toxigenic C. difficile 11/16/23 11:10 Stool Clostridioides difficile (PCR) - Final Assessment & Plan Assessment/Plan (1) C. difficile colitis: (2) GERD (gastroesophageal reflux disease): QUALIFIERS: Esophagitis presence: esophagitis presence not specified Qualified Code(s): K21.9 - Gastro-esophageal reflux disease without esophagitis (3) History of pulmonary embolism: (4) Prostate cancer metastatic to bone: PLAN: Plan 73-year-old gentleman with metastatic prostate cancer on Keytruda with pancolitis suspected to be due to recurrence of C. difficile -?The most common adverse effect of immune checkpoint inhibitors is watery and non-bloody diarrhea.?Moderate diarrhea or grade II diarrhea with stool frequency between 4-6 times per day should be managed by?discontinuation of checkpoint inhibitors, by ruling out infection, by giving adequate oral hydration and by administering empiric treatment with oral corticosteroid. Typically you give prednisone therapy. However he has recurrent C. difficile colitis and is febrile. -I will increase his vancomycin to 500 mg p.o. every 6 hours and I will put him on Flagyl 500 mg IV every 8 hours. Due to the half-life of both medicines I do not expect him to start to feel better until he has 4-5 doses of each medicine. If at that time and if it is okay with oncology he should have either IVIG or Zinplava which is a monoclonal antibody. I do not know if either can be given in the hospital. -Surgery should be consulted as colectomy is an option if he does not get bett er. Charges/Coding Visit Charges Inpatient E&M: 12681 Init Hosp L3
[2023-11-17] MEDS: metroNIDAZOLE 500 MG/100 ML BAG 100 MG IV ×2 (18:03→22:41)
[2023-11-17] MEDS: Vancomycin 125 MG/5 ML Susp PO.SYRINGE 500 MG PO ×2 (18:04→22:41)
[2023-11-17] MEDS: Gabapentin 600 MG Tablet 1200 MG PO (22:41)
[2023-11-18 05:00] VITALS: BP 119/71; PULSE 102; RESP 20; TEMP 37.2; O2SAT 96
[2023-11-18] MEDS: Menthol/Lanolin/Calamine/Znox 113 GM Tube 1 APPLIC TOPICAL ×3 (05:14→23:02)
[2023-11-18] MEDS: metroNIDAZOLE 500 MG/100 ML BAG 100 MG IV ×3 (05:15→22:52)
[2023-11-18] MEDS: Vancomycin 125 MG/5 ML Susp PO.SYRINGE 500 MG PO ×4 (05:16→22:53)
[2023-11-18 06:00] VITALS: BMI 30.7
[2023-11-18 06:19] LABS: Absolute Lymphocyte Count 1.72 X10^3/uL (0.83-4.51); Absolute Neutrophil Count 15.1 X10^3/uL (2.0-7.7); Basophil# 0.13 X10^3/uL; Basophil% 0.7 % (0-1); Eosinophil# 0.03 X10^3/uL; Eosinophils% 0.2 % (0-5); Hematocrit 33.5 % (40-54); Hemoglobin 10.9 g/dL (13.0-16.5); Lymphocyte # 1.72 X10^3/ul (0.83-4.51); Mean Corp Hgb Conc 32.5 g/dL (32-36); Mean Corpuscular Hgb 34.3 pg (27.0-32.0); Mean Corpuscular Volume 105.3 fL (80-94); Mean Platelet Vol. 11.6 fl (6.2-12.0); Monocyte# 1.93 X10^3/uL; Monocyte% 10.1 % (0-10); NRBC Flagged by Analyzer 0 % (0-5); Neutrophil # 15.14 X10^3/uL (2.7-7.7); Neutrophil % 79.1 % (47-70); POSITIVE COUNT YES; POSITIVE DIFFERENTIAL YES; POSITIVE MORPHOLOGY YES; Platelet Count 75 K/mm3 (150-450); RBC Distribution Width CV 15.6 % (11.6-14.6); RBC Distribution Width SD 60.1 fl (35.1-43.9); Red Blood Count 3.18 M/mm3 (4.6-6.2); White Blood Count 19.1 K/mm3 (4.4-11.0)
[2023-11-18 06:39] LABS: International Normalized Ratio 1.8; Prothrombin Time (Protime)PT. 20.9 SECONDS (11.7-14.9)
[2023-11-18 06:47] LABS: ALB/GLOB Ratio 0.5 RATIO (0.9-2.4); AST(SGOT) 21 U/L (15-37); Alanine Aminotransfer ALT/SGPT 13 U/L (16-61); Albumin, Serum 2.2 g/dL (3.2-5.0); Alkaline Phosphatase 112 U/L (45-117); Anion Gap 7 (5-15); BUN 19 mg/dL (7-18); BUN/Creat Ratio 21.4 RATIO (10-20); Calcium,Total 7.5 mg/dL (8.5-10.1); Chloride 97 mmol/L (98-107); Creatinine, Serum 0.89 mg/dL (0.70-1.30); EST Glomerular Filtration Rate 89 mL/min (>60); Est Glom Filt Rate - Afr Amer 108 mL/min (>60); Estimated Creatinine Clearance 85.28 ml/min; Globulin 4.2 g/dL (2.2-4.2); Glucose 115 mg/dL (74-106); Potassium 3.4 mmol/L (3.5-5.1); Protein, Total 6.4 g/dL (6.4-8.2); Sodium Level 130 mmol/L (136-145)
[2023-11-18 06:54] LABS: Differential Indicated SCAN CRITERIA MET
--- NOTE | 2023-11-18 07:07 | PCM.PN.HOSP ---
Subjective Subjective FMS placed yesterday. Overall feeling better. Objective Data Objective Data Vital Signs: Vital Signs Temp Pulse Resp BP Pulse Ox O2 Del Method O2 Flow Rate 37.2 C 102 H 20 H 119/71 96 CPAP 2 11/18/23 05:00 11/18/23 05:00 11/18/23 05:00 11/18/23 05:00 11/18/23 05:00 11/18/23 05:00 11/17/23 15:23 Oxygen Flow Rate (L/min) 2 Oxygen Delivery Method CPAP Weight: 97.5 kg Body Mass Index (BMI) 30.7 Intake & Output: Intake and Output for Last 24 Hours 11/16/23 11/17/23 11/18/23 23:59 23:59 23:59 Intake Total 1000 / 1000 2176.67 / 2676.67 1200 / 1200 Output Total 500 / 500 Balance 1000 / 1000 2176.67 / 2676.67 700 / 700 Lab / Micro Data 11/18/23 05:00 11/18/23 05:00 Labs: Laboratory Results - last 24 hr 11/17/23 07:42: WBC Cancelled, Corrected WBC Cancelled, RBC Cancelled, Hgb Cancelled, Hct Cancelled, MCV Cancelled, MCH Cancelled, MCHC Cancelled, RDW Std Deviation Cancelled, RDW Coeff of Judi Cancelled, Plt Count Cancelled, MPV Cancelled, Immature Gran % (Auto) Cancelled, Neut % (Auto) Cancelled, Lymph % (Auto) Cancelled, [place] % (Auto) Cancelled, Eos % (Auto) Cancelled, Baso % (Auto) Cancelled, Absolute Neuts (auto) Cancelled, Absolute Lymphs (auto) Cancelled, Total Counted Cancelled, Neutrophils % (Manual) Cancelled, Band Neutrophils % Cancelled, Lymphocytes % (Manual) Cancelled, Monocytes % (Manual) Cancelled, Eosinophils % (Manual) Cancelled, Basophils % (Manual) Cancelled, Metamyelocytes % Cancelled, Myelocytes % Cancelled, Promyelocytes % Cancelled, Blast Cells % Cancelled, Plasma Cell % (Manual) Cancelled, Other Cells % Cancelled, Nucleated RBC % Cancelled, Nucleated RBCs/100 WBC Cancelled, Differential Comment Cancelled, Diff Path Review Cancelled, Hypersegmented Neuts Cancelled, Atypical Lymphocytes Cancelled, Reactive Lymphocytes Cancelled, Smudge Cells Cancelled, Toxic Granulation Cancelled, Toxic Vacuolation Cancelled, Dohle Bodies Cancelled, Blaine Rods Cancelled, Platelet Estimate Cancelled, Plt Morphology Comment Cancelled, RBC Morphology Cancelled 11/17/23 07:42: RBC Morphology Cancelled, Polychromasia Cancelled, Hypochromasia Cancelled, Poikilocytosis Cancelled, Basophilic Stippling Cancelled, Anisocytosis Cancelled, Microcytosis Cancelled, Macrocytosis Cancelled, Spherocytes Cancelled, Sickle Cells Cancelled, Target Cells Cancelled, Tear Drop Cells Cancelled, Ovalocytes Cancelled, Stomatocytes Cancelled, Su-[place] Bodies Cancelled, [place] Cells Cancelled, Bite Cells Cancelled, Crenated Cell Cancelled, Acanthocytes (Spur) Cancelled, Rouleaux Cancelled, Schistocytes Cancelled, PT 18.8 H, INR 1.6, Sodium 133 L, Potassium 3.7, Chloride 99, Carbon Dioxide 28.0, Anion Gap 6, BUN 18, Creatinine 0.96, Estim Creat Clear Calc 79.56, Est GFR (MDRD) Af Amer 99, Est GFR (MDRD) Non-Af 82, BUN/Creatinine Ratio 18.8, Glucose 111 H, Calcium 8.3 L, Total Bilirubin 1.60 H, AST 27, ALT 16, Alkaline Phosphatase 103, Total Protein 6.8, Albumin 2.4 L, Globulin 4.4 H, Albumin/Globulin Ratio 0.5 L, TSH 0.45 11/17/23 10:00: WBC 19.7 H, RBC 3.08 L, Hgb 10.5 L, Hct 32.0 L, MCV 103.9 H, MCH 34.1 H, MCHC 32.8, RDW Std Deviation 61.1 H, RDW Coeff of Judi 15.9 H, Plt Count 71 L, MPV 11.2, Immature Gran % (Auto) 1.200 H, Neut % (Auto) 81.2 H, Lymph % (Auto) 6.9 L, [place] % (Auto) 10.3 H, Eos % (Auto) 0.0, Baso % (Auto) 0.4, Absolute Neuts (auto) 16.0 H, Absolute Lymphs (auto) 1.36, Nucleated RBC % 0, Differential Comment SCANNED, Diff Path Review May foll 24 05:00: WBC 19.1 H, RBC 3.18 L, Hgb 10.9 L, Hct 33.5 L, MCV 105.3 H, MCH 34.3 H, MCHC 32.5, RDW Std Deviation 60.1 H, RDW Coeff of Judi 15.6 H, Plt Count 75 L, MPV 11.6, Immature Gran % (Auto) 0.900, Neut % (Auto) 79.1 H, Lymph % (Auto) 9.0 L, [place] % (Auto) 10.1 H, Eos % (Auto) 0.2, Baso % (Auto) 0.7, Absolute Neuts (auto) 15.1 H, Absolute Lymphs (auto) 1.72, Nucleated RBC % 0, PT 20.9 H, INR 1.8, Sodium 130 L, Potassium 3.4 L, Chloride 97 L, Carbon Dioxide 26.0, Anion Gap 7, BUN 19 H, Creatinine 0.89, Estim Creat Clear Calc 85.28, Est GFR (MDRD) Af Amer 108, Est GFR (MDRD) Non-Af 89, BUN/Creatinine Ratio 21.4 H, Glucose 115 H, Calcium 7.5 L, Total Bilirubin 1.60 H, AST 21, ALT 13 L, Alkaline Phosphatase 112, Total Protein 6.4, Albumin 2.2 L, Globulin 4.2, Albumin/Globulin Ratio 0.5 L Micro: Microbiology 11/16/23 14:25 Stool Enteric Bacteriology - Final 11/16/23 11:10 Stool C. difficile GDH Antigen & Toxins - Final Toxigenic C. difficile 11/16/23 11:10 Stool Clostridioides difficile (PCR) - Final Physical Exam Const alert and no apparent distress Resp normal respiratory effort, no retractions, no use of accessory muscles and clear to auscultation bilaterally Cardio regular rate, regular rhythm, S1 normal heart sound and S2 normal heart sound GI normal to inspection, nondistended, normoactive bowel sounds and soft to palpation GI Narrative: distended. non-tender. FMS with dark brown liquid stool. Neuro Sensorium / Orientation: awake and alert Assessment & Plan Assessment/Plan (1) C. difficile colitis: (2) GERD (gastroesophageal reflux disease): QUALIFIERS: Esophagitis presence: esophagitis presence not specified Qualified Code(s): K21.9 - Gastro-esophageal reflux disease without esophagitis (3) History of pulmonary embolism: (4) Prostate cancer metastatic to bone: PLAN: Plan C.diff colitis recurrent. Completed 10-day course of vancomycin 125 mg 4 times daily. FMS placed Vancomycin increased to 500 QID and IV metronidazole. Will plan on a taper thereafter with 125 4 times daily for 10 days and then 3 times daily for 1 week, twice daily for 1 week, daily for 1 week, every 48 hours for 1 week then every third day for 1 week. Consider adding IV metronidazole if persistent symptoms. Hypokalemia Replaced Hyperbilirubinemia unclear significance monitor Chronic conditions Metastatic prostate cancer: follows w/ Dr. Barrios. Was unable to tolerate chemotherapy so has not received any since September, started Keytruda several days ago Hx PE: On coumadin, will monitor PT/INR GERD-Continue PPI Chronic hypotension-Continue home midodrine Sleep apnea-Continue home cpap Chronic macrocytic anemia. Appears to be at baseline. Had small amount of blood yesterday in stool, suspect this is secondary to colitis, continue to monitor VTE prophylaxis: SCDs. DW pt's at bedside. Charges/Coding Visit Charges Inpatient E&M: 76248 Subs Hosp L2
[2023-11-18 09:29] VITALS: BP 115/80; PULSE 109; RESP 18; TEMP 36.6; O2SAT 95
[2023-11-18] MEDS: Calcium Carb/Vitamin D 1 TABLET Tablet PO (09:33)
[2023-11-18] MEDS: Ferrous Sulfate 325 MG Tablet PO (09:34)
[2023-11-18] MEDS: Oxybutynin 5 MG Tablet PO (09:34)
[2023-11-18] MEDS: DULoxetine Hcl 60 MG Capsule PO (09:34)
[2023-11-18] MEDS: Midodrine HCl 5 MG Tablet PO ×3 (09:34→17:08)
[2023-11-18] MEDS: Gabapentin 800 MG Tablet PO (09:34)
[2023-11-18] MEDS: guaiFENesin 1,200 MG Tablet 1200 MG PO ×2 (09:35→22:53)
[2023-11-18] MEDS: Pantoprazole Sodium 20 MG Tablet PO (09:35)
[2023-11-18] MEDS: Potassium Chloride Oral Tablet 20 MEQ 40 MEQ PO (09:35)
[2023-11-18 13:35] LABS: Pathologist Review Reviewed
[2023-11-18 13:41] LABS: Pathologist Review Reviewed
--- NOTE | 2023-11-18 15:30 | CASEMGMT ---
Addendum entered by Debbie Hicks 11/18/23 16:17: Received tc back from Sara at [facility], they have accepted pt. Original Note: RN CM into pt room, pt present, pt more awake today. Pt and still agreeable to [facility] although therapy has not eval'd yet. Discussed SN, PT and OT to see pt. Pt states the vancomycin was affordable last admission and she does not anticipate a problem with this. TC to Sara at [facility], referral made, will await acceptance.
--- NOTE | 2023-11-18 15:50 | EX.PCM.PN.GI ---
Subjective Subjective Patient feels little bit better today. I saw patient and started him on 500 mg of vancomycin every 6 hours and Flagyl IV every 8 hours. His appetite is still very poor. He has been afebrile. Objective Data Objective Data Vital Signs: Vital Signs Temp Pulse Resp BP Pulse Ox O2 Del Method O2 Flow Rate 97.9 F 109 H 18 115/80 95 Room Air 2 11/18/23 09:29 11/18/23 09:29 11/18/23 09:29 11/18/23 09:29 11/18/23 09:29 11/18/23 09:42 11/17/23 15:23 Oxygen Flow Rate (L/min) 2 Oxygen Delivery Method Room Air Weight: 214 lb 15.211 oz Body Mass Index (BMI) 30.7 Intake & Output: Intake and Output for Last 24 Hours 11/16/23 11/17/23 11/18/23 23:59 23:59 23:59 Intake Total 1000 / 1000 2176.67 / 2676.67 1300 / 1300 Output Total 500 / 500 Balance 1000 / 1000 2176.67 / 2676.67 800 / 800 Lab / Micro Data 11/18/23 05:00 11/18/23 05:00 Labs: Laboratory Results - last 24 hr 11/17/23 10:00: Diff Path Review Reviewed 11/18/23 05:00: WBC 19.1 H, RBC 3.18 L, Hgb 10.9 L, Hct 33.5 L, MCV 105.3 H, MCH 34.3 H, MCHC 32.5, RDW Std Deviation 60.1 H, RDW Coeff of Judi 15.6 H, Plt Count 75 L, MPV 11.6, Immature Gran % (Auto) 0.900, Neut % (Auto) 79.1 H, Lymph % (Auto) 9.0 L, [place] % (Auto) 10.1 H, Eos % (Auto) 0.2, Baso % (Auto) 0.7, Absolute Neuts (auto) 15.1 H, Absolute Lymphs (auto) 1.72, Nucleated RBC % 0, Diff Path Review Reviewed, PT 20.9 H, INR 1.8, Sodium 130 L, Potassium 3.4 L, Chloride 97 L, Carbon Dioxide 26.0, Anion Gap 7, BUN 19 H, Creatinine 0.89, Estim Creat Clear Calc 85.28, Est GFR (MDRD) Af Amer 108, Est GFR (MDRD) Non-Af 89, BUN/Creatinine Ratio 21.4 H, Glucose 115 H, Calcium 7.5 L, Total Bilirubin 1.60 H, AST 21, ALT 13 L, Alkaline Phosphatase 112, Total Protein 6.4, Albumin 2.2 L, Globulin 4.2, Albumin/Globulin Ratio 0.5 L Micro: Microbiology 11/16/23 14:25 Stool Enteric Bacteriology - Final 11/16/23 11:10 Stool C. difficile GDH Antigen & Toxins - Final Toxigenic C. difficile 11/16/23 11:10 Stool Clostridioides difficile (PCR) - Final Physical Exam Const alert and no apparent distress Resp normal respiratory effort, no retractions, no use of accessory muscles and clear to auscultation bilaterally Cardio regular rate, regular rhythm, S1 normal heart sound and S2 normal heart sound GI normal to inspection, nondistended, normoactive bowel sounds and soft to palpation GI Narrative: distended. non-tender. FMS with dark brown liquid stool. Neuro Sensorium / Orientation: awake and alert Assessment & Plan Assessment/Plan (1) C. difficile colitis: (2) GERD (gastroesophageal reflux disease): QUALIFIERS: Esophagitis presence: esophagitis presence not specified Qualified Code(s): K21.9 - Gastro-esophageal reflux disease without esophagitis (3) History of pulmonary embolism: (4) Prostate cancer metastatic to bone: PLAN: Plan 73-year-old gentleman with metastatic prostate cancer on Keytruda with pancolitis suspected to be due to recurrence of C. difficile -?The most common adverse effect of immune checkpoint inhibitors is watery and non-bloody diarrhea.?Moderate diarrhea or grade II diarrhea with stool frequency between 4-6 times per day should be managed by?discontinuation of checkpoint inhibitors, by ruling out infection, by giving adequate oral hydration and by administering empiric treatment with oral corticosteroid. Typically you give prednisone therapy. However he has recurrent C. difficile colitis and is febrile. -I will increase his vancomycin to 500 mg p.o. every 6 hours and I will put him on Flagyl 500 mg IV every 8 hours. Due to the half-life of both medicines I do not expect him to start to feel better until he has 4-5 doses of each medicine. If at that time and if it is okay with oncology he should have either IVIG or Zinplava which is a monoclonal antibody. I do not know if either can be given in the hospital. -Surgery should be consulted as colectomy is an option if he does not get better. 11/18/2023-patient is getting little bit better. It is decided that he has been afebrile. He still is not eating much. His white count is still persistently elevated at 19,000. I had a long talk with his and daughter and explained to them that he will not have a significant improvement for the next 48 hours. After that I expect him to have some improvement with dual therapy. As he is not severely septic at this time I do not think he needs IVIG. After 48 hours we can start cholestyramine at night to slow his diarrhea down. No indication for Lomotil or antidiarrheal agent as they are contraindicated for pancolitis associated with his C. difficile. Working diagnosis at this time is C. difficile colitis with possible immune mediated colitis secondary to Keytruda. Continue current recommendations. Check ESR and CRP and lactate. Charges/Coding Visit Charges Inpatient E&M: 88285 Subs Hosp L3
[2023-11-18 16:14] LABS: Erythrocyte Sedimentation Rate 32 mm/hr (0-20)
[2023-11-18 17:05] VITALS: BP 99/70; PULSE 111; RESP 16; TEMP 37; O2SAT 94
[2023-11-18 17:17] LABS: Lactic Acid 2.7 mmol/L (0.4-1.9)
[2023-11-18] MEDS: Ondansetron 4 MG/2 ML Vial IV (17:50)
[2023-11-18] MEDS: 0.9% Saline Lock 10 ML Syringe IV (17:51)
--- NOTE | 2023-11-18 19:41 | CPS ---
[1910] Pt. currently on his ASV for his central sleep apnea.
[2023-11-18 20:34] LABS: Reflex Lactate? Y
[2023-11-18] MEDS: Gabapentin 600 MG Tablet 1200 MG PO (22:53)
[2023-11-18 23:00] VITALS: BP 105/71; PULSE 105; RESP 20; TEMP 37; O2SAT 96
[2023-11-19] VITALS (8 sets, daily range): BP systolic 98–133; BP diastolic 66–92; PULSE 84–112; RESP 15–18; TEMP 36.1–36.9; O2SAT 93–98; BMI 31.4
[2023-11-19] MEDS: metroNIDAZOLE 500 MG/100 ML BAG 100 MG IV ×3 (05:25→21:00)
[2023-11-19] MEDS: Menthol/Lanolin/Calamine/Znox 113 GM Tube 1 APPLIC TOPICAL ×3 (05:26→21:00)
[2023-11-19] MEDS: Vancomycin 125 MG/5 ML Susp PO.SYRINGE 500 MG PO ×4 (05:27→23:22)
[2023-11-19 07:25] LABS: Absolute Lymphocyte Count 1.47 X10^3/uL (0.83-4.51); Absolute Neutrophil Count 9.8 X10^3/uL (2.0-7.7); Basophil# 0.06 X10^3/uL; Basophil% 0.5 % (0-1); Eosinophil# 0.09 X10^3/uL; Eosinophils% 0.7 % (0-5); Hematocrit 31.1 % (40-54); Hemoglobin 10.2 g/dL (13.0-16.5); Lymphocyte # 1.47 X10^3/ul (0.83-4.51); Lymphocyte % 11.4 % (19-41); Mean Corp Hgb Conc 32.8 g/dL (32-36); Mean Corpuscular Hgb 33.9 pg (27.0-32.0); Mean Corpuscular Volume 103.3 fL (80-94); Mean Platelet Vol. 11.2 fl (6.2-12.0); Monocyte# 1.39 X10^3/uL; Monocyte% 10.8 % (0-10); NRBC Flagged by Analyzer 0 % (0-5); Neutrophil # 9.84 X10^3/uL (2.7-7.7); Neutrophil % 76.1 % (47-70); POSITIVE COUNT YES; POSITIVE MORPHOLOGY YES; Platelet Count 71 K/mm3 (150-450); RBC Distribution Width CV 15.4 % (11.6-14.6); RBC Distribution Width SD 58.5 fl (35.1-43.9); Red Blood Count 3.01 M/mm3 (4.6-6.2); White Blood Count 12.9 K/mm3 (4.4-11.0)
[2023-11-19 07:30] LABS: Differential Indicated SCAN CRITERIA MET
[2023-11-19 07:52] LABS: Anion Gap 7 (5-15); BUN 21 mg/dL (7-18); BUN/Creat Ratio 28.1 RATIO (10-20); Calcium,Total 7.9 mg/dL (8.5-10.1); Chloride 100 mmol/L (98-107); Creatinine, Serum 0.75 mg/dL (0.70-1.30); EST Glomerular Filtration Rate 108 mL/min (>60); Est Glom Filt Rate - Afr Amer 131 mL/min (>60); Estimated Creatinine Clearance 94.88 ml/min; Glucose 107 mg/dL (74-106); Sodium Level 131 mmol/L (136-145)
--- NOTE | 2023-11-19 07:54 | PN.HOSP_ITS ---
Subjective Subjective Feeling better. Still with diarrhea with fecal management system in place. Objective Data Objective Data Vital Signs: Vital Signs Temp Pulse Resp BP Pulse Ox O2 Del Method O2 Flow Rate 36.9 C 108 H 18 111/70 98 Room Air 2 11/19/23 05:30 11/19/23 05:30 11/19/23 05:30 11/19/23 05:30 11/19/23 05:30 11/19/23 05:39 11/17/23 15:23 Oxygen Flow Rate (L/min) 2 Oxygen Delivery Method Room Air Weight: 97.5 kg Body Mass Index (BMI) 30.7 Intake & Output: Intake and Output for Last 24 Hours 11/17/23 11/18/23 11/19/23 23:59 23:59 23:59 Intake Total 2176.67 / 2676.67 2050 / 2050 500 / 500 Output Total 900 / 900 Balance 2176.67 / 2676.67 1150 / 1150 500 / 500 Lab / Micro Data 11/19/23 06:37 11/19/23 06:37 Labs: Laboratory Results - last 24 hr 11/17/23 10:00: Diff Path Review Reviewed 11/18/23 05:00: Diff Path Review Reviewed, ESR 32 H, C-React Prot Ext Range 240.00 H 11/18/23 16:25: Lactic Acid 2.7 H* 11/18/23 21:25: Lactic Acid 2.0 11/19/23 06:37: WBC 12.9 H, RBC 3.01 L, Hgb 10.2 L, Hct 31.1 L, MCV 103.3 H, MCH 33.9 H, MCHC 32.8, RDW Std Deviation 58.5 H, RDW Coeff of Judi 15.4 H, Plt Count 71 L, MPV 11.2, Immature Gran % (Auto) 0.500, Neut % (Auto) 76.1 H, Lymph % (Auto) 11.4 L, [place] % (Auto) 10.8 H, Eos % (Auto) 0.7, Baso % (Auto) 0.5, Absolute Neuts (auto) 9.8 H, Absolute Lymphs (auto) 1.47, Nucleated RBC % 0, Sodium 131 L, Potassium 3.0 L, Chloride 100, Carbon Dioxide 24.0, Anion Gap 7, BUN 21 H, Creatinine 0.75, Estim Creat Clear Calc 94.88, Est GFR (MDRD) Af Amer 131, Est GFR (MDRD) Non-Af 108, BUN/Creatinine Ratio 28.1 H, Glucose 107 H, Calcium 7.9 L Micro: Microbiology 11/16/23 14:25 Stool Enteric Bacteriology - Final 11/16/23 11:10 Stool C. difficile GDH Antigen & Toxins - Final Toxigenic C. difficile 11/16/23 11:10 Stool Clostridioides difficile (PCR) - Final Physical Exam Const alert and no apparent distress Resp normal respiratory effort, no retractions, no use of accessory muscles and clear to auscultation bilaterally Cardio regular rate, regular rhythm, S1 normal heart sound and S2 normal heart sound GI normal to inspection, nondistended, normoactive bowel sounds and soft to palpation GI Narrative: Distended abdomen. Nontender. Extremity normal to inspection and full ROM Assessment & Plan Assessment/Plan (1) C. difficile colitis: (2) GERD (gastroesophageal reflux disease): QUALIFIERS: Esophagitis presence: esophagitis presence not specified Qualified Code(s): K21.9 - Gastro-esophageal reflux disease without esophagitis (3) History of pulmonary embolism: (4) Prostate cancer metastatic to bone: PLAN: Plan C.diff colitis * recurrent. * Completed 10-day course of vancomycin 125 mg 4 times daily. * FMS placed * Vancomycin increased to 500 QID and IV metronidazole. * Will plan on a taper thereafter with 125 4 times daily for 10 days and then 3 times daily for 1 week, twice daily for 1 week, daily for 1 week, every 48 hours for 1 week then every third day for 1 week. * Clinically overall the patient is appearing better though still having profuse diarrhea. Hypokalemia * Replaced Hyperbilirubinemia * unclear significance * monitor Chronic conditions * Metastatic prostate cancer: follows w/ Dr. Barrios. Was unable to tolerate chemotherapy so has not received any since September, started Keytruda several days ago * Hx PE: On coumadin, will monitor PT/INR * GERD-Continue PPI * Chronic hypotension-Continue home midodrine * Sleep apnea-Continue home cpap * Chronic macrocytic anemia. Appears to be at baseline. Had small amount of blood yesterday in stool, suspect this is secondary to colitis, continue to monitor VTE prophylaxis: SCDs. DW pt's at bedside. Charges/Coding Visit Charges Inpatient E&M: 99956 Subs Hosp L2
[2023-11-19 08:21] LABS: Differential Comment SCANNED
[2023-11-19 08:58] LABS: International Normalized Ratio 1.9; Prothrombin Time (Protime)PT. 21.9 SECONDS (11.7-14.9)
[2023-11-19] MEDS: Oxybutynin 5 MG Tablet PO (09:11)
[2023-11-19] MEDS: Pantoprazole Sodium 20 MG Tablet PO (09:11)
[2023-11-19] MEDS: Gabapentin 800 MG Tablet PO (09:12)
[2023-11-19] MEDS: guaiFENesin 1,200 MG Tablet 1200 MG PO ×2 (09:12→20:58)
[2023-11-19] MEDS: Calcium Carb/Vitamin D 1 TABLET Tablet PO (09:12)
[2023-11-19] MEDS: Potassium Chloride Oral Tablet 20 MEQ 40 MEQ PO ×2 (09:12→17:36)
[2023-11-19] MEDS: DULoxetine Hcl 60 MG Capsule PO (09:12)
[2023-11-19] MEDS: Ferrous Sulfate 325 MG Tablet PO (09:12)
[2023-11-19] MEDS: Midodrine HCl 5 MG Tablet PO ×3 (10:16→17:36)
--- NOTE | 2023-11-19 15:09 | NURSING ---
New fecal management system bag applied at 1430 11/19/2023
--- NOTE | 2023-11-19 16:20 | EX.PCM.PN.GI ---
Subjective Subjective Patient is feeling little bit better today. His abdominal distention is not as prominent as it was yesterday. He still continues to be afebrile. He still having multiple bowel movements. Objective Data Objective Data Vital Signs: Vital Signs Temp Pulse Resp BP Pulse Ox O2 Del Method O2 Flow Rate 97 F L 101 H 18 116/73 94 Room Air 2 11/19/23 13:15 11/19/23 13:15 11/19/23 13:15 11/19/23 13:15 11/19/23 13:15 11/19/23 13:15 11/17/23 15:23 Oxygen Flow Rate (L/min) 2 Oxygen Delivery Method Room Air Weight: 220 lb Body Mass Index (BMI) 31.4 Intake & Output: Intake and Output for Last 24 Hours 11/17/23 11/18/23 11/19/23 23:59 23:59 23:59 Intake Total 2176.67 / 2676.67 2050 / 2050 600 / 600 Output Total 900 / 900 700 / 700 Balance 2176.67 / 2676.67 1150 / 1150 -100 / -100 Lab / Micro Data 11/19/23 06:37 11/19/23 06:37 Labs: Laboratory Results - last 24 hr 11/18/23 05:00: C-React Prot Ext Range 240.00 H 11/18/23 16:25: Lactic Acid 2.7 H* 11/18/23 21:25: Lactic Acid 2.0 11/19/23 06:37: WBC 12.9 H, RBC 3.01 L, Hgb 10.2 L, Hct 31.1 L, MCV 103.3 H, MCH 33.9 H, MCHC 32.8, RDW Std Deviation 58.5 H, RDW Coeff of Judi 15.4 H, Plt Count 71 L, MPV 11.2, Immature Gran % (Auto) 0.500, Neut % (Auto) 76.1 H, Lymph % (Auto) 11.4 L, [place] % (Auto) 10.8 H, Eos % (Auto) 0.7, Baso % (Auto) 0.5, Absolute Neuts (auto) 9.8 H, Absolute Lymphs (auto) 1.47, Nucleated RBC % 0, Differential Comment SCANNED, PT 21.9 H, INR 1.9, Sodium 131 L, Potassium 3.0 L, Chloride 100, Carbon Dioxide 24.0, Anion Gap 7, BUN 21 H, Creatinine 0.75, Estim Creat Clear Calc 94.88, Est GFR (MDRD) Af Amer 131, Est GFR (MDRD) Non-Af 108, BUN/Creatinine Ratio 28.1 H, Glucose 107 H, Calcium 7.9 L, Magnesium 2.0 Micro: Microbiology 11/16/23 14:25 Stool Enteric Bacteriology - Final 11/16/23 11:10 Stool C. difficile GDH Antigen & Toxins - Final Toxigenic C. difficile 11/16/23 11:10 Stool Clostridioides difficile (PCR) - Final Physical Exam Const alert and no apparent distress Resp normal respiratory effort, no retractions, no use of accessory muscles and clear to auscultation bilaterally Cardio regular rate, regular rhythm, S1 normal heart sound and S2 normal heart sound GI normal to inspection, nondistended, normoactive bowel sounds and soft to palpation GI Narrative: Distended abdomen. Nontender. Extremity normal to inspection and full ROM Assessment & Plan Assessment/Plan (1) C. difficile colitis: (2) GERD (gastroesophageal reflux disease): QUALIFIERS: Esophagitis presence: esophagitis presence not specified Qualified Code(s): K21.9 - Gastro-esophageal reflux disease without esophagitis (3) History of pulmonary embolism: (4) Prostate cancer metastatic to bone: PLAN: Plan 73-year-old gentleman with metastatic prostate cancer on Keytruda with pancolitis suspected to be due to recurrence of C. difficile -?The most common adverse effect of immune checkpoint inhibitors is watery and non-bloody diarrhea.?Moderate diarrhea or grade II diarrhea with stool frequency between 4-6 times per day should be managed by?discontinuation of checkpoint inhibitors, by ruling out infection, by giving adequate oral hydration and by administering empiric treatment with oral corticosteroid. Typically you give prednisone therapy. However he has recurrent C. difficile colitis and is febrile. -I will increase his vancomycin to 500 mg p.o. every 6 hours and I will put him on Flagyl 500 mg IV every 8 hours. Due to the half-life of both medicines I do not expect him to start to feel better until he has 4-5 doses of each medicine. If at that time and if it is okay with oncology he should have either IVIG or Zinplava which is a monoclonal antibody. I do not know if either can be given in the hospital. -Surgery should be consulted as colectomy is an option if he does not get better. 11/18/2023-patient is getting little bit better. It is decided that he has been afebrile. He still is not eating much. His white count is still persistently elevated at 19,000. I had a long talk with his and daughter and explained to them that he will not have a significant improvement for the next 48 hours. After that I expect him to have some improvement with dual therapy. As he is not severely septic at this time I do not think he needs IVIG. After 48 hours we can start cholestyramine at night to slow his diarrhea down. No indication for Lomotil or antidiarrheal agent as they are contraindicated for pancolitis associated with his C. difficile. Working diagnosis at this time is C. difficile colitis with possible immune mediated colitis secondary to Keytruda. Continue current recommendations. Check ESR and CRP and lactate. 11/19/2023-patient is doing a lot better than he was yesterday. He continues to be afebrile. Appetite is poor. His white count is decreasing nicely. Also his lactic acidosis is improving with dual antibiotic therapy. I will put him on colestipol as it has been close to 48 hours he has been on treatment. It should be safe in order to put him on a bile acid resin. Colestipol or cholestyramine is the only medicine you can use an infectious diarrhea. Upon his discharge we will try to get him scheduled for an infusion of Zinplava. Since he is improving at this time I do not think he needs IVIG or IV albumin at this time. Charges/Coding Visit Charges Inpatient E&M: 85310 [facility] Hosp L3
[2023-11-19] MEDS: Acetaminophen 325 MG Tablet 650 MG PO (17:37)
[2023-11-19] MEDS: Colestipol 1 GM TABLET PO (20:59)
[2023-11-19] MEDS: Gabapentin 600 MG Tablet 1200 MG PO (20:59)
--- NOTE | 2023-11-19 21:51 | CPS ---
Patient set up on SL PAP machine due to issues with patient's current home PAP machine. Set on home settings of ASV. EPAP 11, Min PS 5 and Max PS10
[2023-11-20 02:51] VITALS: BP 108/71; PULSE 78; RESP 16; TEMP 36.6; O2SAT 98
[2023-11-20] MEDS: metroNIDAZOLE 500 MG/100 ML BAG 100 MG IV ×3 (05:18→21:40)
[2023-11-20] MEDS: Vancomycin 125 MG/5 ML Susp PO.SYRINGE 500 MG PO ×4 (05:21→23:20)
[2023-11-20 05:24] VITALS: BMI 31.6
[2023-11-20] MEDS: Menthol/Lanolin/Calamine/Znox 113 GM Tube 1 APPLIC TOPICAL ×3 (05:24→21:41)
[2023-11-20 06:00] LABS: Absolute Lymphocyte Count 1.35 X10^3/uL (0.83-4.51); Absolute Neutrophil Count 5.1 X10^3/uL (2.0-7.7); Basophil# 0.06 X10^3/uL; Basophil% 0.8 % (0-1); Eosinophil# 0.21 X10^3/uL; Eosinophils% 2.7 % (0-5); Hematocrit 28.8 % (40-54); Hemoglobin 9.4 g/dL (13.0-16.5); Lymphocyte # 1.35 X10^3/ul (0.83-4.51); Lymphocyte % 17.4 % (19-41); Mean Corp Hgb Conc 32.6 g/dL (32-36); Mean Corpuscular Hgb 33.6 pg (27.0-32.0); Mean Corpuscular Volume 102.9 fL (80-94); Mean Platelet Vol. 11.5 fl (6.2-12.0); Monocyte# 0.96 X10^3/uL; Monocyte% 12.4 % (0-10); NRBC Flagged by Analyzer 0 % (0-5); Neutrophil # 5.11 X10^3/uL (2.7-7.7); Neutrophil % 65.8 % (47-70); POSITIVE COUNT YES; POSITIVE MORPHOLOGY YES; Platelet Count 73 K/mm3 (150-450); RBC Distribution Width CV 15.3 % (11.6-14.6); RBC Distribution Width SD 57.7 fl (35.1-43.9); White Blood Count 7.8 K/mm3 (4.4-11.0)
[2023-11-20 06:13] LABS: International Normalized Ratio 2.4; Prothrombin Time (Protime)PT. 26.1 SECONDS (11.7-14.9)
[2023-11-20 06:44] LABS: Anion Gap 2 (5-15); BUN 24 mg/dL (7-18); BUN/Creat Ratio 37.6 RATIO (10-20); Calcium,Total 7.9 mg/dL (8.5-10.1); Chloride 101 mmol/L (98-107); Creatinine, Serum 0.64 mg/dL (0.70-1.30); EST Glomerular Filtration Rate 130 mL/min (>60); Est Glom Filt Rate - Afr Amer 157 mL/min (>60); Estimated Creatinine Clearance 96.22 ml/min; Glucose 100 mg/dL (74-106); Potassium 3.2 mmol/L (3.5-5.1); Sodium Level 131 mmol/L (136-145)
[2023-11-20 06:45] LABS: Differential Indicated SCAN CRITERIA MET
[2023-11-20 06:46] LABS: Platelet Estimate SLT DEC (ADEQ)
--- NOTE | 2023-11-20 07:08 | PN.HOSP_ITS ---
Subjective Subjective Feeling better. Catheter placed last night due to urinary retention. Patient has no prior issues with urinary hesitancy or urinary frequency. Still with diarrhea on fecal management system somatize. Objective Data Objective Data Vital Signs: Vital Signs Temp Pulse Resp BP Pulse Ox O2 Del Method O2 Flow Rate 36.6 C 78 16 108/71 98 CPAP 2 11/20/23 02:51 11/20/23 02:51 11/20/23 02:51 11/20/23 02:51 11/20/23 02:51 11/20/23 02:51 11/17/23 15:23 Oxygen Flow Rate (L/min) 2 Oxygen Delivery Method CPAP Weight: 100.425 kg Body Mass Index (BMI) 31.6 Intake & Output: Intake and Output for Last 24 Hours 11/18/23 11/19/23 11/20/23 23:59 23:59 23:59 Intake Total 2050 / 2050 700 / 700 100 / 100 Output Total 900 / 900 2100 / 2100 400 / 400 Balance 1150 / 1150 -1400 / -1400 -300 / -300 Lab / Micro Data 11/20/23 05:20 11/20/23 05:20 Labs: Laboratory Results - last 24 hr 11/19/23 06:37: WBC 12.9 H, RBC 3.01 L, Hgb 10.2 L, Hct 31.1 L, MCV 103.3 H, MCH 33.9 H, MCHC 32.8, RDW Std Deviation 58.5 H, RDW Coeff of Judi 15.4 H, Plt Count 71 L, MPV 11.2, Immature Gran % (Auto) 0.500, Neut % (Auto) 76.1 H, Lymph % (Auto) 11.4 L, [place] % (Auto) 10.8 H, Eos % (Auto) 0.7, Baso % (Auto) 0.5, Absolute Neuts (auto) 9.8 H, Absolute Lymphs (auto) 1.47, Nucleated RBC % 0, Differential Comment SCANNED, PT 21.9 H, INR 1.9, Sodium 131 L, Potassium 3.0 L, Chloride 100, Carbon Dioxide 24.0, Anion Gap 7, BUN 21 H, Creatinine 0.75, Estim Creat Clear Calc 94.88, Est GFR (MDRD) Af Amer 131, Est GFR (MDRD) Non-Af 108, B UN/Creatinine Ratio 28.1 H, Glucose 107 H, Calcium 7.9 L, Magnesium 2.0 11/20/23 05:20: WBC 7.8, RBC 2.80 L, Hgb 9.4 L, Hct 28.8 L, MCV 102.9 H, MCH 33.6 H, MCHC 32.6, RDW Std Deviation 57.7 H, RDW Coeff of Judi 15.3 H, Plt Count 73 L, MPV 11.5, Immature Gran % (Auto) 0.900, Neut % (Auto) 65.8, Lymph % (Auto) 17.4 L, [place] % (Auto) 12.4 H, Eos % (Auto) 2.7, Baso % (Auto) 0.8, Absolute Neut s (auto) 5.1, Absolute Lymphs (auto) 1.35, Nucleated RBC % 0, Platelet Estimate SLT DEC, PT 26.1 H, INR 2.4, Sodium 131 L, Potassium 3.2 L, Chloride 101, Carbon Dioxide 28.0, Anion Gap 2 L, BUN 24 H, Creatinine 0.64 L, Estim Creat Clear Calc 96.22, Est GFR (MDRD) Af Amer 157, Est GFR (MDRD) Non-Af 130, BUN/Creatinine Ratio 37.6 H, Glucose 100, Calcium 7.9 L Micro: Microbiology 11/16/23 14:25 Stool Enteric Bacteriology - Final 11/16/23 11:10 Stool C. difficile GDH Antigen & Toxins - Final Toxigenic C. difficile 11/16/23 11:10 Stool Clostridioides difficile (PCR) - Final Physical Exam Const alert Constitutional Narrative: Awake and alert. Appears better overall. Resp normal respiratory effort, no retractions, no use of accessory muscles and clear to auscultation bilaterally Cardio regular rate, regular rhythm, S1 normal heart sound and S2 normal heart sound GI normal to inspection, nondistended, normoactive bowel sounds, soft to palpation, non-tender and non-distended GI Narrative: Still with liquid stool but more solid material noted in the fecal management system bag. Extremity normal to inspection and no clubbing, cyanosis or edema Neuro Sensorium / Orientation: awake and alert Psych affect normal Assessment & Plan Assessment/Plan (1) C. difficile colitis: (2) GERD (gastroesophageal reflux disease): QUALIFIERS: Esophagitis presence: esophagitis presence not specified Qualified Code(s): K21.9 - Gastro-esophageal reflux disease without esophagitis (3) History of pulmonary embolism: (4) Prostate cancer metastatic to bone: PLAN: Plan C.diff colitis * recurrent. * Completed 10-day course of vancomycin 125 mg 4 times daily. * FMS placed * Vancomycin increased to 500 QID and IV metronidazole. * Will plan on a taper upon discharge with 125 4 times daily for 10 days and then 3 times daily for 1 week, twice daily for 1 week, daily for 1 week, every 48 hours for 1 week then every third day for 1 week. * Clinically overall the patient is appearing better though still having profuse diarrhea. Hypokalemia * Replaced Hyperbilirubinemia * unclear significance * monitor Urinary retention * Mir catheter placed third. * Suspect patient has BPH. Will start tamsulosin. Urine culture on the second was negative for any infection. * When patient is ready for discharge, patient will need to have his catheter removed and have a postvoid residual performed Chronic conditions * Metastatic prostate cancer: follows w/ Dr. Barrios. Was unable to tolerate chemotherapy so has not received any since September, started Keytruda several days ago * Hx PE: On coumadin, will monitor PT/INR * GERD-Continue PPI * Chronic hypotension-Continue home midodrine * Sleep apnea-Continue home cpap * Chronic macrocytic anemia. Appears to be at baseline. Had small amount of blood yesterday in stool, suspect this is secondary to colitis, continue to monitor VTE prophylaxis: SCDs. DW pt's at bedside. Charges/Coding Visit Charges Inpatient E&M: 57548 Subs Hosp L2
[2023-11-20 08:30] VITALS: BP 110/68; PULSE 89; RESP 18; TEMP 35.9; O2SAT 97
[2023-11-20] MEDS: DULoxetine Hcl 60 MG Capsule PO (08:35)
[2023-11-20] MEDS: Pantoprazole Sodium 20 MG Tablet PO (08:35)
[2023-11-20] MEDS: Colestipol 1 GM TABLET PO ×2 (08:35→21:40)
[2023-11-20] MEDS: Potassium Chloride Oral Tablet 20 MEQ 40 MEQ PO ×2 (08:35→17:33)
[2023-11-20] MEDS: Calcium Carb/Vitamin D 1 TABLET Tablet PO (08:35)
[2023-11-20] MEDS: Midodrine HCl 5 MG Tablet PO ×3 (08:36→17:33)
[2023-11-20] MEDS: guaiFENesin 1,200 MG Tablet 1200 MG PO ×2 (08:36→21:40)
[2023-11-20] MEDS: Gabapentin 800 MG Tablet PO (08:36)
[2023-11-20] MEDS: Oxybutynin 5 MG Tablet PO (08:36)
[2023-11-20] MEDS: Ferrous Sulfate 325 MG Tablet PO (08:36)
--- NOTE | 2023-11-20 09:56 | NURSING ---
Fecal management system bag changed at 0955 11/20/2023
[2023-11-20 11:55] VITALS: BP 102/66; PULSE 93; RESP 18; TEMP 36.6; O2SAT 95
[2023-11-20 17:32] VITALS: BP 105/64; PULSE 87; RESP 18; TEMP 36.2; O2SAT 96
[2023-11-20] MEDS: Tamsulosin HCl 0.4 MG Capsule 0.400000000000000022 MG PO (17:34)
[2023-11-20 20:10] VITALS: BP 105/73; PULSE 81; RESP 16; TEMP 36.6; O2SAT 96
[2023-11-20] MEDS: Gabapentin 600 MG Tablet 1200 MG PO (21:40)
--- NOTE | 2023-11-20 23:54 | CPS ---
home settings of ASV. EPAP 11, Min PS 5 and Max PS10
[2023-11-21] VITALS (7 sets, daily range): BP systolic 90–135; BP diastolic 50–87; PULSE 70–89; RESP 16–18; TEMP 36.2–36.9; O2SAT 94–97; BMI 31.6
[2023-11-21] MEDS: Vancomycin 125 MG/5 ML Susp PO.SYRINGE 500 MG PO ×4 (05:19→23:57)
[2023-11-21] MEDS: metroNIDAZOLE 500 MG/100 ML BAG 100 MG IV ×3 (05:19→22:06)
[2023-11-21] MEDS: Menthol/Lanolin/Calamine/Znox 113 GM Tube 1 APPLIC TOPICAL ×3 (05:19→22:06)
[2023-11-21 06:18] LABS: Absolute Lymphocyte Count 1.36 X10^3/uL (0.83-4.51); Absolute Neutrophil Count 2.5 X10^3/uL (2.0-7.7); Basophil# 0.03 X10^3/uL; Basophil% 0.6 % (0-1); Eosinophil# 0.14 X10^3/uL; Eosinophils% 2.8 % (0-5); Hematocrit 30.4 % (40-54); Hemoglobin 9.8 g/dL (13.0-16.5); Lymphocyte # 1.36 X10^3/ul (0.83-4.51); Lymphocyte % 27.5 % (19-41); Mean Corp Hgb Conc 32.2 g/dL (32-36); Mean Corpuscular Hgb 33.6 pg (27.0-32.0); Mean Corpuscular Volume 104.1 fL (80-94); Mean Platelet Vol. 11.4 fl (6.2-12.0); Monocyte# 0.81 X10^3/uL; Monocyte% 16.4 % (0-10); NRBC Flagged by Analyzer 0 % (0-5); Neutrophil # 2.53 X10^3/uL (2.7-7.7); Neutrophil % 51.3 % (47-70); POSITIVE COUNT YES; Platelet Count 80 K/mm3 (150-450); RBC Distribution Width CV 15.6 % (11.6-14.6); RBC Distribution Width SD 59.4 fl (35.1-43.9); Red Blood Count 2.92 M/mm3 (4.6-6.2); White Blood Count 4.9 K/mm3 (4.4-11.0)
[2023-11-21 06:52] LABS: Anion Gap 2 (5-15); BUN 19 mg/dL (7-18); Calcium,Total 8.1 mg/dL (8.5-10.1); Chloride 104 mmol/L (98-107); Creatinine, Serum 0.63 mg/dL (0.70-1.30); EST Glomerular Filtration Rate 132 mL/min (>60); Est Glom Filt Rate - Afr Amer 159 mL/min (>60); Estimated Creatinine Clearance 96.16 ml/min; Glucose 99 mg/dL (74-106); Potassium 3.5 mmol/L (3.5-5.1); Sodium Level 132 mmol/L (136-145)
--- NOTE | 2023-11-21 07:39 | PCM.PN.HOSP ---
Reason for Visit Reason for Visit: Diagnoses Enterocolitis due to Clostridium difficile, not specified as recurrent (11/16/23) Malignant neoplasm of prostate (11/16/23) Secondary malignant neoplasm of bone (11/16/23) Gastro-esophageal reflux disease without esophagitis (11/16/23) Personal history of pulmonary embolism (11/16/23) Subjective Subjective Patient is a 73-year-old gentleman with history of metastatic prostate CA on chemo recently admitted for C. difficile colitis presented with recurrence Objective Data Objective Data Vital Signs: Vital Signs Temp Pulse Resp BP Pulse Ox O2 Del Method O2 Flow Rate 97.9 F 76 16 112/67 97 CPAP 2 11/21/23 02:20 11/21/23 02:20 11/21/23 02:20 11/21/23 02:20 11/21/23 02:20 11/21/23 02:20 11/17/23 15:23 Oxygen Flow Rate (L/min) 2 Oxygen Delivery Method CPAP Weight: 100.3 kg Body Mass Index (BMI) 31.6 Intake & Output: Intake and Output for Last 24 Hours 11/19/23 11/20/23 11/21/23 23:59 23:59 23:59 Intake Total 700 / 700 300 / 300 100 / 100 Output Total 2100 / 2100 1050 / 1850 1200 / 1200 Balance -1400 / -1400 -750 / -1550 -1100 / -1100 Lab / Micro Data 11/21/23 05:30 11/21/23 05:30 Labs: Laboratory Results - last 24 hr 11/21/23 05:30: WBC 4.9, RBC 2.92 L, Hgb 9.8 L, Hct 30.4 L, MCV 104.1 H, MCH 33.6 H, MCHC 32.2, RDW Std Deviation 59.4 H, RDW Coeff of Judi 15.6 H, Plt Count 80 L, MPV 11.4, Immature Gran % (Auto) 1.400 H, Neut % (Auto) 51.3, Lymph % (Auto) 27.5, [place] % (Auto) 16.4 H, Eos % (Auto) 2.8, Baso % (Auto) 0.6, Absolute Neuts (auto) 2.5, Absolute Lymphs (auto) 1.36, Nucleated RBC % 0, Sodium 132 L, Potassium 3.5, Chloride 104, Carbon Dioxide 26.0, Anion Gap 2 L, BUN 19 H, Creatinine 0.63 L, Estim Creat Clear Calc 96.16, Est GFR (MDRD) Af Amer 159, Est GFR (MDRD) Non-Af 132, BUN/Creatinine Ratio 30.0 H, Glucose 99, Calcium 8.1 L Micro: Microbiology 11/16/23 14:25 Stool Enteric Bacteriology - Final 11/16/23 11:10 Stool C. difficile GDH Antigen & Toxins - Final Toxigenic C. difficile 11/16/23 11:10 Stool Clostridioides difficile (PCR) - Final Physical Exam Narrative GENERAL: cooperative HEENT: Atraumatic; normocephalic EYES; Anicteric, Normal Conjunctiva NECK; supple, normal thyroid, RESPIRATORY: Diminished to auscultation CARDIOVASCULAR: Regular S1 S2, GI: soft, normoactive bowel sounds, : No Renal angle tenderness; EXTREMITIES: No edema, no clubbing, MUSCULOSKELETAL: no muscle wasting NEURO: Awake; no lateralizing signs. SKIN: No Rash PSYCH; Flat affect Assessment & Plan Assessment/Plan (1) C. difficile colitis: (2) GERD (gastroesophageal reflux disease): QUALIFIERS: Esophagitis presence: esophagitis presence not specified Qualified Code(s): K21.9 - Gastro-esophageal reflux disease without esophagitis (3) History of pulmonary embolism: (4) Prostate cancer metastatic to bone: PLAN: Plan Patient is a 73-year-old gentleman with history of metastatic prostate CA on chemo recently admitted for C. difficile colitis presented with recurrence 1. Recurrent C. difficile colitis ?Patient admitted to regular nursing floor. Started on the fecal management system given the frequency of his diarrhea. Vancomycin restarted with plan to discharge patient home on a prolonged taper 2. Hypokalemia ? Corrected per protocol 3.. Metastatic prostate CA ? First diagnosed in 2017 had chemo and radiation. Recent PET scan demonstrated increased metastatic activity resulting in resumption of chemo starting in September 2023 4 . Venous thromboembolism ? Patient is on systemic anticoagulation with Coumadin with a therapeutic INR of 2.4 5. Hypertension - Blood pressure controlled, home medications continued with dose adjustment as needed 6. Central sleep apnea ? Patient is on CPAP 7. Depression with anxiety ? Patient is on Duloxetine did continue 8. Anemia - Secondary to chronic disorder monitoring H&H and transfuse if patient becomes symptomatic or hemoglobin falls below 9. GERD ? On PPI 10. Hyponatremia ? Secondary to hypovolemic hyponatremia from patient loose bowel movement on fluid with subsequent monitoring of electrolytes 11. DVT prophylaxis ? Patient on Coumadin Time spent in the patient's overall evaluation,decision-making process, review of diagnostic data, adjustment of management, discussion with other providers, nursing nursing and ancillary staff involved in patient's care documentation, 50 minutes Charges/Coding Visit Charges Inpatient E&M: 87296 [facility] Hosp L3
[2023-11-21] MEDS: Midodrine HCl 5 MG Tablet PO ×3 (08:57→17:11)
[2023-11-21] MEDS: Colestipol 1 GM TABLET PO ×2 (08:58→22:05)
[2023-11-21] MEDS: Oxybutynin 5 MG Tablet PO (08:58)
[2023-11-21] MEDS: Calcium Carb/Vitamin D 1 TABLET Tablet PO (08:58)
[2023-11-21] MEDS: DULoxetine Hcl 60 MG Capsule PO (08:58)
[2023-11-21] MEDS: guaiFENesin 1,200 MG Tablet 1200 MG PO ×2 (08:58→22:05)
[2023-11-21] MEDS: Ferrous Sulfate 325 MG Tablet PO (08:58)
[2023-11-21] MEDS: Pantoprazole Sodium 20 MG Tablet PO (08:58)
[2023-11-21] MEDS: Gabapentin 800 MG Tablet PO (09:04)
--- NOTE | 2023-11-21 17:07 | PN.GI_ITS ---
Subjective Subjective Patient is doing very well as compared to when he first came in. His abdominal pain is only at most a 2 out of 10. His appetite is little bit better. Objective Data Objective Data Vital Signs: Vital Signs Temp Pulse Resp BP Pulse Ox O2 Del Method O2 Flow Rate 98.0 F 70 16 135/87 H 97 Room Air 2 11/21/23 09:12 11/21/23 09:12 11/21/23 09:12 11/21/23 09:12 11/21/23 09:12 11/21/23 09:12 11/17/23 15:23 Oxygen Flow Rate (L/min) 2 Oxygen Delivery Method Room Air Weight: 221 lb 1.978 oz Body Mass Index (BMI) 31.6 Intake & Output: Intake and Output for Last 24 Hours 11/19/23 11/20/23 11/21/23 23:59 23:59 23:59 Intake Total 700 / 700 300 / 300 950 / 950 Output Total 2100 / 2100 1050 / 1850 1600 / 1600 Balance -1400 / -1400 -750 / -1550 -650 / -650 Lab / Micro Data 11/21/23 05:30 11/21/23 05:30 Labs: Laboratory Results - last 24 hr 11/21/23 05:30: WBC 4.9, RBC 2.92 L, Hgb 9.8 L, Hct 30.4 L, MCV 104.1 H, MCH 33.6 H, MCHC 32.2, RDW Std Deviation 59.4 H, RDW Coeff of Judi 15.6 H, Plt Count 80 L, MPV 11.4, Immature Gran % (Auto) 1.400 H, Neut % (Auto) 51.3, Lymph % (Auto) 27.5, [place] % (Auto) 16.4 H, Eos % (Auto) 2.8, Baso % (Auto) 0.6, Absolute Neuts (auto) 2.5, Absolute Lymphs (auto) 1.36, Nucleated RBC % 0, Sodium 132 L, Potassium 3.5, Chloride 104, Carbon Dioxide 26.0, Anion Gap 2 L, BUN 19 H, Creatinine 0.63 L, Estim Creat Clear Calc 96.16, Est GFR (MDRD) Af Amer 159, Est GFR (MDRD) Non-Af 132, BUN/Creatinine Ratio 30.0 H, Glucose 99, Calcium 8.1 L Micro: Microbiology 11/16/23 14:25 Stool Enteric Bacteriology - Final 11/16/23 11:10 Stool C. difficile GDH Antigen & Toxins - Final Toxigenic C. difficile 11/16/23 11:10 Stool Clostridioides difficile (PCR) - Final Physical Exam Narrative GENERAL: cooperative HEENT: Atraumatic; normocephalic EYES; Anicteric, Normal Conjunctiva NECK; supple, normal thyroid, RESPIRATORY: Diminished to auscultation CARDIOVASCULAR: Regular S1 S2, GI: soft, normoactive bowel sounds, : No Renal angle tenderness; EXTREMITIES: No edema, no clubbing, MUSCULOSKELETAL: no muscle wasting NEURO: Awake; no lateralizing signs. SKIN: No Rash PSYCH; Flat affect Assessment & Plan Assessment/Plan (1) C. difficile colitis: (2) GERD (gastroesophageal reflux disease): QUALIFIERS: Esophagitis presence: esophagitis presence not specified Qualified Code(s): K21.9 - Gastro-esophageal reflux disease without esophagitis (3) History of pulmonary embolism: (4) Prostate cancer metastatic to bone: PLAN: Plan 73-year-old gentleman with metastatic prostate cancer on Keytruda with pancolitis suspected to be due to recurrence of C. difficile -?The most common adverse effect of immune checkpoint inhibitors is watery and non-bloody diarrhea.?Moderate diarrhea or grade II diarrhea with stool frequency between 4-6 times per day should be managed by?discontinuation of checkpoint inhibitors, by ruling out infection, by giving adequate oral hydration and by administering empiric treatment with oral corticosteroid. Typically you give prednisone therapy. However he has recurrent C. difficile colitis and is febrile. -I will increase his vancomycin to 500 mg p.o. every 6 hours and I will put him on Flagyl 500 mg IV every 8 hours. Due to the half-life of both medicines I do not expect him to start to feel better until he has 4-5 doses of each medicine. If at that time and if it is okay with oncology he should have either IVIG or Zinplava which is a monoclonal antibody. I do not know if either can be given in the hospital. -Surgery should be consulted as colectomy is an option if he does not get bett er. 11/18/2023-patient is getting little bit better. It is decided that he has been afebrile. He still is not eating much. His white count is still persistently elevated at 19,000. I had a long talk with his and daughter and explained to them that he will not have a significant improvement for the next 48 hours. After that I expect him to have some improvement with dual therapy. As he is not severely septic at this time I do not think he needs IVIG. After 48 hours we can start cholestyramine at night to slow his diarrhea down. No indication for Lomotil or antidiarrheal agent as they are contraindicated for pancolitis associated with his C. difficile. Working diagnosis at this time is C. difficile colitis with possible immune mediated colitis secondary to Keytruda. Continue current recommendations. Check ESR and CRP and lactate. 11/19/2023-patient is doing a lot better than he was yesterday. He continues to be afebrile. Appetite is poor. His white count is decreasing nicely. Also his lactic acidosis is improving with dual antibiotic therapy. I will put him on colestipol as it has been close to 48 hours he has been on treatment. It should be safe in order to put him on a bile acid resin. Colestipol or cholestyramine is the only medicine you can use an infectious diarrhea. Upon his discharge we will try to get him scheduled for an infusion of Zinplava. Since he is improving at this time I do not think he needs IVIG or IV albumin at this time. 11/21/2023-patient is doing very well. He can be transition to Flagyl 500 mg p.o. every 8 hours and vancomycin 500 mg p.o. every 8 hours when he is discharged. I would not titrate him down with a taper because he will need to be set up to get Zinplava on his last day of medications which can be set up as an outpatient. Continue colestipol and if his stools do not continue to thicken up over the next couple days it can be increased to twice a day. Charges/Coding Visit Charges Inpatient E&M: 67656 [facility] Hosp L3
[2023-11-21] MEDS: Tamsulosin HCl 0.4 MG Capsule 0.400000000000000022 MG PO (17:11)
[2023-11-21] MEDS: Gabapentin 600 MG Tablet 1200 MG PO (22:06)
--- NOTE | 2023-11-21 23:22 | CPS ---
pt on sleep lab machine-home settings of ASV. EPAP 11, Min PS 5 and Max PS10
[2023-11-22 01:00] VITALS: RESP 16; O2SAT 94
[2023-11-22 03:13] VITALS: PULSE 88; RESP 16; O2SAT 96
[2023-11-22 04:00] VITALS: BP 98/59; PULSE 86; RESP 16; TEMP 36.6; O2SAT 97
[2023-11-22] MEDS: metroNIDAZOLE 500 MG/100 ML BAG 100 MG IV ×3 (05:56→20:01)
[2023-11-22] MEDS: Menthol/Lanolin/Calamine/Znox 113 GM Tube 1 APPLIC TOPICAL ×3 (05:57→20:03)
[2023-11-22 06:00] VITALS: BMI 31.7
[2023-11-22] MEDS: Vancomycin 125 MG/5 ML Susp PO.SYRINGE 500 MG PO ×4 (06:05→23:45)
[2023-11-22 07:01] LABS: Absolute Lymphocyte Count 1.25 X10^3/uL (0.83-4.51); Absolute Neutrophil Count 2.4 X10^3/uL (2.0-7.7); Basophil# 0.05 X10^3/uL; Basophil% 1.1 % (0-1); Eosinophil# 0.14 X10^3/uL; Hematocrit 30.3 % (40-54); Hemoglobin 9.9 g/dL (13.0-16.5); Lymphocyte # 1.25 X10^3/ul (0.83-4.51); Lymphocyte % 26.7 % (19-41); Mean Corp Hgb Conc 32.7 g/dL (32-36); Mean Corpuscular Volume 104.1 fL (80-94); Mean Platelet Vol. 10.6 fl (6.2-12.0); Monocyte# 0.76 X10^3/uL; Monocyte% 16.2 % (0-10); NRBC Flagged by Analyzer 0 % (0-5); Neutrophil # 2.42 X10^3/uL (2.7-7.7); Neutrophil % 51.7 % (47-70); POSITIVE COUNT YES; Platelet Count 84 K/mm3 (150-450); RBC Distribution Width CV 15.6 % (11.6-14.6); RBC Distribution Width SD 59.7 fl (35.1-43.9); Red Blood Count 2.91 M/mm3 (4.6-6.2); White Blood Count 4.7 K/mm3 (4.4-11.0)
[2023-11-22 07:40] LABS: Anion Gap 4 (5-15); BUN 16 mg/dL (7-18); BUN/Creat Ratio 24.9 RATIO (10-20); Calcium,Total 7.9 mg/dL (8.5-10.1); Chloride 108 mmol/L (98-107); Creatinine, Serum 0.64 mg/dL (0.70-1.30); EST Glomerular Filtration Rate 129 mL/min (>60); Est Glom Filt Rate - Afr Amer 156 mL/min (>60); Estimated Creatinine Clearance 96.16 ml/min; Glucose 107 mg/dL (74-106); Magnesium 1.7 mg/dL (1.6-2.6); Potassium 3.7 mmol/L (3.5-5.1); Sodium Level 135 mmol/L (136-145)
[2023-11-22 08:08] LABS: International Normalized Ratio 3.1; Prothrombin Time (Protime)PT. 32.6 SECONDS (11.7-14.9)
[2023-11-22] MEDS: DULoxetine Hcl 60 MG Capsule PO (09:37)
[2023-11-22] MEDS: Oxybutynin 5 MG Tablet PO (09:37)
[2023-11-22] MEDS: Calcium Carb/Vitamin D 1 TABLET Tablet PO (09:37)
[2023-11-22] MEDS: guaiFENesin 1,200 MG Tablet 1200 MG PO ×2 (09:37→20:00)
[2023-11-22] MEDS: Pantoprazole Sodium 20 MG Tablet PO (09:38)
[2023-11-22] MEDS: Gabapentin 800 MG Tablet PO (09:38)
[2023-11-22] MEDS: Midodrine HCl 5 MG Tablet PO ×3 (09:38→20:00)
[2023-11-22] MEDS: Colestipol 1 GM TABLET PO (09:38)
[2023-11-22] MEDS: Ferrous Sulfate 325 MG Tablet PO (09:38)
[2023-11-22 09:41] VITALS: BP 112/64; PULSE 94; RESP 18; TEMP 36.2; O2SAT 98
--- NOTE | 2023-11-22 10:09 | PCM.PN.HOSP ---
Reason for Visit Reason for Visit: Diagnoses Enterocolitis due to Clostridium difficile, not specified as recurrent (11/16/23) Malignant neoplasm of prostate (11/16/23) Secondary malignant neoplasm of bone (11/16/23) Gastro-esophageal reflux disease without esophagitis (11/16/23) Personal history of pulmonary embolism (11/16/23) Subjective Subjective Patient seen still has significant loose bowel movement vital fecal management system. WBC count trending down. Objective Data Objective Data Vital Signs: Vital Signs Temp Pulse Resp BP Pulse Ox O2 Del Method O2 Flow Rate 97.2 F L 94 18 112/64 98 Room Air 2 11/22/23 09:41 11/22/23 09:41 11/22/23 09:41 11/22/23 09:41 11/22/23 09:41 11/22/23 09:41 11/17/23 15:23 Oxygen Flow Rate (L/min) 2 Oxygen Delivery Method Room Air Weight: 100.3 kg Body Mass Index (BMI) 31.6 Intake & Output: Intake and Output for Last 24 Hours 11/20/23 11/21/23 11/22/23 23:59 23:59 23:59 Intake Total 300 / 300 1750 / 1750 300 / 300 Output Total 1050 / 1850 1850 / 1850 250 / 250 Balance -750 / -1550 -100 / -100 50 / 50 Lab / Micro Data 11/22/23 05:55 11/22/23 05:55 Labs: Laboratory Results - last 24 hr 11/22/23 05:55: WBC 4.7, RBC 2.91 L, Hgb 9.9 L, Hct 30.3 L, MCV 104.1 H, MCH 34.0 H, MCHC 32.7, RDW Std Deviation 59.7 H, RDW Coeff of Judi 15.6 H, Plt Count 84 L, MPV 10.6, Immature Gran % (Auto) 1.300 H, Neut % (Auto) 51.7, Lymph % (Auto) 26.7, [place] % (Auto) 16.2 H, Eos % (Auto) 3.0, Baso % (Auto) 1.1 H, Absolute Neuts (auto) 2.4, Absolute Lymphs (auto) 1.25, Nucleated RBC % 0, PT 32.6 H, INR 3.1, Sodium 135 L, Potassium 3.7, Chloride 108 H, Carbon Dioxide 23.0, Anion Gap 4 L, BUN 16, Creatinine 0.64 L, Estim Creat Clear Calc 96.16, Est GFR (MDRD) Af Amer 156, Est GFR (MDRD) Non-Af 129, BUN/Creatinine Ratio 24.9 H, Glucose 107 H, Calcium 7.9 L, Phosphorus 3.0, Magnesium 1.7 Micro: Microbiology 11/16/23 14:25 Stool Enteric Bacteriology - Final 11/16/23 11:10 Stool C. difficile GDH Antigen & Toxins - Final Toxigenic C. difficile 11/16/23 11:10 Stool Clostridioides difficile (PCR) - Final Physical Exam Narrative GENERAL: cooperative HEENT: Atraumatic; normocephalic EYES; Anicteric, Normal Conjunctiva NECK; supple, normal thyroid, RESPIRATORY: Diminished to auscultation CARDIOVASCULAR: Regular S1 S2, GI: soft, normoactive bowel sounds, : No Renal angle tenderness; EXTREMITIES: No edema, no clubbing, MUSCULOSKELETAL: no muscle wasting NEURO: Awake; no lateralizing signs. SKIN: No Rash PSYCH; Flat affect Assessment & Plan Assessment/Plan (1) C. difficile colitis: (2) GERD (gastroesophageal reflux disease): QUALIFIERS: Esophagitis presence: esophagitis presence not specified Qualified Code(s): K21.9 - Gastro-esophageal reflux disease without esophagitis (3) History of pulmonary embolism: (4) Prostate cancer metastatic to bone: PLAN: Plan Patient is a 73-year-old gentleman with history of metastatic prostate CA on chemo recently admitted for C. difficile colitis presented with recurrence 1. Recurrent C. difficile colitis ?Patient admitted to regular nursing floor. Started on the fecal management system given the frequency of his diarrhea. Vancomycin restarted with plan to discharge patient home on a prolonged taper ? 11/22/2023;Patient seen still has significant loose bowel movement vital fecal management system. WBC count trending down. 2. Hypokalemia ? Corrected per protocol 3.. Metastatic prostate CA ? First diagnosed in 2016 had chemo and radiation. Recent PET scan demonstrated increased metastatic activity resulting in resumption of chemo starting in September 2023 4 . Venous thromboembolism ? Patient is on systemic anticoagulation with Coumadin with a therapeutic INR of 2.4 5. Hypertension - Blood pressure controlled, home medications continued with dose adjustment as needed 6. Central sleep apnea ? Patient is on CPAP 7. Depression with anxiety ? Patient is on Duloxetine did continue 8. Anemia - Secondary to chronic disorder monitoring H&H and transfuse if patient becomes symptomatic or hemoglobin falls below 9. GERD ? On PPI 10. Hyponatremia ? Secondary to hypovolemic hyponatremia from patient loose bowel movement on fluid with subsequent monitoring of electrolytes 11. DVT prophylaxis ? Patient on Coumadin Time spent in the patient's overall evaluation,decision-making process, review of diagnostic data, adjustment of management, discussion with other providers, nursing nursing and ancillary staff involved in patient's care documentation, 35 minutes Charges/Coding Visit Charges Inpatient E&M: 67174 Subs Hosp L2
[2023-11-22] MEDS: Colestipol 1 GM TABLET 2 GM PO ×2 (15:34→23:44)
[2023-11-22 15:39] VITALS: BP 99/67; PULSE 94; RESP 18; TEMP 37; O2SAT 98
[2023-11-22] MEDS: Gabapentin 600 MG Tablet 1200 MG PO (19:59)
[2023-11-22] MEDS: Tamsulosin HCl 0.4 MG Capsule 0.400000000000000022 MG PO (20:00)
[2023-11-22 20:07] VITALS: BP 111/71; PULSE 90; RESP 16; TEMP 36.2; O2SAT 96
[2023-11-23] VITALS (8 sets, daily range): BP systolic 95–123; BP diastolic 55–72; PULSE 88–99; RESP 16–20; TEMP 36.6–36.7; O2SAT 95–100; BMI 32.2
[2023-11-23] MEDS: metroNIDAZOLE 500 MG/100 ML BAG 100 MG IV ×3 (05:59→23:02)
[2023-11-23] MEDS: Menthol/Lanolin/Calamine/Znox 113 GM Tube 1 APPLIC TOPICAL ×3 (05:59→23:02)
[2023-11-23] MEDS: Vancomycin 125 MG/5 ML Susp PO.SYRINGE 500 MG PO ×4 (05:59→23:03)
[2023-11-23 08:56] LABS: Absolute Lymphocyte Count 1.34 X10^3/uL (0.83-4.51); Absolute Neutrophil Count 2.9 X10^3/uL (2.0-7.7); Basophil# 0.05 X10^3/uL; Eosinophil# 0.12 X10^3/uL; Eosinophils% 2.3 % (0-5); Hemoglobin 10.2 g/dL (13.0-16.5); Lymphocyte # 1.34 X10^3/ul (0.83-4.51); Lymphocyte % 25.7 % (19-41); Mean Corp Hgb Conc 32.9 g/dL (32-36); Mean Corpuscular Hgb 33.8 pg (27.0-32.0); Mean Corpuscular Volume 102.6 fL (80-94); Mean Platelet Vol. 10.8 fl (6.2-12.0); Monocyte# 0.69 X10^3/uL; Monocyte% 13.2 % (0-10); NRBC Flagged by Analyzer 0 % (0-5); Neutrophil # 2.94 X10^3/uL (2.7-7.7); Neutrophil % 56.5 % (47-70); POSITIVE COUNT YES; Platelet Count 84 K/mm3 (150-450); RBC Distribution Width CV 15.8 % (11.6-14.6); RBC Distribution Width SD 58.5 fl (35.1-43.9); Red Blood Count 3.02 M/mm3 (4.6-6.2); White Blood Count 5.2 K/mm3 (4.4-11.0)
[2023-11-23 09:03] LABS: International Normalized Ratio 3.5; Prothrombin Time (Protime)PT. 35.6 SECONDS (11.7-14.9)
--- NOTE | 2023-11-23 09:36 | PCM.PN.HOSP ---
Reason for Visit Reason for Visit: Diagnoses Enterocolitis due to Clostridium difficile, not specified as recurrent (11/16/23) Malignant neoplasm of prostate (11/16/23) Secondary malignant neoplasm of bone (11/16/23) Gastro-esophageal reflux disease without esophagitis (11/16/23) Personal history of pulmonary embolism (11/16/23) Subjective Subjective Patient seen for fecal management system remains in place with significant loose stools. Patient was started on Celexa for by Dr. Torres on 11/22/2023. Case discussed with both patient and the Objective Data Objective Data Vital Signs: Vital Signs Temp Pulse Resp BP Pulse Ox O2 Del Method O2 Flow Rate 97.8 F 98 16 123/72 H 100 Room Air 2 11/23/23 06:06 11/23/23 06:06 11/23/23 06:06 11/23/23 06:06 11/23/23 06:06 11/23/23 06:06 11/17/23 15:23 Oxygen Flow Rate (L/min) 2 Oxygen Delivery Method Room Air Weight: 100.5 kg Body Mass Index (BMI) 31.7 Intake & Output: Intake and Output for Last 24 Hours 11/21/23 11/22/23 11/23/23 23:59 23:59 23:59 Intake Total 1750 / 1750 2200 / 2200 100 / 100 Output Total 1850 / 1850 1550 / 1550 1100 / 1100 Balance -100 / -100 650 / 650 -1000 / -1000 Lab / Micro Data 11/23/23 08:07 11/22/23 05:55 Labs: Laboratory Results - last 24 hr 11/23/23 08:07: WBC 5.2, RBC 3.02 L, Hgb 10.2 L, Hct 31.0 L, MCV 102.6 H, MCH 33.8 H, MCHC 32.9, RDW Std Deviation 58.5 H, RDW Coeff of Judi 15.8 H, Plt Count 84 L, MPV 10.8, Immature Gran % (Auto) 1.300 H, Neut % (Auto) 56.5, Lymph % (Auto) 25.7, [place] % (Auto) 13.2 H, Eos % (Auto) 2.3, Baso % (Auto) 1.0, Absolute Neuts (auto) 2.9, Absolute Lymphs (auto) 1.34, Nucleated RBC % 0, PT 35.6 H, INR 3.5 Micro: Microbiology 11/16/23 14:25 Stool Enteric Bacteriology - Final 11/16/23 11:10 Stool C. difficile GDH Antigen & Toxins - Final Toxigenic C. difficile 11/16/23 11:10 Stool Clostridioides difficile (PCR) - Final Physical Exam Narrative GENERAL: cooperative HEENT: Atraumatic; normocephalic EYES; Anicteric, Normal Conjunctiva NECK; supple, normal thyroid, RESPIRATORY: Diminished to auscultation CARDIOVASCULAR: Regular S1 S2, GI: soft, normoactive bowel sounds, : No Renal angle tenderness; EXTREMITIES: No edema, no clubbing, MUSCULOSKELETAL: no muscle wasting NEURO: Awake; no lateralizing signs. SKIN: No Rash PSYCH; Flat affect Assessment & Plan Assessment/Plan (1) C. difficile colitis: (2) GERD (gastroesophageal reflux disease): QUALIFIERS: Esophagitis presence: esophagitis presence not specified Qualified Code(s): K21.9 - Gastro-esophageal reflux disease without esophagitis (3) History of pulmonary embolism: (4) Prostate cancer metastatic to bone: PLAN: Plan Patient is a 73-year-old gentleman with history of metastatic prostate CA on chemo recently admitted for C. difficile colitis presented with recurrence 1. Recurrent C. difficile colitis ?Patient admitted to regular nursing floor. Started on the fecal management system given the frequency of his diarrhea. Vancomycin restarted with plan to discharge patient home on a prolonged taper ? 11/22/2023;Patient seen still has significant loose bowel movement vital fecal management system. WBC count trending down. ? 11/23/2023;Patient seen for fecal management system remains in place with significant loose stools. Patient was started on Celexa for by Dr. Torres on 11/22/2023. Case discussed with both patient and the 2. Hypokalemia ? Corrected per protocol 3.. Metastatic prostate CA ? First diagnosed in 2016 had chemo and radiation. Recent PET scan demonstrated increased metastatic activity resulting in resumption of chemo starting in September 2023 4 . Venous thromboembolism ? Patient is on systemic anticoagulation with Coumadin with a therapeutic INR of 2.4 5. Hypertension - Blood pressure controlled, home medications continued with dose adjustment as needed 6. Central sleep apnea ? Patient is on CPAP 7. Depression with anxiety ? Patient is on Duloxetine did continue 8. Anemia - Secondary to chronic disorder monitoring H&H and transfuse if patient becomes symptomatic or hemoglobin falls below 9. GERD ? On PPI 10. Hyponatremia ? Secondary to hypovolemic hyponatremia from patient loose bowel movement on fluid with subsequent monitoring of electrolytes 11. DVT prophylaxis ? Patient on Coumadin Time spent in the patient's overall evaluation,decision-making process, review of diagnostic data, adjustment of management, discussion with other providers, nursing nursing and ancillary staff involved in patient's care documentation, 35 minutes Charges/Coding Visit Charges Inpatient E&M: 70458 Subs Hosp L2
[2023-11-23] MEDS: Ferrous Sulfate 325 MG Tablet PO (10:05)
[2023-11-23] MEDS: Gabapentin 800 MG Tablet PO (10:05)
[2023-11-23] MEDS: Oxybutynin 5 MG Tablet PO (10:05)
[2023-11-23] MEDS: Colestipol 1 GM TABLET 2 GM PO ×2 (10:06→23:02)
[2023-11-23] MEDS: Midodrine HCl 5 MG Tablet PO ×3 (10:06→18:00)
[2023-11-23] MEDS: Calcium Carb/Vitamin D 1 TABLET Tablet PO (10:06)
[2023-11-23] MEDS: DULoxetine Hcl 60 MG Capsule PO (10:07)
[2023-11-23] MEDS: Pantoprazole Sodium 20 MG Tablet PO (10:07)
[2023-11-23] MEDS: guaiFENesin 1,200 MG Tablet 1200 MG PO ×2 (10:07→23:02)
[2023-11-23 10:29] LABS: Anion Gap 4 (5-15); BUN 11 mg/dL (7-18); BUN/Creat Ratio 19.2 RATIO (10-20); Chloride 105 mmol/L (98-107); Creatinine, Serum 0.57 mg/dL (0.70-1.30); EST Glomerular Filtration Rate 147 mL/min (>60); Est Glom Filt Rate - Afr Amer 178 mL/min (>60); Estimated Creatinine Clearance 96.25 ml/min; Glucose 99 mg/dL (74-106); Potassium 3.3 mmol/L (3.5-5.1); Sodium Level 132 mmol/L (136-145)
[2023-11-23] MEDS: Tamsulosin HCl 0.4 MG Capsule 0.400000000000000022 MG PO (17:59)
--- NOTE | 2023-11-23 21:22 | CPS ---
Patient on sleep lab PAP machine for the night on ASV settings.
[2023-11-23] MEDS: Gabapentin 600 MG Tablet 1200 MG PO (23:01)
[2023-11-24 03:04] VITALS: BP 104/66; PULSE 95; RESP 16; TEMP 36.6; O2SAT 96; O2SAT 97
[2023-11-24 04:07] VITALS: BMI 33.5
[2023-11-24] MEDS: Vancomycin 125 MG/5 ML Susp PO.SYRINGE 500 MG PO ×4 (06:17→22:47)
[2023-11-24] MEDS: metroNIDAZOLE 500 MG/100 ML BAG 100 MG IV ×3 (06:18→22:35)
[2023-11-24] MEDS: Menthol/Lanolin/Calamine/Znox 113 GM Tube 1 APPLIC TOPICAL ×2 (06:18→15:07)
[2023-11-24 07:32] LABS: Absolute Neutrophil Count 2.7 X10^3/uL (2.0-7.7); Basophil# 0.04 X10^3/uL; Basophil% 0.8 % (0-1); Eosinophil# 0.17 X10^3/uL; Eosinophils% 3.3 % (0-5); Hematocrit 30.5 % (40-54); Lymphocyte % 29.5 % (19-41); Mean Corp Hgb Conc 32.8 g/dL (32-36); Mean Corpuscular Hgb 33.8 pg (27.0-32.0); Mean Platelet Vol. 11.1 fl (6.2-12.0); Monocyte# 0.58 X10^3/uL; Monocyte% 11.4 % (0-10); NRBC Flagged by Analyzer 0 % (0-5); Neutrophil # 2.72 X10^3/uL (2.7-7.7); Neutrophil % 53.6 % (47-70); POSITIVE COUNT YES; Platelet Count 92 K/mm3 (150-450); RBC Distribution Width CV 15.9 % (11.6-14.6); RBC Distribution Width SD 59.2 fl (35.1-43.9); Red Blood Count 2.96 M/mm3 (4.6-6.2); White Blood Count 5.1 K/mm3 (4.4-11.0)
--- NOTE | 2023-11-24 07:54 | PCM.PN.HOSP ---
Reason for Visit Reason for Visit: Diagnoses Enterocolitis due to Clostridium difficile, not specified as recurrent (11/16/23) Malignant neoplasm of prostate (11/16/23) Secondary malignant neoplasm of bone (11/16/23) Gastro-esophageal reflux disease without esophagitis (11/16/23) Personal history of pulmonary embolism (11/16/23) Subjective Subjective Patient seen the fecal management system remains in place. Patient still has loose bowel movement. Diagnostic data reviewed significant for potassium of 3.3 Objective Data Objective Data Vital Signs: Vital Signs Temp Pulse Resp BP Pulse Ox O2 Del Method O2 Flow Rate 97.8 F 95 16 104/66 96 Room Air 2 11/24/23 03:04 11/24/23 03:04 11/24/23 03:04 11/24/23 03:04 11/24/23 03:04 11/24/23 03:04 11/17/23 15:23 FiO2 21 11/23/23 20:05 Oxygen Flow Rate (L/min) 2 Oxygen Delivery Method Room Air Weight: 106 kg Body Mass Index (BMI) 33.5 Intake & Output: Intake and Output for Last 24 Hours 11/22/23 11/23/23 11/24/23 23:59 23:59 23:59 Intake Total 2200 / 2200 1180 / 1180 500 / 500 Output Total 1550 / 1550 1700 / 1700 600 / 600 Balance 650 / 650 -520 / -520 -100 / -100 Lab / Micro Data 11/24/23 06:48 11/24/23 06:48 Labs: Laboratory Results - last 24 hr 11/23/23 08:07: WBC 5.2, RBC 3.02 L, Hgb 10.2 L, Hct 31.0 L, MCV 102.6 H, MCH 33.8 H, MCHC 32.9, RDW Std Deviation 58.5 H, RDW Coeff of Judi 15.8 H, Plt Count 84 L, MPV 10.8, Immature Gran % (Auto) 1.300 H, Neut % (Auto) 56.5, Lymph % (Auto) 25.7, [place] % (Auto) 13.2 H, Eos % (Auto) 2.3, Baso % (Auto) 1.0, Absolute Neuts (auto) 2.9, Absolute Lymphs (auto) 1.34, Nucleated RBC % 0, PT 35.6 H, INR 3.5, Sodium 132 L, Potassium 3.3 L, Chloride 105, Carbon Dioxide 23.0, Anion Gap 4 L, BUN 11, Creatinine 0.57 L, Estim Creat Clear Calc 96.25, Est GFR (MDRD) Af Amer 178, Est GFR (MDRD) Non-Af 147, BUN/Creatinine Ratio 19.2, Glucose 99, Calcium 8.0 L 11/24/23 06:48: WBC 5.1, RBC 2.96 L, Hgb 10.0 L, Hct 30.5 L, MCV 103.0 H, MCH 33.8 H, MCHC 32.8, RDW Std Deviation 59.2 H, RDW Coeff of Judi 15.9 H, Plt Count 92 L, MPV 11.1, Immature Gran % (Auto) 1.400 H, Neut % (Auto) 53.6, Lymph % (Auto) 29.5, [place] % (Auto) 11.4 H, Eos % (Auto) 3.3, Baso % (Auto) 0.8, Absolute Neuts (auto) 2.7, Absolute Lymphs (auto) 1.50, Nucleated RBC % 0 Micro: Microbiology 11/16/23 14:25 Stool Enteric Bacteriology - Final 11/16/23 11:10 Stool C. difficile GDH Antigen & Toxins - Final Toxigenic C. difficile 11/16/23 11:10 Stool Clostridioides difficile (PCR) - Final Physical Exam Narrative GENERAL: cooperative HEENT: Atraumatic; normocephalic EYES; Anicteric, Normal Conjunctiva NECK; supple, normal thyroid, RESPIRATORY: Diminished to auscultation CARDIOVASCULAR: Regular S1 S2, GI: soft, normoactive bowel sounds, : No Renal angle tenderness; EXTREMITIES: No edema, no clubbing, MUSCULOSKELETAL: no muscle wasting NEURO: Awake; no lateralizing signs. SKIN: No Rash PSYCH; Flat affect Assessment & Plan Assessment/Plan (1) C. difficile colitis: (2) GERD (gastroesophageal reflux disease): QUALIFIERS: Esophagitis presence: esophagitis presence not specified Qualified Code(s): K21.9 - Gastro-esophageal reflux disease without esophagitis (3) History of pulmonary embolism: (4) Prostate cancer metastatic to bone: PLAN: Plan Patient is a 73-year-old gentleman with history of metastatic prostate CA on chemo recently admitted for C. difficile colitis presented with recurrence 1. Recurrent C. difficile colitis ?Patient admitted to regular nursing floor. Started on the fecal management system given the frequency of his diarrhea. Vancomycin restarted with plan to discharge patient home on a prolonged taper ? 11/22/2023;Patient seen still has significant loose bowel movement vital fecal management system. WBC count trending down. ? 11/23/2023;Patient seen for fecal management system remains in place with significant loose stools. Patient was started on Celexa for by Dr. Torres on 11/22/2023. Case discussed with both patient and the ? 11/24/2023; patient still has loose bowel movement 2. Hypokalemia ? Corrected per protocol ? 11/24/2023 potassium 3.3 this a.m. additional replacement given 3.. Metastatic prostate CA ? First diagnosed in 2016 had chemo and radiation. Recent PET scan demonstrated increased metastatic activity resulting in resumption of chemo starting in September 2023 4 . Venous thromboembolism ? Patient is on systemic anticoagulation with Coumadin with a therapeutic INR of 2.4 5. Hypertension - Blood pressure controlled, home medications continued with dose adjustment as needed 6. Central sleep apnea ? Patient is on CPAP 7. Depression with anxiety ? Patient is on Duloxetine did continue 8. Anemia - Secondary to chronic disorder monitoring H&H and transfuse if patient becomes symptomatic or hemoglobin falls below 9. GERD ? On PPI 10. Hyponatremia ? Secondary to hypovolemic hyponatremia from patient loose bowel movement on fluid with subsequent monitoring of electrolytes 11. DVT prophylaxis ? Patient on Coumadin Time spent in the patient's overall evaluation,decision-making process, review of diagnostic data, adjustment of management, discussion with other providers, nursing nursing and ancillary staff involved in patient's care documentation, 35 minutes Charges/Coding Visit Charges Inpatient E&M: 50917 Subs Hosp L2
[2023-11-24 08:05] LABS: Anion Gap 4 (5-15); BUN 11 mg/dL (7-18); BUN/Creat Ratio 17.1 RATIO (10-20); Calcium,Total 8.1 mg/dL (8.5-10.1); Chloride 107 mmol/L (98-107); Creatinine, Serum 0.64 mg/dL (0.70-1.30); EST Glomerular Filtration Rate 129 mL/min (>60); Est Glom Filt Rate - Afr Amer 156 mL/min (>60); Estimated Creatinine Clearance 98.77 ml/min; Glucose 105 mg/dL (74-106); Potassium 3.5 mmol/L (3.5-5.1); Sodium Level 136 mmol/L (136-145)
[2023-11-24 09:25] LABS: International Normalized Ratio 3.9; Prothrombin Time (Protime)PT. 38.5 SECONDS (11.7-14.9)
[2023-11-24] MEDS: Midodrine HCl 5 MG Tablet PO ×3 (09:44→17:42)
[2023-11-24] MEDS: Ferrous Sulfate 325 MG Tablet PO (09:44)
[2023-11-24] MEDS: DULoxetine Hcl 60 MG Capsule PO (09:45)
[2023-11-24] MEDS: Gabapentin 800 MG Tablet PO (09:45)
[2023-11-24] MEDS: Colestipol 1 GM TABLET 2 GM PO (09:45)
[2023-11-24] MEDS: Pantoprazole Sodium 20 MG Tablet PO (09:45)
[2023-11-24] MEDS: Oxybutynin 5 MG Tablet PO (09:45)
[2023-11-24] MEDS: Calcium Carb/Vitamin D 1 TABLET Tablet PO (09:45)
[2023-11-24] MEDS: guaiFENesin 1,200 MG Tablet 1200 MG PO ×2 (09:46→22:45)
[2023-11-24 12:00] VITALS: BP 94/57; PULSE 103; RESP 16; TEMP 36.4; O2SAT 96
[2023-11-24] MEDS: Potassium Chloride Oral Tablet 20 MEQ 40 MEQ PO (12:29)
--- NOTE | 2023-11-24 17:38 | PN.GI_ITS ---
Subjective Subjective Patient is only have a small amount of mucus stools. He is not having any diarrhea at this time. Objective Data Objective Data Vital Signs: Vital Signs Temp Pulse Resp BP Pulse Ox O2 Del Method O2 Flow Rate 97.6 F L 103 H 16 94/57 L 96 Room Air 2 11/24/23 12:00 11/24/23 12:00 11/24/23 12:00 11/24/23 12:00 11/24/23 12:00 11/24/23 12:00 11/17/23 15:23 FiO2 21 11/23/23 20:05 Oxygen Flow Rate (L/min) 2 Oxygen Delivery Method Room Air Weight: 233 lb 11.04 oz Body Mass Index (BMI) 33.5 Intake & Output: Intake and Output for Last 24 Hours 11/22/23 11/23/23 11/24/23 23:59 23:59 23:59 Intake Total 2200 / 2200 1180 / 1180 700 / 700 Output Total 1550 / 1550 1700 / 1700 1300 / 1300 Balance 650 / 650 -520 / -520 -600 / -600 Lab / Micro Data 11/24/23 06:48 11/24/23 06:48 Labs: Laboratory Results - last 24 hr 11/24/23 06:48: WBC 5.1, RBC 2.96 L, Hgb 10.0 L, Hct 30.5 L, MCV 103.0 H, MCH 3 3.8 H, MCHC 32.8, RDW Std Deviation 59.2 H, RDW Coeff of Judi 15.9 H, Plt Count 92 L, MPV 11.1, Immature Gran % (Auto) 1.400 H, Neut % (Auto) 53.6, Lymph % (Auto) 29.5, [place] % (Auto) 11.4 H, Eos % (Auto) 3.3, Baso % (Auto) 0.8, Absolute Neuts (auto) 2.7, Absolute Lymphs (auto) 1.50, Nucleated RBC % 0, PT 38.5 H, INR 3.9, Sodium 136, Potassium 3.5, Chloride 107, Carbon Dioxide 25.0, Anion Gap 4 L , BUN 11, Creatinine 0.64 L, Estim Creat Clear Calc 98.77, Est GFR (MDRD) Af Amer 156, Est GFR (MDRD) Non-Af 129, BUN/Creatinine Ratio 17.1, Glucose 105, Calcium 8.1 L Micro: Microbiology 11/16/23 14:25 Stool Enteric Bacteriology - Final 11/16/23 11:10 Stool C. difficile GDH Antigen & Toxins - Final Toxigenic C. difficile 11/16/23 11:10 Stool Clostridioides difficile (PCR) - Final Physical Exam Narrative GENERAL: cooperative HEENT: Atraumatic; normocephalic EYES; Anicteric, Normal Conjunctiva NECK; supple, normal thyroid, RESPIRATORY: Diminished to auscultation CARDIOVASCULAR: Regular S1 S2, GI: soft, normoactive bowel sounds, : No Renal angle tenderness; EXTREMITIES: No edema, no clubbing, MUSCULOSKELETAL: no muscle wasting NEURO: Awake; no lateralizing signs. SKIN: No Rash PSYCH; Flat affect Assessment & Plan Assessment/Plan (1) C. difficile colitis: (2) GERD (gastroesophageal reflux disease): QUALIFIERS: Esophagitis presence: esophagitis presence not specified Qualified Code(s): K21.9 - Gastro-esophageal reflux disease without esophagitis (3) History of pulmonary embolism: (4) Prostate cancer metastatic to bone: PLAN: Plan 73-year-old gentleman with metastatic prostate cancer on Keytruda with pancolitis suspected to be due to recurrence of C. difficile -?The most common adverse effect of immune checkpoint inhibitors is watery and non-bloody diarrhea.?Moderate diarrhea or grade II diarrhea with stool frequency between 4-6 times per day should be managed by?discontinuation of checkpoint inhibitors, by ruling out infection, by giving adequate oral hydration and by ad ministering empiric treatment with oral corticosteroid. Typically you give prednisone therapy. However he has recurrent C. difficile colitis and is febrile. -I will increase his vancomycin to 500 mg p.o. every 6 hours and I will put him on Flagyl 500 mg IV every 8 hours. Due to the half-life of both medicines I do not expect him to start to feel better until he has 4-5 doses of each medicine. If at that time and if it is okay with oncology he should have either IVIG or Zinplava which is a monoclonal antibody. I do not know if either can be given in the hospital. -Surgery should be consulted as colectomy is an option if he does not get bett er. 11/18/2023-patient is getting little bit better. It is decided that he has been afebrile. He still is not eating much. His white count is still persistently elevated at 19,000. I had a long talk with his and daughter and explained to them that he will not have a significant improvement for the next 48 hours. After that I expect him to have some improvement with dual therapy. As he is not severely septic at this time I do not think he needs IVIG. After 48 hours we can start cholestyramine at night to slow his diarrhea down. No indication for Lomotil or antidiarrheal agent as they are contraindicated for pancolitis associated with his C. difficile. Working diagnosis at this time is C. difficile colitis with possible immune mediated colitis secondary to Keytruda. Continue current recommendations. Check ESR and CRP and lactate. 11/19/2023-patient is doing a lot better than he was yesterday. He continues to be afebrile. Appetite is poor. His white count is decreasing nicely. Also his lactic acidosis is improving with dual antibiotic therapy. I will put him on colestipol as it has been close to 48 hours he has been on treatment. It should be safe in order to put him on a bile acid resin. Colestipol or cholestyramine is the only medicine you can use an infectious diarrhea. Upon his discharge we will try to get him scheduled for an infusion of Zinplava. Since he is improving at this time I do not think he needs IVIG or IV albumin at this time. 11/21/2023-patient is doing very well. He can be transition to Flagyl 500 mg p.o. every 8 hours and vancomycin 500 mg p.o. every 8 hours when he is discharged. I would not titrate him down with a taper because he will need to be set up to get Zinplava on his last day of medications which can be set up as an outpatient. Continue colestipol and if his stools do not continue to thicken up over the next couple days it can be increased to twice a day. 11/24/2023-he is not having any diarrhea at this time. He is having more mucus stools. I think the colestipol is too strong. I will change him to only fiber to see if we can help him have a formed stool. If his liquid stools come back then he can just go on cholestyramine once a day. Charges/Coding Visit Charges Inpatient E&M: 08840 Subs Hosp L3
[2023-11-24] MEDS: Famotidine 20 MG Tablet 40 MG PO (17:42)
[2023-11-24] MEDS: Tamsulosin HCl 0.4 MG Capsule 0.400000000000000022 MG PO (17:49)
[2023-11-24 18:00] VITALS: BP 93/62; PULSE 99; RESP 16; TEMP 36.1; O2SAT 96
[2023-11-24 22:20] VITALS: BP 99/62; PULSE 96; RESP 16; TEMP 36.9; O2SAT 94
[2023-11-24] MEDS: Gabapentin 600 MG Tablet 1200 MG PO (22:34)
[2023-11-24 23:10] VITALS: PULSE 91; RESP 12; O2SAT 95
--- NOTE | 2023-11-24 23:41 | CPS ---
Patient placed on sleep lab PAP machine for the night at home ASV settings.
[2023-11-25 05:48] VITALS: BP 102/70; PULSE 90; RESP 16; TEMP 36.5; O2SAT 95
[2023-11-25] MEDS: Vancomycin 125 MG/5 ML Susp PO.SYRINGE 500 MG PO ×2 (05:51→12:41)
[2023-11-25] MEDS: metroNIDAZOLE 500 MG/100 ML BAG 100 MG IV ×3 (05:52→23:02)
[2023-11-25] MEDS: Menthol/Lanolin/Calamine/Znox 113 GM Tube 1 APPLIC TOPICAL ×3 (05:53→23:03)
[2023-11-25 06:00] VITALS: BMI 33.6
--- NOTE | 2023-11-25 08:04 | PCM.PN.HOSP ---
Reason for Visit Reason for Visit: Diagnoses Enterocolitis due to Clostridium difficile, not specified as recurrent (11/16/23) Malignant neoplasm of prostate (11/16/23) Secondary malignant neoplasm of bone (11/16/23) Gastro-esophageal reflux disease without esophagitis (11/16/23) Personal history of pulmonary embolism (11/16/23) Subjective Subjective Patient seen frequency of his diarrhea has reduced significantly. Plan is to discontinue the fecal management system Objective Data Objective Data Vital Signs: Vital Signs Temp Pulse Resp BP Pulse Ox O2 Del Method O2 Flow Rate 97.7 F L 90 16 102/70 95 Room Air 2 11/25/23 05:48 11/25/23 05:48 11/25/23 05:48 11/25/23 05:48 11/25/23 05:48 11/25/23 05:48 11/17/23 15:23 FiO2 21 11/24/23 23:10 Oxygen Flow Rate (L/min) 2 Oxygen Delivery Method Room Air Weight: 106.3 kg Body Mass Index (BMI) 33.6 Intake & Output: Intake and Output for Last 24 Hours 11/23/23 11/24/23 11/25/23 23:59 23:59 23:59 Intake Total 1180 / 1180 1000 / 1000 200 / 200 Output Total 1700 / 1700 1800 / 1800 400 / 400 Balance -520 / -520 -800 / -800 -200 / -200 Lab / Micro Data 11/24/23 06:48 11/24/23 06:48 Labs: Laboratory Results - last 24 hr 11/24/23 06:48: PT 38.5 H, INR 3.9, Sodium 136, Potassium 3.5, Chloride 107, Carbon Dioxide 25.0, Anion Gap 4 L, BUN 11, Creatinine 0.64 L, Estim Creat Clear Calc 98.77, Est GFR (MDRD) Af Amer 156, Est GFR (MDRD) Non-Af 129, BUN/Creatinine Ratio 17.1, Glucose 105, Calcium 8.1 L Micro: Microbiology 11/16/23 14:25 Stool Enteric Bacteriology - Final 11/16/23 11:10 Stool C. difficile GDH Antigen & Toxins - Final Toxigenic C. difficile 11/16/23 11:10 Stool Clostridioides difficile (PCR) - Final Physical Exam Narrative GENERAL: cooperative HEENT: Atraumatic; normocephalic EYES; Anicteric, Normal Conjunctiva NECK; supple, normal thyroid, RESPIRATORY: Diminished to auscultation CARDIOVASCULAR: Regular S1 S2, GI: soft, normoactive bowel sounds, : No Renal angle tenderness; EXTREMITIES: No edema, no clubbing, MUSCULOSKELETAL: no muscle wasting NEURO: Awake; no lateralizing signs. SKIN: No Rash PSYCH; Flat affect Assessment & Plan Assessment/Plan (1) C. difficile colitis: (2) GERD (gastroesophageal reflux disease): QUALIFIERS: Esophagitis presence: esophagitis presence not specified Qualified Code(s): K21.9 - Gastro-esophageal reflux disease without esophagitis (3) History of pulmonary embolism: (4) Prostate cancer metastatic to bone: PLAN: Plan Patient is a 73-year-old gentleman with history of metastatic prostate CA on chemo recently admitted for C. difficile colitis presented with recurrence 1. Recurrent C. difficile colitis ?Patient admitted to regular nursing floor. Started on the fecal management system given the frequency of his diarrhea. Vancomycin restarted with plan to discharge patient home on a prolonged taper ? 11/22/2023;Patient seen still has significant loose bowel movement vital fecal management system. WBC count trending down. ? 11/23/2023;Patient seen for fecal management system remains in place with significant loose stools. Patient was started on Celexa for by Dr. Torres on 11/22/2023. Case discussed with both patient and the ? 11/24/2023; patient still has loose bowel movement ? 11/25/2023;Patient seen frequency of his diarrhea has reduced significantly. Plan is to discontinue the fecal management system 2. Hypokalemia ? Corrected per protocol ? 11/24/2023 potassium 3.3 this a.m. additional replacement given 3.. Metastatic prostate CA ? First diagnosed in 2017 had chemo and radiation. Recent PET scan demonstrated increased metastatic activity resulting in resumption of chemo starting in September 2023 4 . Venous thromboembolism ? Patient is on systemic anticoagulation with Coumadin with a therapeutic INR of 2.4 5. Hypertension - Blood pressure controlled, home medications continued with dose adjustment as needed 6. Central sleep apnea ? Patient is on CPAP 7. Depression with anxiety ? Patient is on Duloxetine did continue 8. Anemia - Secondary to chronic disorder monitoring H&H and transfuse if patient becomes symptomatic or hemoglobin falls below 9. GERD ? On PPI 10. Hyponatremia ? Secondary to hypovolemic hyponatremia from patient loose bowel movement on fluid with subsequent monitoring of electrolytes 11. DVT prophylaxis ? Patient on Coumadin Time spent in the patient's overall evaluation,decision-making process, review of diagnostic data, adjustment of management, discussion with other providers, nursing nursing and ancillary staff involved in patient's care documentation, 35 minutes Charges/Coding Visit Charges Inpatient E&M: 40921 Subs Hosp L2
[2023-11-25 08:05] VITALS: BP 107/68; PULSE 91; RESP 18; TEMP 36.8; O2SAT 98
[2023-11-25] MEDS: Midodrine HCl 5 MG Tablet PO ×3 (08:08→17:07)
[2023-11-25] MEDS: Oxybutynin 5 MG Tablet PO (08:08)
[2023-11-25] MEDS: Gabapentin 800 MG Tablet PO (08:08)
[2023-11-25] MEDS: Ferrous Sulfate 325 MG Tablet PO (08:08)
[2023-11-25] MEDS: guaiFENesin 1,200 MG Tablet 1200 MG PO ×2 (08:09→23:03)
[2023-11-25] MEDS: Calcium Carb/Vitamin D 1 TABLET Tablet PO (08:09)
[2023-11-25] MEDS: DULoxetine Hcl 60 MG Capsule PO (08:09)
[2023-11-25] MEDS: Famotidine 20 MG Tablet 40 MG PO (08:12)
--- NOTE | 2023-11-25 11:14 | NURSING ---
Fecal management system removed at [address] by [address] RN per Dr Ayers's orders
[2023-11-25 13:20] VITALS: BP 91/59; PULSE 96; RESP 18; TEMP 36.4; O2SAT 98
--- NOTE | 2023-11-25 15:15 | CASEMGMT ---
RN KHALIDA spoke with regarding discharge plan. Plan is for home with [facility]. [facility] has patient on schedule for Tuesday if he discharges over the weekend. agreeable to plan. had no further questions or concenrs. Green sheet placed on chart.
[2023-11-25 17:05] VITALS: BP 107/65; PULSE 92; RESP 18; TEMP 36.6; O2SAT 96
[2023-11-25] MEDS: Tamsulosin HCl 0.4 MG Capsule 0.400000000000000022 MG PO (17:07)
[2023-11-25] MEDS: Vancomycin HCl 250 MG Capsule 500 MG PO ×2 (17:08→23:02)
--- NOTE | 2023-11-25 19:45 | EX.PCM.PN.GI ---
Subjective Subjective Patient is feeling a lot better and wants to be discharged home. His fecal management system was stopped. Objective Data Objective Data Vital Signs: Vital Signs Temp Pulse Resp BP Pulse Ox O2 Del Method O2 Flow Rate 97.8 F 92 18 107/65 96 Room Air 2 11/25/23 17:05 11/25/23 17:05 11/25/23 17:05 11/25/23 17:05 11/25/23 17:05 11/25/23 17:05 11/17/23 15:23 FiO2 21 11/24/23 23:10 Oxygen Flow Rate (L/min) 2 Oxygen Delivery Method Room Air Weight: 234 lb 5.622 oz Body Mass Index (BMI) 33.6 Intake & Output: Intake and Output for Last 24 Hours 11/23/23 11/24/23 11/25/23 23:59 23:59 23:59 Intake Total 1180 / 1180 1000 / 1000 300 / 300 Output Total 1700 / 1700 1800 / 1800 775 / 775 Balance -520 / -520 -800 / -800 -475 / -475 Lab / Micro Data 11/24/23 06:48 11/24/23 06:48 Micro: Microbiology 11/16/23 14:25 Stool Enteric Bacteriology - Final 11/16/23 11:10 Stool C. difficile GDH Antigen & Toxins - Final Toxigenic C. difficile 11/16/23 11:10 Stool Clostridioides difficile (PCR) - Final Physical Exam Narrative GENERAL: cooperative HEENT: Atraumatic; normocephalic EYES; Anicteric, Normal Conjunctiva NECK; supple, normal thyroid, RESPIRATORY: Diminished to auscultation CARDIOVASCULAR: Regular S1 S2, GI: soft, normoactive bowel sounds, : No Renal angle tenderness; EXTREMITIES: No edema, no clubbing, MUSCULOSKELETAL: no muscle wasting NEURO: Awake; no lateralizing signs. SKIN: No Rash PSYCH; Flat affect Assessment & Plan Assessment/Plan (1) C. difficile colitis: (2) GERD (gastroesophageal reflux disease): QUALIFIERS: Esophagitis presence: esophagitis presence not specified Qualified Code(s): K21.9 - Gastro-esophageal reflux disease without esophagitis (3) History of pulmonary embolism: (4) Prostate cancer metastatic to bone: PLAN: Plan 73-year-old gentleman with metastatic prostate cancer on Keytruda with pancolitis suspected to be due to recurrence of C. difficile -?The most common adverse effect of immune checkpoint inhibitors is watery and non-bloody diarrhea.?Moderate diarrhea or grade II diarrhea with stool frequency between 4-6 times per day should be managed by?discontinuation of checkpoint inhibitors, by ruling out infection, by giving adequate oral hydration and by administering empiric treatment with oral corticosteroid. Typically you give prednisone therapy. However he has recurrent C. difficile colitis and is febrile. -I will increase his vancomycin to 500 mg p.o. every 6 hours and I will put him on Flagyl 500 mg IV every 8 hours. Due to the half-life of both medicines I do not expect him to start to feel better until he has 4-5 doses of each medicine. If at that time and if it is okay with oncology he should have either IVIG or Zinplava which is a monoclonal antibody. I do not know if either can be given in the hospital. -Surgery should be consulted as colectomy is an option if he does not get better. 11/18/2023-patient is getting little bit better. It is decided that he has been afebrile. He still is not eating much. His white count is still persistently elevated at 19,000. I had a long talk with his and daughter and explained to them that he will not have a significant improvement for the next 48 hours. After that I expect him to have some improvement with dual therapy. As he is not severely septic at this time I do not think he needs IVIG. After 48 hours we can start cholestyramine at night to slow his diarrhea down. No indication for Lomotil or antidiarrheal agent as they are contraindicated for pancolitis associated with his C. difficile. Working diagnosis at this time is C. difficile colitis with possible immune mediated colitis secondary to Keytruda. Continue current recommendations. Check ESR and CRP and lactate. 11/19/2023-patient is doing a lot better than he was yesterday. He continues to be afebrile. Appetite is poor. His white count is decreasing nicely. Also his lactic acidosis is improving with dual antibiotic therapy. I will put him on colestipol as it has been close to 48 hours he has been on treatment. It should be safe in order to put him on a bile acid resin. Colestipol or cholestyramine is the only medicine you can use an infectious diarrhea. Upon his discharge we will try to get him scheduled for an infusion of Zinplava. Since he is improving at this time I do not think he needs IVIG or IV albumin at this time. 11/21/2023-patient is doing very well. He can be transition to Flagyl 500 mg p.o. every 8 hours and vancomycin 500 mg p.o. every 8 hours when he is discharged. I would not titrate him down with a taper because he will need to be set up to get Zinplava on his last day of medications which can be set up as an outpatient. Continue colestipol and if his stools do not continue to thicken up over the next couple days it can be increased to twice a day. 11/24/2023-he is not having any diarrhea at this time. He is having more mucus stools. I think the colestipol is too strong. I will change him to only fiber to see if we can help him have a formed stool. If his liquid stools come back then he can just go on cholestyramine once a day. 11/25/2023- Patient is feeling a lot better in his abdominal pain and bloating is also better. He is doing well with cholestyramine once a day. I continue the fiber therapy which we need to continue in discharge. If he's feeling well, he can be discharged to home over the weekend. C continue vancomycin discharge and I will stop it get his infusion set up as an outpatient. Charges/Coding Visit Charges Inpatient E&M: 81849 [facility] L3
[2023-11-25] MEDS: Gabapentin 600 MG Tablet 1200 MG PO (23:03)
[2023-11-25 23:06] VITALS: BP 111/71; PULSE 98; RESP 16; TEMP 36.6; O2SAT 95
[2023-11-26 04:02] VITALS: BMI 33.5
[2023-11-26] MEDS: Menthol/Lanolin/Calamine/Znox 113 GM Tube 1 APPLIC TOPICAL ×3 (05:04→23:43)
[2023-11-26] MEDS: Vancomycin HCl 250 MG Capsule 500 MG PO ×4 (05:04→23:43)
[2023-11-26] MEDS: metroNIDAZOLE 500 MG/100 ML BAG 100 MG IV ×3 (05:04→23:43)
[2023-11-26 05:13] VITALS: BP 116/67; PULSE 95; RESP 16; TEMP 36.6; O2SAT 97
[2023-11-26 06:34] LABS: Absolute Lymphocyte Count 1.54 X10^3/uL (0.83-4.51); Absolute Neutrophil Count 3.1 X10^3/uL (2.0-7.7); Basophil# 0.05 X10^3/uL; Basophil% 0.9 % (0-1); Eosinophil# 0.16 X10^3/uL; Hematocrit 30.7 % (40-54); Hemoglobin 9.8 g/dL (13.0-16.5); Lymphocyte # 1.54 X10^3/ul (0.83-4.51); Lymphocyte % 28.5 % (19-41); Mean Corp Hgb Conc 31.9 g/dL (32-36); Mean Corpuscular Hgb 33.1 pg (27.0-32.0); Mean Corpuscular Volume 103.7 fL (80-94); Mean Platelet Vol. 10.4 fl (6.2-12.0); Monocyte# 0.53 X10^3/uL; Monocyte% 9.8 % (0-10); NRBC Flagged by Analyzer 0 % (0-5); Neutrophil # 3.07 X10^3/uL (2.7-7.7); Neutrophil % 56.7 % (47-70); POSITIVE COUNT YES; Platelet Count 97 K/mm3 (150-450); RBC Distribution Width CV 16.5 % (11.6-14.6); RBC Distribution Width SD 62.1 fl (35.1-43.9); Red Blood Count 2.96 M/mm3 (4.6-6.2); White Blood Count 5.4 K/mm3 (4.4-11.0)
[2023-11-26 06:46] LABS: Prothrombin Time (Protime)PT. 40.1 SECONDS (11.7-14.9)
[2023-11-26 06:48] LABS: International Normalized Ratio 4.1
[2023-11-26 07:01] LABS: Anion Gap 4 (5-15); BUN 10 mg/dL (7-18); BUN/Creat Ratio 17.2 RATIO (10-20); Calcium,Total 7.8 mg/dL (8.5-10.1); Chloride 108 mmol/L (98-107); Creatinine, Serum 0.58 mg/dL (0.70-1.30); EST Glomerular Filtration Rate 145 mL/min (>60); Est Glom Filt Rate - Afr Amer 175 mL/min (>60); Estimated Creatinine Clearance 98.82 ml/min; Glucose 103 mg/dL (74-106); Magnesium 1.9 mg/dL (1.6-2.6); Phosphorus 2.6 mg/dL (2.5-4.9); Potassium 3.4 mmol/L (3.5-5.1); Sodium Level 138 mmol/L (136-145)
--- NOTE | 2023-11-26 08:07 | PN.HOSP_ITS ---
Reason for Visit Reason for Visit: Diagnoses Enterocolitis due to Clostridium difficile, not specified as recurrent ( 4) Malignant neoplasm of prostate (11/16/23) Secondary malignant neoplasm of bone (11/16/23) Gastro-esophageal reflux disease without esophagitis (11/16/23) Personal history of pulmonary embolism (11/16/23) Subjective Subjective Patient seen, per nursing staff had a small mucosal bowel movement during the night. INR is up to 4.1 plan is to hold Coumadin. Objective Data Objective Data Vital Signs: Vital Signs Temp Pulse Resp BP Pulse Ox O2 Del Method O2 Flow Rate 97.9 F 95 16 116/67 97 Room Air 2 11/26/23 05:13 11/26/23 05:13 11/26/23 05:13 11/26/23 05:13 11/26/23 05:13 11/26/23 05:13 11/17/23 15:23 FiO2 21 11/24/23 23:10 Oxygen Flow Rate (L/min) 2 Oxygen Delivery Method Room Air Weight: 106.1 kg Body Mass Index (BMI) 33.5 Intake & Output: Intake and Output for Last 24 Hours 11/24/23 11/25/23 11/26/23 23:59 23:59 23:59 Intake Total 1000 / 1000 500 / 500 350 / 350 Output Total 1800 / 1800 1025 / 1025 250 / 250 Balance -800 / -800 -525 / -525 100 / 100 Lab / Micro Data 11/26/23 06:14 11/26/23 06:14 Labs: Laboratory Results - last 24 hr 11/26/23 06:14: WBC 5.4, RBC 2.96 L, Hgb 9.8 L, Hct 30.7 L, MCV 103.7 H, MCH 33.1 H, MCHC 31.9 L, RDW Std Deviation 62.1 H, RDW Coeff of Judi 16.5 H, Plt Count 97 L, MPV 10.4, Immature Gran % (Auto) 1.100 H, Neut % (Auto) 56.7, Lymph % (Auto) 28.5, [place] % (Auto) 9.8, Eos % (Auto) 3.0, Baso % (Auto) 0.9, Absolute Neuts (auto) 3.1, Absolute Lymphs (auto) 1.54, Nucleated RBC % 0, PT 40.1 H, INR 4.1 H*, Sodium 138, Potassium 3.4 L, Chloride 108 H, Carbon Dioxide 26.0, Anion Gap 4 L, BUN 10, Creatinine 0.58 L, Estim Creat Clear Calc 98.82, Est GFR (MDRD) Af Amer 175, Est GFR (MDRD) Non-Af 145, BUN/Creatinine Ratio 17.2, Glucose 103, Calcium 7.8 L, Phosphorus 2.6, Magnesium 1.9 Micro: Microbiology 11/16/23 14:25 Stool Enteric Bacteriology - Final 11/16/23 11:10 Stool C. difficile GDH Antigen & Toxins - Final Toxigenic C. difficile 11/16/23 11:10 Stool Clostridioides difficile (PCR) - Final Physical Exam Narrative GENERAL: cooperative HEENT: Atraumatic; normocephalic EYES; Anicteric, Normal Conjunctiva NECK; supple, normal thyroid, RESPIRATORY: Diminished to auscultation CARDIOVASCULAR: Regular S1 S2, GI: soft, normoactive bowel sounds, : No Renal angle tenderness; EXTREMITIES: No edema, no clubbing, MUSCULOSKELETAL: no muscle wasting NEURO: Awake; no lateralizing signs. SKIN: No Rash PSYCH; Flat affect Assessment & Plan Assessment/Plan (1) C. difficile colitis: (2) GERD (gastroesophageal reflux disease): QUALIFIERS: Esophagitis presence: esophagitis presence not specified Qualified Code(s): K21.9 - Gastro-esophageal reflux disease without esophagitis (3) History of pulmonary embolism: (4) Prostate cancer metastatic to bone: PLAN: Plan Patient is a 73-year-old gentleman with history of metastatic prostate CA on chemo recently admitted for C. difficile colitis presented with recurrence 1. Recurrent C. difficile colitis ?Patient admitted to regular nursing floor. Started on the fecal management system given the frequency of his diarrhea. Vancomycin restarted with plan to discharge patient home on a prolonged taper ? 11/22/2023;Patient seen still has significant loose bowel movement vital fecal management system. WBC count trending down. ? 11/23/2023;Patient seen for fecal management system remains in place with significant loose stools. Patient was started on Celexa for by Dr. Torres on 11/22/2023. Case discussed with both patient and the ? 11/24/2023; patient still has loose bowel movement ? 11/25/2023;Patient seen frequency of his diarrhea has reduced significantly. Plan is to discontinue the fecal management system ? 11/26/2023; the fecal management system was discontinued the day prior. Per nursing staff patient had a small mucosal stool. 2. Hypokalemia ? Corrected per protocol ? 11/24/2023 potassium 3.3 this a.m. additional replacement given 3.. Metastatic prostate CA ? First diagnosed in 2016 had chemo and radiation. Recent PET scan demonstrated increased metastatic activity resulting in resumption of chemo starting in September 2023 4 . Venous thromboembolism ? Patient is on systemic anticoagulation with Coumadin with a therapeutic INR of 2.4 ? 11/26/2023; INR is 4.1 plan is to hold Coumadin and repeat INR in a.m. 5. Hypertension - Blood pressure controlled, home medications continued with dose adjustment as needed 6. Central sleep apnea ? Patient is on CPAP 7. Depression with anxiety ? Patient is on Duloxetine did continue 8. Anemia - Secondary to chronic disorder monitoring H&H and transfuse if patient becomes symptomatic or hemoglobin falls below 9. GERD ? On PPI 10. Hyponatremia ? Secondary to hypovolemic hyponatremia from patient loose bowel movement on fluid with subsequent monitoring of electrolytes 11. DVT prophylaxis ? Patient on Coumadin Time spent in the patient's overall evaluation,decision-making process, review of diagnostic data, adjustment of management, discussion with other providers, nursing nursing and ancillary staff involved in patient's care documentation, 35 minutes Charges/Coding Visit Charges Inpatient E&M: 14559 [facility] Hosp L2
[2023-11-26] MEDS: Famotidine 20 MG Tablet 40 MG PO (08:13)
[2023-11-26] MEDS: Gabapentin 800 MG Tablet PO (08:13)
[2023-11-26] MEDS: DULoxetine Hcl 60 MG Capsule PO (08:13)
[2023-11-26] MEDS: Oxybutynin 5 MG Tablet PO (08:14)
[2023-11-26] MEDS: Ferrous Sulfate 325 MG Tablet PO (08:14)
[2023-11-26] MEDS: guaiFENesin 1,200 MG Tablet 1200 MG PO ×2 (08:14→23:42)
[2023-11-26] MEDS: Calcium Carb/Vitamin D 1 TABLET Tablet PO (08:14)
[2023-11-26] MEDS: Midodrine HCl 5 MG Tablet PO ×3 (08:14→17:11)
[2023-11-26 11:00] VITALS: BP 106/70; PULSE 97; RESP 16; TEMP 36.6; O2SAT 96
--- NOTE | 2023-11-26 13:43 | PN.GI_ITS ---
Subjective Subjective Patient is doing well. He denies any abdominal pain. He did have 1 bowel movement overnight. He is drastically improved. Objective Data Objective Data Vital Signs: Vital Signs Temp Pulse Resp BP Pulse Ox O2 Del Method O2 Flow Rate 97.9 F 97 16 106/70 96 Room Air 2 11/26/23 11:00 11/26/23 11:00 11/26/23 11:00 11/26/23 11:00 11/26/23 11:00 11/26/23 11:00 11/17/23 15:23 FiO2 21 11/24/23 23:10 Oxygen Flow Rate (L/min) 2 Oxygen Delivery Method Room Air Weight: 233 lb 14.567 oz Body Mass Index (BMI) 33.5 Intake & Output: Intake and Output for Last 24 Hours 11/24/23 11/25/23 11/26/23 23:59 23:59 23:59 Intake Total 1000 / 1000 500 / 500 750 / 750 Output Total 1800 / 1800 1025 / 1025 700 / 700 Balance -800 / -800 -525 / -525 50 / 50 Lab / Micro Data 11/26/23 06:14 11/26/23 06:14 Labs: Laboratory Results - last 24 hr 11/26/23 06:14: WBC 5.4, RBC 2.96 L, Hgb 9.8 L, Hct 30.7 L, MCV 103.7 H, MCH 33.1 H, MCHC 31.9 L, RDW Std Deviation 62.1 H, RDW Coeff of Judi 16.5 H, Plt Count 97 L, MPV 10.4, Immature Gran % (Auto) 1.100 H, Neut % (Auto) 56.7, Lymph % (Auto) 28.5, [place] % (Auto) 9.8, Eos % (Auto) 3.0, Baso % (Auto) 0.9, Absolute Neuts (auto) 3.1, Absolute Lymphs (auto) 1.54, Nucleated RBC % 0, PT 40.1 H, INR 4.1 H*, Sodium 138, Potassium 3.4 L, Chloride 108 H, Carbon Dioxide 26.0, Anion Gap 4 L, BUN 10, Creatinine 0.58 L, Estim Creat Clear Calc 98.82, Est GFR (MDRD) Af Amer 175, Est GFR (MDRD) Non-Af 145, BUN/Creatinine Ratio 17.2, Glucose 103, Calcium 7.8 L, Phosphorus 2.6, Magnesium 1.9 Micro: Microbiology 11/16/23 14:25 Stool Enteric Bacteriology - Final 11/16/23 11:10 Stool C. difficile GDH Antigen & Toxins - Final Toxigenic C. difficile 11/16/23 11:10 Stool Clostridioides difficile (PCR) - Final Physical Exam Narrative GENERAL: cooperative HEENT: Atraumatic; normocephalic EYES; Anicteric, Normal Conjunctiva NECK; supple, normal thyroid, RESPIRATORY: Diminished to auscultation CARDIOVASCULAR: Regular S1 S2, GI: soft, normoactive bowel sounds, : No Renal angle tenderness; EXTREMITIES: No edema, no clubbing, MUSCULOSKELETAL: no muscle wasting NEURO: Awake; no lateralizing signs. SKIN: No Rash PSYCH; Flat affect Assessment & Plan Assessment/Plan (1) C. difficile colitis: (2) GERD (gastroesophageal reflux disease): QUALIFIERS: Esophagitis presence: esophagitis presence not specified Qualified Code(s): K21.9 - Gastro-esophageal reflux disease without esophagitis (3) History of pulmonary embolism: (4) Prostate cancer metastatic to bone: PLAN: Plan 73-year-old gentleman with metastatic prostate cancer on Keytruda with pancolitis suspected to be due to recurrence of C. difficile -?The most common adverse effect of immune checkpoint inhibitors is watery and non-bloody diarrhea.?Moderate diarrhea or grade II diarrhea with stool frequency between 4-6 times per day should be managed by?discontinuation of checkpoint inhibitors, by ruling out infection, by giving adequate oral hydration and by administering empiric treatment with oral corticosteroid. Typically you give pre dnisone therapy. However he has recurrent C. difficile colitis and is febrile. -I will increase his vancomycin to 500 mg p.o. every 6 hours and I will put him on Flagyl 500 mg IV every 8 hours. Due to the half-life of both medicines I do not expect him to start to feel better until he has 4-5 doses of each medicine. If at that time and if it is okay with oncology he should have either IVIG or Zinplava which is a monoclonal antibody. I do not know if either can be given in the hospital. -Surgery should be consulted as colectomy is an option if he does not get bett er. 11/18/2023-patient is getting little bit better. It is decided that he has been afebrile. He still is not eating much. His white count is still persistently elevated at 19,000. I had a long talk with his and daughter and explained to them that he will not have a significant improvement for the next 48 hours. After that I expect him to have some improvement with dual therapy. As he is not severely septic at this time I do not think he needs IVIG. After 48 hours we can start cholestyramine at night to slow his diarrhea down. No indication for Lomotil or antidiarrheal agent as they are contraindicated for pancolitis associated with his C. difficile. Working diagnosis at this time is C. difficile colitis with possible immune mediated colitis secondary to Keytruda. Continue current recommendations. Check ESR and CRP and lactate. 11/19/2023-patient is doing a lot better than he was yesterday. He continues to be afebrile. Appetite is poor. His white count is decreasing nicely. Also his lactic acidosis is improving with dual antibiotic therapy. I will put him on co lestipol as it has been close to 48 hours he has been on treatment. It should be safe in order to put him on a bile acid resin. Colestipol or cholestyramine is the only medicine you can use an infectious diarrhea. Upon his discharge we will try to get him scheduled for an infusion of Zinplava. Since he is improving at this time I do not think he needs IVIG or IV albumin at this time. 11/21/2023-patient is doing very well. He can be transition to Flagyl 500 mg p.o. every 8 hours and vancomycin 500 mg p.o. every 8 hours when he is discharged. I would not titrate him down with a taper because he will need to be set up to get Zinplava on his last day of medications which can be set up as an outpatient. Continue colestipol and if his stools do not continue to thicken up over the next couple days it can be increased to twice a day. 11/24/2023-he is not having any diarrhea at this time. He is having more mucus stools. I think the colestipol is too strong. I will change him to only fiber to see if we can help him have a formed stool. If his liquid stools come back then he can just go on cholestyramine once a day. 11/25/2023- Patient is feeling a lot better in his abdominal pain and bloating is also better. He is doing well with cholestyramine once a day. I continue the fiber therapy which we need to continue in discharge. If he's feeling well, he can be discharged to home over the weekend. C continue vancomycin discharge and I will stop it get his infusion set up as an outpatient. 11/26/2023-patient continues to do well. He is on day #9 Flagyl and day #7 of vancomycin 500 mg dosage. He is only on cholestyramine once a day. He is also on fiber therapy. He continues to do well. Continue medical therapy. Charges/Coding Visit Charges Inpatient E&M: 63000 [facility] Hosp L3
[2023-11-26 17:00] VITALS: BP 111/66; PULSE 94; RESP 16; TEMP 36.6; O2SAT 96
[2023-11-26] MEDS: Tamsulosin HCl 0.4 MG Capsule 0.400000000000000022 MG PO (17:11)
[2023-11-26 20:19] VITALS: BP 113/63; PULSE 95; RESP 18; TEMP 36.9; O2SAT 95
[2023-11-26 23:11] VITALS: RESP 7
[2023-11-26] MEDS: Gabapentin 600 MG Tablet 1200 MG PO (23:43)
--- NOTE | 2023-11-27 00:40 | CPS ---
Patient on SL machine with ASV settings Min PS 5, Max PS 10, EPAP 11
[2023-11-27 03:00] VITALS: BP 111/75; PULSE 88; RESP 16; TEMP 36.1; O2SAT 100
[2023-11-27 06:00] VITALS: BMI 33.3
[2023-11-27] MEDS: Vancomycin HCl 250 MG Capsule 500 MG PO ×3 (06:34→17:19)
[2023-11-27] MEDS: metroNIDAZOLE 500 MG/100 ML BAG 100 MG IV ×3 (06:34→22:17)
[2023-11-27] MEDS: Menthol/Lanolin/Calamine/Znox 113 GM Tube 1 APPLIC TOPICAL ×2 (06:35→14:29)
[2023-11-27 06:37] LABS: Absolute Lymphocyte Count 1.68 X10^3/uL (0.83-4.51); Absolute Neutrophil Count 3.3 X10^3/uL (2.0-7.7); Basophil# 0.04 X10^3/uL; Basophil% 0.7 % (0-1); Eosinophil# 0.16 X10^3/uL; Eosinophils% 2.8 % (0-5); Hematocrit 30.7 % (40-54); Hemoglobin 9.9 g/dL (13.0-16.5); Lymphocyte # 1.68 X10^3/ul (0.83-4.51); Lymphocyte % 29.3 % (19-41); Mean Corp Hgb Conc 32.2 g/dL (32-36); Mean Corpuscular Hgb 33.9 pg (27.0-32.0); Mean Corpuscular Volume 105.1 fL (80-94); Mean Platelet Vol. 10.2 fl (6.2-12.0); Monocyte% 8.7 % (0-10); NRBC Flagged by Analyzer 0 % (0-5); Neutrophil # 3.33 X10^3/uL (2.7-7.7); Platelet Count 101 K/mm3 (150-450); RBC Distribution Width CV 16.7 % (11.6-14.6); RBC Distribution Width SD 64.3 fl (35.1-43.9); Red Blood Count 2.92 M/mm3 (4.6-6.2); White Blood Count 5.7 K/mm3 (4.4-11.0)
[2023-11-27 06:44] LABS: International Normalized Ratio 3.2; Prothrombin Time (Protime)PT. 33.3 SECONDS (11.7-14.9)
[2023-11-27 07:02] LABS: Anion Gap 4 (5-15); BUN 10 mg/dL (7-18); BUN/Creat Ratio 17.9 RATIO (10-20); Calcium,Total 7.9 mg/dL (8.5-10.1); Chloride 110 mmol/L (98-107); Creatinine, Serum 0.56 mg/dL (0.70-1.30); EST Glomerular Filtration Rate 152 mL/min (>60); Est Glom Filt Rate - Afr Amer 184 mL/min (>60); Estimated Creatinine Clearance 98.54 ml/min; Glucose 103 mg/dL (74-106); Potassium 3.3 mmol/L (3.5-5.1); Sodium Level 139 mmol/L (136-145)
--- NOTE | 2023-11-27 07:23 | PCM.PN.HOSP ---
Reason for Visit Reason for Visit: Diagnoses Enterocolitis due to Clostridium difficile, not specified as recurrent (11/16/23) Malignant neoplasm of prostate (11/16/23) Secondary malignant neoplasm of bone (11/16/23) Gastro-esophageal reflux disease without esophagitis (11/16/23) Personal history of pulmonary embolism (11/16/23) Subjective Subjective Patient seen finally beginning to have some formed stool more for smear. INR remains elevated at 3.2 Objective Data Objective Data Vital Signs: Vital Signs Temp Pulse Resp BP Pulse Ox O2 Del Method O2 Flow Rate 97 F L 88 16 111/75 100 CPAP 2 11/27/23 03:00 11/27/23 03:00 11/27/23 03:00 11/27/23 03:00 11/27/23 03:00 11/27/23 03:30 11/17/23 15:23 FiO2 21 11/26/23 23:11 Oxygen Flow Rate (L/min) 2 Oxygen Delivery Method CPAP Weight: 105.5 kg Body Mass Index (BMI) 33.3 Intake & Output: Intake and Output for Last 24 Hours 11/25/23 11/26/23 11/27/23 23:59 23:59 23:59 Intake Total 500 / 500 1200 / 1600 500 / 500 Output Total 1025 / 1025 1200 / 1750 900 / 900 Balance -525 / -525 0 / -150 -400 / -400 Lab / Micro Data 11/27/23 06:13 11/27/23 06:13 Labs: Laboratory Results - last 24 hr 11/27/23 06:13: WBC 5.7, RBC 2.92 L, Hgb 9.9 L, Hct 30.7 L, MCV 105.1 H, MCH 33.9 H, MCHC 32.2, RDW Std Deviation 64.3 H, RDW Coeff of Judi 16.7 H, Plt Count 101 L, MPV 10.2, Immature Gran % (Auto) 0.500, Neut % (Auto) 58.0, Lymph % (Auto) 29.3, [place] % (Auto) 8.7, Eos % (Auto) 2.8, Baso % (Auto) 0.7, Absolute Neuts (auto) 3.3, Absolute Lymphs (auto) 1.68, Nucleated RBC % 0, PT 33.3 H, INR 3.2, Sodium 139, Potassium 3.3 L, Chloride 110 H, Carbon Dioxide 25.0, Anion Gap 4 L, BUN 10, Creatinine 0.56 L, Estim Creat Clear Calc 98.54, Est GFR (MDRD) Af Amer 184, Est GFR (MDRD) Non-Af 152, BUN/Creatinine Ratio 17.9, Glucose 103, Calcium 7.9 L Micro: Microbiology 11/16/23 14:25 Stool Enteric Bacteriology - Final 11/16/23 11:10 Stool C. difficile GDH Antigen & Toxins - Final Toxigenic C. difficile 11/16/23 11:10 Stool Clostridioides difficile (PCR) - Final Physical Exam Narrative GENERAL: cooperative HEENT: Atraumatic; normocephalic EYES; Anicteric, Normal Conjunctiva NECK; supple, normal thyroid, RESPIRATORY: Diminished to auscultation CARDIOVASCULAR: Regular S1 S2, GI: soft, normoactive bowel sounds, : No Renal angle tenderness; EXTREMITIES: No edema, no clubbing, MUSCULOSKELETAL: no muscle wasting NEURO: Awake; no lateralizing signs. SKIN: No Rash PSYCH; Flat affect Assessment & Plan Assessment/Plan (1) C. difficile colitis: (2) GERD (gastroesophageal reflux disease): QUALIFIERS: Esophagitis presence: esophagitis presence not specified Qualified Code(s): K21.9 - Gastro-esophageal reflux disease without esophagitis (3) History of pulmonary embolism: (4) Prostate cancer metastatic to bone: PLAN: Plan Patient is a 73-year-old gentleman with history of metastatic prostate CA on chemo recently admitted for C. difficile colitis presented with recurrence 1. Recurrent C. difficile colitis ?Patient admitted to regular nursing floor. Started on the fecal management system given the frequency of his diarrhea. Vancomycin restarted with plan to discharge patient home on a prolonged taper ? 11/22/2023;Patient seen still has significant loose bowel movement vital fecal management system. WBC count trending down. ? 11/23/2023;Patient seen for fecal management system remains in place with significant loose stools. Patient was started on Celexa for by Dr. Torres on 11/22/2023. Case discussed with both patient and the ? 11/24/2023; patient still has loose bowel movement ? 11/25/2023;Patient seen frequency of his diarrhea has reduced significantly. Plan is to discontinue the fecal management system ? 11/26/2023; the fecal management system was discontinued the day prior. Per nursing staff patient had a small mucosal stool. ? 11/27/2023; patient finally beginning to have some formed stools. Do anticipate discharge in 1 to 2 days 2. Hypokalemia ? Corrected per protocol ? 11/24/2023 potassium 3.3 this a.m. additional replacement given 3.. Metastatic prostate CA ? First diagnosed in 2016 had chemo and radiation. Recent PET scan demonstrated increased metastatic activity resulting in resumption of chemo starting in September 2023 4 . Venous thromboembolism ? Patient is on systemic anticoagulation with Coumadin with a therapeutic INR of 2.4 ? 11/26/2023; INR is 4.1 plan is to hold Coumadin and repeat INR in a.m. 5. Hypertension - Blood pressure controlled, home medications continued with dose adjustment as needed 6. Central sleep apnea ? Patient is on CPAP 7. Depression with anxiety ? Patient is on Duloxetine did continue 8. Anemia - Secondary to chronic disorder monitoring H&H and transfuse if patient becomes symptomatic or hemoglobin falls below 9. GERD ? On PPI 10. Hyponatremia ? Secondary to hypovolemic hyponatremia from patient loose bowel movement on fluid with subsequent monitoring of electrolytes 11. Urinary retention ? Patient had a Mir catheter placed on admission.Started on tamsulosin. Plan is for patient to undergo voiding trial in a.m. with plans to discontinue Mir prior to discharge DVT prophylaxis ? Patient on Coumadin Time spent in the patient's overall evaluation,decision-making process, review of diagnostic data, adjustment of management, discussion with other providers, nursing nursing and ancillary staff involved in patient's care documentation, 35 minutes Charges/Coding Visit Charges Inpatient E&M: 35741 Subs Hosp L2
[2023-11-27] MEDS: Calcium Carb/Vitamin D 1 TABLET Tablet PO (08:01)
[2023-11-27] MEDS: Oxybutynin 5 MG Tablet PO (08:01)
[2023-11-27] MEDS: Famotidine 20 MG Tablet 40 MG PO (08:01)
[2023-11-27] MEDS: Ferrous Sulfate 325 MG Tablet PO (08:01)
[2023-11-27] MEDS: guaiFENesin 1,200 MG Tablet 1200 MG PO ×2 (08:02→22:18)
[2023-11-27] MEDS: DULoxetine Hcl 60 MG Capsule PO (08:02)
[2023-11-27] MEDS: Midodrine HCl 5 MG Tablet PO ×3 (08:02→17:19)
[2023-11-27] MEDS: Gabapentin 800 MG Tablet PO (08:03)
[2023-11-27 08:58] VITALS: BP 115/83; PULSE 99; RESP 18; TEMP 36.3; O2SAT 96
[2023-11-27] MEDS: Potassium Chloride Oral Tablet 20 MEQ 40 MEQ PO (14:29)
[2023-11-27 15:00] VITALS: BP 104/64; PULSE 85; RESP 16; TEMP 36.4; O2SAT 96
[2023-11-27] MEDS: Tamsulosin HCl 0.4 MG Capsule 0.400000000000000022 MG PO (17:19)
[2023-11-27 19:58] VITALS: BP 102/62; PULSE 99; RESP 18; TEMP 36.8; O2SAT 97
[2023-11-27] MEDS: Gabapentin 600 MG Tablet 1200 MG PO (22:18)
[2023-11-27 22:35] VITALS: PULSE 91; RESP 11; O2SAT 95
[2023-11-28] MEDS: Vancomycin HCl 250 MG Capsule 500 MG PO ×3 (00:22→11:58)
[2023-11-28 02:00] VITALS: BP 100/68; PULSE 106; RESP 18; TEMP 37; O2SAT 98
[2023-11-28] MEDS: metroNIDAZOLE 500 MG/100 ML BAG 100 MG IV ×2 (05:25→13:53)
[2023-11-28] MEDS: Menthol/Lanolin/Calamine/Znox 113 GM Tube 1 APPLIC TOPICAL (05:26)
[2023-11-28 06:00] VITALS: BMI 32.4
--- NOTE | 2023-11-28 06:28 | NURSING ---
Text sent to Dr. Isaac regarding pts low urine output this shift from [place].
[2023-11-28] MEDS: Potassium Chloride Oral Tablet 20 MEQ 40 MEQ PO (06:54)
[2023-11-28] MEDS: Lactated Ringers 1,000 ML 999 ML IV (06:54)
[2023-11-28 07:41] LABS: Absolute Lymphocyte Count 2.11 X10^3/uL (0.83-4.51); Absolute Neutrophil Count 2.9 X10^3/uL (2.0-7.7); Basophil# 0.03 X10^3/uL; Basophil% 0.5 % (0-1); Eosinophil# 0.15 X10^3/uL; Eosinophils% 2.6 % (0-5); Hematocrit 32.3 % (40-54); Hemoglobin 10.2 g/dL (13.0-16.5); Lymphocyte # 2.11 X10^3/ul (0.83-4.51); Lymphocyte % 36.8 % (19-41); Mean Corp Hgb Conc 31.6 g/dL (32-36); Mean Corpuscular Hgb 33.8 pg (27.0-32.0); Mean Platelet Vol. 10.8 fl (6.2-12.0); Monocyte# 0.54 X10^3/uL; Monocyte% 9.4 % (0-10); NRBC Flagged by Analyzer 0 % (0-5); Neutrophil # 2.88 X10^3/uL (2.7-7.7); Neutrophil % 50.2 % (47-70); POSITIVE MORPHOLOGY YES; Platelet Count 104 K/mm3 (150-450); RBC Distribution Width SD 65.9 fl (35.1-43.9); Red Blood Count 3.02 M/mm3 (4.6-6.2); White Blood Count 5.7 K/mm3 (4.4-11.0)
[2023-11-28 07:49] LABS: Differential Indicated SCAN CRITERIA MET
[2023-11-28 08:35] LABS: Anion Gap 6 (5-15); BUN 10 mg/dL (7-18); BUN/Creat Ratio 18.5 RATIO (10-20); Calcium,Total 8.2 mg/dL (8.5-10.1); Chloride 110 mmol/L (98-107); Creatinine, Serum 0.54 mg/dL (0.70-1.30); EST Glomerular Filtration Rate 157 mL/min (>60); Est Glom Filt Rate - Afr Amer 190 mL/min (>60); Estimated Creatinine Clearance 98.54 ml/min; Glucose 104 mg/dL (74-106); Potassium 3.4 mmol/L (3.5-5.1); Sodium Level 139 mmol/L (136-145)
[2023-11-28 08:47] VITALS: BP 116/80; PULSE 106; RESP 18; TEMP 36.3; O2SAT 98
[2023-11-28 08:50] LABS: International Normalized Ratio 3.2; Prothrombin Time (Protime)PT. 33.3 SECONDS (11.7-14.9)
--- NOTE | 2023-11-28 08:52 | PN.HOSP_ITS ---
Reason for Visit Reason for Visit: Diagnoses Enterocolitis due to Clostridium difficile, not specified as recurrent ( 4) Malignant neoplasm of prostate (11/16/23) Secondary malignant neoplasm of bone (11/16/23) Gastro-esophageal reflux disease without esophagitis (11/16/23) Personal history of pulmonary embolism (11/16/23) Subjective Subjective Feels well. Anxious to go home. Stool formed. No abdominal pain. Objective Data Objective Data Vital Signs: Vital Signs Temp Pulse Resp BP Pulse Ox O2 Del Method O2 Flow Rate 36.3 C L 106 H 18 116/80 98 Room Air 2 11/28/23 08:47 11/28/23 08:47 11/28/23 08:47 11/28/23 08:47 11/28/23 08:47 11/28/23 08:47 11/17/23 15:23 FiO2 21 11/27/23 22:35 Oxygen Flow Rate (L/min) 2 Oxygen Delivery Method Room Air Weight: 102.682 kg Body Mass Index (BMI) 32.4 Intake & Output: Intake and Output for Last 24 Hours 11/26/23 11/27/23 11/28/23 23:59 23:59 23:59 Intake Total 1200 / 1600 1400 / 1650 1600 / 1600 Output Total 1200 / 1750 1700 / 1700 350 / 350 Balance 0 / -150 -300 / -50 1250 / 1250 Lab / Micro Data 11/28/23 06:10 11/28/23 06:10 Labs: Laboratory Results - last 24 hr 11/28/23 06:10: WBC 5.7, RBC 3.02 L, Hgb 10.2 L, Hct 32.3 L, MCV 107.0 H, MCH 33.8 H, MCHC 31.6 L, RDW Std Deviation 65.9 H, RDW Coeff of Judi 17.0 H, Plt Count 104 L, MPV 10.8, Immature Gran % (Auto) 0.500, Neut % (Auto) 50.2, Lymph % (Auto) 36.8, [place] % (Auto) 9.4, Eos % (Auto) 2.6, Baso % (Auto) 0.5, Absolute Neuts (auto) 2.9, Absolute Lymphs (auto) 2.11, Nucleated RBC % 0, PT 33.3 H, INR 3.2, Sodium 139, Potassium 3.4 L, Chloride 110 H, Carbon Dioxide 23.0, Anion Gap 6, BUN 10, Creatinine 0.54 L, Estim Creat Clear Calc 98.54, Est GFR (MDRD) Af Amer 190, Est GFR (MDRD) Non-Af 157, BUN/Creatinine Ratio 18.5, Glucose 104, Calcium 8.2 L Micro: Microbiology 11/16/23 14:25 Stool Enteric Bacteriology - Final 11/16/23 11:10 Stool C. difficile GDH Antigen & Toxins - Final Toxigenic C. difficile 11/16/23 11:10 Stool Clostridioides difficile (PCR) - Final Physical Exam Const alert and no apparent distress Resp normal respiratory effort, no retractions, no use of accessory muscles and clear to auscultation bilaterally Cardio regular rate, regular rhythm, S1 normal heart sound and S2 normal heart sound GI normal to inspection, nondistended, normoactive bowel sounds, soft to palpation, non-tender and non-distended Assessment & Plan Assessment/Plan (1) C. difficile colitis: PLAN: Plan C.diff colitis * recurrent. * Previously, completed 10-day course of vancomycin 125 mg 4 times daily. * FMS placed and subsequently removed. * Vancomycin increased to 500 QID and IV metronidazole. Since the first. * Will plan on a taper upon discharge with 125 4 times daily for 10 days and then 3 times daily for 1 week, twice daily for 1 week, daily for 1 week, every 48 hours for 1 week then every third day for 1 week. * Cannot rule Keytruda-induced colitis. Unable to take steroids given C. diff icile colitis Hypokalemia * Replaced Hyperbilirubinemia * unclear significance * monitor Urinary retention * Mir catheter placed third. * Suspect patient has BPH. Will start tamsulosin. Urine culture on the second was negative for any infection. * When patient is ready for discharge, patient will need to have his catheter removed and have a postvoid residual performed * Will DC Mir catheter and check a postvoid residual. Over the catheter can remain out, if not, then patient will need to follow-up with urology. Will continue with tamsulosin. Chronic conditions * Metastatic prostate cancer: follows w/ Dr. Looney. Was unable to tolerate chemotherapy so has not received any since September. Discussed with Dr. Barrios, who will coordinate the patient's outpatient follow-up. * Hx PE: On coumadin, will monitor PT/INR * GERD-Continue PPI * Chronic hypotension-Continue home midodrine * Sleep apnea-Continue home cpap * Chronic macrocytic anemia. Appears to be at baseline. Had small amount of blood yesterday in stool, suspect this is secondary to colitis, continue to monitor VTE prophylaxis: SCDs. Discharge home.
[2023-11-28 08:53] LABS: Differential Comment SCANNED
[2023-11-28] MEDS: Calcium Carb/Vitamin D 1 TABLET Tablet PO (08:53)
[2023-11-28] MEDS: Midodrine HCl 5 MG Tablet PO ×3 (08:53→17:04)
[2023-11-28] MEDS: Famotidine 20 MG Tablet 40 MG PO (08:53)
[2023-11-28] MEDS: Ferrous Sulfate 325 MG Tablet PO (08:53)
[2023-11-28] MEDS: guaiFENesin 1,200 MG Tablet 1200 MG PO (08:53)
[2023-11-28] MEDS: DULoxetine Hcl 60 MG Capsule PO (08:53)
[2023-11-28] MEDS: Gabapentin 800 MG Tablet PO (08:54)
[2023-11-28 08:55] LABS: Anisocytosis 3+
--- NOTE | 2023-11-28 10:12 | WOUNDNOTE ---
wound photo: bilateral buttocks
--- NOTE | 2023-11-28 10:13 | WOUNDNOTE ---
Was asked to see patient for open areas to bilateral buttocks. patient has been having frequent loose stool. patient has 2 small open areas to the right buttock and one to the left buttock. These are most likely a combination of moisture (from frequent loose stools) and pressure. Pt has been getting Calmoseptine applied to these open areas. patient denies much discomfort. will change to Triad cream to see if there is better improvement. pt does state that the loose stools are much improved, so the wounds should improve as well. will monitor as needed. Updated DUC Cueto and talked with Monica about the plan. Pt appreciative.
--- NOTE | 2023-11-28 11:29 | DS.PCM_ITS ---
Providers Date of Admission: 11/16/23 Primary Care Physician: Dr. Nikolas Bennett, DO Consultations 11/16/23 19:58 Consult: Gastroenterology Routine Consulting Provider: [facility] Reason for Consult: recurrent cdiff EMERGENT Consult: No MD Notified: Yes Date Notified: 11/16/23 Time Notified: 17:05 Method of Notification: ED Physician Initiated Reason For Visit: RECURRENT CDIFF Diagnosis Discharge Diagnosis (1) C. difficile colitis: Status: Acute Code(s): A04.72 - Enterocolitis due to Clostridium difficile, not specified as recurrent Plan C.diff colitis * recurrent. * Previously, completed 10-day course of vancomycin 125 mg 4 times daily. * FMS placed and subsequently removed. * Vancomycin increased to 500 QID and IV metronidazole. Since the first. * Will plan on a taper upon discharge with 125 4 times daily for 10 days and then 3 times daily for 1 week, twice daily for 1 week, daily for 1 week, every 48 hours for 1 week then every third day for 1 week. * Cannot rule Keytruda-induced colitis. Unable to take steroids given C. difficile colitis Hypokalemia * Replaced Hyperbilirubinemia * unclear significance * monitor Urinary retention * Mir catheter placed third. * Suspect patient has BPH. Will start tamsulosin. Urine culture on the second was negative for any infection. * When patient is ready for discharge, patient will need to have his catheter removed and have a postvoid residual performed * Will DC Mir catheter and check a postvoid residual. Over the catheter can remain out, if not, then patient will need to follow-up with urology. Will continue with tamsulosin. Chronic conditions * Metastatic prostate cancer: follows w/ Dr. Looney. Was unable to tolerate chemotherapy so has not received any since September. Discussed with Dr. Barrios, who will coordinate the patient's outpatient follow-up. * Hx PE: On coumadin, will monitor PT/INR * GERD-Continue PPI * Chronic hypotension-Continue home midodrine * Sleep apnea-Continue home cpap * Chronic macrocytic anemia. Appears to be at baseline. Had small amount of blood yesterday in stool, suspect this is secondary to colitis, continue to monitor VTE prophylaxis: SCDs. Discharge home. Medications at Discharge Home Medications duloxetine 60 mg capsule,delayed release (Cymbalta) 60 mg PO QDAY depression 12/01/17 calcium carbonate 600 mg-vitamin D3 5 mcg (200 unit) tablet 1 ea PO DAILY supplement 06/27/18 glucosamine sulf dipot chlr,msm,chond 550 mg-C 30 mg-beronica 1 mg capsule 2 ea PO DAILY supplement 02/17/20 PEP device #1 ea 08/25/21 leuprolide (3 month) 22.5 mg (3 month) subcutaneous syringe ([employer]) 22.5 mg subcut .Q3MO prostate ca 01/15/22 Lactobacillus acidophilus 10 mg PO DAILY probiotic 03/10/23 cyanocobalamin (vitamin B-12) 1,000 mcg tablet (Vitamin B-12) 5,000 mcg PO DAILY supplement 03/10/23 gabapentin 400 mg capsule 800 mg PO BID nerve pain 03/10/23 oxybutynin chloride 5 mg tablet 5 mg PO DAILY overactive bladder 03/10/23 albuterol sulfate 90 mcg/actuation aerosol inhaler (Ventolin HFA) 2 puff inhalation Q4H PRN shortness of breath or wheezing #18 grams 03/30/23 guaifenesin 1,200 mg tablet, extended release 12 hr 1,200 mg PO Q12H congestion #60 tabs 05/16/23 acetaminophen 500 mg capsule 500 mg PO Q6H PRN pain 10/07/23 ferrous sulfate 325 mg (65 mg iron) tablet (Feosol) 325 mg PO DAILY supplement 10/07/23 ondansetron 8 mg PO TID PRN PRN n/v 10/07/23 tramadol 50 mg tablet 50 mg PO Q8H PRN pain 10/18/23 midodrine 5 mg tablet 5 mg PO TID #90 tabs 10/24/23 omeprazole 20 mg capsule,delayed release 20 mg PO DAILY gerd 11/16/23 warfarin 5 mg tablet (Jantoven) 5 mg PO DAILY blood thinner 11/16/23 tamsulosin 0.4 mg capsule 0.4 mg PO DAILY@1730 #30 caps 11/28/23 vancomycin 125 mg capsule 125 mg PO Q6H #89 caps 11/28/23 Hospital Course Operations None Procedures None Summary of Care Provided Minutes Spent on Discharge: 40 Weight / BMI Weight Weight: 102.682 kg Body Mass Index (BMI) 32.4 ABG / Lab / Microbiology Data 11/28/23 06:10 11/28/23 06:10 Laboratory: Laboratory Results - last 24 hr 11/28/23 06:10: WBC 5.7, RBC 3.02 L, Hgb 10.2 L, Hct 32.3 L, MCV 107.0 H, MCH 33.8 H, MCHC 31.6 L, RDW Std Deviation 65.9 H, RDW Coeff of Judi 17.0 H, Plt Co unt 104 L, MPV 10.8, Immature Gran % (Auto) 0.500, Neut % (Auto) 50.2, Lymph % (Auto) 36.8, Sunflower % (Auto) 9.4, Eos % (Auto) 2.6, Baso % (Auto) 0.5, Absolute Neuts (auto) 2.9, Absolute Lymphs (auto) 2.11, Nucleated RBC % 0, Differential Comment SCANNED, Anisocytosis 3+, PT 33.3 H, INR 3.2, Sodium 139, Potassium 3.4 L, Chloride 110 H, Carbon Dioxide 23.0, Anion Gap 6, BUN 10, Creatinine 0.54 L, Estim Creat Clear Calc 98.54, Est GFR (MDRD) Af Amer 190, Est GFR (MDRD) Non-Af 157, BUN/Creatinine Ratio 18.5, Glucose 104, Calcium 8.2 L Microbiology: Microbiology 11/16/23 14:25 Stool Enteric Bacteriology - Final 11/16/23 11:10 Stool C. difficile GDH Antigen & Toxins - Final Toxigenic C. difficile 11/16/23 11:10 Stool Clostridioides difficile (PCR) - Final D/C Instructions Discharge Diet: No restrictions Meaningful Use Info Meaningful Use Diagnoses (Choose all that apply): None applicable Discharge Plan Admission Admit Date/Time: 11/16/23 16:56 Primary Reason for Your Visit: C. difficile colitis Attending Provider: Sridhar Vidal Primary Care Provider: Nikolas Bennett Consulting Providers: Jenna Hernandez; Sridhar Vidal; Toro Ayers Instructions Additional Instructions / Restrictions: He had recurrent bout of C. difficile colitis. You fortunately done better with the treatments of vancomycin and metronidazole. You will be discharged with a vancomycin taper. Please take the vancomycin as instructed. If you do start having recurrent diarrhea concerning for your C. difficile reoccurring, please notify your physician or return to the emergency room as you may warrant additional treatment. Discharge Orders/Prescriptions Prescriptions: New tamsulosin 0.4 mg Capsule 0.4 mg PO DAILY@1730 Qty: 30 0RF vancomycin 125 mg capsule 125 mg PO Q6H Qty: 89 0RF Rx Instructions: 125 4 times daily for 10 days and then 3 times daily for 1 week, twice daily for 1 week, daily for 1 week, every 48 hours for 1 week then every third day for 1 week. Continued duloxetine [Cymbalta] 60 mg capsule,delayed release(DR/EC) 60 mg PO QDAY gabapentin 400 mg capsule 800 mg PO BID Rx Instructions: 800 mg AM & 1200 HS (DME) PEP device See Rx Instructions .Route .MEDSUPPLY Qty: 1 0RF Rx Instructions: with training oxybutynin chloride 5 mg tablet 5 mg PO DAILY cyanocobalamin (vitamin B-12) [Vitamin B-12] 1,000 mcg tablet 5,000 mcg PO DAILY Lactobacillus acidophilus Capsule 10 mg PO DAILY guaifenesin 1,200 mg tablet extended release 12hr 1,200 mg PO Q12H Qty: 60 5RF calcium carbonate-vitamin D3 1 EACH tablet 1 ea PO DAILY glucos sul [id number] 1 EACH capsule 2 ea PO DAILY ferrous sulfate [Feosol] 325 mg (65 mg iron) tablet 325 mg PO DAILY acetaminophen 500 mg capsule 500 mg PO Q6H PRN (Reason: pain) ondansetron 8 mg PO TID PRN PRN (Reason: n/v) tramadol 50 mg tablet 50 mg PO Q8H PRN (Reason: pain) midodrine 5 mg tablet 5 mg PO TID Qty: 90 0RF Rx Instructions: do not give last dose of day after 6PM or within 4 hrs of bedtime omeprazole 20 mg capsule,delayed release(DR/EC) 20 mg PO DAILY albuterol sulfate [Ventolin HFA] 90 mcg/actuation HFA aerosol inhaler 2 puff inhalation Q4H PRN (Reason: shortness of breath or wheezing) Qty: 18 6RF Held Eligard (3 month) 22.5 mg Syringe 22.5 mg SUBCUT .Q3MO Hold Instructions: until ok'd by Dr. Mauricio. warfarin [Jantoven] 5 mg tablet 5 mg PO DAILY Hold Instructions: Resume on 11/29/23. Discontinued potassium chloride 20 mEq tablet extended release 20 meq PO TID Patient Comments: TAKE 1 tablets orally three times daily with food. last dose today Referrals / Follow Up: Julio Mauricio MD [Med Staff - Active Staff] - Within 2 Weeks Nikolas Bennett DO [Primary Care Provider] - Within 2 Weeks Disposition Disposition (needs filled in before D/C Order can be placed): Home Health Service Charges/Coding Visit Charges Inpatient E&M: 60155 Disch Hosp >30min
[2023-11-28 11:57] VITALS: BP 106/62; PULSE 98; RESP 18; TEMP 36.3; O2SAT 99
--- NOTE | 2023-11-28 12:24 | CASEMGMT ---
Pt states that he feels safe and comfortable DC today and denies further needs. HHC to start tomorrow and pt is aware. DC DM called regarding pt order for PO Vanc. They state the med will cost 605$ after his insurance and 156$ with [facility]. Pt states he is OK with this and denies further needs.
--- NOTE | 2023-11-28 14:28 | PHA.DC.MR.R ---
Pharmacy [facility]con[facility] Pharm[facility] Service has performed discharge medication reconciliation for this patient. Attempted to veterans rehabilitation counselor x2 via telephone due to contact precautions but patient did not answer. Medications reviewed. The patient's discharge medication list was reviewed for discrepancies and discrepancies were resolved. Medications at Discharge Home Medications duloxetine 60 mg capsule,delayed release (Cymbalta) 60 mg PO QDAY depression 12/01/17 calcium carbonate 600 mg-vitamin D3 5 mcg (200 unit) tablet 1 ea PO DAILY supplement 06/27/18 glucosamine sulf dipot chlr,msm,chond 550 mg-C 30 mg-beronica 1 mg capsule 2 ea PO DAILY supplement 02/17/20 PEP device #1 ea 08/25/21 leuprolide (3 month) 22.5 mg (3 month) subcutaneous syringe ([email or web address]) 22.5 mg subcut .Q3MO prostate ca 01/15/22 Lactobacillus acidophilus 10 mg PO DAILY probiotic 03/10/23 cyanocobalamin (vitamin B-12) 1,000 mcg tablet (Vitamin B-12) 5,000 mcg PO DAILY supplement 03/10/23 gabapentin 400 mg capsule 800 mg PO BID nerve pain 03/10/23 oxybutynin chloride 5 mg tablet 5 mg PO DAILY overactive bladder 03/10/23 albuterol sulfate 90 mcg/actuation aerosol inhaler (Ventolin HFA) 2 puff inhalation Q4H PRN shortness of breath or wheezing #18 grams 03/30/23 guaifenesin 1,200 mg tablet, extended release 12 hr 1,200 mg PO Q12H congestion #60 tabs 05/16/23 acetaminophen 500 mg capsule 500 mg PO Q6H PRN pain 10/07/23 ferrous sulfate 325 mg (65 mg iron) tablet (Feosol) 325 mg PO DAILY supplement 10/07/23 ondansetron 8 mg PO TID PRN PRN n/v 10/07/23 tramadol 50 mg tablet 50 mg PO Q8H PRN pain 10/18/23 midodrine 5 mg tablet 5 mg PO TID #90 tabs 10/24/23 omeprazole 20 mg capsule,delayed release 20 mg PO DAILY gerd 11/16/23 warfarin 5 mg tablet (Jantoven) 5 mg PO DAILY blood thinner 11/16/23 tamsulosin 0.4 mg capsule 0.4 mg PO DAILY@1730 #30 caps 11/28/23 vancomycin 125 mg capsule 125 mg PO Q6H #89 caps 11/28/23
--- NOTE | 2023-11-28 16:17 | NURSING ---
called script [facility] as ordered by Dr. Torres cholestryamine 4gram po once a day, Vancomycin 125mg po q6h as wrote previously but changed to not be a taper. flagyl 500mg PO Q6h until followup in office. pt/family updated.
--- NOTE | 2023-11-28 16:34 | NURSING ---
Pt was able to void a few drops of urine about four hours after wade removal. Post void bladder scan showed 160ml of urine. This RN notified Dr Vidal. Dr Vidal asked this RN to send the pt home with 3 straight catheterization kits in case patient gets the urge to void and cannot. Teaching was completed with pt, pt's , and daughter.
[2023-11-28 17:01] VITALS: BP 105/66; PULSE 105; RESP 18; TEMP 35.9; O2SAT 96
[2023-11-28] MEDS: 0.9% Saline Lock 10 ML Syringe IV (17:02)
[2023-11-28] MEDS: Tamsulosin HCl 0.4 MG Capsule 0.400000000000000022 MG PO (17:04)
== END 2023-11-28 17:18 | disposition home health service (06) | DRG 372 ==
LOC: ED 16:38 → MS3 17:35
PROVIDERS: Internal Medicine; Internal Medicine Gastroenterology; Admitting Provider Internal Medicine; Emergency Provider Emergency Medicine; PCP Family Medicine
DX: A04.71 Enterocolitis due to Clostridium difficile, recurrent (principal); C79.51 Secondary malignant neoplasm of bone; E87.20 Acidosis, unspecified; E87.1 Hypo-osmolality and hyponatremia; C61 Malignant neoplasm of prostate; D53.9 Nutritional anemia, unspecified; I95.89 Other hypotension; I10 Essential (primary) hypertension; E78.5 Hyperlipidemia, unspecified; E87.6 Hypokalemia; K21.9 Gastro-esophageal reflux disease without esophagitis; F41.8 Other specified anxiety disorders; G47.31 Primary central sleep apnea; E80.7 Disorder of bilirubin metabolism, unspecified; Z92.3 Personal history of irradiation; R79.1 Abnormal coagulation profile; Z92.21 Personal history of antineoplastic chemotherapy; Z96.653 Presence of artificial knee joint, bilateral; Z90.49 Acquired absence of other specified parts of digestive tract; Z96.641 Presence of right artificial hip joint; Z98.41 Cataract extraction status, right eye; Z98.42 Cataract extraction status, left eye; Z86.711 Personal history of pulmonary embolism; Z79.899 Other long term (current) drug therapy; Z99.89 Dependence on other enabling machines and devices; Z79.01 Long term (current) use of anticoagulants; R33.9 Retention of urine, unspecified; N40.0 Benign prostatic hyperplasia without lower urinary tract symptoms
CPT/HCPCS: 36415; 74177; 80048; 80053; 83605; 83735; 84100; 84443; 85025; 85610; 85652; 86140; 87493; 87506; 94002; 94003; 97110; 97116; 97162; 97166; 97530; 97535; 97802; 97803; 99285; J7030; J7120; Q9967; A4216; J2405

== ENCOUNTER → 2023-12-08 | Outpatient (CLI) | payer MEDICARE, OTHER, SELFPAY ==
[2023-12-08 14:53] LABS: Anion Gap 6 (5-15); BUN 11 mg/dL (7-18); BUN/Creat Ratio 11.4 RATIO (10-20); Calcium,Total 9.2 mg/dL (8.5-10.1); Chloride 98 mmol/L (98-107); Creatinine, Serum 0.96 mg/dL (0.70-1.30); EST Glomerular Filtration Rate 81 mL/min (>60); Est Glom Filt Rate - Afr Amer 98 mL/min (>60); Glucose 135 mg/dL (74-106); Potassium 3.6 mmol/L (3.5-5.1); Sodium Level 134 mmol/L (136-145)
== END | disposition home or self-care (01) ==
LOC: BFHLAB 13:19
PROVIDERS: PCP Family Medicine; Visit Provider Family Medicine
DX: I10 Essential (primary) hypertension (principal); Z79.01 Long term (current) use of anticoagulants
CPT/HCPCS: 36415; 80048

== ENCOUNTER 2023-12-09 07:46 | Outpatient (CLI) | payer MEDICARE, OTHER, SELFPAY ==
[2023-12-09 08:44] VITALS: BP 91/67; PULSE 109; RESP 18; TEMP 36.7; O2SAT 95
--- NOTE | 2023-12-09 09:00 | NURSING ---
Patient requests port to be accessed for transfusion. Patient unsure if port needs flushed with heparin after de-accessed but patient and told this RN to flush with saline and heparin. Patient denies allergy to heparin.
[2023-12-09] MEDS: BEZLOTOXUMAB IV (09:19)
[2023-12-09] MEDS: NORMAL SALINE 0.9% IV (09:19)
[2023-12-09 10:34] VITALS: BP 101/71; PULSE 107; RESP 18; TEMP 36.9; O2SAT 95
[2023-12-09] MEDS: 0.9% NaCl Peripheral Flush Adult/Peds IV (10:38)
--- NOTE | 2023-12-09 10:50 | NURSING ---
Patient tolerated transfusion well-no symptoms or reaction. Vitals stable
[2023-12-09 11:36] LABS: International Normalized Ratio 1.3
== END 2023-12-09 10:51 | disposition home or self-care (01) ==
LOC: MS3OUT 07:47 → ICUOUT 07:50 → ICU 08:11
PROVIDERS: PCP Family Medicine; Referring Provider Internal Medicine Gastroenterology; Visit Provider Internal Medicine Gastroenterology
DX: A49.8 Other bacterial infections of unspecified site (principal); I10 Essential (primary) hypertension; Z79.01 Long term (current) use of anticoagulants
CPT/HCPCS: 96365; 36415; 85610; J7050; A4216; J0565

== ENCOUNTER 2024-01-06 14:44 | Outpatient (RCR) | payer MEDICARE, OTHER, SELFPAY ==
[2023-10-16 22:15] VITALS: BMI 38.0
[2023-12-21 12:46] LABS: International Normalized Ratio 1.3; Prothrombin Time (Protime)PT. 15.8 SECONDS (11.7-14.9)
[2024-01-06 17:58] LABS: International Normalized Ratio 1.7; Prothrombin Time (Protime)PT. 19.6 SECONDS (11.7-14.9)
== END 2024-01-15 02:19 | disposition home or self-care (01) ==
LOC: MTLAB 14:44
PROVIDERS: PCP Family Medicine; Referring Provider Family Medicine; Visit Provider Family Medicine
DX: Z86.711 Personal history of pulmonary embolism
CPT/HCPCS: 36415; 85610

== ENCOUNTER → 2024-01-17 | Outpatient (CLI) | payer MEDICARE, OTHER, SELFPAY ==
[2024-01-17 15:24] LABS: Absolute Lymphocyte Count 1.71 X10^3/uL (0.83-4.51); Absolute Neutrophil Count 3.5 X10^3/uL (2.0-7.7); Basophil# 0.05 X10^3/uL; Basophil% 0.7 % (0-1); Color, Urine Yellow (Yellow); Eosinophil# 0.53 X10^3/uL; Eosinophils% 7.7 % (0-5); Glucose, Dipstick Normal (Normal); Hemoglobin 12.3 g/dL (13.0-16.5); Ketone-Dipstick 5 mg/dl (Negative); Leukocyte Esterase-Dipstick 500 /ul (Negative); Lymphocyte # 1.71 X10^3/ul (0.83-4.51); Lymphocyte % 24.9 % (19-41); Mean Corp Hgb Conc 32.4 g/dL (32-36); Mean Corpuscular Volume 101.9 fL (80-94); Mean Platelet Vol. 9.5 fl (6.2-12.0); Monocyte# 1.03 X10^3/uL; NRBC Flagged by Analyzer 0 % (0-5); Neutrophil # 3.51 X10^3/uL (2.7-7.7); Neutrophil % 51.3 % (47-70); Nitrite-Dipstick Positive (Negative); Occult Blood-Urine 150 /ul (Negative); Platelet Count 192 K/mm3 (150-450); Protein-Dipstick 100 mg/dl (Negative); RBC Distribution Width CV 13.3 % (11.6-14.6); RBC Distribution Width SD 50.3 fl (35.1-43.9); Red Blood Count 3.73 M/mm3 (4.6-6.2); Urine Clarity Sl. Cloudy (Clear); Urine Urobilinogen Normal (Normal); White Blood Count 6.9 K/mm3 (4.4-11.0)
[2024-01-17 15:25] LABS: Urine Bilirubin Dipstick 1 mg/dL (Negative)
[2024-01-17 15:58] LABS: Vitamin B12 > 2000 pg/mL (211-911)
[2024-01-17 16:02] LABS: ALB/GLOB Ratio 0.5 RATIO (0.9-2.4); AST(SGOT) 36 U/L (15-37); Alanine Aminotransfer ALT/SGPT 17 U/L (16-61); Albumin, Serum 2.7 g/dL (3.2-5.0); Alkaline Phosphatase 343 U/L (45-117); Anion Gap 7 (5-15); BUN 9 mg/dL (7-18); Chloride 98 mmol/L (98-107); Creatinine, Serum 0.82 mg/dL (0.70-1.30); EST Glomerular Filtration Rate 98 mL/min (>60); Est Glom Filt Rate - Afr Amer 118 mL/min (>60); Globulin 5.5 g/dL (2.2-4.2); Glucose 138 mg/dL (74-106); Potassium 4.1 mmol/L (3.5-5.1); Protein, Total 8.2 g/dL (6.4-8.2); Sodium Level 132 mmol/L (136-145); Thyroid Stim Hormone (TSH) 0.46 uIU/mL (0.358-3.74)
== END | disposition home or self-care (01) ==
LOC: BFHLAB 13:20
PROVIDERS: PCP Family Medicine; Visit Provider Family Medicine
DX: R41.0 Disorientation, unspecified (principal); I10 Essential (primary) hypertension; E53.8 Deficiency of other specified B group vitamins; N39.0 Urinary tract infection, site not specified
CPT/HCPCS: 36415; 80053; 81002; 82140; 82607; 84443; 85025; 87077; 87086; 87088; 87186

== ENCOUNTER 2024-03-01 10:22 | Outpatient (RCR) | payer MEDICARE, OTHER, SELFPAY ==
[2024-01-15 02:19] VITALS: BMI 38.0
[2024-03-01 12:38] LABS: International Normalized Ratio 2.4; Prothrombin Time (Protime)PT. 26.1 SECONDS (11.7-14.9)
== END 2024-03-16 18:00 | disposition home or self-care (01) ==
LOC: MTLAB 10:22
PROVIDERS: PCP Family Medicine; Referring Provider Family Medicine; Visit Provider Family Medicine
DX: Z86.711 Personal history of pulmonary embolism
CPT/HCPCS: 36415; 85610

== ENCOUNTER → 2024-06-14 | Outpatient (CLI) | payer MEDICARE, OTHER, SELFPAY ==
[2024-06-14 14:23] LABS: Hematocrit 33.6 % (40-54); Hemoglobin 10.6 g/dL (13.0-16.5); Mean Corp Hgb Conc 31.5 g/dL (32-36); Mean Corpuscular Hgb 32.2 pg (27.0-32.0); Mean Corpuscular Volume 102.1 fL (80-94); Mean Platelet Vol. 8.5 fl (6.2-12.0); Platelet Count 102 K/mm3 (150-450); RBC Distribution Width SD 63.8 fl (35.1-43.9); Red Blood Count 3.29 M/mm3 (4.6-6.2); White Blood Count 8.4 K/mm3 (4.4-11.0)
[2024-06-14 15:04] LABS: International Normalized Ratio 1.1; Prothrombin Time (Protime)PT. 14.7 SECONDS (11.7-14.9)
== END | disposition home or self-care (01) ==
LOC: LABSPEC 14:00
PROVIDERS: PCP Family Medicine; Referring Provider Family Medicine; Visit Provider Family Medicine
DX: D68.32 Hemorrhagic disorder due to extrinsic circulating anticoagulants (principal); Z79.01 Long term (current) use of anticoagulants
CPT/HCPCS: 85027; 85610

== ENCOUNTER → 2024-06-25 | Outpatient (CLI) | payer MEDICARE, OTHER, SELFPAY ==
[2024-06-25 15:20] LABS: Basophil# 0.05 X10^3/uL; Basophil% 0.5 % (0-1); Eosinophil# 0.06 X10^3/uL; Eosinophils% 0.6 % (0-5); Hematocrit 35.1 % (40-54); Lymphocyte % 15.7 % (19-41); Mean Corp Hgb Conc 31.3 g/dL (32-36); Mean Corpuscular Hgb 32.8 pg (27.0-32.0); Mean Corpuscular Volume 104.8 fL (80-94); Monocyte# 0.97 X10^3/uL; Monocyte% 9.3 % (0-10); NRBC Flagged by Analyzer 1.2 % (0-5); Neutrophil % 68.7 % (47-70); POSITIVE COUNT YES; POSITIVE MORPHOLOGY YES; Platelet Count 14 K/mm3 (150-450); RBC Distribution Width CV 18.6 % (11.6-14.6); RBC Distribution Width SD 70.5 fl (35.1-43.9); Red Blood Count 3.35 M/mm3 (4.6-6.2); White Blood Count 10.4 K/mm3 (4.4-11.0)
[2024-06-25 15:32] LABS: International Normalized Ratio 1.6; Prothrombin Time (Protime)PT. 18.7 SECONDS (11.7-14.9)
[2024-06-25 15:54] LABS: ALB/GLOB Ratio 0.9 RATIO (0.9-2.4); AST(SGOT) 59 U/L (15-37); Alanine Aminotransfer ALT/SGPT 64 U/L (16-61); Alkaline Phosphatase 380 U/L (45-117); Anion Gap 9 (5-15); BUN 31 mg/dL (7-18); BUN/Creat Ratio 39.5 RATIO (10-20); Calcium,Total 8.8 mg/dL (8.5-10.1); Chloride 104 mmol/L (98-107); Creatinine, Serum 0.78 mg/dL (0.70-1.30); EST Glomerular Filtration Rate 103 mL/min (>60); Est Glom Filt Rate - Afr Amer 124 mL/min (>60); Globulin 3.4 g/dL (2.2-4.2); Glucose 97 mg/dL (74-106); Potassium 3.8 mmol/L (3.5-5.1); Protein, Total 6.4 g/dL (6.4-8.2); Sodium Level 138 mmol/L (136-145)
[2024-06-25 17:53] LABS: Differential Indicated SCAN CRITERIA MET
[2024-06-25 18:44] LABS: Lymphocyte 13 % (19-41); Metamyelocyte 5 % (0-1); Monocyte 7 % (0-10); Myelocyte 4 % (0-0); Neutrophil-Segmented 71 % (47-70); Nucleated Red Bld Cells,Manual 1 % (0-5)
[2024-06-25 18:49] LABS: Neutrophil # 7.39 X10^3/uL (2.7-7.7)
[2024-06-25 18:50] LABS: Absolute Lymphocyte Count 1.35 X10^3/uL (0.83-4.51); Absolute Neutrophil Count 7.4 X10^3/uL (2.0-7.7); Lymphocyte # 1.35 X10^3/ul (0.83-4.51)
[2024-06-25 18:51] LABS: Anisocytosis 1+; Macrocytosis 1+; Platelet Estimate MKD DEC (ADEQ); Red Cell Morphology N CHROM NORMAL (NORM C&C)
[2024-06-26 11:35] LABS: Pathologist Review Reviewed
== END | disposition home or self-care (01) ==
LOC: BFHLAB 13:12
PROVIDERS: PCP Family Medicine; Referring Provider Family Medicine; Visit Provider Family Medicine
DX: D64.9 Anemia, unspecified (principal); D69.2 Other nonthrombocytopenic purpura; R53.83 Other fatigue
CPT/HCPCS: 36415; 80053; 85025; 85610

== ENCOUNTER 2024-06-26 12:55 | Emergency (ER) | payer MEDICARE, OTHER, SELFPAY ==
[2024-06-26 12:55] VITALS: BP 149/71; PULSE 78; RESP 18; TEMP 36.6; O2SAT 96
--- NOTE | 2024-06-26 13:31 | CT_ITS ---
INDICATION: ams EXAMINATION: CT BRAIN - CT Head or Brain W/O Contrast Injection TECHNIQUE: Multiple axial images were obtained of the head without intravenous contrast. The protocol utilizes one or more of the following dose reduction techniques: automated exposure control, adjustment of mA and/or kV according to patient size,and/or use of iterative reconstruction technique. IV Contrast dosage and agent: None. RADIATION DOSAGE (If Supplied By Facility): CTDIvol = ( 47.06 ) mGy, DLP = ( 907.97 ) mGycm COMPARISON: Prior study dated: 10/30/2021 FINDINGS: BRAIN PARENCHYMA: No intra- or extra-axial hemorrhage. [Hypodensity in the right frontal region without associated mass effect or shift in midline not seen on the previous examination likely representing chronic infarct. Periventricular deep white matter changes likely due to chronic microvascular disease. There is otherwise preservation of the lang[place]/white matter interface. Posterior fossa structures are unremarkable. Atherosclerotic calcifications of the cavernous internal carotid arteries. CSF SPACES: Mild diffuse atrophy. No hydrocephalus. Basal cisterns are patent. CALVARIUM, SKULL BASE, PARANASAL SINUSES AND MASTOID AIR CELLS: Clear. No discrete lytic or blastic abnormalities. ORBITS: Previous bilateral cataract surgery. CT/Brain/Head without Contrast IMPRESSION: 1. 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 Subacute infarct is less likely. 2. No acute intracranial process. 3. If symptoms persist, MRI of the brain is recommended. Electronically Signed: Jose E Blanco MD at 15:00 EDT ,
[2024-06-26 14:07] LABS: Hematocrit 29.4 % (40-54); Hemoglobin 9.5 g/dL (13.0-16.5); Mean Corp Hgb Conc 32.3 g/dL (32-36); Mean Corpuscular Hgb 33.1 pg (27.0-32.0); Mean Corpuscular Volume 102.4 fL (80-94); POSITIVE COUNT YES; POSITIVE MORPHOLOGY YES; RBC Distribution Width SD 66.4 fl (35.1-43.9); Red Blood Count 2.87 M/mm3 (4.6-6.2); White Blood Count 8.9 K/mm3 (4.4-11.0)
--- NOTE | 2024-06-26 14:11 | EX.ED.DYSGE1 ---
HPI History of Present Illness Chief Complaint: GI Bleed Narrative Narrative: Patient is a 73-year-old male past medical history of prostate cancer, esophageal varices, DVT, GERD, glaucoma, hypertension who presents to the emergency department with chief complaint of rectal bleeding. According to the patient's at bedside she noted that for the past week and a half he had been having blood that was noted be bright red in the toilet. She states that he is on hospice and at first they thought that things would improve on their own. She states that she took him to his primary care physician on Tuesday which she had blood work obtained and noted that his platelets went down to 14. She states that she was waiting to get confirmation from hospice to be able to bring him here. She states that he has had spontaneous bruising throughout his body as well as noted that he had some redness in his left eye as well. They deny any falls or injuries. 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 difficile colitis History of chemotherapy Prostate cancer Other instability, left shoulder Anemia Esophageal varices Loss of hearing Wears glasses Wears partial dentures Cancer Abrasion Gout Arthritis Bladder disease DVT (deep venous thrombosis) Back pain Hx of Acosta's palsy Blackout Injury of head and neck Syncope Gastritis History of ulceration History of hiatal hernia Gastric reflux ASV (adaptive servo-ventilation) use counseling Asthma Shortness of breath on exertion Chronic cough History of edema Cardiology follow-up encounter History of irregular heartbeat Chest pain Hx of glaucoma GERD (gastroesophageal reflux disease) Seizure Sinus pause Symptomatic bradycardia (09/24/21) COVID-19 virus detected (06/06/21) Dysphagia Voice hoarsenesses Bronchiectasis Severe persistent asthma Central sleep apnea Essential (primary) hypertension Personal history of colonic polyps GERD without esophagitis History of Coumadin therapy Atrioventricular block, first degree Hypokalemia Peripheral neuropathy History of pulmonary embolism Hyperlipidemia Prostate cancer metastatic to bone Home Medications ?Medication ?Instructions ?Recorded ?Last Taken ?Type duloxetine 60 mg capsule,delayed 60 mg PO QDAY depression 12/01/17 Unknown History release (Cymbalta) glucosamine sulf dipot 2 ea PO DAILY supplement 02/17/20 Unknown History chlr,msm,chond 550 mg-C 30 mg-beronica 1 mg capsule PEP device #1 ea 08/25/21 Unknown Rx Lactobacillus acidophilus 10 mg PO DAILY probiotic 03/10/23 Unknown History gabapentin 400 mg capsule 800 mg PO DAILY nerve pain 03/10/23 Unknown History oxybutynin chloride 5 mg tablet 5 mg PO DAILY overactive bladder 03/10/23 Unknown History acetaminophen 500 mg capsule 1,000 mg PO Q6H PRN pain 10/07/23 Unknown History ondansetron 8 mg PO TID PRN PRN n/v 10/07/23 10/06/23 08:00 History tamsulosin 0.4 mg capsule 0.4 mg PO DAILY@1730 #30 caps 11/28/23 Unknown Rx guaifenesin 1,200 mg tablet, 1,200 mg PO Q12H congestion #60 12/22/23 Unknown Rx extended release 12 hr tabs methadone 5 mg tablet 2.5 mg PO BID pain 05/15/24 Unknown History oxycodone 5 mg tablet 10 mg PO Q12H pain 05/15/24 Unknown History bisacodyl 10 mg rectal suppository 10 mg VT DAILY PRN constipation 06/26/24 Unknown History clindamycin HCl 150 mg capsule 600 mg PO PRN 06/26/24 Unknown History (Cleocin HCl) dexamethasone 4 mg tablet 4 mg PO DAILY 06/26/24 Unknown History diazepam 2 mg tablet (Valium) 2 mg PO BID 06/26/24 Unknown History famotidine 40 mg tablet (Pepcid) 40 mg PO DAILY 06/26/24 Unknown History gabapentin 400 mg capsule 1,200 mg PO QHS 06/26/24 Unknown History haloperidol 1 mg tablet 1 mg PO DAILY PRN agitation 06/26/24 Unknown History hyoscyamine 0.15 mg tablet 0.125 mg PO DAILY PRN PRN 06/26/24 Unknown History excessive salivation latanoprost 0.005 % eye drops 1 drp RIGHT EYE QHS 06/26/24 Unknown History lorazepam 0.5 mg tablet (Ativan) 0.5 mg PO DAILY PRN anxiety 06/26/24 Unknown History morphine concentrate 20 mg/mL oral 5 mg sublingual Q6H PRN dyspnea 06/26/24 Unknown History syringe (FOR ORAL USE ONLY) oxycodone 15 mg tablet 15 mg PO BID 06/26/24 Unknown History Allergy/AdvReac Type Severity Reaction Status Date / Time cyclobenzaprine (From Allergy Unknown Unknown Verified 06/26/24 12:56 Flexeril) adhesive Allergy Rash Verified 06/26/24 12:56 docetaxel (From Taxotere) Allergy Unknown Verified 06/26/24 12:56 doxycycline Allergy Unknown Verified 06/26/24 12:56 enoxaparin sodium (From Allergy triple Verified 06/26/24 12:56 Lovenox) liver enzymes Penicillins Allergy Rash Verified 06/26/24 12:56 enoxaparin (Enoxaparin) AdvReac Mild Nausea Verified 06/26/24 12:56 amlodipine AdvReac Unknown Pt Verified 06/26/24 12:56 remembers he can't take it but can't remember reaction cabazitaxel AdvReac white Verified 06/26/24 12:56 count went down promethazine AdvReac Other Verified 06/26/24 12:56 Family History Mother Hypertension Arthritis Father , age 82 COPD complications COPD (chronic obstructive pulmonary disease) Arthritis Sister Hypertension Surgical History History of right hip replacement History of blepharoplasty Hx of right cataract extraction Hx of left cataract extraction History of esophagogastroduodenoscopy (EGD) (12/2020) History of colonoscopy (12/2020) History of left heart catheterization (06/16/04) history of thumb replacement history of toe replacement History of bilateral knee replacement History of hernia surgery History of cholecystectomy Social History household members: spouse Smoking Status: Never smoker alcohol intake: never substance use type: does not use ROS ROS ED ROS Narrative Constitutional: Denies any headaches, fevers, chills, lightheadedness, dizziness Eyes: Denies double vision blurry vision changes vision Cardiovascular: Denies chest pain or palpitations Respiratory: Denies coughing wheezing shortness of breath Abdomen: Complains of bright red blood per rectum as noted above denies any blood thinning medications denies abdominal pain nausea vomit diarrhea : Denies any urinary symptoms Neurological: Denies numbness, discontinuing Skin: Complains of bruising as noted above EXAM Physical Exam Narrative Exam Narrative: General: Patient was lying in bed rest comfortably did not appear to be in acute distress Head: Atraumatic, normocephalic Eyes: Patient has subconjunctival hemorrhage noted in the left eye, EOMI bilateral, PERRL bilaterally Neck: Soft, supple, trachea midline Cardiovascular: Regular rate and rhythm no murmurs gallops rubs noted Respiratory: Clear to auscultation bilaterally Abdomen: Soft, nondistended, nontender to palpation Extremities: +4/5 strength noted in the bilateral upper and lower extremities, radial pulses +2/4 in the bilateral extremities Neurological: Patient following commands knew that he is [facility] year is 2023. NIH of 0 GCS 15 Skin: Patient has scattered ecchymosis noted in his extremities Const Vital Signs: 06/26/24 12:55 06/26/24 13:10 06/26/24 15:15 Temperature 98 F Temperature Source Temporal Pulse Rate 78 62 Respiratory Rate 18 14 Respiratory Effort Normal Non-Labored Respiratory Pattern Normal Blood Pressure 149/71 H 147/81 H Blood Pressure Mean 97 103 Pulse Ox 96 96 Oxygen Delivery Method Room Air Room Air 06/26/24 17:00 Temperature Temperature Source Pulse Rate 63 Respiratory Rate 16 Respiratory Effort Respiratory Pattern Blood Pressure 135/66 H Blood Pressure Mean 89 Pulse Ox 96 Oxygen Delivery Method Room Air MDM MDM MDM Narrative Medical decision making narrative: Patient is a 73-year-old male who presented to the emergency department chief complaint of bright red blood per rectum. Patient will have workup performed here on the differential diagnose includes but not limited to diverticulosis, AV malformation, thrombocytopenia, intracranial hemorrhage, subconjunctival hemorrhage. Once workup is obtained reviewed he will be reevaluated. Patient CBC reviewed showed no evidence leukocytosis white blood cell normal at 8.9, hemoglobin went from 11-9.5 since yesterday, platelet count was noted to be low indicating thrombocytopenia at 11 patient will be given 2 units of platelets, MCV was a macrocytic anemia with 102.4. Patient's absolute neutrophil count was normal at 6.2. Patient's INR normal at 1.7, PT of 20.4. Patient sodium normal 135, potassium normal 4.1, creatinine normal at 0.70. Patient's AST and ALT were 50 and 51 respectively with a normal total bilirubin 0.90. Patient's proBNP noted to be 132, lipase normal at 20. Patient's CT head and brain without contrast reviewed showed no acute intracranial process there appears to be a small right frontal infarct appears to be chronic. Patient's chest x-ray reviewed and showed no significant change. Rectal exam was performed and there was noted to be dark red blood noted. Will discuss case with gastroenterology. Did add on a CT abdomen pelvis with IV contrast. Patient did go down for CT abdomen pelvis and when he stood up to transfer the table noted that his legs gave out on him causing him to hit the side of his head therefore a repeat CT head and brain without contrast was ordered which was also reviewed showed no acute intracranial hemorrhage. Did call and discussed case with Dr. Torres and given his low platelets and no interventional radiology for embolization is requesting transfer. Called [facility] And no beds are available. Called and discussed case with [facility] kitchen manager Dr. Ashraf who after discussing everything thinks the patient can go to the emergency department for further evaluation and decision if he needs to come to the intensive care unit or not. Did discuss case with ER physician who is aware of the patient Dr. Mcarthur Who will accept the patient for ER to ER transfer. Patient's for members and himself were notified of this plan and they are agreeable with this plan. All question concerns answered bedside. Lab Data Labs: Laboratory Results - last 24 hr 06/26/24 13:50 WBC 8.9 RBC 2.87 L Hgb 9.5 L Hct 29.4 L MCV 102.4 H MCH 33.1 H MCHC 32.3 RDW Std Deviation 66.4 H RDW Coeff of Judi 18.0 H Plt Count 11 L* Neut % (Auto) Not Reportable Absolute Neuts (auto) 6.2 Absolute Lymphs (auto) 0.89 Total Counted 100 Neutrophils % (Manual) 70 Band Neutrophils % 3 Lymphocytes % (Manual) 10 L Monocytes % (Manual) 13 H Eosinophils % (Manual) 1 Metamyelocytes % 1 Myelocytes % 2 H Diff Path Review May foll Platelet Estimate MKD DEC Polychromasia 1+ Anisocytosis 2+ PT 20.0 H INR 1.7 APTT 31.9 Sodium 135 L Potassium 4.1 Chloride 103 Carbon Dioxide 28.0 Anion Gap 4 L BUN 26 H Creatinine 0.70 Est GFR (MDRD) Af Amer 141 Est GFR (MDRD) Non-Af 116 BUN/Creatinine Ratio 36.9 H Glucose 105 Calcium 8.1 L Total Bilirubin 0.90 AST 58 H ALT 51 Alkaline Phosphatase 348 H B-Natriuretic Peptide 132.2 H Total Protein 5.7 L Albumin 2.6 L Globulin 3.1 Albumin/Globulin Ratio 0.8 L Lipase 20 Blood Type A POSITIVE Antibody Screen NEGATIVE Radiography Diagnostic Testing: Clinical Impression(s) from Imaging Studies Brain CT 06/26/24 13:31 IMPRESSION: 1. 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 Subacute infarct is less likely. 2. No acute intracranial process. 3. If symptoms persist, MRI of the brain is recommended. Electronically Signed: Jose E Blanco MD at 15:00 EDT , Chest X-Ray 06/26/24 14:17 IMPRESSION: No significant change. Electronically Signed: Jose E Blanco MD at 15:23 EDT , Brain CT 06/26/24 16:51 IMPRESSION: No change or acute abnormality since earlier today. Electronically Signed: De Castillo MD at 17:39 EDT , Discharge Plan Triage Chief Complaint: GI Bleed Other Complaint: Abn Labs ED Provider: Ezio Edmondson Dx/Rx/DC Orders Clinical Impression: Acute lower gastrointestinal bleeding, Thrombocytopenia, Anemia Prescriptions: No Action duloxetine [Cymbalta] 60 mg capsule,delayed release(DR/EC) 60 mg PO QDAY gabapentin 400 mg capsule 800 mg PO DAILY (DME) PEP device See Rx Instructions .Route .MEDSUPPLY Qty: 1 0RF Rx Instructions: with training oxybutynin chloride 5 mg tablet 5 mg PO DAILY Lactobacillus acidophilus Capsule 10 mg PO DAILY methadone 5 mg tablet 2.5 mg PO BID oxycodone 5 mg tablet 10 mg PO Q12H glucos sul [id number] 1 EACH capsule 2 ea PO DAILY acetaminophen 500 mg capsule 1,000 mg PO Q6H PRN (Reason: pain) ondansetron 8 mg PO TID PRN PRN (Reason: n/v) tamsulosin 0.4 mg Capsule 0.4 mg PO DAILY@1730 Qty: 30 0RF diazepam [Valium] 2 mg tablet 2 mg PO BID oxycodone 15 mg tablet 15 mg PO BID gabapentin 400 mg capsule 1,200 mg PO QHS famotidine [Pepcid] 40 mg tablet 40 mg PO DAILY dexamethasone 4 mg tablet 4 mg PO DAILY morphine concentrate 20 mg/mL syringe 5 mg sublingual Q6H PRN (Reason: dyspnea) lorazepam [Ativan] 0.5 mg tablet 0.5 mg PO DAILY PRN (Reason: anxiety) hyoscyamine 0.15 mg tablet 0.125 mg PO DAILY PRN PRN (Reason: excessive salivation) haloperidol 1 mg tablet 1 mg PO DAILY PRN (Reason: agitation) Rx Instructions: liquid bisacodyl 10 mg suppository 10 mg VT DAILY PRN (Reason: constipation) clindamycin HCl [Cleocin HCl] 150 mg capsule 600 mg PO PRN Rx Instructions: 1 hr prior to dentist latanoprost 0.005 % drops 1 drp RIGHT EYE QHS guaifenesin 1,200 mg tablet extended release 12hr 1,200 mg PO Q12H Qty: 60 5RF Primary Care Provider: Nikolas Bennett Referrals: Nikolas Bennett DO [Primary Care Provider] - Print Language: Faroese
[2024-06-26 14:16] LABS: Differential Indicated MANUAL DIFF; Platelet Count 11 K/mm3 (150-450)
--- NOTE | 2024-06-26 14:17 | RAD_ITS ---
INDICATION: sob EXAMINATION/TECHNIQUE: X-RAY - XR Chest 2 Views COMPARISON: Prior study dated: 11/02/2023 FINDINGS: LINES/DEVICES: Left-sided Port-A-Cath in stable position. LUNGS: The lungs are hyperexpanded with COPD changes. Left retrocardiac atelectasis or scarring unchanged. No new infiltrate is seen. No evidence of pleural effusions. MEDIASTINUM AND CARDIOVASCULAR STRUCTURES: Cardiac silhouette not enlarged. Central airways and mediastinal contour are unremarkable. BONES AND SOFT TISSUES: Unchanged. RAD/Chest PA and Lateral IMPRESSION: No significant change. Electronically Signed: Jose E Blanco MD at 15:23 EDT ,
[2024-06-26 14:28] LABS: ALB/GLOB Ratio 0.8 RATIO (0.9-2.4); AST(SGOT) 58 U/L (15-37); Alanine Aminotransfer ALT/SGPT 51 U/L (16-61); Albumin, Serum 2.6 g/dL (3.2-5.0); Alkaline Phosphatase 348 U/L (45-117); Anion Gap 4 (5-15); BUN 26 mg/dL (7-18); BUN/Creat Ratio 36.9 RATIO (10-20); Calcium,Total 8.1 mg/dL (8.5-10.1); Chloride 103 mmol/L (98-107); EST Glomerular Filtration Rate 116 mL/min (>60); Est Glom Filt Rate - Afr Amer 141 mL/min (>60); Globulin 3.1 g/dL (2.2-4.2); Glucose 105 mg/dL (74-106); International Normalized Ratio 1.7; Lipase 20 U/L (13-75); Partial Thromboplast Time 31.9 Seconds (24.1-36.2); Potassium 4.1 mmol/L (3.5-5.1); Protein, Total 5.7 g/dL (6.4-8.2); Sodium Level 135 mmol/L (136-145)
[2024-06-26 14:52] LABS: BNP,B-Type NATRIURETIC PEPTIDE 132.2 pg/mL (0-100)
[2024-06-26 15:15] VITALS: BP 147/81; PULSE 62; RESP 14; O2SAT 96
[2024-06-26 15:58] LABS: Eosinophil 1 % (0-5); Lymphocyte 10 % (19-41); Metamyelocyte 1 % (0-1); Monocyte 13 % (0-10); Myelocyte 2 % (0-0); Neutrophil-Band 3 % (0-5); Neutrophil-Segmented 70 % (47-70); Total Cells Counted 100 (MANUAL DIFF)
[2024-06-26 16:02] LABS: Anisocytosis 2+; Polychromasia 1+
[2024-06-26 16:03] LABS: Platelet Estimate MKD DEC (ADEQ)
[2024-06-26 16:05] LABS: Absolute Lymphocyte Count 0.89 X10^3/uL (0.83-4.51); Absolute Neutrophil Count 6.2 X10^3/uL (2.0-7.7)
--- NOTE | 2024-06-26 16:11 | CT_ITS ---
EXAM: CT ABDOMEN AND PELVIS WITH INTRAVENOUS CONTRAST CLINICAL INDICATION: rectal bleeding TECHNIQUE: Helically acquired images were obtained of the abdomen and pelvis with intravenous contrast. This CT exam was performed using one or more of the following dose reduction techniques: automated exposure control, adjustment of the mA and/or kV according to patient size, and/or use of iterative reconstruction technique. CONTRAST: IV 100mL [id number] RADIATION DOSE: CTDIvol = 17.07 mGy, DLP = 1479.02 mGy-cm COMPARISON: 11/16/2023 FINDINGS: LOWER THORAX: Mild atelectasis or infiltrate in the posterior right lung base. Stable small to moderate hiatal hernia. No cardiomegaly. No significant pericardial effusion. ABDOMEN: LIVER: Unremarkable. Homogeneous. No focal mass. GALLBLADDER AND BILE DUCTS: Gallbladder is not seen. No intra- or extrahepatic biliary ductal dilation. PANCREAS: Atrophic pancreas. No focal cystic or solid mass. SPLEEN: Unremarkable. Normal size without focal cystic or solid mass. Probable splenic varices. ADRENALS: Unremarkable. No nodules. KIDNEYS AND URETERS: No acute abnormalities. Stable renal cysts. Normal renal size and position. No hydronephrosis. STOMACH AND BOWEL: Evaluation of the GI tract is limited by absence of oral contrast. Stable small to moderate hydroureter. Cannot exclude stomach wall thickening. No dilated loops of bowel or evidence for obstruction. Cannot exclude segmental thickening of the bennett of the small or large bowel. Cannot exclude enteritis or colitis. Moderate to marked diffuse fecal retention. Appendix within normal limits. PELVIS: APPENDIX: No evidence of acute appendicitis. BLADDER: Distended urinary bladder. REPRODUCTIVE: Unremarkable as visualized. No mass. ABDOMEN and PELVIS: INTRAPERITONEAL SPACE: Unremarkable. No ascites or other fluid collection. No free air. BONES/JOINTS: Degenerative changes throughout the spine. Marked worsening of blastic metastatic disease throughout the bones. SOFT TISSUES: Unremarkable. No discrete abdominal or pelvic wall hernia. VASCULATURE: There is a stable appearance and positioning of IVC filter in grossly satisfactory position. A focal IVC thrombus is seen related to the filter and not present previously. Consider further evaluation with vascular consult. Calcified tortuous aorta. No aneurysm. LYMPH NODES: Unremarkable. No enlarged lymph nodes. CT/Abdomen/Pelvis W IV Cont ONLY IMPRESSION: 1. Possible mild atelectasis or infiltrate in the posterior right lung base. 2. Prominent diffuse fecal retention throughout the colon. No evidence of colitis. 3. Thrombus in the IVC at the level of the IVC filter. Suggest vascular consultation. 4. Marked worsening of blastic metastatic disease throughout the bones. Electronically Signed: De Castillo MD at 17:55 EDT ,
--- NOTE | 2024-06-26 16:51 | CT_ITS ---
STUDY: CT BRAIN WITHOUT CONTRAST REASON FOR EXAM: Male, 73 years old. fall RADIATION DOSAGE (If Supplied By Facility): CTDIvol = ( 44.99 ) mGy, DLP = ( 863.60 ) mGycm TECHNIQUE: Transaxial CT imaging of the brain was performed without administration of intravenous contrast material. Individualized dose optimization techniques were used for this CT. COMPARISON: Same day, 2:17 PM FINDINGS: No change since earlier today. No acute abnormalities. Mild atrophy and white matter disease, stable. Stable small area of encephalomalacia in the right frontal lobe. CT/Brain/Head without Contrast IMPRESSION: No change or acute abnormality since earlier today. Electronically Signed: De Castillo MD at 17:39 EDT ,
[2024-06-26 17:00] VITALS: BP 135/66; PULSE 63; RESP 16; O2SAT 96
[2024-06-26] MEDS: oxyCODONE 5 MG Tablet 10 MG PO (18:07)
[2024-06-26 18:16] VITALS: BP 184/75; PULSE 62; RESP 18; TEMP 36.1; O2SAT 96
[2024-06-27 10:30] LABS: Pathologist Review Reviewed
== END 2024-06-26 18:33 | disposition short-term general hospital (02) ==
LOC: ED 14:33
PROVIDERS: Emergency Provider Emergency Medicine; PCP Family Medicine; Visit Provider Emergency Medicine
DX: K92.2 Gastrointestinal hemorrhage, unspecified (principal); G40.909 Epilepsy, unspecified, not intractable, without status epilepticus; I10 Essential (primary) hypertension; D69.6 Thrombocytopenia, unspecified; D64.9 Anemia, unspecified; E78.5 Hyperlipidemia, unspecified; Z85.46 Personal history of malignant neoplasm of prostate; Z92.21 Personal history of antineoplastic chemotherapy; Z85.830 Personal history of malignant neoplasm of bone; Z79.899 Other long term (current) drug therapy; Z96.641 Presence of right artificial hip joint; Z98.41 Cataract extraction status, right eye; Z98.42 Cataract extraction status, left eye; Z96.653 Presence of artificial knee joint, bilateral; Z90.49 Acquired absence of other specified parts of digestive tract
CPT/HCPCS: 36591; 70450; 71046; 74177; 80053; 82274; 83690; 83880; 85025; 85610; 85730; 86850; 86900; 86901; 99285; Q9967; A4216